=== PATIENT | female | born 1955 | race Caucasian/White ===

== ENCOUNTER 2020-09-14 15:33 | Outpatient (REF) | payer MEDICARE, OTHER, SELFPAY ==
[2020-09-14 17:09] LABS: COVID-19 Test Negative (Negative)
== END 2020-09-14 15:34 | disposition home or self-care (01) ==
LOC: HO.LAB 15:33
PROVIDERS: Visit Provider Internal Medicine
DX: Z20.828 Contact with and (suspected) exposure to other viral communicable diseases (principal)
CPT/HCPCS: 87635

== ENCOUNTER 2020-09-24 08:34 | Outpatient (REF) | payer OTHER, MEDICARE, SELFPAY ==
[2020-09-24 09:35] LABS: Basophils Percent Auto 0.5 % (0-2); Eosinophils Percent Auto 0.8 % (0-4); Hemoglobin 13.6 g/dl (12.0-16.0); Imm Gran Abs Auto 0.01 X10*3/uL (0.00-0.03); Imm Gran Pct Auto 0.3 % (0.0-0.4); Lymphocytes Absolute Auto 0.5 X10*3/uL (1.2-4.9); Lymphocytes Percent Auto 13.7 % (20-40); MANUAL DIFF FLAG SCAN; Mean Corpuscular HGB Conc 32.4 g/dl (31.0-35.0); Mean Corpuscular Hemoglobin 30.2 pg (27.0-33.0); Mean Corpuscular Volume 93.3 fL (80-98); Mean Platelet Volume 10.5 fL (9.4-12.3); Monocytes Absolute Auto 0.5 X10*3/uL (0.1-1.2); Monocytes Percent Auto 12.2 % (2-11); Neutrophils Absolute Auto 2.8 X10*3/uL (2.0-8.3); Neutrophils Percent Auto 72.5 % (45-73); Platelet Count 286 X10*3/uL (160-400); Red Cell Distribution Width 12.4 % (11.0-16.0); SCAN SMEAR FLAG 1; White Blood Count 3.9 X10*3/uL (4.8-10.8)
[2020-09-24 10:00] LABS: Alanine Aminotransferase 26 U/L (0-31); Albumin Level 4.4 g/dL (3.5-5.0); Anion Gap 12 (12-20); Aspartate Amino Transferase 25 U/L (5-31); C Reactive Protein 0.03 mg/dL (< or = 0.50); Carbon Dioxide 27 mmol/L (22-29); Chloride 105 mmol/L (96-108); Estimated Glomerular Filt Rate > 60; Potassium 4.4 mmol/l (3.3-5.1); Sodium 140 mmol/L (135-145)
[2020-09-24 10:35] LABS: Erythrocyte Sedimentation Rate 5 MM/HR (0-20)
[2020-09-24 11:20] LABS: SLIDE REVIEW VERIFIED
== END 2020-09-24 08:35 | disposition home or self-care (01) ==
LOC: HO.LABR 08:34
PROVIDERS: PCP Family Medicine; Visit Provider Internal Medicine
DX: Z51.81 Encounter for therapeutic drug level monitoring (principal); Z79.899 Other long term (current) drug therapy
CPT/HCPCS: 36415; 80051; 82040; 82565; 84450; 84460; 85025; 85652; 86140

== ENCOUNTER 2021-01-01 09:02 | Outpatient (REF) | payer OTHER, SELFPAY ==
--- NOTE | ~2021-01-01 | MM_ITS ---
EXAMINATION: BONE DENSITOMETRY CLINICAL INDICATION: Osteoporosis. COMPARISON: Previous BD dated 05/12/2019 and baseline BD dated 08/23/2007. TECHNIQUE: Using a [employer] DXA System (software version: 13.1) manufactured by [employer], dual-energy x-ray absorptiometry was performed of the lumbar spine and left hip. The images are of good technical quality. Summary results are attached. FINDINGS: AP SPINE L1-L4: Current: BMD 1.002 g/cm2, Z-score -0.1, T-score -1.5, osteopenia, 9.4% decrease from previous, 9.0% decrease from baseline (<5% change is not significant). Prior: BMD 1.106 g/cm2. Baseline: BMD 1.101 g/cm2. LEFT FEMUR, NECK: Current: BMD 0.630 g/cm2, Z-score -1.5, T-score -2.9, osteoporosis. Prior: BMD 0.663 g/cm2. Baseline: BMD 0.783 g/cm2. LEFT FEMUR, TOTAL: Current: BMD 0.713 g/cm2, Z-score -1.2, T-score -2.3, osteopenia, 2.3% decrease from previous, 13.7% decrease from baseline (<5% change is not significant). Prior: BMD 0.730 g/cm2. Baseline: BMD 0.826 g/cm2. IDENTIFIED RISK FACTORS: Rheumatoid arthritis, osteoporosis, height loss, glucocorticoids (chronic), menopause. HISTORY OF FRACTURE: None listed. MEDICATIONS: Calcium supplements or multivitamin, vitamin D. MM/XR DEXA axial skeleton IMPRESSION: 1. DIAGNOSIS: Osteoporosis based on the lowest T-score value of -2.9 in the femoral neck applying World Health Organization criteria. 2. 10-YEAR FRACTURE RISK PREDICTION, FRAX: Major osteoporotic fracture (clinical spine, forearm, hip or shoulder) 33.4%. Hip fracture 12.3%. 3. Treatment Recommendations: NOF guidelines recommend consideration for treatment in postmenopausal women and men age 50 and older presenting with the following: -A hip or vertebral (clinical or morphometric) fracture. -T-score less than or equal to -2.5 at the femoral neck or spine after appropriate evaluation to exclude secondary causes. -Low bone mass at the hip or spine and a 10-year fracture probability by FRAX of greater than or equal to 3% for hip fracture or greater than or equal to 20% for major osteoporotic fracture based on the [place] adapted WHO algorithm. 4. Other Recommendations: All treatment decisions require clinical judgment and consideration of individual patient factors, including patient preferences, comorbidities, previous drug use, risk factors not captured in the FRAX model (e.g. frailty, falls, vitamin D deficiency, increased bone turnover, interval significant decline in bone density) and possible under or overestimation of fracture risk by FRAX. Additional medical evaluation for secondary cause of low bone mineral density may be appropriate. FUTURE SCAN RECOMMENDATION: People with diagnosed cases of osteoporosis or at high risk for fracture should have regular bone mineral density tests. For patients eligible for Medicare, routine testing is allowed once every 2 years. The testing frequency can be increased to one year for patients who have rapidly progressing disease, those who are receiving or discontinuing medical therapy to restore bone mass, or have additional risk factors.
== END 2021-01-01 09:03 | disposition home or self-care (01) ==
LOC: HO.MAMMO 09:02
PROVIDERS: PCP Family Medicine; Visit Provider Internal Medicine Endocrinology, Diabetes & Metabolism
DX: Z13.820 Encounter for screening for osteoporosis (principal); M06.9 Rheumatoid arthritis, unspecified; M81.0 Age-related osteoporosis without current pathological fracture; Z79.52 Long term (current) use of systemic steroids; Z78.0 Asymptomatic menopausal state
CPT/HCPCS: 77080

== ENCOUNTER 2021-01-22 07:20 | Outpatient (REF) | payer OTHER, SELFPAY ==
[2021-01-22 09:22] LABS: Albumin Level 4.5 g/dL (3.5-5.0); Anion Gap 13 (12-20); Blood Urea Nitrogen 14 mg/dL (9-16); Calcium 9.6 mg/dL (8.4-10.2); Carbon Dioxide 28 mmol/L (22-29); Chloride 104 mmol/L (96-108); Estimated Glomerular Filt Rate 58; Glucose Random 93 mg/dL (60-115); Phosphorus 4.4 mg/dL (2.7-4.5); Potassium 4.4 mmol/L (3.3-5.1); Sodium 141 mmol/L (135-145)
[2021-01-22 09:35] LABS: TSH reflex Free T4 0.09 uIU/mL (0.32-4.0)
[2021-01-22 10:11] LABS: Free T4 (Free Thyroxine) 1.35 ng/dL (0.71-1.85)
[2021-01-29 06:47] LABS: N-Telopeptide 50 (see note); NTXCreaRU 104 mg/dL (20-275)
== END 2021-01-22 07:21 | disposition home or self-care (01) ==
LOC: HO.LAB 07:20
PROVIDERS: PCP Family Medicine; Visit Provider Internal Medicine Endocrinology, Diabetes & Metabolism
DX: M81.0 Age-related osteoporosis without current pathological fracture (principal)
CPT/HCPCS: 36415; 80051; 82040; 82306; 82310; 82523; 82565; 82947; 84100; 84439; 84443; 84520

== ENCOUNTER 2021-02-04 07:18 | Outpatient (REF) | payer OTHER, SELFPAY ==
--- NOTE | ~2021-02-04 | MM_ITS ---
EXAMINATION: MM SCREENING DIGITAL BREAST TOMOSYNTHESIS, BILATERAL CLINICAL INFORMATION: Screening. Asymptomatic. The lifetime risk of breast cancer based on the Tyrer-Cuzick Model is 5%. COMPARISON: Mammography: 06/06/2019, 05/04/2018, 07/29/2017 TECHNIQUE: Digital breast tomosynthesis is performed in both the craniocaudal and mediolateral oblique views along with computer-aided detection (CAD). Synthesized 2D images are generated from the tomosynthesis. FINDINGS: There are scattered areas of fibroglandular density (ACR BI-RADS breast composition Category b). There are no significant masses, abnormal calcifications, or other abnormalities. The axilla and skin contours are unremarkable. Parenchymal pattern similar to prior exams. MM/MM tomosynthesis screening BI IMPRESSION: No mammographic evidence of malignancy. ASSESSMENT: BI-RADS 1: Negative RECOMMENDATION: Routine annual mammography screening. This patient's information was entered into a reminder system with a target due date for their next mammogram.
[2021-02-04 08:58] LABS: Basophils Percent Auto 0.5 % (0-2); Eosinophils Percent Auto 0.7 % (0-4); Hematocrit 42.7 % (37-47); Hemoglobin 13.6 g/dl (12.0-16.0); Imm Gran Abs Auto 0.03 X10*3/uL (0.00-0.03); Imm Gran Pct Auto 0.7 % (0.0-0.4); Lymphocytes Absolute Auto 0.5 X10*3/uL (1.2-4.9); Lymphocytes Percent Auto 12.5 % (20-40); MANUAL DIFF FLAG SCAN; Mean Corpuscular HGB Conc 31.9 g/dl (31.0-35.0); Mean Corpuscular Hemoglobin 29.5 pg (27.0-33.0); Mean Corpuscular Volume 92.6 fL (80-98); Mean Platelet Volume 10.4 fL (9.4-12.3); Monocytes Absolute Auto 0.6 X10*3/uL (0.1-1.2); Monocytes Percent Auto 14.4 % (2-11); Neutrophils Percent Auto 71.2 % (45-73); Platelet Count 298 X10*3/uL (160-400); Red Blood Count 4.61 X10*6/uL (4.20-5.50); SCAN SMEAR FLAG 1; White Blood Count 4.2 X10*3/uL (4.8-10.8)
[2021-02-04 09:19] LABS: Alanine Aminotransferase 50 U/L (0-31); Albumin Level 4.4 g/dL (3.5-5.0); Anion Gap 13 (12-20); Aspartate Amino Transferase 38 U/L (5-31); C Reactive Protein 0.02 mg/dL (< or = 0.50); Carbon Dioxide 27 mmol/L (22-29); Chloride 105 mmol/L (96-108); Estimated Glomerular Filt Rate 59; Potassium 4.5 mmol/L (3.3-5.1); Sodium 140 mmol/L (135-145)
[2021-02-04 09:37] LABS: SLIDE REVIEW VERIFIED
[2021-02-04 10:16] LABS: Erythrocyte Sedimentation Rate 5 MM/HR (0-20)
== END 2021-02-04 07:19 | disposition home or self-care (01) ==
LOC: HO.MAMMO 07:18
PROVIDERS: Absent Provider Internal Medicine; PCP Family Medicine; Visit Provider Family Medicine
DX: Z12.31 Encounter for screening mammogram for malignant neoplasm of breast (principal); Z51.81 Encounter for therapeutic drug level monitoring
CPT/HCPCS: 36415; 77063; 77067; 80051; 82040; 82565; 84450; 84460; 85025; 85652; 86140

== ENCOUNTER 2021-02-14 08:36 | Outpatient (REF) | payer OTHER, SELFPAY ==
[2021-02-14 10:45] LABS: Anion Gap 14 (12-20); Blood Urea Nitrogen 19 mg/dL (9-16); Calcium 9.6 mg/dL (8.4-10.2); Carbon Dioxide 28 mmol/L (22-29); Chloride 104 mmol/L (96-108); Estimated Glomerular Filt Rate > 60; Potassium 4.7 mmol/L (3.3-5.1); Sodium 141 mmol/L (135-145)
== END 2021-02-14 08:37 | disposition home or self-care (01) ==
LOC: HO.LAB 08:36
PROVIDERS: Absent Provider Internal Medicine Medical Oncology; PCP Family Medicine; Visit Provider Internal Medicine Endocrinology, Diabetes & Metabolism
DX: M81.0 Age-related osteoporosis without current pathological fracture (principal)
CPT/HCPCS: 36415; 80051; 82310; 82565; 84520

== ENCOUNTER 2021-03-13 14:24 | Outpatient (REF) | payer OTHER, SELFPAY ==
[2021-03-13 15:08] LABS: Blood Urea Nitrogen 16 mg/dL (9-16); Estimated Glomerular Filt Rate 55
== END 2021-03-13 14:25 | disposition home or self-care (01) ==
LOC: HO.MDS 14:24
PROVIDERS: Visit Provider Internal Medicine Medical Oncology
DX: M81.0 Age-related osteoporosis without current pathological fracture (principal)
CPT/HCPCS: 36415; 82565; 84520; 96365; J3489

== ENCOUNTER 2021-04-12 07:38 | Outpatient (REF) | payer OTHER, SELFPAY ==
[2021-04-12 09:40] LABS: Free T4 (Free Thyroxine) 1.36 ng/dL (0.71-1.85); Thyroid Stimulating Hormone 0.16 uIU/mL (0.32-4.0)
== END 2021-04-12 07:39 | disposition home or self-care (01) ==
LOC: HO.LAB 07:38
PROVIDERS: PCP Family Medicine; Visit Provider Internal Medicine Endocrinology, Diabetes & Metabolism
DX: E03.9 Hypothyroidism, unspecified (principal)
CPT/HCPCS: 36415; 84439; 84443

== ENCOUNTER 2021-06-05 11:04 | Outpatient (REF) | payer OTHER, SELFPAY ==
[2021-06-05 12:23] LABS: MANUAL DIFF FLAG NO
[2021-06-05 12:27] LABS: Basophils Percent Auto 0.4 % (0-2); Eosinophils Absolute Auto 0.1 X10*3/uL (0.0-0.4); Eosinophils Percent Auto 1.3 % (0-4); Hematocrit 42.6 % (37-47); Hemoglobin 13.5 g/dl (12.0-16.0); Imm Gran Abs Auto 0.02 X10*3/uL (0.00-0.03); Imm Gran Pct Auto 0.4 % (0.0-0.4); Lymphocytes Absolute Auto 0.7 X10*3/uL (1.2-4.9); Lymphocytes Percent Auto 13.5 % (20-40); Mean Corpuscular HGB Conc 31.7 g/dl (31.0-35.0); Mean Corpuscular Hemoglobin 29.5 pg (27.0-33.0); Mean Corpuscular Volume 93.2 fL (80-98); Mean Platelet Volume 10.5 fL (9.4-12.3); Monocytes Absolute Auto 0.7 X10*3/uL (0.1-1.2); Monocytes Percent Auto 12.4 % (2-11); Neutrophils Absolute Auto 3.8 X10*3/uL (2.0-8.3); Platelet Count 340 X10*3/uL (160-400); Red Blood Count 4.57 X10*6/uL (4.20-5.50); Red Cell Distribution Width 12.5 % (11.0-16.0); White Blood Count 5.2 X10*3/uL (4.8-10.8)
[2021-06-05 13:17] LABS: Erythrocyte Sedimentation Rate 7 MM/HR (0-20)
[2021-06-05 13:18] LABS: Alanine Aminotransferase 27 U/L (0-31); Albumin Level 4.5 g/dL (3.5-5.0); Anion Gap 12 (12-20); Aspartate Amino Transferase 29 U/L (5-31); C Reactive Protein < 0.02 mg/dL (< or = 0.50); Carbon Dioxide 27 mmol/L (22-29); Chloride 105 mmol/L (96-108); Estimated Glomerular Filt Rate 57; Potassium 4.4 mmol/L (3.3-5.1); Sodium 140 mmol/L (135-145)
== END 2021-06-05 11:05 | disposition home or self-care (01) ==
LOC: HO.LAB 11:04
PROVIDERS: PCP Family Medicine; Visit Provider Internal Medicine
DX: Z51.81 Encounter for therapeutic drug level monitoring (principal)
CPT/HCPCS: 36415; 80051; 82040; 82565; 84450; 84460; 85025; 85652; 86140

== ENCOUNTER 2021-08-20 11:30 | Outpatient (REF) | payer OTHER, SELFPAY ==
[2021-08-20 12:09] LABS: Appearance Urine CLOUDY; Color Urine YELLOW; Glucose Urine UA NEG (NEG); Leukocyte Esterase Urine 1+ (NEG); Nitrite Urine POS (NEG); Specific Gravity - Urine 1.015 (1.005-1.025); UACC Culture Trigger YES; Urine Blood 1+ (NEG); Urine Ketones NEG (NEG); Urine Protein NEG (NEG-TRACE)
[2021-08-20 12:14] LABS: Bacteria Urine 3+ /LPF; Squamous Epithelial Cell Urine 2+ /LPF; WBC Clumps Urine NOTED; WBC Urine 50-75 /HPF (0-4)
== END 2021-08-20 11:31 | disposition home or self-care (01) ==
LOC: HO.LAB 11:30
PROVIDERS: PCP Family Medicine; Visit Provider Nurse Practitioner Family
DX: R30.0 Dysuria (principal)
CPT/HCPCS: 81001; 81003; 87086; 87088; 87186

== ENCOUNTER 2021-08-28 11:49 | Outpatient (REF) | payer OTHER, SELFPAY | END 2021-08-28 11:50 | disposition home or self-care (01) | LOC: HO.LAB 11:49 | PROVIDERS: PCP Family Medicine; Visit Provider Nurse Practitioner Family | DX: R30.0 Dysuria (principal) | CPT/HCPCS: 87086; 87088; 87186 ==

== ENCOUNTER 2021-09-04 11:41 | Outpatient (REF) | payer OTHER, SELFPAY ==
[2021-09-04 12:48] LABS: Appearance Urine CLEAR; Color Urine STRAW; Glucose Urine UA NEG (NEG); Leukocyte Esterase Urine NEG (NEG); Nitrite Urine NEG (NEG); Specific Gravity - Urine <= 1.005 (1.005-1.025); Urine Blood NEG (NEG); Urine Ketones NEG (NEG); Urine Protein NEG (NEG-TRACE)
== END 2021-09-04 11:42 | disposition home or self-care (01) ==
LOC: HO.LNP 11:41
PROVIDERS: Visit Provider Family Medicine
DX: R30.0 Dysuria (principal)
CPT/HCPCS: 81003; 87086

== ENCOUNTER 2021-09-24 08:51 | Outpatient (REF) | payer OTHER, SELFPAY ==
[2021-09-24 11:51] LABS: Anion Gap 13 (12-20); Blood Urea Nitrogen 15 mg/dL (9-16); Calcium 9.3 mg/dL (8.4-10.2); Carbon Dioxide 26 mmol/L (22-29); Chloride 106 mmol/L (96-108); Cholesterol 183 mg/dL; Estimated Glomerular Filt Rate 59; Glucose Random 111 mg/dL (60-115); HDL Cholesterol 56 mg/dL; LDL Cholesterol Calculated 109 mg/dl; Sodium 141 mmol/L (135-145); Triglycerides 93 mg/dL
[2021-09-24 12:04] LABS: TSH reflex Free T4 0.55 uIU/mL (0.32-4.0)
== END 2021-09-24 08:52 | disposition home or self-care (01) ==
LOC: HO.HMGCLDS 08:51
PROVIDERS: PCP Family Medicine; Visit Provider Family Medicine
DX: J45.909 Unspecified asthma, uncomplicated (principal); N81.10 Cystocele, unspecified; I10 Essential (primary) hypertension; E03.9 Hypothyroidism, unspecified
CPT/HCPCS: 36415; 80048; 80061; 84443

== ENCOUNTER 2021-10-03 13:15 | Outpatient (REF) | payer OTHER, SELFPAY ==
[2021-10-03 13:31] LABS: MANUAL DIFF FLAG NO
[2021-10-03 14:33] LABS: Basophils Percent Auto 0.7 % (0-2); Eosinophils Absolute Auto 0.1 X10*3/uL (0.0-0.4); Eosinophils Percent Auto 2.9 % (0-4); Hematocrit 40.4 % (37.0-47.0); Hemoglobin 13.1 g/dl (12.0-16.0); Imm Gran Abs Auto 0.01 X10*3/uL (0.00-0.03); Imm Gran Pct Auto 0.2 % (0.0-0.4); Lymphocytes Absolute Auto 0.9 X10*3/uL (1.2-4.9); Lymphocytes Percent Auto 20.7 % (20-40); Mean Corpuscular HGB Conc 32.4 g/dl (31.0-35.0); Mean Corpuscular Hemoglobin 29.6 pg (27.0-33.0); Mean Corpuscular Volume 91.2 fL (80.0-98.0); Mean Platelet Volume 10.4 fL (9.4-12.3); Monocytes Absolute Auto 0.7 X10*3/uL (0.1-1.2); Monocytes Percent Auto 16.2 % (2-11); Neutrophils Absolute Auto 2.7 x10*3/uL (2.0-8.3); Neutrophils Percent Auto 59.3 % (45-73); Platelet Count 300 X10*3/uL (160-400); Red Blood Count 4.43 X10*6/uL (4.20-5.50); Red Cell Distribution Width 12.4 % (11.0-16.0); White Blood Count 4.5 X10*3/uL (4.8-10.8)
[2021-10-03 14:57] LABS: Alanine Aminotransferase 21 U/L (0-31); Albumin Level 4.3 g/dL (3.5-5.0); Anion Gap 11 (12-20); Aspartate Amino Transferase 20 U/L (5-31); C Reactive Protein 0.18 mg/dL (< or = 0.50); Carbon Dioxide 26 mmol/L (22-29); Chloride 102 mmol/L (96-108); Estimated Glomerular Filt Rate 55; Potassium 4.1 mmol/L (3.3-5.1); Sodium 135 mmol/L (135-145)
[2021-10-03 15:25] LABS: Erythrocyte Sedimentation Rate 18 MM/HR (0-20)
== END 2021-10-03 13:16 | disposition home or self-care (01) ==
LOC: HO.LABR 13:15
PROVIDERS: PCP Family Medicine; Visit Provider Internal Medicine
DX: Z51.81 Encounter for therapeutic drug level monitoring (principal)
CPT/HCPCS: 36415; 80051; 82040; 82565; 84450; 84460; 85025; 85652; 86140

== ENCOUNTER 2021-11-11 13:20 | Outpatient (REF) | payer OTHER, SELFPAY ==
[2021-11-11 15:01] LABS: Influenza A PCR NEGATIVE (Negative); Influenza B PCR NEGATIVE (Negative); Resp Syncy Virus RNA Qual PCR NEGATIVE (Negative); SARS COV2 PCR INHOUSE NEGATIVE (Negative)
== END 2021-11-11 13:21 | disposition home or self-care (01) ==
LOC: HO.HMGCLDS 13:20
PROVIDERS: PCP Family Medicine; Visit Provider Nurse Practitioner Family
DX: R05.9 Cough, unspecified (principal); Z20.822 Contact with and (suspected) exposure to COVID-19
CPT/HCPCS: 0241U; C9803

== ENCOUNTER 2022-01-14 07:52 | Outpatient (REF) | payer OTHER, SELFPAY ==
[2022-01-14 09:29] LABS: Albumin Level 4.3 g/dL (3.5-5.0); Anion Gap 9 (12-20); Blood Urea Nitrogen 19 mg/dL (9-16); Calcium 9.8 mg/dL (8.4-10.2); Carbon Dioxide 29 mmol/L (22-29); Chloride 105 mmol/L (96-108); Estimated Glomerular Filt Rate 59; Glucose Random 91 mg/dL (60-115); Potassium 4.4 mmol/L (3.3-5.1); Sodium 139 mmol/L (135-145)
[2022-01-14 09:37] LABS: TSH reflex Free T4 0.67 uIU/mL (0.32-4.0)
[2022-01-17 16:02] LABS: Collagen Type I C-Telopeptide 142 pg/mL (see note)
== END 2022-01-14 07:53 | disposition home or self-care (01) ==
LOC: HO.LAB 07:52
PROVIDERS: PCP Family Medicine; Visit Provider Internal Medicine Endocrinology, Diabetes & Metabolism
DX: M81.0 Age-related osteoporosis without current pathological fracture (principal); E03.9 Hypothyroidism, unspecified
CPT/HCPCS: 36415; 80051; 82040; 82310; 82523; 82565; 82947; 84100; 84443; 84520

== ENCOUNTER 2022-02-05 08:12 | Outpatient (REF) | payer OTHER, SELFPAY ==
[2022-02-05 08:38] LABS: MANUAL DIFF FLAG NO
[2022-02-05 09:19] LABS: Basophils Percent Auto 0.5 % (0-2); Eosinophils Absolute Auto 0.1 X10*3/uL (0.0-0.4); Hematocrit 42.3 % (37.0-47.0); Hemoglobin 13.3 g/dl (12.0-16.0); Imm Gran Abs Auto 0.14 X10*3/uL (0.00-0.03); Imm Gran Pct Auto 2.3 % (0.0-0.4); Lymphocytes Absolute Auto 1.1 X10*3/uL (1.2-4.9); Mean Corpuscular HGB Conc 31.4 g/dl (31.0-35.0); Mean Corpuscular Hemoglobin 29.6 pg (27.0-33.0); Mean Corpuscular Volume 94.2 fL (80.0-98.0); Mean Platelet Volume 9.6 fL (9.4-12.3); Monocytes Absolute Auto 0.7 X10*3/uL (0.1-1.2); Neutrophils Absolute Auto 4.2 x10*3/uL (2.0-8.3); Neutrophils Percent Auto 67.2 % (45-73); Platelet Count 399 X10*3/uL (160-400); Red Blood Count 4.49 X10*6/uL (4.20-5.50); Red Cell Distribution Width 12.7 % (11.0-16.0); White Blood Count 6.2 X10*3/uL (4.8-10.8)
[2022-02-05 09:42] LABS: Alanine Aminotransferase 41 U/L (0-31); Albumin Level 4.3 g/dL (3.5-5.0); Anion Gap 14 (12-20); Aspartate Amino Transferase 27 U/L (5-31); C Reactive Protein 0.06 mg/dL (< or = 0.50); Carbon Dioxide 27 mmol/L (22-29); Chloride 102 mmol/L (96-108); Estimated Glomerular Filt Rate > 60; Potassium 4.6 mmol/L (3.3-5.1); Sodium 138 mmol/L (135-145)
[2022-02-05 10:06] LABS: Erythrocyte Sedimentation Rate 17 MM/HR (0-20)
== END 2022-02-05 08:13 | disposition home or self-care (01) ==
LOC: HO.LABR 08:12
PROVIDERS: PCP Family Medicine; Visit Provider Internal Medicine
DX: Z51.81 Encounter for therapeutic drug level monitoring (principal)
CPT/HCPCS: 36415; 80051; 82040; 82565; 84450; 84460; 85025; 85652; 86140

== ENCOUNTER 2022-02-22 11:02 | Outpatient (REF) | payer OTHER, SELFPAY ==
--- NOTE | ~2022-02-22 | XR_ITS ---
EXAMINATION: XR CHEST CLINICAL INFORMATION: Acute bronchitis COMPARISON: 08/23/2018 TECHNIQUE: 2 views of the chest were obtained. FINDINGS: No focal consolidation, pulmonary edema, or pleural effusion. Stable cardiomediastinal silhouette. XR/XR chest 2V IMPRESSION: No acute cardiopulmonary findings. No change.
== END 2022-02-22 11:03 | disposition home or self-care (01) ==
LOC: HO.HMGCX 11:02
PROVIDERS: Visit Provider Internal Medicine
DX: J20.9 Acute bronchitis, unspecified (principal)
CPT/HCPCS: 71046

== ENCOUNTER 2022-02-26 07:24 | Outpatient (REF) | payer OTHER, SELFPAY ==
--- NOTE | ~2022-02-26 | MM_ITS ---
EXAMINATION: MM SCREENING DIGITAL BREAST TOMOSYNTHESIS, BILATERAL CLINICAL INFORMATION: Screening. Asymptomatic. The lifetime risk of breast cancer based on the Tyrer-Cuzick Model is 5%. COMPARISON: Mammography: 02/04/2021, 06/06/2019, 05/04/2018 TECHNIQUE: Digital breast tomosynthesis is performed in both the craniocaudal and mediolateral oblique views along with computer-aided detection (CAD). Synthesized 2D images are generated from the tomosynthesis. FINDINGS: There are scattered areas of fibroglandular density (ACR BI-RADS breast composition Category b). There are no significant masses, abnormal calcifications, or other abnormalities. There are no significant changes from prior exams. MM/MM tomosynthesis screening BI IMPRESSION: No mammographic evidence of malignancy. ASSESSMENT: BI-RADS 1: Negative RECOMMENDATION: Routine annual mammography screening. This patient's information was entered into a reminder system with a target due date for their next mammogram.
== END 2022-02-26 07:25 | disposition home or self-care (01) ==
LOC: HO.MAMMO 07:24
PROVIDERS: PCP Family Medicine; Visit Provider Family Medicine
DX: Z12.31 Encounter for screening mammogram for malignant neoplasm of breast (principal)
CPT/HCPCS: 77063; 77067

== ENCOUNTER 2022-08-14 10:56 | Outpatient (REF) | payer OTHER, SELFPAY ==
[2022-08-14 11:13] LABS: MANUAL DIFF FLAG NO
[2022-08-14 11:40] LABS: Basophils Percent Auto 0.3 % (0-2); Eosinophils Percent Auto 0.6 % (0-4); Hematocrit 42.1 % (37.0-47.0); Hemoglobin 13.7 g/dl (12.0-16.0); Imm Gran Abs Auto 0.04 X10*3/uL (0.00-0.03); Imm Gran Pct Auto 0.6 % (0.0-0.4); Lymphocytes Percent Auto 15.7 % (20-40); Mean Corpuscular HGB Conc 32.5 g/dl (31.0-35.0); Mean Corpuscular Hemoglobin 30.1 pg (27.0-33.0); Mean Corpuscular Volume 92.5 fL (80.0-98.0); Mean Platelet Volume 10.2 fL (9.4-12.3); Monocytes Absolute Auto 0.7 X10*3/uL (0.1-1.2); Monocytes Percent Auto 9.9 % (2-11); Neutrophils Absolute Auto 4.8 x10*3/uL (2.0-8.3); Neutrophils Percent Auto 72.9 % (45-73); Platelet Count 313 X10*3/uL (160-400); Red Blood Count 4.55 X10*6/uL (4.20-5.50); Red Cell Distribution Width 13.2 % (11.0-16.0); White Blood Count 6.6 X10*3/uL (4.8-10.8)
[2022-08-14 12:21] LABS: Alanine Aminotransferase 34 U/L (0-31); Albumin Level 4.5 g/dL (3.5-5.0); Anion Gap 15 (12-20); Aspartate Amino Transferase 31 U/L (5-31); C Reactive Protein < 0.02 mg/dL (< or = 0.50); Carbon Dioxide 26 mmol/L (22-29); Chloride 103 mmol/L (96-108); Estimated Glomerular Filt Rate > 60; Potassium 4.3 mmol/L (3.3-5.1); Sodium 140 mmol/L (135-145)
[2022-08-14 12:42] LABS: Erythrocyte Sedimentation Rate 5 MM/HR (0-20)
== END 2022-08-14 10:57 | disposition home or self-care (01) ==
LOC: HO.LABR 10:56
PROVIDERS: PCP Family Medicine; Visit Provider Internal Medicine
DX: Z51.81 Encounter for therapeutic drug level monitoring (principal); Z79.899 Other long term (current) drug therapy
CPT/HCPCS: 36415; 80051; 82040; 82565; 84450; 84460; 85025; 85652; 86140

== ENCOUNTER 2022-10-09 15:10 | Outpatient (REF) | payer OTHER, SELFPAY ==
--- NOTE | ~2022-10-09 | XR_ITS ---
EXAMINATION: LUMBAR SPINE AND PELVIS AND LEFT HIP X-RAY CLINICAL INFORMATION: Pain COMPARISON: None TECHNIQUE: 3 views of the lumbar spine. One view of the pelvis and 2 views of the left hip FINDINGS: Lumbar spine: There is mild curvature of the lower lumbar sacral spine to the right. There is mild 2 mm anterior subluxation of L3 with respect to L2 and L4, 4 mm anterolisthesis of L4 L1 with respect to T12 and L4 with respect to S1. Bone alignment is otherwise normal. No fracture or dislocation There is degenerative disc disease at L5-S1 and T12-L1. 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 Pelvis and left hip: Bone alignment is normal. No fracture or dislocation. Normal hip joints. Normal soft tissues. XR/XR lumbar spine 2-3V IMPRESSION: Multilevel degenerative changes and mild curvature of the lower lumbar sacral spine to the right. Normal pelvis and left hip.
--- NOTE | ~2022-10-09 | XR_ITS ---
EXAMINATION: LUMBAR SPINE AND PELVIS AND LEFT HIP X-RAY CLINICAL INFORMATION: Pain COMPARISON: None TECHNIQUE: 3 views of the lumbar spine. One view of the pelvis and 2 views of the left hip FINDINGS: Lumbar spine: There is mild curvature of the lower lumbar sacral spine to the right. There is mild 2 mm anterior subluxation of L3 with respect to L2 and L4, 4 mm anterolisthesis of L4 L1 with respect to T12 and L4 with respect to S1. Bone alignment is otherwise normal. No fracture or dislocation There is degenerative disc disease at L5-S1 and T12-L1. 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 Pelvis and left hip: Bone alignment is normal. No fracture or dislocation. Normal hip joints. Normal soft tissues. XR/XR hip LT w PEL1V IMPRESSION: Multilevel degenerative changes and mild curvature of the lower lumbar sacral spine to the right. Normal pelvis and left hip.
== END 2022-10-09 15:11 | disposition home or self-care (01) ==
LOC: HO.XRAY 15:10
PROVIDERS: PCP Family Medicine; Visit Provider Family Medicine
DX: M25.552 Pain in left hip (principal); M54.50 Low back pain, unspecified
CPT/HCPCS: 72100; 73502

== ENCOUNTER 2023-01-02 10:05 | Outpatient (REF) | payer OTHER, SELFPAY ==
[2023-01-02 10:17] LABS: MANUAL DIFF FLAG NO
[2023-01-02 10:42] LABS: Basophils Percent Auto 0.4 % (0-2); Eosinophils Absolute Auto 0.1 X10*3/uL (0.0-0.4); Hematocrit 40.4 % (37.0-47.0); Hemoglobin 12.9 g/dl (12.0-16.0); Imm Gran Abs Auto 0.02 X10*3/uL (0.00-0.03); Imm Gran Pct Auto 0.4 % (0.0-0.4); Lymphocytes Absolute Auto 0.6 X10*3/uL (1.2-4.9); Lymphocytes Percent Auto 10.8 % (20-40); Mean Corpuscular HGB Conc 31.9 g/dl (31.0-35.0); Mean Corpuscular Hemoglobin 29.3 pg (27.0-33.0); Mean Corpuscular Volume 91.6 fL (80.0-98.0); Mean Platelet Volume 9.5 fL (9.4-12.3); Monocytes Absolute Auto 0.6 X10*3/uL (0.1-1.2); Monocytes Percent Auto 11.6 % (2-11); Neutrophils Absolute Auto 4.2 x10*3/uL (2.0-8.3); Neutrophils Percent Auto 74.8 % (45-73); Platelet Count 317 X10*3/uL (160-400); Red Blood Count 4.41 X10*6/uL (4.20-5.50); Red Cell Distribution Width 12.7 % (11.0-16.0); White Blood Count 5.5 X10*3/uL (4.8-10.8)
[2023-01-02 11:09] LABS: Alanine Aminotransferase 34 U/L (0-31); Albumin Level 4.2 g/dL (3.5-5.0); Anion Gap 13 (12-20); Aspartate Amino Transferase 24 U/L (5-31); Carbon Dioxide 27 mmol/L (22-29); Chloride 104 mmol/L (96-108); Estimated Glomerular Filt Rate > 60; Potassium 4.2 mmol/L (3.3-5.1); Sodium 140 mmol/L (135-145)
[2023-01-02 11:28] LABS: Erythrocyte Sedimentation Rate 25 MM/HR (0-20)
== END 2023-01-02 10:06 | disposition home or self-care (01) ==
LOC: HO.LAB 10:05
PROVIDERS: PCP Family Medicine; Visit Provider Internal Medicine
DX: Z79.899 Other long term (current) drug therapy (principal)
CPT/HCPCS: 36415; 80051; 82040; 82565; 84450; 84460; 85025; 85652; 86140

== ENCOUNTER 2023-01-13 10:49 | Outpatient (REF) | payer OTHER, SELFPAY ==
--- NOTE | ~2023-01-13 | MM_ITS ---
EXAMINATION: BONE DENSITOMETRY CLINICAL INDICATION: Osteoporosis. COMPARISON: Previous BD dated 01/01/2021 and baseline BD dated 08/23/2007. TECHNIQUE: Using a [employer] DXA System (software version: 13.1) manufactured by [employer], dual-energy x-ray absorptiometry was performed of the lumbar spine and left hip. The images are of good technical quality. Summary results are attached. FINDINGS: AP SPINE L1-L4: Current: BMD 1.174 g/cm2, Z-score 1.4, T-score 0.0, normal, 17.2% increase from previous, 6.6% increase from baseline (<5% change is not significant). Prior: BMD 1.002 g/cm2. Baseline: BMD 1.101 g/cm2. LEFT FEMUR, NECK: Current: BMD 0.612 g/cm2, Z-score -1.6, T-score -3.1, osteoporosis. Prior: BMD 0.630 g/cm2. Baseline: BMD 0.783 g/cm2. LEFT FEMUR, TOTAL: Current: BMD 0.702 g/cm2, Z-score -1.2, T-score -2.4, osteopenia, 1.5% decrease from previous, 15.0% decrease from baseline (<5% change is not significant). Prior: BMD 0.713 g/cm2. Baseline: BMD 0.826 g/cm2. IDENTIFIED RISK FACTORS: Rheumatoid arthritis. Osteoporosis. Height loss. Menopause. Glucocorticoids (chronic). HISTORY OF FRACTURE: None listed. MEDICATIONS: Calcium supplement or multivitamin. Vitamin D. Bisphosphonates. MM/XR DEXA axial skeleton IMPRESSION: 1. DIAGNOSIS: Osteoporosis based on the lowest T-score value of -3.1 in the femoral neck applying World Health Organization criteria. 2. 10-YEAR FRACTURE RISK PREDICTION, FRAX: According to the guidelines, FRAX calculation should only be performed on patients in the osteopenia bone density category. Therefore, FRAX was not performed on this patient.? 3. Treatment Recommendations: NOF guidelines recommend consideration for treatment in postmenopausal women and men age 50 and older presenting with the following: -A hip or vertebral (clinical or morphometric) fracture. -T-score less than or equal to -2.5 at the femoral neck or spine after appropriate evaluation to exclude secondary causes. -Low bone mass at the hip or spine and a 10-year fracture probability by FRAX of greater than or equal to 3% for hip fracture or greater than or equal to 20% for major osteoporotic fracture based on the [place] adapted WHO algorithm. 4. Other Recommendations: All treatment decisions require clinical judgment and consideration of individual patient factors, including patient preferences, comorbidities, previous drug use, risk factors not captured in the FRAX model (e.g. frailty, falls, vitamin D deficiency, increased bone turnover, interval significant decline in bone density) and possible under or overestimation of fracture risk by FRAX. Additional medical evaluation for secondary cause of low bone mineral density may be appropriate. FUTURE SCAN RECOMMENDATION: People with diagnosed cases of osteoporosis or at high risk for fracture should have regular bone mineral density tests. For patients eligible for Medicare, routine testing is allowed once every 2 years. The testing frequency can be increased to one year for patients who have rapidly progressing disease, those who are receiving or discontinuing medical therapy to restore bone mass, or have additional risk factors.
== END 2023-01-13 10:50 | disposition home or self-care (01) ==
LOC: HO.MAMMO 10:49
PROVIDERS: PCP Family Medicine; Visit Provider Internal Medicine Endocrinology, Diabetes & Metabolism
DX: Z13.820 Encounter for screening for osteoporosis (principal); M81.0 Age-related osteoporosis without current pathological fracture; Z78.0 Asymptomatic menopausal state
CPT/HCPCS: 77080

== ENCOUNTER 2023-01-23 08:24 | Outpatient (REF) | payer OTHER, SELFPAY ==
[2023-01-23 11:33] LABS: Anion Gap 11 (12-20); Blood Urea Nitrogen 14 mg/dL (9-16); Calcium 9.7 mg/dL (8.4-10.2); Carbon Dioxide 28 mmol/L (22-29); Chloride 105 mmol/L (96-108); Estimated Glomerular Filt Rate > 60; Potassium 4.3 mmol/L (3.3-5.1); Sodium 140 mmol/L (135-145)
[2023-01-23 11:46] LABS: TSH reflex Free T4 1.05 uIU/mL (0.32-4.0); Vitamin D 25-OH Total 54.8 ng/mL (>30)
[2023-01-28 15:38] LABS: Collagen Type I C-Telopeptide 223 pg/mL (see note)
== END 2023-01-23 08:25 | disposition home or self-care (01) ==
LOC: HO.LAB 08:24
PROVIDERS: PCP Family Medicine; Visit Provider Internal Medicine Endocrinology, Diabetes & Metabolism
DX: M81.0 Age-related osteoporosis without current pathological fracture (principal); E03.9 Hypothyroidism, unspecified
CPT/HCPCS: 36415; 80051; 82306; 82310; 82523; 82565; 84443; 84520

== ENCOUNTER 2023-03-04 07:45 | Outpatient (REF) | payer OTHER, SELFPAY ==
--- NOTE | ~2023-03-04 | MM_ITS ---
EXAMINATION: MM SCREENING DIGITAL BREAST TOMOSYNTHESIS, BILATERAL CLINICAL INFORMATION: Screening. Asymptomatic. The lifetime risk of breast cancer based on the Tyrer-Cuzick Model is 4%. COMPARISON: Multiple prior mammography exams, including most recent 12/29/2021. TECHNIQUE: Digital breast tomosynthesis is performed in both the craniocaudal and mediolateral oblique views along with computer-aided detection (CAD). Synthesized 2D images are generated from the tomosynthesis. FINDINGS: There are scattered areas of fibroglandular density (ACR BI-RADS breast composition Category b). Parenchymal pattern is similar to prior studies. Small focal asymmetry mid outer right breast is similar to prior studies. There is no developing density or architectural abnormality. There are no significant masses, abnormal calcifications, or other abnormalities. The axilla and skin contours are unremarkable. MM/MM tomosynthesis screening BI IMPRESSION: No significant changes from prior studies. ASSESSMENT: BI-RADS 2: Benign RECOMMENDATION: Routine annual mammography screening. This patient's information was entered into a reminder system with a target due date for their next mammogram.
== END 2023-03-04 07:46 | disposition home or self-care (01) ==
LOC: HO.MAMMO 07:45
PROVIDERS: PCP Family Medicine; Visit Provider Family Medicine
DX: Z12.31 Encounter for screening mammogram for malignant neoplasm of breast (principal)
CPT/HCPCS: 77063; 77067

== ENCOUNTER 2023-05-29 07:21 | Outpatient (REF) | payer OTHER, SELFPAY | END 2023-05-29 07:22 | disposition home or self-care (01) | LOC: HO.LAB 07:21 | PROVIDERS: PCP Family Medicine; Visit Provider Internal Medicine | DX: Z79.899 Other long term (current) drug therapy (principal) | CPT/HCPCS: 36415; 80051; 82040; 82565; 84450; 84460; 85025; 85652; 86140 ==

== ENCOUNTER 2023-06-10 08:24 | Outpatient (REF) | payer OTHER, SELFPAY ==
[2023-06-10 11:48] LABS: Estimated Average Glucose 108 mg/dL; Hemoglobin A1c % 5.4 %
[2023-06-10 12:08] LABS: Glucose Random 91 mg/dL (60-115)
[2023-06-10 18:06] LABS: Cholesterol 175 mg/dL; HDL Cholesterol 60 mg/dL; LDL Cholesterol Calculated 96 mg/dl; Triglycerides 96 mg/dL
[2023-06-11 05:13] LABS: ~Hepatitis C Antibody Nonreactive (Nonreactive)
== END 2023-06-10 08:25 | disposition home or self-care (01) ==
LOC: HO.HMGCLDS 08:24
PROVIDERS: PCP Family Medicine; Visit Provider Family Medicine
DX: Z00.00 Encounter for general adult medical examination without abnormal findings (principal); E03.9 Hypothyroidism, unspecified; M06.9 Rheumatoid arthritis, unspecified
CPT/HCPCS: 36415; 80061; 82947; 83036; 83690; 86803

== ENCOUNTER 2023-10-08 11:08 | Outpatient (REF) | payer OTHER, SELFPAY ==
[2023-10-08 11:20] LABS: MANUAL DIFF FLAG NO
[2023-10-08 11:27] LABS: Basophils Percent Auto 0.4 % (0-2); Eosinophils Absolute Auto 0.1 X10*3/uL (0.0-0.4); Hematocrit 40.8 % (37.0-47.0); Hemoglobin 13.3 g/dl (12.0-16.0); Imm Gran Abs Auto 0.03 X10*3/uL (0.00-0.03); Imm Gran Pct Auto 0.6 % (0.0-0.4); Lymphocytes Absolute Auto 0.9 X10*3/uL (1.2-4.9); Lymphocytes Percent Auto 17.4 % (20-40); Mean Corpuscular HGB Conc 32.6 g/dl (31.0-35.0); Mean Corpuscular Hemoglobin 29.7 pg (27.0-33.0); Mean Corpuscular Volume 91.1 fL (80.0-98.0); Mean Platelet Volume 9.3 fL (9.4-12.3); Monocytes Absolute Auto 0.5 X10*3/uL (0.1-1.2); Monocytes Percent Auto 9.4 % (2-11); Neutrophils Absolute Auto 3.7 x10*3/uL (2.0-8.3); Neutrophils Percent Auto 71.2 % (45-73); Platelet Count 332 X10*3/uL (160-400); Red Blood Count 4.48 X10*6/uL (4.20-5.50); Red Cell Distribution Width 12.9 % (11.0-16.0); White Blood Count 5.2 X10*3/uL (4.8-10.8)
[2023-10-08 11:43] LABS: Alanine Aminotransferase 30 U/L (0-31); Alkaline Phosphatase 62 U/L (39-117); Aspartate Amino Transferase 33 U/L (5-31); C Reactive Protein < 0.04 mg/dL (< or = 0.50)
[2023-10-08 12:12] LABS: Erythrocyte Sedimentation Rate 10 MM/HR (0-20)
== END 2023-10-08 11:09 | disposition home or self-care (01) ==
LOC: HO.LAB 11:08
PROVIDERS: Visit Provider Internal Medicine
DX: M05.79 Rheumatoid arthritis with rheumatoid factor of multiple sites without organ or systems involvement (principal)
CPT/HCPCS: 36415; 84075; 84450; 84460; 85025; 85652; 86140

== ENCOUNTER 2023-11-26 11:01 | Outpatient (REF) | payer OTHER, SELFPAY | END 2023-11-26 11:02 | disposition home or self-care (01) | LOC: HO.XRAY 11:01 | PROVIDERS: Visit Provider Family Medicine | DX: R05.9 Cough, unspecified (principal) | CPT/HCPCS: 71046 ==

== ENCOUNTER 2023-12-18 11:53 | Outpatient (REF) | payer OTHER, SELFPAY ==
[2023-12-21 04:12] LABS: HBS Num1 127.72 mIU/mL (0-7.99); HBsAGNum1 0.44 S/CO (0.00-0.99); Hepatitis B Surface Antigen Negative (Negative); ~HepC Num1 0.13 S/CO (0.00-0.79); ~Hepatitis B Surface Antibody REACTIVE (Nonreactive); ~Hepatitis C Antibody Nonreactive (Nonreactive)
[2023-12-21 12:43] LABS: TS Negative Control Passed; TS Panel A 1; TS Panel B 0; TS Positive Control Passed; TSpotTB Negative (Negative)
== END 2023-12-18 11:54 | disposition home or self-care (01) ==
LOC: HO.LAB 11:53
PROVIDERS: Visit Provider Internal Medicine
DX: Z11.1 Encounter for screening for respiratory tuberculosis (principal); Z51.81 Encounter for therapeutic drug level monitoring; Z79.899 Other long term (current) drug therapy
CPT/HCPCS: 36415; 86481; 86706; 86803; 87340

== ENCOUNTER 2024-02-24 11:49 | Outpatient (REF) | payer OTHER, SELFPAY ==
[2024-02-24 14:05] LABS: Parathyroid Hormone Intact 49.8 pg/mL (8.7-77.1)
[2024-02-24 14:16] LABS: Anion Gap 11 (12-20); Blood Urea Nitrogen 15 mg/dL (9-16); Calcium 9.8 mg/dL (8.4-10.2); Carbon Dioxide 28 mmol/L (22-29); Chloride 104 mmol/L (96-108); Estimated Glomerular Filt Rate > 60; Sodium 139 mmol/L (135-145)
[2024-02-24 14:34] LABS: Vitamin D 25-OH Total 53.4 ng/mL (>30)
[2024-02-24 14:58] LABS: TSH reflex Free T4 0.14 uIU/mL (0.32-4.0)
[2024-02-29 22:22] LABS: Collagen Type I C-Telopeptide 175 pg/mL (see note)
== END 2024-02-24 11:50 | disposition home or self-care (01) ==
LOC: HO.LAB 11:49
PROVIDERS: PCP Family Medicine; Visit Provider Internal Medicine Endocrinology, Diabetes & Metabolism
DX: E03.9 Hypothyroidism, unspecified (principal); M81.0 Age-related osteoporosis without current pathological fracture
CPT/HCPCS: 36415; 80051; 82306; 82310; 82523; 82565; 83970; 84439; 84443; 84520

== ENCOUNTER 2024-03-09 07:57 | Outpatient (REF) | payer OTHER, SELFPAY | END 2024-03-09 07:58 | disposition home or self-care (01) | LOC: HO.MAMMO 07:57 | PROVIDERS: PCP Family Medicine; Visit Provider Family Medicine | DX: Z12.31 Encounter for screening mammogram for malignant neoplasm of breast (principal) | CPT/HCPCS: 77063; 77067 ==

== ENCOUNTER → 2024-03-09 08:00 | Outpatient (BNV) | payer OTHER, SELFPAY | PROVIDERS: PCP Family Medicine; Visit Provider Radiology Diagnostic Radiology | DX: Z12.31 Encounter for screening mammogram for malignant neoplasm of breast (principal) | CPT/HCPCS: 77063; 77067 ==

== ENCOUNTER 2024-04-29 07:41 | Day surgery (SDC) | payer OTHER, SELFPAY ==
[2024-04-27 14:53] VITALS: BMI 25.3
--- NOTE | 2024-04-28 09:33 | HO.ANESPROP2 ---
Documented by User: Kaley Seay NP 04/28/24 09:33 HPI - Anesthesia Eval Consult details Narrative: 69yo F for Colonoscopy PMFSH Active Problems Active Problems: All Active Problems Acute bronchitis (Acute) Past Medical History Medical History Leukopenia Rheumatoid arthritis GERD (gastroesophageal reflux disease) Asthma HTN (hypertension) Hypothyroid Surgical History Surgical History Hx of sinus surgery History of carpal tunnel release H/O colonoscopy Social History Social History Patient Tobacco Use Status: Never used Tobacco Use of substances other than those prescribed or required for medical reasons: No Are you DNR?: No Advance Directives: No Advance Directives Information Provided: Yes Meds Allergies Allergy/AdvReac Type Severity Reaction Status Date / Time amoxicillin [AMOXICILLIN] Allergy Unknown RASH Verified 04/29/24 07:49 clarithromycin [From BIAXIN] Allergy Unknown HIVS,EXHAUS Verified 04/29/24 07:49 TION doxycycline [DOXYCYCLINE] Allergy Unknown HIVES Verified 04/29/24 07:49 salsalate [SALSALATE] Allergy Unknown HIVES Verified 04/29/24 07:49 sulfamethoxazole Allergy Unknown RASH/HIVES Verified 04/29/24 07:49 [From BACTRIM] trimethoprim [From BACTRIM] Allergy Unknown RASH/HIVES Verified 04/29/24 07:49 levofloxacin [From LEVAQUIN] AdvReac Unknown SWELLING Verified 04/29/24 07:49 IN ARMS Home Medications ?Medication ?Instructions ?Recorded ?Confirmed ?Last Taken ?Type albuterol sulfate 90 mcg/actuation 1 puff PO QID PRN wheezing 02/22/22 04/27/24 Unknown History aerosol inhaler clindamycin 1.2 % (1 % topical acne 02/22/22 Unknown History base)-benzoyl peroxide 5 % topical gel diltiazem HCl 120 mg 120 mg PO DAILY 02/22/22 04/29/24 04/29/24 History capsule,extended release 24 hr fluticasone propionate 220 2 puff inhalation BID 02/22/22 Unknown History mcg/actuation HFA aerosol inhaler (Flovent HFA) hydroxychloroquine 200 mg tablet 200 mg PO BID 02/22/22 04/29/24 04/28/24 History levothyroxine 112 mcg tablet 112 mcg PO DAILY 02/22/22 04/29/24 04/28/24 History (Synthroid) tazarotene 0.1 % topical gel topical 02/22/22 Unknown History (Tazorac) tofacitinib 11 mg tablet,extended 11 mg PO DAILY 02/22/22 04/29/24 04/28/24 History release 24 hr (Xeljanz XR) fluticasone furoate 100 1 ea inhalation DAILY 04/27/24 04/27/24 Unknown History mcg-vilanterol 25 mcg/dose inhalation powder (Breo Ellipta) pantoprazole 40 mg tablet,delayed 40 mg PO DAILY 04/27/24 04/29/24 04/28/24 History release Exam Height,Weight and Vital Signs: Height 5 ft 6 in Weight 71.214 kg Assessment and Plan Assessment Anesthesia Assessment: Chart Reviewed Documented by User: Toby Carvajal MD 04/29/24 08:05 PMFSH Past Medical History Medical History Leukopenia Rheumatoid arthritis GERD (gastroesophageal reflux disease) Asthma HTN (hypertension) Hypothyroid Family History Family history of problems with anesthesia: No Surgical History Surgical History Hx of sinus surgery History of carpal tunnel release H/O colonoscopy History of Problems with Anesthesia: No Social History Social History Patient Tobacco Use Status: Never used Tobacco Use of substances other than those prescribed or required for medical reasons: No Are you DNR?: No Advance Directives: No Advance Directives Information Provided: Yes Meds Allergies Allergy/AdvReac Type Severity Reaction Status Date / Time amoxicillin [AMOXICILLIN] Allergy Unknown RASH Verified 04/29/24 07:49 clarithromycin [From BIAXIN] Allergy Unknown HIVS,EXHAUS Verified 04/29/24 07:49 TION doxycycline [DOXYCYCLINE] Allergy Unknown HIVES Verified 04/29/24 07:49 salsalate [SALSALATE] Allergy Unknown HIVES Verified 04/29/24 07:49 sulfamethoxazole Allergy Unknown RASH/HIVES Verified 04/29/24 07:49 [From BACTRIM] trimethoprim [From BACTRIM] Allergy Unknown RASH/HIVES Verified 04/29/24 07:49 levofloxacin [From LEVAQUIN] AdvReac Unknown SWELLING Verified 04/29/24 07:49 IN ARMS Home Medications ?Medication ?Instructions ?Recorded ?Confirmed ?Last Taken ?Type albuterol sulfate 90 mcg/actuation 1 puff PO QID PRN wheezing 02/22/22 04/27/24 Unknown History aerosol inhaler clindamycin 1.2 % (1 % topical acne 02/22/22 Unknown History base)-benzoyl peroxide 5 % topical gel diltiazem HCl 120 mg 120 mg PO DAILY 02/22/22 04/29/24 04/29/24 History capsule,extended release 24 hr fluticasone propionate 220 2 puff inhalation BID 02/22/22 Unknown History mcg/actuation HFA aerosol inhaler (Flovent HFA) hydroxychloroquine 200 mg tablet 200 mg PO BID 02/22/22 04/29/24 04/28/24 History levothyroxine 112 mcg tablet 112 mcg PO DAILY 02/22/22 04/29/24 04/28/24 History (Synthroid) tazarotene 0.1 % topical gel topical 02/22/22 Unknown History (Tazorac) tofacitinib 11 mg tablet,extended 11 mg PO DAILY 02/22/22 04/29/24 04/28/24 History release 24 hr (Xeljanz XR) fluticasone furoate 100 1 ea inhalation DAILY 04/27/24 04/27/24 Unknown History mcg-vilanterol 25 mcg/dose inhalation powder (Breo Ellipta) pantoprazole 40 mg tablet,delayed 40 mg PO DAILY 04/27/24 04/29/24 04/28/24 History release Exam Airway Mallampati Class: I TM Dist: <=3cm Neck ROM: Full Loose/Missing/Broken Teeth: No Heart: rrr Lungs: cta Assessment and Plan Assessment Anesthesia Assessment: Anesthesia Plan Discussed Final Anesthetic Review Family History of Problems with Anesthesia: No History of Problems with Anesthesia: No NPO: Yes ASA Class: III Final Preanesthetic Review: No Changes in Pt Med Stat, Meds/Allgs Chart Reviewed, Consent Obtained/Reviewed and Anes Risks/Benef Reviewed Patient Risk: Intermediate Procedure Risk: Intermediate Anesthetic Plan Anesthetic Plan: TIVA Disposition: Standard PACU
[2024-04-29 07:43] VITALS: BMI 24.4
[2024-04-29 08:04] VITALS: BP 139/84; PULSE 96; RESP 16; TEMP 36.8; O2SAT 94
[2024-04-29] MEDS: Lactated Ringers 1,000 ML 100 ML IVCONT (08:06)
--- NOTE | 2024-04-29 09:23 | MHC.SHP ---
Pre-Procedural Eval Section A - 24 Hr Update-Section A only Date of Service: 04/29/24 Section B - Complete if H&P > 30 days Chief Complaint: Encounter for screening for malignant neoplasm of Details of Present Illness: see H&P no changes Relevant Family History (Specify if Yes): No Relevant Social History: None Present Medications: see Short Stay Collaborative assessment Medical History: No relevant PMH History of Previous Operations: No relevant previous surgery Allergies: Allergies Allergy/AdvReac Type Severity Reaction Status Date / Time amoxicillin [AMOXICILLIN] Allergy Unknown RASH Verified 04/29/24 07:49 clarithromycin [From BIAXIN] Allergy Unknown HIVS,EXHAUS Verified 04/29/24 07:49 TION doxycycline [DOXYCYCLINE] Allergy Unknown HIVES Verified 04/29/24 07:49 salsalate [SALSALATE] Allergy Unknown HIVES Verified 04/29/24 07:49 sulfamethoxazole Allergy Unknown RASH/HIVES Verified 04/29/24 07:49 [From BACTRIM] trimethoprim [From BACTRIM] Allergy Unknown RASH/HIVES Verified 04/29/24 07:49 levofloxacin [From LEVAQUIN] AdvReac Unknown SWELLING Verified 04/29/24 07:49 IN ARMS Review of Systems Sugical H&P ROS: Negative: Constitution, Cardiovascular, Respiratory, Neurological, Psychiatric, Hem-Onc, Allergic/Immunologic, Gastrointestinal, Genitourinary, Musculoskeletal, Integumentary, Endocrine and Eyes/Ears/Nose/Throat Exam Surgical H&P Exam: Normal: HEENT, Normal: Heart, Normal: Lungs, Normal: Extremities, Normal: Abdomen, Normal: Skin and Normal: Neurological Plan Diagnosis/Plan: Unchanged I have reviewed the history and physical and performed a pertinent physical examination on my patient. No changes have occurred unless specified. Time Spent With Patient Time: Total time managing care of this patient today ____ minutes.
[2024-04-29 10:21] VITALS: BP 126/79; PULSE 86; RESP 16; TEMP 36.7; O2SAT 99
[2024-04-29 10:36] VITALS: BP 153/85; PULSE 67; RESP 16; TEMP 36.7; O2SAT 97
--- NOTE | 2024-04-29 11:12 | OP_ITS ---
DATE OF SERVICE: 04/29/2024 SURGEON: Thom Chin MD INDICATIONS: 1. Gastroesophageal reflux disease. 2. Colon cancer screening. PREOPERATIVE DIAGNOSIS: POSTOPERATIVE DIAGNOSIS: PROCEDURE PERFORMED: Upper endoscopy with biopsy, colonoscopy to the terminal ileum. ESTIMATED BLOOD LOSS: COMPLICATIONS: ANESTHESIA: Monitored anesthesia care. ASSISTANTS: SPECIMENS: DESCRIPTION OF PROCEDURE: A history and physical was performed. The risks and benefits of the procedure were explained to the patient and informed consent was obtained. The patient was placed in the left lateral decubitus position. The Olympus video gastroscope was introduced into the esophagus, stomach, and duodenum. Examination was performed and the scope was removed. She was repositioned for colonoscopy. A digital rectal exam was performed and was found to be normal. The Olympus pediatric video colonoscope was introduced into the rectum and advanced to the cecum. The cecum was identified by transillumination, palpation, identification of ileocecal valve. Examination was performed and the scope was removed. She tolerated the procedure well and was returned to the recovery area in stable condition. FINDINGS: Upper endoscopy, esophagus: The esophagus was normal. There was no esophagitis. Biopsies were obtained from the EG junction. Stomach: The stomach showed no evidence of masses, ulcers, or other lesions. There were multiple benign-appearing gastric polyps in the body and fundus consistent with fundic gland polyps. Biopsies were obtained from the polyps and antrum. Duodenum: The bulb and 2nd portion were normal. Colonoscopy: The terminal ileum was normal. The visualized colonic mucosa was normal. The quality of the prep was good. No polyps were identified. Retroflexed examination showed small internal hemorrhoids. IMPRESSION: 1. Gastroesophageal reflux disease. 2. Gastric polyps. 3. Normal colonoscopy. RECOMMENDATIONS: 1. Follow up the biopsy results. 2. Repeat colonoscopy is recommended in 5 years because of family history of colon polyps. MD JULIO Diamond/DIANA / [id number]
== END 2024-04-29 11:49 | disposition home or self-care (01) ==
PROVIDERS: PCP Family Medicine; Visit Provider Internal Medicine Gastroenterology
PROC: (CPT 45378; principal; 2024-04-29 09:20)
DX: Z12.11 Encounter for screening for malignant neoplasm of colon (principal); Z83.719 Family history of colon polyps, unspecified; K21.9 Gastro-esophageal reflux disease without esophagitis; K31.7 Polyp of stomach and duodenum; I10 Essential (primary) hypertension; Z88.0 Allergy status to penicillin; Z88.2 Allergy status to sulfonamides; Z88.8 Allergy status to other drugs, medicaments and biological substances
CPT/HCPCS: 45378; 43239; 88305; 88313; 88342; J1596; J2704

== ENCOUNTER 2024-05-04 | Outpatient (REF) | payer OTHER, SELFPAY ==
[2024-05-04 12:02] LABS: MANUAL DIFF FLAG NO
[2024-05-04 12:19] LABS: Basophils Percent Auto 0.8 % (0-2); Eosinophils Absolute Auto 0.1 X10*3/uL (0.0-0.4); Eosinophils Percent Auto 1.1 % (0-4); Hematocrit 42.7 % (37.0-47.0); Hemoglobin 14.1 g/dl (12.0-16.0); Imm Gran Abs Auto 0.03 X10*3/uL (0.00-0.03); Imm Gran Pct Auto 0.6 % (0.0-0.4); Lymphocytes Absolute Auto 0.9 X10*3/uL (1.2-4.9); Lymphocytes Percent Auto 16.5 % (20-40); Mean Corpuscular Hemoglobin 29.9 pg (27.0-33.0); Mean Corpuscular Volume 90.7 fL (80.0-98.0); Mean Platelet Volume 9.7 fL (9.4-12.3); Monocytes Absolute Auto 0.6 X10*3/uL (0.1-1.2); Monocytes Percent Auto 11.1 % (2-11); Neutrophils Absolute Auto 3.7 x10*3/uL (2.0-8.3); Neutrophils Percent Auto 69.9 % (45-73); Platelet Count 299 X10*3/uL (160-400); Red Blood Count 4.71 X10*6/uL (4.20-5.50); Red Cell Distribution Width 13.2 % (11.0-16.0); White Blood Count 5.3 X10*3/uL (4.8-10.8)
[2024-05-04 12:33] LABS: Alanine Aminotransferase 28 U/L (0-31); Alkaline Phosphatase 69 U/L (39-117); Aspartate Amino Transferase 27 U/L (5-31); C Reactive Protein < 0.10 mg/dL (< or = 0.50)
[2024-05-04 12:59] LABS: Erythrocyte Sedimentation Rate 6 MM/HR (0-20)
== END 2024-05-04 00:01 | disposition home or self-care (01) ==
LOC: HO.LABR
PROVIDERS: Visit Provider Internal Medicine
DX: M05.79 Rheumatoid arthritis with rheumatoid factor of multiple sites without organ or systems involvement (principal)
CPT/HCPCS: 36415; 84075; 84450; 84460; 85025; 85652; 86140

== ENCOUNTER 2024-06-01 10:53 | Outpatient (REF) | payer OTHER, SELFPAY ==
--- NOTE | ~2024-06-01 | XR_ITS ---
EXAMINATION: XR RIBS, RIGHT, WITH PA CHEST CLINICAL INFORMATION: Right rib pain. COMPARISON: None available. TECHNIQUE: 3 views of the right ribs were obtained, together with a PA view of the chest. FINDINGS: Lungs are clear. No consolidation, pneumothorax, or pleural effusion. The cardiomediastinal silhouette and pulmonary vasculature are normal. Osseous structures are unremarkable. Ribs are intact. No fractures are identified. XR/XR ribs RT min 3V w CXR1V IMPRESSION: Unremarkable examination.
[2024-06-01 12:38] LABS: Free T4 (Free Thyroxine) 1.29 ng/dL (0.71-1.85)
== END 2024-06-01 10:54 | disposition home or self-care (01) ==
LOC: HO.XRAY 10:53
PROVIDERS: Absent Provider Internal Medicine Endocrinology, Diabetes & Metabolism; PCP Family Medicine; Visit Provider Family Medicine
DX: E03.9 Hypothyroidism, unspecified (principal); R07.81 Pleurodynia
CPT/HCPCS: 36415; 71101; 84439; 84443

== ENCOUNTER 2024-08-29 14:19 | Outpatient (REF) | payer OTHER, SELFPAY ==
--- NOTE | ~2024-08-29 | MM_ITS ---
EXAMINATION: MM DIAGNOSTIC DIGITAL BREAST TOMOSYNTHESIS, RIGHT US BREAST LIMITED, RIGHT MAMMOGRAPHY: CLINICAL INFORMATION: 6-year-old female history of rheumatoid arthritis, complaining of right breast pain lower inner quadrant radiating from lateral to nipple. COMPARISON: Mammography: Screening mammography 03/09/2024. Exams dating back to 2018. TECHNIQUE: Digital breast tomosynthesis is performed in both the craniocaudal and mediolateral oblique views along with computer-aided detection (CAD). Synthesized 2D images are generated from the tomosynthesis. In addition, full field right 3-D ML view was also obtained. FINDINGS: There are scattered areas of fibroglandular density (ACR BI-RADS breast composition Category b). There are no suspicious masses, suspicious grouped calcifications, or areas of architectural distortion in either breast. The parenchymal pattern is stable from prior exams. There is no skin or axillary abnormality. There is no mammographic abnormality in the lower outer quadrant of the right breast. We will image this region with ultrasound. ULTRASOUND: CLINICAL INFORMATION: As above. COMPARISON: None relevant. TECHNIQUE: Targeted sonographic evaluation was performed using a high frequency linear transducer. Right breast was scanned from from the 4:00 to 9:00 axis to include the area of pain. Selected archived documentation. FINDINGS: RIGHT BREAST: There is a mixture of fatty and fibroglandular tissue. No suspicious mass is seen. There is no pathologic acoustic shadowing. There is no cystic abnormality. Only normal breast tissue is identified. No sonographic correlate to the region of pain. MM/MM tomosynthesis diagnostic RT IMPRESSION: There are no findings suspicious for malignancy in the right breast. There is no mammographic or sonographic correlate to explain lower outer right breast pain. Recommend clinical management and follow-up. Otherwise, recommend the patient resume routine annual screening. OVERALL ASSESSMENT: Mammography: BI-RADS 1 - Negative Ultrasound: BI-RADS 1 - Negative RECOMMENDATION: 1. Patient should be managed based on the clinical impression. 2. Otherwise, routine annual screening mammography. This patient's information was entered into a reminder system with a target due date for their next mammogram. Electronically signed by: Kunal Godinez MD 08/29/2024 03:29 PM EDT
== END 2024-08-29 14:20 | disposition home or self-care (01) ==
LOC: HO.MAMMO 14:19
PROVIDERS: PCP Family Medicine; Visit Provider Nurse Practitioner Family
DX: N64.4 Mastodynia (principal)
CPT/HCPCS: 76642; 77061; 77065

== ENCOUNTER → 2024-08-29 14:30 | Outpatient (BNV) | payer OTHER, SELFPAY | PROVIDERS: PCP Family Medicine; Visit Provider Radiology Diagnostic Radiology | DX: R92.311 Mammographic fatty tissue density, right breast (principal); R92.321 Mammographic fibroglandular density, right breast; N64.4 Mastodynia | CPT/HCPCS: 76642; 77061; 77065 ==

== ENCOUNTER 2024-09-07 10:59 | Outpatient (REF) | payer OTHER, SELFPAY ==
[2024-09-07 11:30] LABS: MANUAL DIFF FLAG NO
[2024-09-07 12:03] LABS: Basophils Percent Auto 0.4 % (0-2); Eosinophils Absolute Auto 0.1 X10*3/uL (0.0-0.4); Eosinophils Percent Auto 0.9 % (0-4); Hematocrit 41.3 % (37.0-47.0); Hemoglobin 13.4 g/dl (12.0-16.0); Imm Gran Abs Auto 0.05 X10*3/uL (0.00-0.03); Imm Gran Pct Auto 0.7 % (0.0-0.4); Lymphocytes Absolute Auto 0.9 X10*3/uL (1.2-4.9); Lymphocytes Percent Auto 12.5 % (20-40); Mean Corpuscular HGB Conc 32.4 g/dl (31.0-35.0); Mean Corpuscular Hemoglobin 30.4 pg (27.0-33.0); Mean Corpuscular Volume 93.7 fL (80.0-98.0); Mean Platelet Volume 9.6 fL (9.4-12.3); Monocytes Absolute Auto 0.8 X10*3/uL (0.1-1.2); Monocytes Percent Auto 10.6 % (2-11); Neutrophils Absolute Auto 5.6 x10*3/uL (2.0-8.3); Neutrophils Percent Auto 74.9 % (45-73); Platelet Count 301 X10*3/uL (160-400); Red Blood Count 4.41 X10*6/uL (4.20-5.50); Red Cell Distribution Width 13.1 % (11.0-16.0); White Blood Count 7.5 X10*3/uL (4.8-10.8)
[2024-09-08 20:48] LABS: Immunoglobulin A 261 mg/dL (70-320); Immunoglobulin M 111 mg/dL (50-300)
[2024-09-08 22:14] LABS: Immunoglobulin E 21 kU/L (<OR=114)
[2024-09-12 22:04] LABS: Tetanus Antitoxiod Antibody 0.83 IU/mL
[2024-09-13 15:34] LABS: Immunoglobulin G Subclass 1 608 mg/dL (382-929); Immunoglobulin G Subclass 2 288 mg/dL (241-700); Immunoglobulin G Subclass 3 46 mg/dL (22-178); Immunoglobulin G Subclass 4 12.7 mg/dL (4-86); Immunoglobulin G Total 1029 mg/dL (600-1540)
== END 2024-09-07 11:00 | disposition home or self-care (01) ==
LOC: HO.LAB 10:59
PROVIDERS: PCP Family Medicine; Visit Provider Otolaryngology
DX: Z13.89 Encounter for screening for other disorder (principal)
CPT/HCPCS: 36415; 82784; 82785; 85025; 86317; 86774

== ENCOUNTER 2024-10-25 08:11 | Outpatient (REF) | payer OTHER, SELFPAY ==
[2024-10-25 11:25] LABS: MANUAL DIFF FLAG NO
[2024-10-25 11:33] LABS: Basophils Percent Auto 0.6 % (0-2); Eosinophils Absolute Auto 0.1 X10*3/uL (0.0-0.4); Eosinophils Percent Auto 1.6 % (0-4); Hematocrit 42.4 % (37.0-47.0); Hemoglobin 13.7 g/dl (12.0-16.0); Imm Gran Abs Auto 0.03 X10*3/uL (0.00-0.03); Imm Gran Pct Auto 0.6 % (0.0-0.4); Lymphocytes Absolute Auto 0.6 X10*3/uL (1.2-4.9); Lymphocytes Percent Auto 12.2 % (20-40); Mean Corpuscular HGB Conc 32.3 g/dl (31.0-35.0); Mean Corpuscular Hemoglobin 30.2 pg (27.0-33.0); Mean Corpuscular Volume 93.6 fL (80.0-98.0); Mean Platelet Volume 10.1 fL (9.4-12.3); Monocytes Absolute Auto 0.6 X10*3/uL (0.1-1.2); Monocytes Percent Auto 12.2 % (2-11); Neutrophils Absolute Auto 3.7 x10*3/uL (2.0-8.3); Neutrophils Percent Auto 72.8 % (45-73); Platelet Count 327 X10*3/uL (160-400); Red Blood Count 4.53 X10*6/uL (4.20-5.50); Red Cell Distribution Width 12.8 % (11.0-16.0)
[2024-10-25 11:52] LABS: Alanine Aminotransferase 35 U/L (0-31); Albumin Level 4.1 g/dL (3.5-5.0); Alkaline Phosphatase 57 U/L (39-117); Anion Gap 11 (12-20); Aspartate Amino Transferase 40 U/L (5-31); Bilirubin Total 0.5 mg/dL (0.0-1.0); Blood Urea Nitrogen 19 mg/dL (9-16); C Reactive Protein < 0.04 mg/dL (< or = 0.50); Calcium 9.3 mg/dL (8.4-10.2); Carbon Dioxide 28 mmol/L (22-29); Chloride 106 mmol/L (96-108); Cholesterol 217 mg/dL (<200); Estimated Glomerular Filt Rate 58; Glucose Random 87 mg/dL (60-115); HDL Cholesterol 84 mg/dL (>40); LDL Cholesterol Calculated 114 mg/dL (<100); Potassium 3.8 mmol/L (3.3-5.1); Sodium 141 mmol/L (135-145); Total Protein 6.9 g/dL (6.5-8.0); Triglycerides 99 mg/dL (<150)
[2024-10-25 12:13] LABS: Erythrocyte Sedimentation Rate 3 MM/HR (0-20)
== END 2024-10-25 08:12 | disposition home or self-care (01) ==
LOC: HO.HMGCLR 08:11
PROVIDERS: PCP Family Medicine; Visit Provider Internal Medicine Rheumatology
DX: M05.79 Rheumatoid arthritis with rheumatoid factor of multiple sites without organ or systems involvement (principal); Z79.622 Long term (current) use of Janus kinase inhibitor; Z79.1 Long term (current) use of non-steroidal anti-inflammatories (NSAID)
CPT/HCPCS: 36415; 80053; 80061; 85025; 85652; 86140

== ENCOUNTER 2025-01-19 14:24 | Outpatient (REF) | payer OTHER, SELFPAY ==
--- NOTE | ~2025-01-19 | MM_ITS ---
EXAMINATION: DXA BONE DENSITY EXTREMITY HISTORY: Estrogen deficiency TECHNIQUE: [employer] Dual energy absorptiometry (DEXA) of the lumbar spine, total left hip, femoral neck, and distal radius was performed. COMPARISON: Comparison is made with the prior examination dated 01/13/2023. FINDINGS: The bone mineral density of the lumbar spine is 1.171 with a T-score of -0.1, and a Z-score of 1.4. This represents a BMD change of -0.3% compared to the prior exam. This is not statistically significant. The bone mineral density of the left total hip is 0.707 with a T-score of -2.4, and a Z-score of -1.0. This represents BMD change of 0.7% compared to the prior exam. This is not statistically significant. The bone mineral density of the left femoral neck is 0.636 with a T-score of -2.9, and a Z-score of -1.3. This represents BMD change of 3.9% compared to the prior exam. The bone mineral density of the distal radius is 0.706 with a T-score of -1.9, and a Z-score of -0.1. MM/XR DEXA appendicular skeleton IMPRESSION: Based on bone mineral density, and according to World Health Organization (WHO) criteria, the diagnosis is consistent with osteoporosis. All bone density values are in grams per centimeter squared (g/cm2). Statistically, 68% of repeat scans fall within 1 SD (+/- 0.010 g/cm2 for AP spine L1-L4) and 1 SD (+/- 0.012 g/cm2 for femur total) FRAX is a trademark of the [employer]'s [employer] Met[employer], a World Health Organization (WHO) Collaborating Center. Electronically signed by: Gregorio Escobar MD 01/19/2025 03:05 PM [facility]
--- OUTSIDE RECORDS SUMMARY | 2025-01-19 17:34 | XMS_ITS | Encounter Summary ---
Author Organization [facility] [place] [address] Care Team Providers Care Fish Cleaner Name Role Phone Lee Odonnell MD Primary Care Provider [phone] Reason for Visit * Reason Comments Annual Exam Encounter Details Date Type Department Care Team (Late st Contact Info) Description 12/20/2024 10:00 AM EST Office Visit Obstetrics and Gynecology - [address] [phone] Leatha Phelps [address] [address] Encounter for annual physical examination excluding gynecological examination in a patient older than 17 years (Primary Dx) Social History Tobacco Use Types Packs/Day Years Used Date Smoking Tobacco: Former Cigarettes Smokeless Tobacco: Never Tobacco Cessation:Counseling Given: Not Answered Alcohol Use Standard Drinks/Week Comments Yes 0.8 (1 standard drink = 0.6 oz p ure alcohol) Comments No Sex and Gender Information Value Date Recorded Sex Assigned at Not on file Legal Sex Female 11:09 AM EST Gender Identity Not on file Sexual Orientation Not on file documented as of this encounter Last Filed Vital Signs Vital Sign Reading Time Taken Comments Blood Pressure 154/83 12/20/2024 9:57 AM EST Pulse 82 12/20/2024 9:57 AM EST Temperature - - Respiratory Rate 18 12/20/2024 9:57 AM EST Oxygen Saturation - - Inhaled Oxygen Concentration - - Weight 72.3 kg (159 lb 6.4 oz) 12/20/2024 9:57 A M EST Height 165.1 cm (5' 5 ) 12/20/2024 9:57 AM EST Body Mass Index 26.53 12/20/2024 9:57 AM EST documented in this encounter Progress Notes * Leatha Phelps CNM - 12/20/2024 10:00 AM EST Office note: Routine Carton And Can Supply Supervisor Exam Encounter Date: 12/20/2024 HPI: Leandra Escalera is a 69 y.o. who presents for routine annual exam. No LMP recorded. Patient is postmenopausal. Not sexually active in over 20 years, menopause age 50. 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 Review of Systems - General ROS: negative Psychological ROS: negative Ophthalmic ROS: negative ENT ROS: negative Allergy and Immunology ROS: negative Hematological and Lymphatic ROS: negative Endocrine ROS: negative Breast ROS: negative for breast lumps Respiratory ROS: no cough, shortness of breath, or wheezing Cardiovascular ROS: no chest pain or dyspnea on exertion Gastrointestinal ROS: no abdominal pain, change in bowel habits, or black or bloody stools Genito-Urinary ROS: no dysuria, trouble voiding, or hematuria Musculoskeletal ROS: negative Neurological ROS: negative Dermatological ROS: negative Health Maintenance and Preventative Care: Health Maintenance: Last mammogram: this year, per pt, normal Immunization History Administered Date(s) Administered Influenza trivalent, with preservative (Fluzone; Afluria) 6mo and older 08/24/2015, 09/29/2016 Pneumococcal conjugate 13 valent (Prevnar 13, PCV13) 2mo and older 03/09/2017 Pneumococcal polysaccharide 23 valent (Pneumovax 23) 2yo and older 03/22/2009, 09/29/2014, 08/23/2019 Td Tetanus diptheria (Tdvax) 7yo and older 06/06/1999, 02/01/2018 Tdap Tetanus diptheria acellular pertussis (Boostrix; Adacel) 7yo and older 01/05/2008 OB History Para Term AB Living 2 SAB IAB Ectopic Multiple Live Births 2 # Outcome Date GA Lbr Yefri/2nd Weight Sex Type Anes PTL Lv 2 1 Carton And Can Supply Supervisor History: Last Pap: 2018 neg H/o abnormal Pap: no Patient Active Problem List Diagnosis Carpal tunnel syndrome Felty's syndrome (CMS/HCC) HTN (hypertension) Hypothyroidism Midline cystocele Reactive airway disease Rheumatoid arthritis ([facility]) Past Medical History: Diagnosis Date Essential hypertension, benign 07/22/2006 DX:Essential hypertension, benign 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 Thom Chin [place] COLONOSCOPY 02/18/2019 PROCEDURE: HISTORICAL COLONOSCOPY; COMMENT: Dr Thom Chin, negative NASAL SEPTUM SURGERY 05/06/16 Anam PROCEDURE: GA SEPTOPLASTY/SUBMUCOUS RESECJ W/WO CARTILAGE GRF; COMMENT: and sinus infection clean out Family History Problem Relation Name Age of Onset Bladder Cancer Father 54.00 Stroke Mother age 91, 10 yrs after stroke Other Dermatological Disorders Daughter Nida EDC 11/18/19 Other (Other: healthy as of 08/2019) Daughter Bri Breast cancer Neg Hx Colon cancer Neg Hx Ovarian cancer Neg Hx Social History Socioeconomic History Marital status: Spouse name: None Number of children: None Years of education: 14 Highest education level: None Occupational History None Tobacco Use Smoking status: Former Current packs/day: 0.25 Types: Cigarettes Smokeless tobacco: Never Substance and Sexual Activity Alcohol use: Yes Alcohol/week: 0.8 standard drinks of alcohol Drug use: No Sexual activity: None Other Topics Concern None Social History Narrative Lives alone Allergies Allergen Reactions Ampicillin Clarithromycin Other Reaction(s): Rash/Dermatitis Tightening in arms Doxycycline Salsalate Other Reaction(s): Hives/Urticaria Sulfamethoxazole-Trimethoprim Current Outpatient Medications on File Prior to Visit Medication Sig Dispense Refill albuterol HFA (PROAIR HFA ; PROVENTIL HFA ; VENTOLIN HFA) 90 mcg/actuation inhaler Inhale 2 Puffs into the lungs every 4 hours as needed for Cough or Wheezing. ascorbic acid (VITAMIN C) 500 mg tablet Take 500 mg by mouth daily. calcium carbonate-vitamin D3 600 mg-10 mcg (400 unit) capsule Take by mouth daily. clindamycin-benzoyl peroxide (DUAC) 1.2-5% gel None Entered dilTIAZem CD (Cartia XT) 120 mg 24 hr capsule Take 1 Cap by mouth daily. fluticasone furoate-vilanteroL (BREO ELLIPTA) 100-25 mcg/dose inhaler Inhale by mouth. Inhale into the lungs hydroxychloroquine (PLAQUENIL) 200 mg tablet Take 2 Tabs by mouth daily. levothyroxine sodium (TIROSINT) 112 mcg capsule Take by mouth. naproxen (NAPROSYN) 500 mg tablet Take 1 Tab by mouth 2 times daily (with meals). pantoprazole (PROTONIX) 20 mg EC tablet Take 1 tablet (20 mg total) by mouth 1 (one) time each day. tazarotene (Tazorac) 0.1 % gel None Entered tofacitinib (Xeljanz XR) 11 mg ER tablet Take 1 tablet (11 mg total) by mouth 1 (one) time each day. triamcinolone acetonide (KENALOG-40) 40 mg/mL injection 1 mL by Other route once for 1 dose No current facility-administered medications on file prior to visit. Physical exam: Blood pressure (!) 154/83, pulse 82, resp. rate 18, height 1.651 m (65 ), weight 72.3 kg (159 lb 6.4 oz). Body mass index is 26.53 kg/m??. Gen: Alert, cooperative. Well-appearing on today's exam HEENT: head normocephalic without obvious deformity. Cardiovascular: regular rate and rhythm, no m/r/g Lung: clear to auscultation bilaterally, no wheezing, ronchi, normal respiratory effort Breast: Normal appearance, no masses or tenderness, no nipple retraction or dimpling bilaterally. No axillary or supraclavicular lymphadenopathy. Abdomen: Soft,non-tender. No masses palpable, no organomegaly. Extremities: no calf tenderness, discoloration or edema, atraumatic without deformity Skin: Skin color, texture, turgor normal. No rashes or lesions Psych: Mood and affect appropriate. Pelvic: External Genitalia: declined oxygen furnace operator Normal architecture, without lesions. No inguinal lymphadenopathy. Vagina: Mucosa is pink with normal rugae. No abnormal discharge or lesions. Cervix: Normal appearance, without discharge or lesions. No cervical motion tenderness. Uterus: Normal size and shape. Anteverted position. Non-tender. Mobile Adnexa: No adnexal masses or tenderness bilaterally. Perianal area without lesions Assessment/Plan: 69 y.o. 1. Screening for sexually transmitted infections -Gonorrhea/Chlamydia testing offered, n/a 2. Contraception -abstinence 3. Health Maintenance and Screening -Reviewed ASCCP guidelines. Pap smear no longer needed, yearly pelvic exam. -Reviewed and encouraged diet and exercise for cardiovascular and bone health -Reviewed breast self awareness. yearly mammogram at age 39. -Discussed use of 3 times per week weight bearing exercise, Vitamin D3 and 4 servings of dietary calcium daily for bone health. -Continue to follow with PCP for general medical care, immunizations -Family and personal history of cancer reviewed. Marcelle screening not indicated. No problem-specific Assessment & Plan notes found for this encounter. @AORD@ No follow-ups on file. Leatha Phelps CNM documented in this encounter Plan of Treatment Not on file documented as of this encounter Visit Diagnoses Diagnosis Encounter for annual physical examination excluding gynecological examination in a patient older than 17 years- Primary documented in this encounter Care Teams Fish Cleaner Relationship Specialty Start Date End Date Lee Odonnell MD [address] [place] [id number] PCP - General 08/22/24 documented as of this encounter
--- OUTSIDE RECORDS SUMMARY | 2025-01-19 17:34 | XMS_ITS ---
Author Organization [facility] Address [address] [place] [address] Care Team Providers Care Chalk Machine Operator Name Role Phone ArabellaLee cintron Primary Care Provider Thom Aguirre Jr Unavailable REASON FOR VISIT gerd,screening PROBLEMS Problem Type ICD Code Onset Dates Problem Status W/U Status Risk SNOMED Code Notes Problem Esophageal reflux disease (K21.9) Active confirmed Gastroesophagea l reflux disease (880411140) Encounters Encounter Location Date Provider Diagnosis [facility] [place] [address] [place] [phone] 04/29/2024 Thom Chin Jr Encounter for screening colonoscopy Z12.11 ; Gastric polyps K31.7 and Esophageal reflux disease K21.9 ASSESSMENTS Encounter Date Diagnosis Assessment Notes Treatment Notes Treatment Clinical Notes 04/29/2024 Encounter for screening colonoscopy (ICD-10 - Z12.11) 04/29/2024 Gastric polyps (ICD-10 - K31.7) 04/29/2024 Esophageal reflux disease (ICD-10 - K21.9) PLAN OF TREATMENT No Information
--- OUTSIDE RECORDS SUMMARY | 2025-01-19 17:34 | XMS_ITS | Continuity of Care Document ---
Author Organization [facility] and Diabetes Address [address] [place] [phone]- Care Team Providers Care Ortho Nurse Name Role Phone Blas CAMPBELL, Lee Dumont Primary Care Physician Encounter [facility] Date(s): 12/02/24 - 01/01/25 [facility] Diabetes [address] [place] [id number] Encounter Type: Triage Allergies, Adverse Reactions, Alerts Substance Criticality Severity Reaction Reaction Severity Status ampicillin Active doxycycline hives rash Active salsalate hives and rash Activ e amoxicillin hives rash Active clarithromycin Chest heaviness Active Biaxin flushing rash Active Bactrim hives rash Active Immunizations Given and Recorded Vaccine Date Status Refusal Reason influenza virus vaccine, inactivated 09/03/23 Chuck rded influenza virus vaccine, inactivated 08/30/21 Give n influenza virus vaccine, inactivated 08/21/20 Chuck rded influenza virus vaccine, inactivated 08/31/19 Chuck rded influenza virus vaccine, inactivated 09/08/18 Chuck rded influenza virus vaccine, inactivated 09/11/17 Chuck rded influenza virus vaccine, inactivated 09/29/16 Chuck rded influenza virus vaccine, inactivated 08/24/15 Chuck rded [id number] bivalent booster vax 12/29/22 Recorded Influenza Virus Vaccine (oldterm) 09/05/22 Recorde d SARS-CoV-2 mRNA ([id number]) vax 04/18/22 Recorded SARS-CoV-2 (COVID-19) mRNA BNT-162b2 vac 09/12/21 Recorded SARS-CoV-2 (COVID-19) mRNA BNT-162b2 vac 12/01/20 Recorded SARS-CoV-2 (COVID-19) mRNA BNT-162b2 vac 11/10/20 Recorded pneumococcal 23-valent vaccine 08/23/19 Recorded pneumococcal 23-valent vaccine 09/29/14 Recorded pneumococcal 23-valent vaccine 03/22/09 Recorded tetanus-diphtheria toxoids (Td) 02/01/18 Recorded tetanus-diphtheria toxoids (Td) 01/05/08 Recorded tetanus-diphtheria toxoids (Td) 06/06/99 Recorded pneumococcal 13-valent vaccine 03/09/17 Recorded tetanus/diphtheria/pertussis, acel(Tdap) 01/05/08 Recorded Medications albuterol CFC free 90 mcg/inh inhalation aerosol 2, puffs, Inhalation, Every 6 hours, PRN, # 1 each, Refills 2, Tot. Refills 2, Maintenance, 09/22/23 10:15:00 AM EDT, Route to Pharmacy Electronically, NCPDP_[id number], [facility], 163.3, cm, 09/22/23 10:00:00 EDT, Height, 71.8, kg, 07/02/23 14:53:00 EDT, Dry Weight Start Date: 09/22/23 Stop Date: 12/21/23 Status: Ordered Quantity: 1.0 Unit: each Repeat number: 3 Breo Ellipta 100 mcg-25 mcg/inh inhalation powder 1 puffs, Inhalation, Daily, REPLACES ADVAIR, # 180 each, 1 Refills, Maintenance, 08/23/24 6:16:00 AMEDT, [facility], 90, 1 puffs Inhalation Daily,Instr:REPLACES ADVAIR, 162.4, cm, 08/03/24 11:01:00EDT, Height, 71.8, kg, 07/02/23 14:53:00 EDT, Dry Weight Start Date: 08/23/24 Status: Ordered Quantity: 180.0 Unit: each Repeat number: 2 DilTIAZem (Eqv-Cardizem CD) 120 mg/24 hours oral capsule, extended release 1 capsule, By Mouth, Daily, # 90 capsule, 3 Refills, Maintenance, 05/24/24 3:46:00 PM EDT, [facility], 162.4, cm, 05/24/24 15:32:00 EDT, Height, 71.8, kg, 07/02/23 14:53:00 EDT, Dry Weight Start Date: 05/24/24 Status: Ordered Quantity: 90.0 Unit: capsule Repeat number: 4 levothyroxine 0.1 mg oral tablet 1 tablet = 100 mcg, By Mouth, Daily, # 90 tablet, 2 Refills, Maintenance, 06/14/24 8:41:00 PM EDT, Tablet, [facility], 162.4, cm, 06/09/24 8:12:00 EDT, Height, 71.8, kg, 07/02/23 14:53:00 EDT, Dry Weight Start Date: 06/14/24 Status: Ordered Quantity: 90.0 Unit: tablet Repeat number: 3 Indication: Hypothyroidism, unspecified levothyroxine 0.112 mg oral tablet See Instructions, 1 tablet By Mouth Daily except once a week only take 1/2 tablet (6.5 tablets per week), # 84 tablet, 3 Refills, Maintenance, 03/14/24 11:11:00 AM EDT, [facility], 162.4, cm, 03/14/24 10:43:00 EDT, Height, 71.8, kg, 07/02/23 14:53:00 EDT, Dry Weight Start Date: 03/14/24 Status: Ordered Quantity: 84.0 Unit: tablet Repeat number: 4 naproxen 500 mg oral tablet 1 tablet = 500 mg, By Mouth, 2 times a day, PRN for pain, # 20 tablet, 0 Refills, Maintenance, 12/19/16 11:12:49 AM EST, Tablet Start Date: 12/19/16 Status: Ordered Quantity: 20.0 Unit: tablet Repeat number: 1 pantoprazole 40 mg oral delayed release tablet 1 tablet, By Mouth, Daily, # 90 tablet, 1 Refills, Maintenance, 08/16/24 3:46:00 PM EDT, 162.4, cm, 08/03/24 11:01:00 EDT, Height, 71.8, kg, 07/02/23 14:53:00 EDT, Dry Weight Start Date: 08/16/24 Status: Ordered Quantity: 90.0 Unit: tablet Repeat number: 2 Plaquenil 200 mg oral tablet 400 mg, 2, tablet, By Mouth, Daily, # 60 tablet, Refills 0, Tot. Refills 0, Maintenance, 08/30/21 2:45:00 PM EDT, Do Not Route, Partial fill upon patient request if the prescription is for a schedule II opioid drug. Start Date: 08/30/21 Status: Ordered Quantity: 60.0 Unit: tablet Repeat number: 1 Tazorac 0.1% topical gel 1 applicator, Topically, Daily before dinner, 0 Refills, Maintenance, 12/19/16 11:12:05 AM EST Start Date: 12/19/16 Status: Ordered Repeat number: 1 Vitamin C 1000 mg oral tablet 1 tablet = 1,000 mg, By Mouth, Daily, # 30 tablet, 0 Refills, Maintenance, 12/19/16 11:14:31 AM EST,Tablet Start Date: 12/19/16 Status: Ordered Quantity: 30.0 Unit: tablet Repeat number: 1 Vitamin D3 2000 intl units oral tablet 1 tablet = 2,000 International_Units, By Mouth, Daily, 0 Refills, Maintenance, 12/19/16 11:14:02 AM EST Start Date: 12/19/16 Status: Ordered Repeat number: 1 Xeljanz XR 11 mg oral tablet, extended release 0 Refills, Maintenance, 07/28/19 11:37:42 AM EDT Start Date: 07/28/19 Status: Ordered Repeat number: 1 Problem List Condition Confirmation Course Effective Dates Status H ealth Status Informant Acne Confirmed Active Asthma Confirmed Active Bladder prolapse, female, acquired Confirmed Active Hypertension Confirmed Active Hypothyroidism Confirmed Active Leukopenia Confirmed Active Osteoporosis, postmenopausal Confirmed Active Rheumatoid arthritis Confirmed Active Social History Social History Type Response Smoking Status Former smoker, quit more than 30 days ago; Tobacco user in household: No;Never; Other: Only smoked in her teens.; entered on: 09/25/20 Sex Sex Representation Female (finding) Patient Care team information Care Team Personnel Name: Lee Odonnell MD Position: [facility] Physician - Primary Care Member Role: PCP Address: [address] [place] [phone]- Telecom: Care Team Related Persons Name: ZENON GARLAND Name: ALEXA GARLAND Name: DADA, LOUIE Insurance Providers Guarantor name: GARRETT COLLIEROIT [employer] Plan Information #: 1 Payer: [employer] PPO Member Number: NA Policy Number: NA Group Number: NA
--- OUTSIDE RECORDS SUMMARY | 2025-01-19 17:34 | XMS_ITS | Continuity of Care Document ---
Author Organization [facility] and Diabetes Address [address] [place] [phone]- Care Team Providers Care Machine Striper Name Role Phone Blas CAMPBELL, Lee Dumont Primary Care Physician [place] [facility] [place]/05[place]24 - 01/04/25 [facility] Diabetes [address] [place] [id number] Encounter Type: Triage Allergies, Adverse Reactions, Alerts Substance Criticality Severity Reaction Reaction Severity Status ampicillin Active doxycycline hives rash Active salsalate hives and rash Activ e Bactrim hives rash Active amoxicillin hives rash Active clarithromycin Chest heaviness Active Biaxin flushing rash Active Immunizations Given and Recorded Vaccine [...] influenza virus vaccine, inactivated 08/24/15 Chuck rded [id number] bivalent booster vax 12/29/22 Recorded Influenza Virus Vaccine (oldterm) 09/05/22 Recorde d SARS-CoV-2 mRNA ([id number]) vax 04/18/22 Recorded SARS-CoV-2 (COVID-19) mRNA BNT-162b2 [...] 10:15:00 AM EDT, Route to Pharmacy Electronically, NCPDP_ID-[id number], [facility], 163.3, cm, 09/22/23 10:00:00 EDT, Height, 71.8, kg, 07/02/23 14:53:00 EDT, Dry Weight Start Date: 09/22/23 Stop Date: 12/21/23 Status: Ordered Quantity: 1.0 Unit: each Repeat number: 3 Breo Ellipta 100 mcg-25 mcg/inh inhalation powder 1 puffs, Inhalation, Daily, REPLACES ADVAIR, # 180 each, 1 Refills, Maintenance, 08/23/24 6:16:00 AMEDT, [facility] Pharm[facility], 90, 1 puffs Inhalation Daily,Instr:REPLACES ADVAIR, 162.4, cm, 08/03/24 11:01:00EDT, Height, 71.8, kg, 07/02/23 14:53:00 EDT, Dry Weight Start Date: 08/23/24 Status: Ordered Quantity: 180.0 Unit: each Repeat number: 2 DilTIAZem (Eqv-Cardizem CD) 120 mg/24 hours oral capsule, extended release 1 capsule, By Mouth, Daily, # 90 capsule, 3 Refills, Maintenance, 05/24/24 3:46:00 PM EDT, [facility] Pharm[facility], 162.4, cm, 05/24/24 15:32:00 EDT, Height, 71.8, kg, 07/02/23 14:53:00 EDT, Dry Weight Start Date: 05/24/24 Status: Ordered Quantity: 90.0 Unit: capsule Repeat number: 4 levothyroxine 0.1 mg oral tablet 1 tablet = 100 mcg, By Mouth, Daily, # 90 tablet, 2 Refills, Maintenance, 06/14/24 8:41:00 PM EDT, Tablet, [facility] Pharm[facility], 162.4, cm, 06/09/24 8:12:00 EDT, Height, 71.8, kg, 07/02/23 14:53:00 EDT, Dry Weight Start Date: 06/14/24 Status: Ordered Quantity: 90.0 Unit: tablet Repeat number: 3 Indication: Hypothyroidism, unspecified levothyroxine 0.112 mg oral tablet See Instructions, 1 tablet By Mouth Daily except once a week only take 1/2 tablet (6.5 tablets per week), # 84 tablet, 3 Refills, Maintenance, 03/14/24 11:11:00 AM EDT, [facility] Pharm[facility], 162.4, cm, 03/14/24 10:43:00 EDT, Height, [...] Team Personnel Name: Lee Odonnell MD Position: [facility] Physician - Primary Care Member Role: PCP Address: [address] [place] [phone]- Telecom: Care Team Related Persons Name: ZENON GARLAND Name: ALEXA GARLAND Name: DADA, LOUIE Insurance Providers Guarantor name: GARRETT COLLIEROIT [employer] Plan Information #: 1 Payer: [employer] PPO Member Number: NA Policy Number: NA Group Number: NA
--- OUTSIDE RECORDS SUMMARY | 2025-01-19 17:34 | XMS_ITS ---
Author Organization [facility] Address [address] [place] [phone] Care Team Providers Care Relations Mgr Name Role Phone Lee Odonnell Primary Care Provider Thom Aguirre Jr REASON FOR VISIT pathology Encounters Encounter Location Date Provider Diagnosis [facility] [address] [place] [phone] 05/05/2024 Thom Chin Jr PLAN OF TREATMENT No Information
--- OUTSIDE RECORDS SUMMARY | 2025-01-19 17:34 | XMS_ITS | Continuity of Care Document ---
Author Organization [facility] Endocrinolo gy and Diabetes Address [address] [place] [phone]- Care Team Providers Care Appliance Repair Technician Name Role Phone Blas CAMPBELL, Lee Dumont Primary Care Physician Encounter [facility] Date(s): 12/01/24 - 12/31/24 [facility] Endocrinology and Diabetes [address] [place] [id number] Encounter Type: Triage Allergies, Adverse Reactions, Alerts Substance Criticality Severity Reaction Reaction Severity Status ampicillin Active doxycycline hives rash Active amoxicillin hives rash Active clarithromycin Chest heaviness Active salsalate hives and rash Activ e Biaxin flushing rash Active Bactrim hives rash [...] influenza virus vaccine, inactivated 08/24/15 Chuck rded [id number] bivalent booster vax 12/29/22 Recorded Influenza Virus Vaccine (oldterm) 09/05/22 Recorde d SARS-CoV-2 mRNA ([id number]) vax 04/18/22 Recorded SARS-CoV-2 (COVID-19) mRNA BNT-162b2 [...] 10:15:00 AM EDT, Route to Pharmacy Electronically, NCPDP_ID-[id number], [facility], 163.3, cm, 09/22/23 10:00:00 EDT, Height, 71.8, kg, 07/02/23 14:53:00 EDT, Dry Weight Start Date: 09/22/23 Stop Date: 12/21/23 Status: Ordered Quantity: 1.0 Unit: each Repeat number: 3 Breo Ellipta 100 mcg-25 mcg/inh inhalation powder 1 puffs, Inhalation, Daily, REPLACES ADVAIR, # 180 each, 1 Refills, Maintenance, 08/23/24 6:16:00 AMEDT, [facility], 90, 1 puffs Inhalation Daily,Instr:REPLACES ADVAIR, 162.4, cm, 08/03/24 11:01:00EDT, Height, 71.8, kg, 07/02/23 14:53:00 EDT, Dry Weight Start Date: 08/23/24 Status: Ordered Quantity: 180.0 Unit: each Repeat number: 2 DilTIAZem (Eqv-Cardizem CD) 120 mg/24 hours oral capsule, extended release 1 capsule, By Mouth, Daily, # 90 capsule, 3 Refills, Maintenance, 05/24/24 3:46:00 PM EDT, [facility], 162.4, cm, 05/24/24 15:32:00 EDT, Height, 71.8, kg, 07/02/23 14:53:00 EDT, Dry Weight Start Date: 05/24/24 Status: Ordered Quantity: 90.0 Unit: capsule Repeat number: 4 levothyroxine 0.1 mg oral tablet 1 tablet = 100 mcg, By Mouth, Daily, # 90 tablet, 2 Refills, Maintenance, 06/14/24 8:41:00 PM EDT, Tablet, [facility], 162.4, cm, 06/09/24 8:12:00 EDT, Height, 71.8, kg, 07/02/23 14:53:00 EDT, Dry Weight Start Date: 06/14/24 Status: Ordered Quantity: 90.0 Unit: tablet Repeat number: 3 Indication: Hypothyroidism, unspecified levothyroxine 0.112 mg oral tablet See Instructions, 1 tablet By Mouth Daily except once a week only take 1/2 tablet (6.5 tablets per week), # 84 tablet, 3 Refills, Maintenance, 03/14/24 11:11:00 AM EDT, [facility], 162.4, cm, 03/14/24 10:43:00 EDT, Height, [...] Team Personnel Name: Lee Odonnell MD Position: [facility] Physician - Primary Care Member Role: PCP Address: [address] [place] [phone]- Telecom: Care Team Related Persons Name: ZENON GARLNAD Name: ALEXA GARLAND Name: LOUIE GARLAND Insurance Providers Guarantor name: GARRETT COLLIEROIT [facility] Plan Information #: 1 Payer: [employer] PPO Member Number: NA Policy Number: NA Group Number: NA
--- OUTSIDE RECORDS SUMMARY | 2025-01-19 17:34 | XMS_ITS | Continuity of Care Document ---
Author Organization [facility]ocrinolo gy and Diabetes Address [address] [place] [phone]- Care Team Providers Care Water Vessel Captain Name Role Phone Blas CAMPBELL, Lee Dumont Primary Care Physician [place] [facility] [place]05[place]24 - 01/04/25 [facility] Diabetes [address] [place] [id number] Encounter Type: Triage Allergies, Adverse Reactions, Alerts [...] influenza virus vaccine, inactivated 08/24/15 Chuck rded [id number] bivalent booster vax 12/29/22 Recorded Influenza Virus Vaccine (oldterm) 09/05/22 Recorde d SARS-CoV-2 mRNA ([id number]) vax 04/18/22 Recorded SARS-CoV-2 (COVID-19) mRNA BNT-162b2 [...] 10:15:00 AM EDT, Route to Pharmacy Electronically, NCPDP_ID-[id number], [facility] Pharm[facility], 163.3, cm, 09/22/23 10:00:00 EDT, Height, 71.8, kg, 07/02/23 14:53:00 EDT, Dry Weight Start Date: 09/22/23 Stop Date: 12/21/23 Status: Ordered Quantity: 1.0 Unit: each Repeat number: 3 Breo Ellipta 100 mcg-25 mcg/inh inhalation powder 1 puffs, Inhalation, Daily, REPLACES ADVAIR, # 180 each, 1 Refills, Maintenance, 08/23/24 6:16:00 AMEDT, [facility] [place] Pharmacy, 90, 1 puffs Inhalation Daily,Instr:REPLACES ADVAIR, 162.4, cm, 08/03/24 11:01:00EDT, Height, 71.8, kg, 07/02/23 14:53:00 EDT, Dry Weight Start Date: 08/23/24 Status: Ordered Quantity: 180.0 Unit: each Repeat number: 2 DilTIAZem (Eqv-Cardizem CD) 120 mg/24 hours oral capsule, extended release 1 capsule, By Mouth, Daily, # 90 capsule, 3 Refills, Maintenance, 05/24/24 3:46:00 PM EDT, [facility] [place] Pharmacy, 162.4, cm, 05/24/24 15:32:00 EDT, Height, 71.8, kg, 07/02/23 14:53:00 EDT, Dry Weight Start Date: 05/24/24 Status: Ordered Quantity: 90.0 Unit: capsule Repeat number: 4 levothyroxine 0.1 mg oral tablet 1 tablet = 100 mcg, By Mouth, Daily, # 90 tablet, 2 Refills, Maintenance, 06/14/24 8:41:00 PM EDT, Tablet, [facility] Pharmacy, 162.4, cm, 06/09/24 8:12:00 EDT, Height, 71.8, kg, 07/02/23 14:53:00 EDT, Dry Weight Start Date: 06/14/24 Status: Ordered Quantity: 90.0 Unit: tablet Repeat number: 3 Indication: Hypothyroidism, unspecified levothyroxine 0.112 mg oral tablet See Instructions, 1 tablet By Mouth Daily except once a week only take 1/2 tablet (6.5 tablets per week), # 84 tablet, 3 Refills, Maintenance, 03/14/24 11:11:00 AM EDT, [facility] Pharmacy, 162.4, cm, 03/14/24 10:43:00 EDT, Height, [...] Team Personnel Name: Lee Odonnell MD Position: [facility] Physician - Primary Care Member Role: PCP Address: [address] [place] [phone]- Telecom: Care Team Related Persons Name: ZENON GARLAND Name: ALEXA GARLAND Name: LOUIE GARLAND Insurance Providers Guarantor name: GARRETT COLLIEROIT [facility] Plan Information #: 1 Payer: [employer] PPO Member Number: NA Policy Number: NA Group Number: NA
--- OUTSIDE RECORDS SUMMARY | 2025-01-19 17:35 | XMS_ITS | Data Portability ---
Author Organization [place] [facility], Allergy Address [address] [address] Care Team Providers Care Shield Runner Name Role Phone MADHAV BLACK Primary Care Provider Assessment Encounter Date Assessment Date Assessment LastModified by Organization Details LastModified Time 09/05/2024 09/05/2024 Patient with history of chronic sinusitis status post endoscopic surgery approximately 2016. She has done well up until the last 12 to 18 months. She is on immune modulator for her RA. She reports 3-4 infections over that. Usually associated with upper respiratory tract infections and on the right side. She had septoplasty, turbinate reduction and right sided endoscopic surgery. She is usually sick for about 7 days before she gets abx. Starts with FP nasal and then irrigations. ender Not available 09/05/2024 11:52:20 Plan of Treatment Reminders Order Date Submit Date Provider Last Modified By Organization Details Last Modified Time Details Appointments None record ed. Lab haemop hilus influe nzae B IgG Ab, quanti tative , serum, immuno assay 2023 024 ender [facility] (Centralized Electronic Ordering - All Locations), Patient Can Go To The Location Of Their Choice, [id number] 11:01:45 unlist ed lab - pneumo coccal Ab (23 seroty pe) 2023 MAULIK [facility] (Centralized Electronic Ordering - All Locations), Patient Can Go To The Location Of Their Choice, [id number] 12:02:03 unlist ed lab - tetanu s toxoid Ag respon se* 2023 024 [facility] (Centralized Electronic Ordering - All Locations), Patient Can Go To The Location Of Their Choice, [id number] 11:01:45 CBC w/ auto diff 2023 [facility] (Centralized Electronic Ordering - All Locations), Patient Can Go To The Location Of Their Choice, [id number] 11:33:30 ige, total, serum 2023 [facility] (Centralized Electronic Ordering - All Locations), Patient Can Go To The Location Of Their Choice, [id number] 4 21:54:05 immuno globul ins iga+ig g+igm, quanti tative , serum 2023 [facility] (Centralized Electronic Ordering - All Locations), Patient Can Go To The Location Of Their Choice, [id number] 4 10:13:59 igg subcla sses + total, serum 2023 [facility] (Centralized Electronic Ordering - All Locations), Patient Can Go To The Location Of Their Choice, [id number] 4 11:30:38 Referral None record ed. Procedures None record ed. Surgeries None record ed. Imaging None record ed. Medication Orders None record ed. Patient TargetsNo targets recorded. Patient InstructionsNo instructions recorded. Reason for Referral None Reported. Results Created Date Observation Date Name Description Value Unit Range Abnormal Flag Note LastModifiedBy Organization Detail LastModifiedTime Result Notes None recorded. Problems Name Problem SNOMED Code Status Onset Date Resolution Date Notes Provider Name and Address Organization Details Recorded Time Hypertro phy of nasal turbinat es 19204551 Completed 201506/24/2024 Hypertro phy of nasal turbinat es; Note: Date Diagnose d: 6 8:55 AM (J34.3) Not Available [facility] 4 02:21:44 Follow-u p visit Active 2015 Encounte r for follow-u p examinat ion after complete d treatmen t for conditio ns other than malignan t neoplasm ; Note: Date Diagnose d: 6 11:52 AM (Z09) Not Available [facility] 4 02:21:27 Recurren t acute sinusiti s 040276083 Active 2015 Other acute recurren t sinusiti s; Note: Date Diagnose d: 6 3:30 PM (J01.81) Not Available [facility] 4 02:21:39 Deviated nasal septum 857491848 Completed 201506/24/2024 Deviated nasal septum; Note: Date Diagnose d: 6 3:40 PM (J34.2) Not Available [facility] 4 02:21:31 Chronic sinusiti s 17887890 Active 2015 Sinusiti s (chronic ) involvin g more than one sinus but not pansinus itis; Note: Date Diagnose d: 6 7:34 AM (J32.8) Other chronic sinusiti s; Note: Date Diagnose d: 6 3:56 PM (J32.8) ; Start Date : 04/09/20 16 Not Available [facility] 4 02:21:52 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 Procedures Surgical History Date Name Laterality Status Provider Name and Address Organization Details Recorded Time 4 JMSNasal/Sinus Endoscopy-PRIO R surgical cavities completed ADRIÁN PHAN MD [address] [place] [address], [phone], [place] - [facility] 09/05/2024 11:50:13 Carpal tunnel surgery completed Neo Ivey [place] [facility] 09/05/2024 11:27:05 endoscopy completed Neo Ivey [facility] 09/05/2024 11:27:30 Imaging Results None recorded. Procedure Notes None recorded. Medical Equipment None Reported. Allergies Allergen ID Allergen Name Allergen Category Reaction Reaction Severity Criticality Documentation Date Start Date Code Code System Note Provider Name and Address Organization Details Recorded Time 72429 doxycycli ne Not available nausea Not available Not available 04/05/2024 3640 RxNorm React ion: vomit ing;; Not Available [facility] 4 00:51:39 17004 Bactrim medicatio n other Not available Not available 04/05/2024 36970 9 RxNorm React ion: unkno wn, unspe cifie d;; Not Available [facility] 4 00:51:44 28628 amoxicill in medicatio n other Not available Not available 04/05/2024 723 RxNorm React ion: unkno wn, unspe cifie d;; Not Available [facility] 4 00:51:48 25454 levofloxa louis medicatio n other Not available Not available 04/05/2024 42610 RxNorm React ion: unkno wn, unspe cifie d;; Not Available [facility] 4 00:51:51 05988 Substance with sulfonami de structure and antibacte rial mechanism of action (substanc e) medicatio n other Not available Not available 04/05/2024 02343 8003 SNOMED React ion: unkno wn, unspe cifie d;; Not Available [facility] 4 00:51:55 Medications Name Sig Start Date Stop Date Status Note LastModified by Organization Details LastModified Time levothyro xine 137 mcg tablet 09/05 completed Medicati on ID: [id number] D uration Value: 90 Brand Name: levothyr oxine Se nd Method: E-Prescr ibed Sub s Allowed: subs OK Medic ationGen ericName : levothyr oxine Not Available Not Available Not Available clindamyc in HCl 300 mg capsule 1 capsule by mouth 09/05 completed Medicati on ID: [id number] D uration Value: 14 Prescri bed By Name: Gregorio bertrand MD Brand Name: clindamy louis HCl Send Method: E-Prescr ibed Sub s Allowed: subs OK Medic ationGen ericName : clindamy louis HCl Not Available Not Available Not Available azithromy louis 250 mg tablet 09/05 completed Not Available Not Available Not Available clarithro mycin 500 mg tablet 1 tablet by mouth 05/02 completed Medicati on ID: [id number] D uration Value: 21 Brand Name: Biaxin XL Send Method: E-Prescr ibed Sub s Allowed: subs OK Medic ationGen ericName : Biaxin XL Not Available Not Available Not Available prednison e 20 mg tablet active Not Available Not Available Not Available Advair Diskus 100 mcg-50 mcg/dose powder for inhalatio n 09/05 completed Not Available Not Available Not Available tramadol 50 mg tablet 1 tablet by mouth 09/05 completed Medicati on ID: [id number] D uration Value: 5 Prescri bed By Name: Nighat Ahuja nd Name: tramadol Send Method: E-Prescr ibed Sub s Allowed: subs OK Medic ationGen ericName : tramadol Not Available Not Available Not Available levothyro xine 100 mcg tablet active Not Available Not Available Not Available Vitamin C 1,000 mg tablet 2015 active Medicati on ID: [id number] B rand Name: Vitamin C Send Method: E-Prescr ibed Sub s Allowed: subs OK Medic ationGen ericName : Vitamin C Not Available Not Available Not Available benzonata te 100 mg capsule active Not Available Not Available Not Available doxycycli ne monohydra te 100 mg capsule 1 capsule by mouth 09/05 completed Medicati on ID: [id number] D uration Value: 21 Prescri bed By Name: Adrián Nighat Avendaño nd Name: doxycycl ine monohydr ate Send Method: E-Prescr ibed Sub s Allowed: subs OK Medic ationGen ericName : doxycycl ine monohydr ate Not Available Not Available Not Available pantopraz ole 40 mg tablet,de layed release active Not Available Not Available Not Available Cipro 500 mg tablet 1 tablet by mouth 09/05 completed Medicati on ID: [id number] D uration Value: 10 Prescri bed By Name: PENG Ware nd Name: Cipro Se nd Method: E-Prescr ibed Sub s Allowed: subs OK Medic ationGen ericName : Cipro Not Available Not Available Not Available diltiazem CD 120 mg capsule,e xtended release 24 hr active Not Available Not Available Not Available Culturell e 10 billion cell capsule 2015 active Medicati on ID: [id number] D uration Value: 30 Prescri bed By Name: Nighat Ahuja nd Name: Adamal le Send Method: E-Prescr ibed Sub s Allowed: subs OK Speci al Instruct ion: one twice daily Me dication GenericN kaya: Culturel le Not Available Not Available Not Available mupirocin 2 % topical ointment active Not Available Not Available Not Available hydroxych loroquine 200 mg tablet active Not Available Not Available Not Available levofloxa louis 500 mg tablet 1 tablet by mouth 09/05 completed Medicati on ID: [id number] D uration Value: 14 Prescri bed By Name: Gregorio bertrand MD Brand Name: levoflox acin Sen d Method: E-Prescr ibed Sub s Allowed: subs OK Medic ationGen ericName : levoflox acin Not Available Not Available Not Available methylpre dnisolone 4 mg tablets in a dose pack 09/05 completed Not Available Not Available Not Available albuterol sulfate HFA 90 mcg/actua tion aerosol inhaler active Not Available Not Available Not Available naproxen 500 mg tablet 2015 active Medicati on ID: [id number] B rand Name: naproxen Send Method: E-Prescr ibed Sub s Allowed: subs OK Medic ationGen ericName : naproxen Not Available Not Available Not Available levothyro xine 112 mcg tablet 09/05 completed Not Available Not Available Not Available prednison e 09/05 completed Medicati on ID: [id number] D uration Value: 10 Prescri bed By Name: Adrián pacheco M.D. Bra nd Name: predniso ne Send Method: E-Prescr ibed Sub s Allowed: subs OK Speci al Instruct ion: takes 3 tablets daily for 3 days, 2 tablets daily for 3 daysand 1 tablet daily for 3 days Med icationG enericNa me: predniso ne Not Available Not Available Not Available Humira Pen 40 mg/0.8 mL subcutane ous kit 2015 active Medicati on ID: [id number] D uration Value: 28 Brand Name: Humira Pen Send Method: E-Prescr ibed Sub s Allowed: subs OK Medic ationGen ericName : Humira Pen Not Available Not Available Not Available clindamyc in 1.2 % (1 % base)-elvin zoyl peroxide 5 % topical gel active Not Available Not Available Not Available Breo Ellipta 100 mcg-25 mcg/dose powder for inhalatio n active Not Available Not Available Not Available Flonase Allergy Relief 50 mcg/actua tion nasal spray,jenelle pension 09/05 completed Medicati on ID: [id number] D uration Value: 30 Brand Name: Flonase Allergy Relief S end Method: E-Prescr ibed Sub s Allowed: subs OK Speci al Instruct ion: 2 sprays each nostril once a day Medi cationGe nericNam e: Flonase Allergy Relief Not Available Not Available Not Available Xeljanz XR 11 mg tablet,ex tended release active Not Available Not Available Not Available Clenpiq 10 mg-3.5 gram-12 gram/175 mL oral solution active Not Available Not Available Not Available Vitals Date Recorded Body height Body mass index (BMI) Body weight Provider Name and Address Organization Details Last Updated DateTime 09/05/2024 165.1 cm 25.6 kg/m2 16402.22 g Neo Ivey [place] - [facility] 09/05/2024 11:23:51 Social History None recorded. Functional Status None recorded. Mental Status None recorded. Family History Nothing Reported. Medical History Condition Response Allergies/Hayfever Y Arthritis Y Thyroid Problems Y Hypertension Y Asthma Y Gynecological HistoryNo gynecological history recorded. Obstetrics History GPAL:G 0 P 0 0 0 0 Past Encounters Encounter ID Performer Location Encounter Start Date Encounter Closed Date Diagnosis/Indication Diagnosis SNOMED-CT Code Diagnosis ICD10 Code Diagnosis Note [id number] ADRÁIN RUTHERFORD MD [facility] [address] [place] [address] 09/05/2024 10:39:38 09/05/2024 11:54:33 Recurrent acute sinusitis 262104257 J01.91 Could be related to immune modulator but I have suggested an immunology workup. Patient works at [employer] and she will have the laboratory studies performed there and make sure I get the results. There is no evidence of any polyps or obstructio n to the previous surgical sites. Chronic rhinitis 7032511 6 J31.0 For management of upper respirator y tract infections , I recommende d saline nasal spray, sinus nasal irrigation s, Afrin nasal decongesta nt spray (2 sprays each nostril twice daily for 3 days beginning with days 6, 7 and 8), fluticason e nasal spray and zinc lozenges. I would avoid any topical zinc nasal sprays due to the risk of loss of sense of smell.I typically avoid antibiotic s unless persistent symptoms for greater than 10-14 days or severely worsening symptoms after 7-10 days. Rheumatoid arthritis 698 23413 M06.9 Health Concerns Section Related Observation LastModified by Organization Detai ls LastModified Time None Recorded Concern Status LastModified by Organization Details LastModified Time None Recorded Advance Directives Directive None Recorded Payers Encounter Date Sequence Insurance Name Policy Number Policy Silva Covered Member ID Silva Member ID Guarantor Name 09/05/2024 1 [employer] ([facility]) [id number] Leandra Escalera [id number] Leandra Escalera Notes Date Note Type Note Provider Name and Address Organization Details Recorded Time 09/05/2024 text/html Patient with history of chronic sinusitis status post endoscopic surgery approximately 2016. She has done well up until the last 12 to 18 months. She reports 3-4 infections over that. Usually associated with upper respiratory tract infections and on the right side. She had septoplasty, turbinate reduction and right sided endoscopic surgery.She is usually sick for about 7 days before she gets abx. Starts with FP nasal and then irrigations. ADRIÁN PHAN MD [address] [place] [address], [place], [phone], [place] [facility] 09/05/2024 11:53:19 OBGyn Episode No OBEpisode recorded.
--- OUTSIDE RECORDS SUMMARY | 2025-01-19 17:35 | XMS_ITS ---
Author Organization [facility] Address [address] [place] [phone] Care Team Providers Care Separator Operator Name Role Phone MacisarahiLee tobin Primary Care Provider Thom Aguirre Jr Unavailable [phone] ALLERGIES Allergen (clinical drug ingredient) Drug/Non Drug Allergy documented on EMR Reaction Allergy Type Onset Date Status doxycycline Doxycycline Unknown Drug Allergy Act ana salsalate Salsalate Unknown Drug Allergy Active Biaxin Unknown Drug Allergy Active Bactrim Unknown Drug Allergy Active amoxicillin Amoxicillin Unknown Drug Allergy Act ana REASON FOR VISIT Patient presents today for consultation MEDICATIONS Medication SIG (Take, Route, Frequency, Duration) Notes Start Date End Date Status Breo Ellipta 100-25 MCG/INH 1 puff Inhal ation Once a day Active Duac Active Flonase 50 MCG/DOSE 1 spray in each nost ril Nasally Once a day for 30 day(s) Active Clenpiq 10-3.5-12 MG-GM -GM/175ML 175 ml the first dose the evening before and second dose the morning of colonoscopy Orally Once a day for 2 day(s) 03/16/2024 Active Vitamin C 1000 MG 1 tablet Orally Once a day Active Tazorac Active Citracal + D 250-200 MG-UNIT 1 tablet Orally daily Active Naproxen 500 MG 1 tablet Orally prn Active Vitamin D 1000 UNIT 1 capsule Orally Onc e a day Active Pantoprazole Sodium 40 MG 1 tablet Orall y Once a day for 30 day(s) Active dilTIAZem HCl 120 MG 1 tablet before paula ls Orally Once a day Active Plaquenil 200 MG 2 tablet with food o r milk Orally Once a day Active Xeljanz XR 11 MG 1 tablet Orally Once a day for 30 day(s) Active Levothyroxine Sodium 112 MCG 1 tablet on an empty stomach in the morning Orally Once a day Active SOCIAL HISTORY Tobacco Use: Social History Observation Description Date Details (start date - stop date) Never Smoker NA - NA Sex Assigned At : Social History Observation Description Sex Assigned At Unknown Tobacco Use/Smoking Question Answer Notes Patient is a nonsmoker Alcohol Screen Question Answer Notes Did you have a drink contain ing alcohol in the past year? Yes How often did you have a dri nk containing alcohol in the past year? 2 to 4 times a month (2 points) How many drinks did you have on a typical day when you were drinking in the past year? 1 or 2 drinks (0 point) How often did you have 6 or more drinks on one occasion in the past year? Never (0 point) Points 2 Interpretation Negative PROBLEMS Problem Type ICD Code Onset Dates Problem Status W/U Status Risk SNOMED Code Notes Problem Gastroesophageal reflux disease, unspecified whether esophagitis present (K21.9) Active confirmed 940835250 Problem Colon cancer screening (Z12.11) Active confirmed 751436174 Problem FH: colon polyps (Z83.719) Active confirmed 829413062 Problem Encounter for long-term (current) use of NSAIDs (Z79.1) Active confirmed 931754554 VITAL SIGNS Temperature 97.8 degrees Fahrenheit 03/16/20 24 Blood pressure systolic 000 mm Hg 03/16/20 24 Blood pressure diastolic 00 mm Hg 024 Height 66 in 03/16/2024 Weight 157 lb 6 oz lbs 03/16/2024 BMI 25.40 kg/m2 03/16/2024 Encounters Encounter Location Date Provider Diagnosis [facility] [address] [facility] [address] [place] [phone] 03/16/2024 Thom Chin Jr Gastroesophageal reflux disease, unspecified whether esophagitis present K21.9 ; Colon cancer screening Z12.11 ; FH: colon polyps Z83.719 and Encounter for long-term (current) use of NSAIDs Z79.1 ASSESSMENTS Encounter Date Diagnosis Assessment Notes Treatment Notes Treatment Clinical Notes 03/16/2024 Gastroesophageal ref lux disease, unspecified whether esophagitis present (ICD-10 - K21.9) 03/16/2024 Colon cancer screeni ng (ICD-10 - Z12.11) 03/16/2024 FH: colon polyps (ICD-10 - Z83.719) 03/16/2024 Encounter for long-t erm (current) use of NSAIDs (ICD-10 - Z79.1) PLAN OF TREATMENT Medication Medication Name Sig Start Date Stop Date Notes Clenpiq 10-3.5-12 MG-GM -GM/175ML 175 ml the first dose the evening before and second dose the morning of colonoscopy Orally Once a day for 2 day(s) 03/16/2024 Future Test Test Name Order Date UPPER GI ENDOSCOPY 03/16/2024 COLONOSCOPY 03/16/2024 Next Appt Details Follow Up: 1 Year, Reason: Progress Notes * Examination Category Sub-Category Detail Notes General Examination GENERAL APPEARANCE: in no ac jose distress HEAD: normocephalic EYES: sclera non-icteric NECK/THYROID: no lymphadenopathy HEART: S1, S2 normal, no mu rmurs CHEST: normal shape and exp ansion LUNGS: clear to auscultatio n bilaterally ABDOMEN: soft, nontender, non distended, bowel sounds present, no organomegaly SKIN: anicteric EXTREMITIES: no clubbing, cyanosi s, or edema PSYCH: cognitive function i ntact ORAL CAVITY: mucosa moist
--- OUTSIDE RECORDS SUMMARY | 2025-01-19 17:35 | XMS_ITS | Patient Health Record ---
Author Organization [facility] Address [address] [place] [phone] Care Team Providers Care Microphone Operator Name Role Phone ArabellaAdarsh cintronald Primary Care Provider Thom Aguirre Jr Unavailable ALLERGIES Allergen (clinical drug ingredient) Drug/Non Drug Allergy documented on EMR Reaction Allergy Type Onset Date Status doxycycline Doxycycline Unknown Drug Allergy Act ana salsalate Salsalate Unknown Drug Allergy Active Biaxin Unknown Drug Allergy Active Bactrim Unknown Drug Allergy Active amoxicillin Amoxicillin Unknown Drug Allergy Act ana RESULTS Component Value Reference Range Notes Pathology Reviewed date:05/05/2024 09:20:57 AM Interpretation: Performing Lab:[facility], [address] [place] [phone] Notes/Report: REASON FOR REFERRAL No Information MEDICATIONS Medication SIG (Take, Route, Frequency, Duration) Notes Start Date End Date Status Breo Ellipta 100-25 MCG/INH 1 puff Inhal ation Once a day Active Duac Active Pantoprazole Sodium 40 MG 1 tablet Orall y Once a day for 30 day(s) Active Vitamin C 1000 MG 1 tablet Orally Once a day Active Flonase 50 MCG/DOSE 1 spray in each nost ril Nasally Once a day for 30 day(s) Active Tazorac Active Citracal + D 250-200 MG-UNIT 1 tablet Orally daily Active Naproxen 500 MG 1 tablet Orally prn Active Vitamin D 1000 UNIT 1 capsule Orally Onc e a day Active dilTIAZem HCl 120 MG 1 tablet [...] a day for 2 day(s) 03/16/2024 Active Levothyroxine Sodium 112 MCG 1 tablet on an empty stomach in the morning Orally Once a day Active IMMUNIZATIONS Vaccine Route Administration Date Status Comme nts Influenza Unknown 10/13/2023 Administered SOCIAL HISTORY Tobacco Use: Social History Observation [...] W/U Status Risk SNOMED Code Notes Problem Colon cancer screening (Z12.11) Active confirmed 163472672 Problem Encounter for other preprocedural examination (Z01.818) Active confirmed 28595261 Problem Encounter for long-term (current) use of NSAIDs (Z79.1) Active confirmed 292825295 Problem Gastric polyps (K31.7) Active confirmed 12347939 Problem Esophageal reflux disease (K21.9) Active confirmed Gastroesopha geal reflux disease (728055904) Problem Gastroesophageal reflux disease, unspecified whether esophagitis present (K21.9) Active confirmed 989186453 Problem FH: colon polyps (Z83.719) Active confirmed 712327083 VITAL SIGNS Temperature 97.8 degrees Fahrenheit 03/16/2024 Blood pressure diastolic 00 mm Hg 03/16/2024 Height 66 in 03/16/2024 Blood pressure systolic 000 mm Hg 03/16/2024 Weight 157 lb 6 oz lbs 03/16/2024 BMI 25.40 kg/m2 03/16/2024 Encounters Encounter Location Date Provider Diagnosis [facility] [address] [place], [place] [id number] 04/29/2024 Thom Chin Jr Encounter for screening colonoscopy Z12.11 ; Gastric polyps K31.7 and Esophageal reflux disease K21.9 [facility] [address] [place] [phone] 03/16/2024 Thom Chin Jr Gastroesophageal reflux disease, unspecified whether esophagitis present K21.9 ; Colon cancer screening Z12.11 ; FH: colon polyps Z83.719 and Encounter for long-term (current) use of NSAIDs Z79.1 [facility] [address] [place] [phone] 03/09/2024 Thom Chin Jr [facility] [address] [place] [phone] 05/05/2024 Thom Chin Jr ASSESSMENTS Encounter Date Diagnosis Assessment Notes Treatment Notes Treatment Clinical Notes 04/29/2024 Encounter for screen ing colonoscopy (ICD-10 - Z12.11) 04/29/2024 Gastric polyps (ICD- 10 - K31.7) 03/16/2024 Colon cancer screeni ng (ICD-10 - Z12.11) 03/16/2024 Gastroesophageal ref lux disease, unspecified whether esophagitis present (ICD-10 - K21.9) 04/29/2024 Esophageal reflux disease (ICD-10 - K21.9) 03/16/2024 FH: colon polyps (ICD-10 - Z83.719) 03/16/2024 Encounter for long-t erm (current) use of NSAIDs (ICD-10 - Z79.1) PLAN OF TREATMENT Future Test Test Name Order Date COLONOSCOPY 07/30/2018 UPPER GI ENDOSCOPY 03/16/2024 COLONOSCOPY 03/16/2024 Insurance Providers Payer Name Payer Address Payer Phone Subscriber Number Group Number Insured Name Patient Relationship to Insured Coverage Start Date Coverage End Date [employer] [address] [address] [place] [address] [id number] [place] Self - patient is the insured MEDICAL (GENERAL) HISTORY Medical History History ICD Code Hypothyroidism Asthma Hypertension Rheumatoid arthritis Leukopenia Gastroesophageal reflux disease Colonoscopy 02/08, lymphoid p olyp, five-year followup for family history of colon polyps. Surgical History Surgery Date(Month/Year) carpal tunnel release-right FESS-sinus
--- OUTSIDE RECORDS SUMMARY | 2025-01-19 17:35 | XMS_ITS | Clinical Summary ---
Author Organization [place] [address] [address] [facility] Building Address [address] [place] [address] Phone Care Team Providers Care Paperback Machine Operator Name Role Phone Lee Odonnell MD Primary Care Provider [phone] Allergies Active Allergy Reactions Criticality Noted Date Comments Ampicillin 02/25/2006 Clarithromycin 10/06/2016 Other Reaction(s): Rash/Dermatitis Tightening in arms Doxycycline 02/25/2006 Salsalate 06/27/2011 Other Reaction(s): Hives/Urticaria Sulfamethoxazole-Trimethoprim 2005 Medications albuterol HFA (PROAIR HFA ; PROVENTIL HFA ; VENTOLIN HFA) 90 mcg/actuation inhaler Inhale 2 Puffs into the lungs every 4 hours as needed for Cough or Wheezing. 06/02/2019 Active ascorbic acid (VITAMIN C) 500 mg tablet Take 500 mg by mouth daily. Active calcium carbonate-vitam in D3 600 mg-10 mcg (400 unit) capsule Take by mouth daily. Active dilTIAZem CD (Cartia XT) 120 mg 24 hr capsule Take 1 Cap by mouth daily. 09/14/2020 Active clindamycin-elvin zoyl peroxide (DUAC) 1.2-5% gel None Entered Active hydroxychloroqu ine (PLAQUENIL) 200 mg tablet Take 2 Tabs by mouth daily. 08/23/2019 Active levothyroxine sodium (TIROSINT) 112 mcg capsule Take by mouth. Active naproxen (NAPROSYN) 500 mg tablet Take 1 Tab by mouth 2 times daily (with meals). 10/13/2011 Active pantoprazole (PROTONIX) 20 mg EC tablet Take 1 tablet (20 mg total) by mouth 1 (one) time each day. Active tazarotene (Tazorac) 0.1 % gel None Entered Active tofacitinib (Xeljanz XR) 11 mg ER tablet Take 1 tablet (11 mg total) by mouth 1 (one) time each day. Active fluticasone furoate-vilante roL (BREO ELLIPTA) 100-25 mcg/dose inhaler Inhale by mouth. 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 Rheumatoid arthritis 06/13/2008 Carpal tunnel syndrome 03/17/2008 HTN (hypertension) 07/22/2006 Hypothyroidism 07/22/2006 Encounters Date Type Department Care Team Description 12/20/2024 10:00 AM EST Office Visit [facility] [address] [place] [address] Leatha Phelps, [place] Encounter for annual physical examination excluding gynecological examination in a patient older than 17 years (Primary Dx) from Last 3 Months Immunizations Name Administration Dates Next Due Influenza trivalent, with pr eservative (Fluzone; Afluria) 6mo and older 09/29/2016,08/24/2015 Pneumococcal conjugate 13 va lent (Prevnar 13, PCV13) 2mo and older 03/09/2017 Pneumococcal polysaccharide 23 valent (Pneumovax 23) 2yo and older 08/23/2019,09/29/2014,03/22/2009 Td Tetanus diptheria (Tdvax) 7yo and older 02/01,06/06/1999 Tdap Tetanus diptheria acell ular pertussis (Boostrix; Adacel) 7yo and older 01/05/2008 Surgical History Surgery Date Site/Laterality Comments COLONOSCOPY 12/15/07 PROCEDURE: HISTORICAL COLONOSCOPY; COMMENT: Repeat 10yrs,(6mm hyperplastic cecal polyp)Dr. 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 DX:Fe lty's syndrome (HCC) Essential hypertension, benign 07/22/2006 D X:Essential hypertension, benign Rheumatoid arthritis(714.0) 06/13/2008 DX:R heumatoid arthritis(714.0) Family History Medical History Relation Name Comments Other Dermatological Disorders Daughter 1 Nida EDC 11/18/19 Other: healthy as of 08/2019 Daughter 2 Bri Bladder Cancer Father Stroke Mother age 91, 10 yrs after stroke Breast cancer Neg Hx Colon cancer Neg Hx Ovarian cancer Neg Hx Relation Name Status Comments Brother Alive asthma, obese, Etoh, 6.5 yrs elder Daughter 1 Nida Alive Nida born [birth year] [address] of [facility] Daughter 2 Bri Alive Bri born [birth year] [address] [facility] accounting Father (Age 55) Bladder CA Mother (Age 91) Diabetes, HTN, Stroke, 2010 Social History Tobacco Use Types Packs/Day Years [...] on file Sexual Orientation Not on file Obstetrics History Para Term AB IAB SAB Ectopic Multiple Livin g Live Births 2 2 Date Outcome GA Total Labor Labor/2nd/3rd Weight Sex Type Anes PTL Korina A1 A5 Name Clin Last Filed Vital Signs Vital Sign Reading [...] Mass Index 26.53 12/20/2024 9:57 AM EST Plan of Treatment Health Maintenance Due Date Last Done Comments Breast Cancer Screening 1955 COVID-19 Vaccine (#1) 1959 Zoster Vaccines (1 of 2) 2004 Cholesterol Screening (Lipid Panel) 10/21/2022 Depression Screening 10/21/2022 Falls Risk Assessment 10/21/2022 Osteoporosis Screening (Bone Density Screening) 10/21/2022 Social Influencers of Health Screening 10/21/2022 Hypertension/CHF/CAD Annual BMP Blood Test 11/07/2022 04/28/2012 Cervical Cancer Screening: HPV 07/12/2024 07/12/2019 Influenza Vaccine (#1) 2024 09/29/2016, 2014 DTaP,Tdap,and Td Vaccines (4 - Td or Tdap) 02/02/2028 02/01/2018, 01/05/2008, 06/06/1999 Colorectal Cancer Screening: Colonoscopy 02/18/2029 02/18/2019 RSV Immunization Patients 60+ Years Old (1 - 1-dose 75+ series) 2029 Hepatitis C Screening Completed 08/26/2010 Pneumococcal Vaccine: 50+ Years Completed 08/23/2019, 03/09/2017, 09/29/2014, Additional history exists HIB Vaccines Aged Out No longer eligi ble based on patient's age to complete this topic HPV Vaccines Aged Out No longer eligi ble based on patient's age to complete this topic Hepatitis A Vaccines Aged Out No long er eligible based on patient's age to complete this topic Hepatitis B Vaccines Aged Out No long er eligible based on patient's age to complete this topic IPV Vaccines Aged Out No longer eligi ble based on patient's age to complete this topic MMR Vaccines Aged Out No longer eligi ble based on patient's age to complete this topic Meningococcal ACWY Vaccine Aged Out N o longer eligible based on patient's age to complete this topic Meningococcal B Vacine Aged Out No lo nger eligible based on patient's age to complete this topic RSV Immunization Patients Under 20 months Aged Out No longer eligible based on patient's age to complete this topic Varicella Vaccines Aged Out No longer eligible based on patient's age to complete this topic Procedures Procedure Name Priority Date/Time Associated Diagnosis Comments HPV Routine 07/12/2019 COLONOSCOPY Routine 02/18/2019 ANNUAL BMP BLOOD TEST Routine 04/28/2012 HEPATITIS C SCREENING Routine 08/26/2010 from Last 3 Months or Most Recently Relevant to Health Maintenance Results * Cervical Cancer Screening: HPV (07/12/2019) Pathologist [facility] Cervical Cancer Screening: HPV NEGATIVE, ABSTRACTED [facility] Provider HEALTH MAINTENANCE Final Result * Colonoscopy (02/18/2019) Pathologist [facility] Colonoscopy NO INTERPRETATION , ABSTRACTED Anatomical Region Laterality Modality Other [facility] Provider HEALTH MAINTENANCE Final Result * Annual BMP Blood Test (04/28/2012) Pathologist [facility] Annual BMP Blood Test ABSTRACTED [facility] Provider HEALTH MAINTENANCE Final Result * Hepatitis C Screening (08/26/2010) Pathologist [facility] Hepatitis C Screening ABSTRACTED [facility] Provider HEALTH MAINTENANCE Final Result from Last 3 Months or Most Recently Relevant to Health Maintenance Insurance [employer] [facility] Care Teams Paperback Machine Operator Relationship Specialty Start Date End Date Lee Odonnell MD [facility] [address] [place] [id number] PCP - General 08/22/24
== END 2025-01-19 14:25 | disposition home or self-care (01) ==
LOC: HO.MAMMO 14:24
PROVIDERS: Visit Provider Internal Medicine Endocrinology, Diabetes & Metabolism
DX: M81.0 Age-related osteoporosis without current pathological fracture (principal)
CPT/HCPCS: 77081

== ENCOUNTER → 2025-01-19 14:30 | Outpatient (BNV) | payer OTHER, SELFPAY | PROVIDERS: Visit Provider Radiology Diagnostic Radiology | DX: E28.39 Other primary ovarian failure (principal) | CPT/HCPCS: 77081 ==

== ENCOUNTER 2025-02-07 08:26 | Outpatient (REF) | payer OTHER, SELFPAY ==
--- NOTE | ~2025-02-07 | US_ITS ---
EXAMINATION: US ABDOMEN LIMITED HISTORY: RUQ ABD PAIN TECHNIQUE: Real-time grayscale ultrasound imaging of the right upper quadrant was performed and images were reviewed. COMPARISON: There are no prior studies for comparison. FINDINGS: Liver: The right lobe of the liver measures 13.0 cm in size. The left lobe of the liver measures 8.2 cm in size. The liver demonstrates normal homogeneous echotexture. No focal mass or intrahepatic biliary ductal dilatation is identified. There is normal hepatopedal flow in the portal vein. Gallbladder and biliary tree: The gallbladder is unremarkable, without evidence of calculi, wall thickening, or pericholecystic fluid. There is no sonographic Haynes sign. The common bile duct is normal in caliber measuring 2 mm. Right Kidney: The right kidney measures 10.8 cm in length. The right kidney is unremarkable, without evidence of masses, hydronephrosis, or calculi. Pancreas: The pancreas is obscured by bowel gas. Abdominal aorta and inferior vena cava: The visualized portions of the abdominal aorta and inferior vena cava are normal in caliber. There is no free fluid in the right upper quadrant. US/US abdomen limited IMPRESSION: The pancreas is not visualized. Otherwise unremarkable right upper quadrant ultrasound. Electronically signed by: Gregorio Escobar MD 02/07/2025 09:08 AM EDT
--- OUTSIDE RECORDS SUMMARY | 2025-02-07 08:39 | XMS_ITS | Patient Health Record ---
Author Organization [facility] Address [address] [place] [address] Care Team Providers Care Front Line Supervisor Name Role Phone Lee Odonnell Primary Care Provider Thom Aguirre Jr Unavailable Allergies Allergen (clinical drug ingredient) Drug/Non Drug Allergy documented on EMR Reaction Allergy Type Onset Date Status salsalate Salsalate Unknown Drug Allergy Active Biaxin Unknown Drug Allergy Active Bactrim Unknown Drug Allergy Active amoxicillin Amoxicillin Unknown Drug Allergy Act ana doxycycline Doxycycline Unknown Drug Allergy Act ana Results Component Value Reference Range Notes Pathology Reviewed date:05/05/2024 09:20:57 AM Interpretation: Performing Lab:[facility], [address] [place] [phone] Notes/Report: Name: Garrett Escalera Age/Sex: 69/F : 1955 Unit#: [id number] Attend Dr: Thom Chin MD Re04/29/24 Status : [facility] Location: [facility] Disch: SPEC : [id number] RECD : 04/29/24 STATUS: BRANDON SIFUENTES NUM: [id number] GUERO: 04/29/[address] [facility] [address]: Thom Chin MD ENTERED: 04/29/24- 044 SP TYPE: Surgical OTHR DR: Lee Odonnell MD ORDERED: HE Stain/9, Gross Micro L4/3, IHC/2, Special st. 2/, H. pylori/2, AB/PAS/3 Diagnosis A. Gastric antrum, b iopsy: Gastric antral mucosa with congestion and minimal chronic inactive gastritis; negative for H pylori, intestinal metaplasia and dysplasia. B. Gastric polyps, b iopsy: Fundic gland polyp (1 piece) with focal minimal chronic inactive inflammatio n; negative for H pylori, intestinal metaplasia and dysplasia. C. Esophagogastric j unction, biopsy: Squamous mucosa with hyperplasia and focal intraepithelial neut rophils, and columnar mucosa with moderate chronic active inflammation, consis tent with reflux esophagitis; negative for intestinal metaplasia and dysplasia. Clinical History Pre-Op Dx: Screening Post-Op Dx: GERD, gastric polyps Microscopic Description Microscopic sections reviewed. Immunostain for H. pylori on A and B are negative; AB/PAS on A, B and C are ne gative for intestinal metaplasia. Controls stain appropriately. Material Received A. Antral bx's B. Bx's gastric polyps C. EG junction Gross Description Received in three parts. Part A: Received in formalin labeled ?antral bx's? are 2 corley-pink irregular tissue fragments measuring 0.15 and 0.25 cm, submitted in toto in a cassette labeled A. Part B: Received in formalin labeled ?bx's (sic) gastric polyps? is a 0.2 cm corley-pink irregular tissue fra gment, submitted in toto in a cassette labeled B. Part C: Received in formalin labeled ?EG junction? are 3 fontenot-white and corley-pink irregular tissue fragments ran ging from 0.15-0.25 cm, submitted in toto in a cassette labeled Franck RAMIREZ CONTINUED ON NEXT PAGE Name: Garrett Escalera Age/Sex: 69/F : 1955 Unit#: [id number] Attend Dr: Thom Chin MD Re04/29/24 Status : [facility] Location: [facility] Disch: SPEC : [id number] RECD : 04/29/24 STATUS: BRANDON SIFUENTES NUM: [id number] GUERO: 04/29/[address] [facility] [address]: Thom Chin MD ENTERED: 04/29/24-10 44 SP TYPE: Surgical OTHR DR: Lee Odonnell MD ORDERED: HE Stain/9, Gross Micro L4/3, IHC/2, Special st. 2/3, H. pylori/2, AB/PAS/3 Gross Description (Continued) Special studies orde red and performed: Immunostain for H. pylori on A1 and B1; AB/PAS stains on A1, B1 and C1. Copies To: Thom Chin MD [address] [place] [address] [id number] [place], [place] [id number] Lee Odonnell MD [address] [place] [id number] Signed (si gnature on file) Hazel Valerie 05/04/24 1000 END OF REPORT Reason For Referral No Information Medications Medication SIG (Take, Route, Frequency, Duration) Notes [...] the morning Orally Once a day Active Immunizations Vaccine Route Administration Date Status Comme nts Influenza Unknown 10/13/2023 Administered Social History Tobacco Use: Social History Observation Description Date Details (start date - stop date) Never Smoker NA - NA Tobacco Use/Smoking Question Answer Notes Patient is [...] Never (0 point) Points 2 Interpretation Negative Problems Problem Type SNOMED Code ICD Code Onset Dates Problem Status W/U Status Risk Notes Problem 298234660 Colon cancer screening (Z12.11) Active confirmed Problem 62998621 Encounter for other preprocedural examination (Z01.818) Active confirmed Problem 528981856 Encounter for long-term (current) use of NSAIDs (Z79.1) Active confirmed Problem 53421981 Gastric polyps (K31.7) Active confirmed Problem Gastroesophageal reflux disease (667622131) Esophageal reflux disease (K21.9) Active confirmed Problem 058959164 Gastroesophageal reflux disease, unspecified whether esophagitis present (K21.9) Active confirmed Problem 536047377 FH: colon polyps (Z83.719) Active confirmed Vital Signs Temperature 97.8 degrees Fahrenheit 03/16/2024 Blood pressure diastolic 00 mm Hg 03/16/2024 Height 66 in 03/16/2024 Blood pressure systolic 000 mm Hg 03/16/2024 Weight 157 lb 6 oz lbs 03/16/2024 BMI 25.40 kg/m2 03/16/2024 Encounters Encounter Location Date Provider Diagnosis [facility] [address], [place] [id number] 04/29/2024 Thom Chin Jr Encounter for screening colonoscopy Z12.11 ; Gastric polyps K31.7 and Esophageal reflux disease K21.9 [facility] [address] [place] [address] 03/16/2024 Thom Chin Jr Gastroesophageal reflux disease, unspecified whether esophagitis present K21.9 ; Colon cancer screening Z12.11 ; FH: colon polyps Z83.719 and Encounter for long-term (current) use of NSAIDs Z79.1 [facility] [address] [place] [address] 03/09/2024 Thom Chin Jr [facility] [address] [place] [address] 05/05/2024 Thom Chin Jr Assessments Encounter Date Diagnosis (ICD Code) Assessment Notes Treatment Notes Treatment Clinical Notes Section Notes 04/29/2024 Encounter for screening colonoscopy (ICD-10 - Z12.11) 04/29/2024 Gastric polyps (ICD-10 - K31.7) 03/16/2024 Colon cancer screening (ICD-10 - Z12.11) We discussed gastroesophageal reflux disease today. We discussed diet, lifestyle modifications, and weight management regarding the treatment of her reflux. She will undergo upper endoscopy for further evaluation. She will continue pantoprazole. She is due for colorectal cancer screening. This will be arranged. She understands risks and benefits of both procedures and agrees to proceed. She is advised to stop NSAIDs one week before the procedure. She will check with her furniture salesperson regarding whether he recommends stopping Xeljanz. 03/16/2024 Gastroesophageal reflux disease, unspecified whether esophagitis present (ICD-10 - K21.9) We discussed gastroesophageal reflux disease today. We discussed diet, lifestyle modifications, and weight management regarding the treatment of her reflux. She will undergo upper endoscopy for further evaluation. She will continue pantoprazole. She is due for colorectal cancer screening. This will be arranged. She understands risks and benefits of both procedures and agrees to proceed. She is advised to stop NSAIDs one week before the procedure. She will check with her furniture salesperson regarding whether he recommends stopping Xeljanz. 04/29/2024 Esophageal reflux disease (ICD-10 - K21.9) 03/16/2024 FH: colon polyps (ICD-10 - Z83.719) We discussed gastroesophageal reflux disease today. We discussed diet, lifestyle modifications, and weight management regarding the treatment of her reflux. She will undergo upper endoscopy for further evaluation. She will continue pantoprazole. She is due for colorectal cancer screening. This will be arranged. She understands risks and benefits of both procedures and agrees to proceed. She is advised to stop NSAIDs one week before the procedure. She will check with her furniture salesperson regarding whether he recommends stopping Xeljanz. 03/16/2024 Encounter for long-term (current) use of NSAIDs (ICD-10 - Z79.1) We discussed gastroesophageal reflux disease today. We discussed diet, lifestyle modifications, and weight management regarding the treatment of her reflux. She will undergo upper endoscopy for further evaluation. She will continue pantoprazole. She is due for colorectal cancer screening. This will be arranged. She understands risks and benefits of both procedures and agrees to proceed. She is advised to stop NSAIDs one week before the procedure. She will check with her furniture salesperson regarding whether he recommends stopping Xeljanz. Plan Of Treatment Future Test Test Name Order Date COLONOSCOPY 07/30/2018 UPPER GI ENDOSCOPY 03/16/2024 COLONOSCOPY 03/16/2024 Insurance Providers Payer Name Payer Address Payer Phone Subscriber Number Group Number Insured Name Patient Relationship to Insured Coverage Start Date Coverage End Date [employer] [place] [address] [address] [place] [address] [id number] GARRETT ESCALERA Self - patient is the insured Medical (General) History Medical History History ICD Code Hypothyroidism Asthma Hypertension Rheumatoid arthritis Leukopenia Gastroesophageal reflux disease Colonoscopy 02/08, lymphoid p olyp, five-year followup for family history of colon polyps. Surgical History Surgery Date(Month/Year) carpal tunnel release-right FESS-sinus
--- OUTSIDE RECORDS SUMMARY | 2025-02-07 08:39 | XMS_ITS | Data Portability ---
Author Organization [place] [facility], Allergy Address [address] [address] Care Team Providers Care Hardware Sales Assistant Name Role Phone MADHAV BLACK Primary Care Provider [phone] Assessment Encounter Date Assessment Date Assessment LastModified [...] quanti tative , serum, immuno assay 2023 ender [facility] (Centralized Electronic Ordering - All Locations), Patient Can Go To The Location Of Their Choice, [address] 11:01:45 unlist ed lab - pneumo coccal Ab (23 seroty pe) 2023 024 MAULIK [facility] (Centralized Electronic Ordering - All Locations), Patient Can Go To The Location Of Their Choice, [address] 12:02:03 unlist ed lab - tetanu s toxoid Ag respon se* 2023 [facility] (Centralized Electronic Ordering - All Locations), Patient Can Go To The Location Of Their Choice, [address] 4 11:01:45 CBC w/ auto diff 2023 [facility] (Centralized Electronic Ordering - All Locations), Patient Can Go To The Location Of Their Choice, [address] 4 11:33:30 ige, total, serum 2023 [facility] (Centralized Electronic Ordering - All Locations), Patient Can Go To The Location Of Their Choice, [address] 4 21:54:05 immuno globul ins iga+ig g+igm, quanti tative , serum 2023 [facility] (Centralized Electronic Ordering - All Locations), Patient Can Go To The Location Of Their Choice, [address] 10:13:59 igg subcla sses + total, serum 2023 [facility] (Centralized Electronic Ordering - All Locations), Patient Can Go To The Location Of Their Choice, [address] 4 11:30:38 Referral None record ed. Procedures [...] Time Hypertro phy of nasal turbinat es 23120636 Completed 201506/24/2024 Hypertro phy of nasal turbinat es; Note: Date Diagnose d: 6 8:55 AM (J34.3) Not Available [facility] 02:21:44 Follow-u p visit Active 2015 Encounte r for follow-u p examinat ion after complete d treatmen t for conditio ns other than malignan t neoplasm ; Note: Date Diagnose d: 6 11:52 AM (Z09) Not Available [facility] 4 02:21:27 Recurren t acute sinusiti s 088569950 Active 2015 Other acute recurren t sinusiti s; Note: Date Diagnose d: 6 3:30 PM (J01.81) Not Available [facility] 4 02:21:39 Deviated nasal septum 590618333 Completed 201506/24/2024 Deviated nasal septum; Note: Date Diagnose d: 6 3:40 PM (J34.2) Not Available [facility] 4 02:21:31 Chronic sinusiti s 91248399 Active 2015 Sinusiti s (chronic ) involvin g more than one sinus but not pansinus itis; Note: Date Diagnose d: 6 7:34 AM (J32.8) Other chronic sinusiti s; Note: Date Diagnose d: 6 3:56 PM (J32.8) ; Start Date : 04/09/20 16 Not Available [facility] 4 02:21:52 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 - [facility] 4 11:52:50 Problem Notes None recorded. Procedures Surgical History Date Name Laterality Status Provider Name and Address Organization Details Recorded Time 4 JMSNasal/Sinus Endoscopy-PRIO R surgical cavities completed ADRIÁN PHAN MD [address] [place] [address], [phone], [place] - [facility] 09/05/2024 11:50:13 Carpal tunnel surgery completed Neo Ivey [place] - [facility] 09/05/2024 11:27:05 endoscopy completed Neo Ivey [place] - [facility] 09/05/2024 11:27:30 Imaging Results None recorded. Procedure Notes None recorded. Medical Equipment None Reported. Allergies Allergen ID Allergen Name Allergen Category Reaction Reaction Severity Criticality Documentation Date Start Date Code Code System Note Provider Name and Address Organization Details Recorded Time 94212 doxycycli ne Not available nausea Not available Not available 04/05/2024 3640 RxNorm React ion: vomit ing;; Not Available [facility] 4 00:51:39 93099 Bactrim medicatio n other Not available Not available 04/05/2024 52966 9 RxNorm React ion: unkno wn, unspe cifie d;; Not Available [facility] 4 00:51:44 52029 amoxicill in medicatio n other Not available Not available 04/05/2024 723 RxNorm React ion: unkno wn, unspe cifie d;; Not Available [facility] 4 00:51:48 68845 levofloxa louis medicatio n other Not available Not available 04/05/2024 98462 RxNorm React ion: unkno wn, unspe cifie d;; Not Available [facility] 4 00:51:51 85652 Substance with sulfonami de structure and antibacte rial mechanism of action (substanc e) medicatio n other Not available Not available 04/05/2024 80945 8003 SNOMED React ion: unkno wn, unspe cifie d;; Not Available [facility] 4 00:51:55 Medications Name Sig Start Date Stop Date Status Note LastModified by Organization Details LastModified Time levothyro xine 137 mcg tablet 09/05 completed Medicati on ID: [id number] D uration Value: 90 Brand Name: levothyr oxine Se nd Method: E-Prescr ibed Sub s Allowed: subs OK Medic ationGen ericName : levothyr oxine Not Available Not Available Not Available clindamyc in HCl 300 mg capsule 1 capsule by mouth 09/05 completed Medicati on ID: [id number] D uration Value: 14 Prescri bed By [...] by mouth 05/02 completed Medicati on ID: [id number] D uration Value: 21 Brand Name: Biaxin [...] by mouth 09/05 completed Medicati on ID: [id number] D uration Value: 5 Prescri bed By Name: Nighat Ahuja nd Name: tramadol Send Method: E-Prescr ibed Sub s Allowed: subs OK Medic ationGen ericName : tramadol Not Available Not Available Not Available levothyro xine 100 mcg tablet active Not Available Not Available Not Available Vitamin C 1,000 mg tablet 2015 active Medicati on ID: [id number] B rand Name: Vitamin C Send Method: E-Prescr ibed Sub s Allowed: subs OK Medic ationGen ericName : Vitamin C Not Available Not Available Not Available benzonata te 100 mg capsule active Not Available Not Available Not Available doxycycli ne monohydra te 100 mg capsule 1 capsule by mouth 09/05 completed Medicati on ID: [id number] D uration Value: 21 Prescri bed By Name: Nighat Ahuja nd Name: doxycycl ine monohydr ate Send Method: E-Prescr ibed Sub s Allowed: subs OK Medic ationGen ericName : doxycycl ine monohydr ate Not Available Not Available Not Available pantopraz ole 40 mg tablet,de layed release active Not Available Not Available Not Available Cipro 500 mg tablet 1 tablet by mouth 09/05 completed Medicati on ID: [id number] D uration Value: 10 Prescri bed By Name: PENG Ware nd Name: Cipro Se nd Method: E-Prescr ibed Sub s Allowed: subs OK Medic ationGen ericName : Cipro Not Available Not Available Not Available diltiazem CD 120 mg capsule,e xtended release 24 hr active Not Available Not Available Not Available Culturell e 10 billion cell capsule 2015 active Medicati on ID: [id number] D uration Value: 30 Prescri bed By [...] by mouth 09/05 completed Medicati on ID: [id number] D uration Value: 14 Prescri bed By [...] mg tablet 2015 active Medicati on ID: [id number] B rand Name: naproxen Send Method: E-Prescr ibed Sub s Allowed: subs OK Medic ationGen ericName : naproxen Not Available Not Available Not Available levothyro xine 112 mcg tablet 09/05 completed Not Available Not Available Not Available prednison e 09/05 completed Medicati on ID: [id number] D uration Value: 10 Prescri bed By [...] ous kit 2015 active Medicati on ID: [id number] D uration Value: 28 Brand Name: Humira [...] spray,jenelle pension 09/05 completed Medicati on ID: [id number] D uration Value: 30 Brand Name: Flonase [...] Updated DateTime 09/05/2024 165.1 cm 25.6 kg/m2 02533.22 g Neo Ivey [place] - [facility] 09/05/2024 11:23:51 Social History None recorded. Functional [...] SNOMED-CT Code Diagnosis ICD10 Code Diagnosis Note [id number] ADRIÁN RUTHERFORD MD [facility] [address] [address] 09/05/2024 10:39:38 09/05/2024 11:54:33 Recurrent acute sinusitis 573071008 J01.91 Could be related to immune modulator but I have suggested an immunology workup. Patient works at [employer] and she will have the laboratory studies performed there and make sure I get the results. There is no evidence of any polyps or obstructio n to the previous surgical sites. Chronic rhinitis 2455426 6 J31.0 For management of upper respirator [...] symptoms after 7-10 days. Rheumatoid arthritis 698 78892 M06.9 Health Concerns Section Related Observation LastModified by Organization Detai ls LastModified Time None Recorded Concern Status LastModified by Organization Details LastModified Time None Recorded Advance Directives Directive None Recorded Payers Encounter Date Sequence Insurance Name Policy Number Policy Silva Covered Member ID Silva Member ID Guarantor Name 09/05/2024 1 [employer] [place] - [place] ([facility]) [id number] Leandra Escalera [id number] Leandra Escalera Notes Date Note Type [...] nasal and then irrigations. ADRIÁN PHAN MD [address] [place] [address], [place], [address], [facility] - [facility] 09/05/2024 11:53:19 OBGyn Episode No OBEpisode recorded.
--- OUTSIDE RECORDS SUMMARY | 2025-02-07 08:39 | XMS_ITS | Continuity of Care Document ---
Author Organization [facility] Chris lt Address [address] [place] [address]- Care Team Providers Care [employer] Name Role Phone Blas CAMPBELL, Lee Dumont Primary Care Physician Encounter [facility] Date(s): 12/26/24 - 01/25/25 [facility] Adult [address] [place] [address]- Encounter Type: Triage Allergies, Adverse Reactions, Alerts Substance Criticality Severity Reaction Reaction Severity Status ampicillin Active doxycycline hives rash Active amoxicillin hives rash Active clarithromycin Chest heaviness Active salsalate hives and rash Activ e Biaxin flushing rash Active Bactrim hives rash Active Immunizations Given and Recorded Vaccine Date Status Refusal Reason SARS-CoV-2(COVID-19)mRNA-LNP vac([id number]) 09/14/24 Recorded influenza virus vaccine, inactivated 09/07/24 Chuck rded influenza virus vaccine, inactivated 09/03/23 Chuck rded influenza virus vaccine, inactivated 08/30/21 Give n influenza virus vaccine, inactivated 08/21/20 Chuck rded influenza virus vaccine, inactivated 08/31/19 Chuck rded influenza virus vaccine, inactivated 09/08/18 Chuck rded influenza virus vaccine, inactivated 09/11/17 Chuck rded influenza virus vaccine, inactivated 09/29/16 Chuck rded influenza virus vaccine, inactivated 08/24/15 Chuck rded [id number] bivalent booster vax 12/29/22 Recorded Influenza Virus Vaccine (oldterm) 09/05/22 Recorde d SARS-CoV-2 mRNA ([id number]-onng-ppjam) vax 04/18/22 Recorded SARS-CoV-2 (COVID-19) mRNA BNT-162b2 [...] 10:15:00 AM EDT, Route to Pharmacy Electronically, NCPDP_[id number], [facility] Pharmacy, 163.3, cm, 09/22/23 10:00:00 EDT, Height, 71.8, kg, 07/02/23 14:53:00 EDT, Dry Weight Start Date: 09/22/23 Stop Date: 12/21/23 Status: Ordered Quantity: 1.0 Unit: each Repeat number: 3 Breo Ellipta 100 mcg-25 mcg/inh inhalation powder 1 puffs, Inhalation, Daily, REPLACES ADVAIR, # 180 each, 1 Refills, Maintenance, 08/23/24 6:16:00 AMEDT, [facility] Pharmacy, 90, 1 puffs Inhalation Daily,Instr:REPLACES ADVAIR, 162.4, cm, 08/03/24 11:01:00EDT, Height, 71.8, kg, 07/02/23 14:53:00 EDT, Dry Weight Start Date: 08/23/24 Status: Ordered Quantity: 180.0 Unit: each Repeat number: 2 DilTIAZem (Eqv-Cardizem CD) 120 mg/24 hours oral capsule, extended release 1 capsule, By Mouth, Daily, # 90 capsule, 3 Refills, Maintenance, 05/24/24 3:46:00 PM EDT, [facility] Pharmacy, 162.4, cm, 05/24/24 15:32:00 EDT, Height, 71.8, kg, 07/02/23 14:53:00 EDT, Dry Weight Start Date: 05/24/24 Status: Ordered Quantity: 90.0 Unit: capsule Repeat number: 4 Florastor 250 mg oral capsule 2 capsule = 500 mg, By Mouth, Daily, 0 Refills, Maintenance, 01/16/25 3:55:00 PM EST, Partial fill upon patient request if the prescription is for a schedule II opioid drug. Start Date: 01/16/25 Status: Ordered Repeat number: 1 levothyroxine 0.1 mg oral tablet 1 tablet = 100 mcg, By Mouth, Daily, # 90 tablet, 2 Refills, Maintenance, 06/14/24 8:41:00 PM EDT, Tablet, [facility] Pharmacy, 162.4, cm, 06/09/24 8:12:00 EDT, Height, 71.8, kg, 07/02/23 14:53:00 EDT, Dry Weight Start Date: 06/14/24 Status: Ordered Quantity: 90.0 Unit: tablet Repeat number: 3 Indication: Hypothyroidism, unspecified naproxen 500 mg oral tablet 1 tablet [...] Quantity: 90.0 Unit: tablet Repeat number: 2 Pepcid 20 mg oral tablet 1 tablet = 20 mg, By Mouth, Daily, 0 Refills, Maintenance, 01/16/25 3:54:00 PM EST, Partial fill upon patient request if the prescription is for a schedule II opioid drug. Start Date: 01/16/25 Status: Ordered Repeat number: 1 Plaquenil 200 mg oral tablet 400 mg, [...] XR 11 mg oral tablet, extended release 1 tablet = 11 mg, By Mouth, Daily, 0 Refills, Maintenance, 07/28/19 11:37:42 AM EDT [...] Team Personnel Name: Lee Odonnell MD Position: S Physician - Primary Care Member Role: PCP Address: [address] [place] [address]- Telecom: Care Team Related Persons Name: ZENON GARLAND Name: ALEXA GARLAND Name: LOUIE GARLAND Insurance Providers Guarantor name: GARRETT DADA Health Plan Information #: 1 Payer: [employer] PPO Member Number: NA Policy Number: NA Group Number: NA
--- OUTSIDE RECORDS SUMMARY | 2025-02-07 08:39 | XMS_ITS ---
Author Organization [facility] Address [address] [place] [address] Care Team Providers Care Cofounder Name Role Phone MacisarahiLee tobin Primary Care Provider Thom Aguirre Jr Unavailable Allergies Allergen (clinical drug ingredient) Drug/Non Drug Allergy documented on EMR Reaction Allergy Type Onset Date Status salsalate Salsalate Unknown Drug Allergy Active Biaxin Unknown Drug Allergy Active Bactrim Unknown Drug Allergy Active amoxicillin Amoxicillin Unknown Drug Allergy Act ana doxycycline Doxycycline Unknown Drug Allergy Act ana REASON FOR VISIT Patient presents today for consultation Medications Medication SIG (Take, Route, Frequency, Duration) [...] the morning Orally Once a day Active Social History Tobacco Use: Social History Observation [...] Problem Status W/U Status Risk Notes Problem 927345662 Gastroesophageal reflux disease, unspecified whether esophagitis present (K21.9) Active confirmed Problem 592268739 Colon cancer screening (Z12.11) Active confirmed Problem 514388344 FH: colon polyps (Z83.719) Active confirmed Problem 327467154 Encounter for long-term (current) use of NSAIDs (Z79.1) Active confirmed Vital Signs Temperature 97.8 degrees Fahrenheit 03/16/20 Blood pressure systolic 000 mm Hg 03/16/20 Blood pressure diastolic 00 mm Hg 024 Height 66 in 03/16/2024 Weight 157 lb 6 oz lbs 03/16/2024 BMI 25.40 kg/m2 03/16/2024 Encounters Encounter Location Date Provider Diagnosis [facility] [address] [place] [address] 03/16/2024 Thom Chin Jr Gastroesophageal reflux disease, unspecified whether esophagitis present K21.9 ; Colon cancer screening Z12.11 ; FH: colon polyps Z83.719 and Encounter for long-term (current) use of NSAIDs Z79.1 Assessments Encounter Date Diagnosis (ICD Code) Assessment Notes Treatment Notes Treatment Clinical Notes Section Notes 03/16/2024 Gastroesophageal reflux disease, unspecified whether esophagitis [...] the procedure. She will check with her security administrator regarding whether he recommends stopping Xeljanz. 03/16/2024 Colon cancer screening (ICD-10 - Z12.11) [...] the procedure. She will check with her security administrator regarding whether he recommends stopping Xeljanz. 03/16/2024 FH: colon polyps (ICD-10 - Z83.719) [...] the procedure. She will check with her security administrator regarding whether he recommends stopping Xeljanz. 03/16/2024 [...] the procedure. She will check with her security administrator regarding whether he recommends stopping Xeljanz. Plan Of Treatment Medication Medication Name Sig Start Date Stop Date Notes Clenpiq 10-3.5-12 MG-GM -GM/175ML 175 ml the first dose the evening before and second dose the morning of colonoscopy Orally Once a day for 2 day(s) 03/16/2024 Future Test Test Name Order Date UPPER GI ENDOSCOPY 03/16/2024 COLONOSCOPY 03/16/2024 Next Appt Details Follow Up: 1 Year, Reason: Progress Notes * GARRETT GARLANDDOB: [birth year] (69 yo F)Acc No.[id number]:03/16/2024 Progress Notes Patient:GARRETT SCHMIDT Provider:?Thom Chin MD :1955???Age:69 Y???Sex:Female D ate:03/16/2024 Address:[address] [place], [place] [id number] Pcp:Lee Odonnell Subjective: * Chief Complaints: * ???1. Patient presents today for consultation. * HPI: ???New symptom(s):? Garrett is a pleasant 69-year-old woman seen today in consultation. She long-standing history of gastroesophageal reflux disease with substernal burning precipitated by typical foods. Symptoms have been present for 10 years. They have been treated with proton pump inhibitors, initially omeprazole and subsequently pantoprazole. She's had worsening symptoms over the past 3 years. This was particularly bad earlier in the year, when she developed viral syndrome in October which progressed to bronchitis and laryngitis. She ended up being treated with prednisone and antibiotics and had worsening reflux to the point where she was taking Pepcid at night in addition to pantoprazole in the morning to control her symptoms. She had no dysphagia, hematemesis, or melena. Symptoms subsequently improved and she was able to stop the Pepcid in the evening. ?She is due for colon cancer screening. She has a family history of colon polyps in her mother. She last underwent colonoscopy in 2019 which did show a lymphoid polyp. She has no rectal bleeding or change in her bowel habits. Weight and appetite have been stable. * ROS:?General/Constitutional:?Change in appetite?denies.?Fatigue?denies.?ENT:?Patient denies?difficulty swallowing.?Respiratory:?Patient denies?shortness of breath.?Cardiovascular:?Patient denies?chest pain.?Gastrointestinal:?Comments?See HPI for details.?Genitourinary:?Difficulty urinating?denies.?Incontinence?denies.?Musculoskeletal:?Patient denies?muscle aches.?Skin:?Patient denies?pruritis.?Neurologic:?Patient denies?low back pain.?Psychiatric:?Patient denies?mental or physical abuse.? * Medical History:?Hypothyroid ism, Asthma, Hypertension, Rheumatoid arthritis, Leukopenia, Gastroesophageal reflux disease, Colonoscopy 02/08, lymphoid polyp, five-year followup for family history of colon polyps.. * Surgical History:?carpal gris handy release-right , FESS-sinus . * Family History:?Father: dece ased.?Mother: , diagnosed with HTN (hypertension), Colon polyps, Diabetes, Heart disease.? No family history of liver cancer or colon cancer. * Social History:?Tobacco Use:?Tobacco Use/Smoking?Patient is a?nonsmoker.?Drugs/Alcohol:?Alcohol Screen?Did you have a drink containing alcohol in the past year??Yes,?How often did you have a drink containing alcohol in the past year??2 to 4 times a month (2 points),?How many drinks did you have on a typical day when you were drinking in the past year??1 or 2 drinks (0 point),?How often did you have 6 or more drinks on one occasion in the past year??Never (0 point),?Points?2,?Interpretation?Negative.?Miscellaneous:?Marital status: . 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 * Medications:?Taking Flonase 50 MCG/DOSE Inhaler 1 spray in each nostril Nasally Once a day, Taking Breo Ellipta 100-25 MCG/INH Aerosol Powder Breath Activated 1 puff Inhalation Once a day, Taking Pantoprazole Sodium 40 MG Tablet Delayed Release 1 tablet Orally Once a day, Taking Xeljanz XR 11 MG Tablet Extended Release 24 Hour 1 tablet Orally Once a day, Taking Levothyroxine Sodium 112 MCG Tablet 1 tablet on an empty stomach in the morning Orally Once a day, Taking dilTIAZem HCl 120 MG Tablet 1 tablet before meals Orally Once a day, Taking Plaquenil 200 MG Tablet 2 tablet with food or milk Orally Once a day, Taking Naproxen 500 MG Tablet 1 tablet Orally prn, Taking Vitamin D 1000 UNIT Capsule 1 capsule Orally Once a day, Taking Citracal + D 250-200 MG-UNIT Tablet 1 tablet Orally daily, Taking Vitamin C 1000 MG Tablet Chewable 1 tablet Orally Once a day, Taking Tazorac , Taking Duac , Discontinued Simponi 50 MG/0.5ML Solution as directed Subcutaneous monthly, Medication List reviewed and reconciled with the patient * Allergies:?Bactrim, Doxycycl ine, Amoxicillin, Biaxin, Salsalate. Objective: * Vitals:?Wt: 157 lb 6 oz, Ht: 66 in, BMI:25.40 Index, BP: 000/00 mm Hg, Temp: 97.8. * Examination: ???General Examination: ?GENERAL APPEARANCE:?in no acute distress.?HEAD:?normocephalic.?EYES:?sclera non-icteric.?ORAL CAVITY:?mucosa moist.?NECK/THYROID:?no lymphadenopathy.?SKIN:?anicteric.?HEART:?S1, S2 normal, no murmurs.?LUNGS:?clear to auscultation bilaterally.?CHEST:?normal shape and expansion.?ABDOMEN:?soft, nontender, nondistended, bowel sounds present, no organomegaly .?EXTREMITIES:?no clubbing, cyanosis, or edema.?PSYCH:?cognitive function intact.? Assessment: * Assessment: 1.?Gastroesophageal reflux d isease, unspecified whether esophagitis present - K21.9 (Primary)?2.?Colon cancer screening - Z12.11?3.?FH: colon polyps - Z83.719?4.?Encounter for long-term (current) use of NSAIDs - Z79.1? We discussed gastroesophagea l reflux disease today. We discussed diet, lifestyle [...] the procedure. She will check with her security administrator regarding whether he recommends stopping Xeljanz. Plan: * Treatment: 2.?Colon cancer screening? Start Clenpiq Solution, 10-3.5-12 MG-GM -GM/175ML, 175 ml the first dose the evening before and second dose the morning of colonoscopy, Orally, Once a day, 2 day(s), 350, Refills 0.?Procedure: COLONOSCOPY (Ordered for 03/16/2024)* sched for 04/29/24 at 10:10 am macclenpiq prep * Procedure Codes:?3017F COLOR ECTAL CA SCREEN DOC REV, G9903 Pt scrn tbco id as non user, G9744 PATIENT NOT ELIG D/T ACTIVE DX HTN * Preventive Medicine:? ??Counseling:?Care goal follow-up plan:?Above Normal BMI Follow-up?Giving encouragement to exercise,?BMI management provided?Yes.? ??Urinary Incontinence:?Urinary Incontinence?Assessment:?Present,?Plan of care documented:?Yes,?Type of plan of care:?Lifestyle interventions.? * Follow Up:?1 Year * * Sign off status: Completed true * Provider:?Thom Chin MD Date:?0 03/16/2024 Generated for Graciela garrett/Shady/Martha on:?02/07/2025 08:39 AM EDT History and Physical Notes * HPI (History of Present Illness) Category Sub-Category Detail Notes Category Not es New symptom(s) Garrett is a pleasant 69-year-old woman seen today in consultation. She long-standing history of gastroesophageal reflux disease with substernal burning precipitated by typical foods. Symptoms have been present for 10 years. They have been treated with proton pump inhibitors, initially omeprazole and subsequently pantoprazole. She's had worsening symptoms over the past 3 years. This was particularly bad earlier in the year, when she developed viral syndrome in October which progressed to bronchitis and laryngitis. She ended up being treated with prednisone and antibiotics and had worsening reflux to the point where she was taking Pepcid at night in addition to pantoprazole in the morning to control her symptoms. She had no dysphagia, hematemesis, or melena. Symptoms subsequently improved and she was able to stop the Pepcid in the evening. She is due for colon cancer screening. She has a family history of colon polyps in her mother. She last underwent colonoscopy in 2019 which did show a lymphoid polyp. She has no rectal bleeding or change in her bowel habits. Weight and appetite have been stable. Examination Category Sub-Category Detail Notes Category Not es General Examination GENERAL APPEARANCE: in no acute di stress HEAD: normocephalic EYES: sclera non-icteric NECK/THYROID: no lymphadenopathy HEART: S1, S2 normal, no mu rmurs CHEST: normal shape and exp ansion LUNGS: clear to auscultatio n bilaterally ABDOMEN: soft, nontender, non distended, bowel sounds present, no organomegaly SKIN: anicteric EXTREMITIES: no clubbing, cyanosi s, or edema PSYCH: cognitive function i ntact ORAL CAVITY: mucosa moist
--- OUTSIDE RECORDS SUMMARY | 2025-02-07 08:39 | XMS_ITS | Continuity of Care Document ---
Author Organization [facility] Address [address] [place] [address]- Care Team Providers Care Precipitator Name Role Phone Lee Odonnell MD Primary Care Physician [phone] Encounter [facility] ACCT R [id number] Date(s): 01/16/25 - 01/23/25 [facility] Adult [address] [place] [address]- Encounter Diagnosis RUQ pain(Discharge Diagnosis) - 01/16/25 Asthma(Discharge Diagnosis) - 01/16/25 Hypertension(Discharge Diagnosis) - 01/16/25 Hypothyroidism(Discharge Diagnosis) - 01/16/25 Rheumatoid arthritis(Discharge Diagnosis) - 01/16/25 Attending Physician: Lee Odonnell MD Encounter Type: Office Visit Allergies, Adverse Reactions, Alerts Substance Criticality Severity Reaction Reaction Severity Status ampicillin Active doxycycline hives rash Active clarithromycin Chest heaviness Active salsalate hives and rash Activ e amoxicillin hives rash Active Biaxin flushing rash Active Bactrim hives rash Active Immunizations Given and Recorded Vaccine Date Status Refusal Reason SARS-CoV-2(COVID-19)mRNA-LNP vac([id number]) 09/14/24 Recorded influenza virus vaccine, inactivated 09/07/24 [...] influenza virus vaccine, inactivated 08/24/15 Chuck rded [id number] bivalent booster vax 12/29/22 Recorded Influenza Virus Vaccine (oldterm) 09/05/22 Recorde d SARS-CoV-2 mRNA ([id number]) vax 04/18/22 Recorded SARS-CoV-2 (COVID-19) mRNA BNT-162b2 [...] 10:15:00 AM EDT, Route to Pharmacy Electronically, NCPDP_[id number], [facility], 163.3, cm, 09/22/23 10:00:00 EDT, Height, 71.8, kg, 07/02/23 14:53:00 EDT, Dry Weight Start Date: 09/22/23 Stop Date: 12/21/23 Status: Ordered Quantity: 1.0 Unit: each Repeat number: 3 Breo Ellipta 100 mcg-25 mcg/inh inhalation powder 1 puffs, Inhalation, Daily, REPLACES ADVAIR, # 180 each, 1 Refills, Maintenance, 08/23/24 6:16:00 AMEDT, [facility] Pharmacy, 90, 1 puffs Inhalation Daily,Instr:REPLACES ADVAIR, 162.4, cm, 08/03/24 11:01:00EDT, Height, 71.8, kg, 07/02/23 14:53:00 EDT, Dry Weight Start Date: 08/23/24 Status: Ordered Quantity: 180.0 Unit: each Repeat number: 2 DilTIAZem (Eqv-Cardizem CD) 120 mg/24 hours oral capsule, extended release 1 capsule, By Mouth, Daily, # 90 capsule, 3 Refills, Maintenance, 05/24/24 3:46:00 PM EDT, [facility] Pharm[facility], 162.4, cm, 05/24/24 15:32:00 EDT, Height, [...] Refills, Maintenance, 06/14/24 8:41:00 PM EDT, Tablet, [facility] Pharm[facility], 162.4, cm, 06/09/24 8:12:00 EDT, Height, [...] postmenopausal Confirmed Active Rheumatoid arthritis Confirmed Active Diagnosis Diagnosis Type Effective Dates Health Status Clinical Service Informant RUQ pain Discharge Diagnosis 01/16/25 Asthma Discharge Diagnosis 01/16/25 Hypertension Discharge Diagnosis 01/16/25 Hypothyroidism Discharge Diagnosis 01/16/25 Rheumatoid arthritis Discharge Diagnosis 01/16/25 Vital Signs Most recent to oldest [Reference Range]: 1 Height 162.4 cm (01/16/25 3:55 PM) Weight 71.7 kg (01/16/25 3:55 PM) Oxygen Saturation [94-100 %] 97 % (01/16/25 3:55 PM) Pulse Rate [55-90 bpm] 82 bpm (01/16/25 3:55 PM) Body Mass Index [18.5-24.99 kg/m2] 27.19 kg/m2 *H* (01/16/25 3:55 PM) Blood Pressure [90-138/55-84 mm Hg] 130/ 67mm Hg (01/16/25 3:55 PM) Mode of Delivery (Oxygen) Room air (01/16/25 3:55 PM) Blood pressure sites Arm, left (01/16/25 3:55 PM) Weight Obtained Via Standing scale (01/16/25 3:55 PM) Social History Social History Type Response Smoking Status Former smoker, quit more than 30 days ago; Tobacco user in household: No;Never; Other: Only smoked in her teens.; entered on: 09/25/20 Sex Sex Representation Female (finding) Patient Care team information Care Team Personnel Name: Lee Odonnell MD Position: [facility] Physician - Primary Care Member Role: PCP Address: [address] [place] [address] Telecom: Care Team Related Persons Name: ZENON GARLAND Name: ALEXA GARLAND Name: LOUIE GARLAND Insurance Providers Guarantor name: GARRETT DADA Health Plan Information #: 1 Payer: [employer] PPO Member Number: [id number] Policy Number: NA Group Number: [id number] Health Plan Information #: 2 Payer: [employer] PPO Member Number: [id number] Policy Number: NA Group Number: [id number]
--- OUTSIDE RECORDS SUMMARY | 2025-02-07 08:39 | XMS_ITS | Clinical Summary ---
Author Organization [place] [address] [address] [facility] Building Address [address] [place] [address] Phone Care Team Providers Care Dispatcher Electric Power Name Role Phone Lee Odonnell MD Primary Care Provider [phone] Allergies Active Allergy Reactions Criticality Noted Date [...] [facility] [address] [place] [address] Leatha Phelps, CONSUELO Encounter for annual physical [...] Repeat 10yrs,(6mm hyperplastic cecal polyp)Dr. 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 Father (Age 55) Bladder CA Mother [...] * Cervical Cancer Screening: HPV (07/12/2019) Pathologist [facility] Cervical Cancer Screening: HPV NEGATIVE, ABSTRACTED [facility] Provider HEALTH MAINTENANCE Final Result * Colonoscopy (02/18/2019) Pathologist [facility] Colonoscopy NO INTERPRETATION , ABSTRACTED Anatomical Region Laterality Modality Other [facility] Provider HEALTH MAINTENANCE Final Result * Annual BMP Blood Test (04/28/2012) Pathologist [facility] Annual BMP Blood Test ABSTRACTED [facility] Provider HEALTH MAINTENANCE Final Result * Hepatitis C Screening (08/26/2010) Pathologist [facility] Hepatitis C Screening ABSTRACTED [facility] Provider HEALTH MAINTENANCE Final Result from Last 3 Months or Most Recently Relevant to Health Maintenance Insurance [employer] [facility] Care Teams Dispatcher Electric Power Relationship Specialty Start Date End Date Lee Odonnell MD [facility] [address] [place] [phone] PCP - General 08/22/24
--- OUTSIDE RECORDS SUMMARY | 2025-02-07 08:39 | XMS_ITS ---
Author Organization [facility] Address [address] [place] [address] Care Team Providers Care Code Machine Operator Name Role Phone Arabellaabdulaziz Lee Primary Care Provider Thom Aguirre Jr [phone] REASON FOR VISIT gerd,screening Problems Problem Type SNOMED Code ICD Code Onset Dates Problem Status W/U Status Risk Notes Problem Gastroesophageal reflux disease (360816787) Esophageal reflux disease (K21.9) Active confirmed Encounters Encounter Location Date Provider Diagnosis [facility] Outpatient [address] [place] [phone] 04/29/2024 Thom Chin Jr Encounter for screening [...] Information Progress Notes * GARRETT GARLANDDOB: [birth year] (69 yo F)Acc No.[id number]:04/29/2024 EGD and COL/MAC Patient:?GARRETT GARLAND Provider:?Thom Chin MD :1955???Age:69 Y???Sex:Female D ate:04/29/2024 Address:[id number] Pcp:Lee Odonnell Subjective: * Chief Complaints: * ???1. Gerd,screening. * Medical History:? Objective: * Vitals:? Assessment: * Assessment: 1.?Encounter for screening c olonoscopy - Z12.11 (Primary)???2.?Gastric polyps - K31.7???3.?Esophageal reflux disease - K21.9??? Plan: * Treatment: * Procedure Codes:?98681 DIAGN OSTIC COLONOSCOPY, 54570 UPPER GI ENDOSCOPY, BIOPSY * * The named appointment provid er may or may not be the originator of this progress note, and it is not deemed complete until electronically signed by the appointment provider. Sign off status: Pending * Provider:?Thom Chin MD Date:?0 04/29/2024 Generated for Graciela garrett/Shady/eTransmitting on:?02/07/2025 08:38 AM EDT
--- OUTSIDE RECORDS SUMMARY | 2025-02-07 08:39 | XMS_ITS ---
Author Organization [facility] Address [address] [place] [address] Care Team Providers Care Diesel Dragline Operator Name Role Phone Lee Odonnell Primary Care Provider Thom Aguirre Jr REASON FOR VISIT pathology Encounters Encounter Location Date Provider Diagnosis [facility] [address] [place] [phone] 05/05/2024 Thom Chin Jr Plan Of Treatment No Information Progress Notes * GARRETT GARLANDDOB: [birth year] (69 yo F)Acc No.[id number]:05/05/2024 Patient:?GARRETT GARLAND :1955???Age:69 Y???Sex:Female Address:[address] [place] [address] * true * Date:? Generated for Printi tami/Fasandrag/eTransmitting on:?02/07/2025 08:38 AM EDT
--- OUTSIDE RECORDS SUMMARY | 2025-02-07 08:39 | XMS_ITS | Continuity of Care Document ---
Author Organization [facility] Chris [facility] Address [address] [place] [address]- Care Team Providers Care Area Field Worker Name Role Phone Blas CAMPBELL, Lee Dumont Primary Care Physician Encounter [facility] Date(s): 12/26/24 - 01/25/25 [facility] Adult [address] [place] [address]- Encounter Type: Triage Allergies, Adverse Reactions, Alerts Substance Criticality Severity Reaction Reaction Severity Status ampicillin Active doxycycline hives rash Active salsalate hives and rash Activ e amoxicillin hives rash Active clarithromycin Chest heaviness Active Biaxin flushing rash Active Bactrim hives rash Active Immunizations Given and Recorded Vaccine Date Status Refusal Reason SARS-CoV-2(COVID-19)mRNA-LNP vac([id number]) 09/14/24 Recorded influenza virus vaccine, inactivated 09/07/24 [...] influenza virus vaccine, inactivated 08/24/15 Chuck rded [id number] bivalent booster vax 12/29/22 Recorded Influenza Virus Vaccine (oldterm) 09/05/22 Recorde d SARS-CoV-2 mRNA ([id number]) vax 04/18/22 Recorded SARS-CoV-2 (COVID-19) mRNA BNT-162b2 [...] 10:15:00 AM EDT, Route to Pharmacy Electronically, NCPDP_[id number], [facility], 163.3, cm, 09/22/23 10:00:00 EDT, Height, 71.8, kg, 07/02/23 14:53:00 EDT, Dry Weight Start Date: 09/22/23 Stop Date: 12/21/23 Status: Ordered Quantity: 1.0 Unit: each Repeat number: 3 Breo Ellipta 100 mcg-25 mcg/inh inhalation powder 1 puffs, Inhalation, Daily, REPLACES ADVAIR, # 180 each, 1 Refills, Maintenance, 08/23/24 6:16:00 AMEDT, [facility], 90, 1 puffs Inhalation Daily,Instr:REPLACES ADVAIR, 162.4, cm, 08/03/24 11:01:00EDT, Height, 71.8, kg, 07/02/23 14:53:00 EDT, Dry Weight Start Date: 08/23/24 Status: Ordered Quantity: 180.0 Unit: each Repeat number: 2 DilTIAZem (Eqv-Cardizem CD) 120 mg/24 hours oral capsule, extended release 1 capsule, By Mouth, Daily, # 90 capsule, 3 Refills, Maintenance, 05/24/24 3:46:00 PM EDT, [facility], 162.4, cm, 05/24/24 [...] Refills, Maintenance, 06/14/24 8:41:00 PM EDT, Tablet, [facility], 162.4, cm, 06/09/24 [...] Primary Care Member Role: PCP Address: [address] [place] [address]- Telecom: Care Team Related Persons Name: ZENON GARLAND Name: ALEXA GARLAND Name: LOUIE GARLAND Insurance Providers Guarantor name: GARRETT DADA Health Plan Information #: 1 Payer: [employer] PPO Member Number: NA Policy Number: NA Group Number: NA
== END 2025-02-07 08:27 | disposition home or self-care (01) ==
LOC: HO.HMGCX 08:26
PROVIDERS: PCP Family Medicine; Visit Provider Family Medicine
DX: R10.11 Right upper quadrant pain (principal)
CPT/HCPCS: 76705

== ENCOUNTER → 2025-02-07 08:31 | Outpatient (BNV) | payer OTHER, SELFPAY | PROVIDERS: PCP Family Medicine; Visit Provider Radiology Diagnostic Radiology | DX: R10.11 Right upper quadrant pain (principal) | CPT/HCPCS: 76705 ==

== ENCOUNTER 2025-02-23 08:49 | Outpatient (REF) | payer OTHER, SELFPAY ==
--- OUTSIDE RECORDS SUMMARY | 2025-02-23 08:58 | XMS_ITS ---
Author Organization [facility] Address [address] [place] [address] Care Team Providers Care Jig Borer Name Role Phone Lee Odonnell Primary Care Provider Thom Aguirre Jr [phone] REASON FOR VISIT pathology Encounters Encounter Location Date Provider Diagnosis [facility] [address] [place] [address] 05/05/2024 Thom Chin Jr Plan Of Treatment No Information Progress Notes * GARRETT GARLANDDOB: [birth year] (69 yo F)Acc No.[id number]:05/05/2024 Patient:?GARRETT GARLAND :1955???Age:69 Y???Sex:Female Address:[address] [place] [address] * true * Date:? Generated for Printi tami/Shady/eTransmitting on:?02/23/2025 08:58 AM EDT
--- OUTSIDE RECORDS SUMMARY | 2025-02-23 08:58 | XMS_ITS | Continuity of Care Document ---
Author Organization [facility] Chris lt Address [address] [place] [address]- Care Team Providers Care Market Research Associate Name Role Phone Blas CAMPBELL, Lee Dumont Primary Care Physician [phone] Encounter [facility] Date(s): 01/18/25 - 02/17/25 [facility] Adult [address] [place] [address]- Encounter Type: Triage Allergies, Adverse Reactions, Alerts Substance Criticality Severity Reaction Reaction Severity Status ampicillin Active doxycycline hives rash Active salsalate hives and rash Activ e amoxicillin hives rash Active clarithromycin Chest heaviness Active Biaxin flushing rash Active Bactrim hives rash Active Immunizations Given and Recorded Vaccine Date Status Refusal Reason SARS-CoV-2(COVID-19)mRNA-LNP vac(ekb202) 09/14/24 Recorded influenza virus vaccine, inactivated 09/07/24 [...] influenza virus vaccine, inactivated 08/24/15 Chuck rded [id number] bivalent booster vax 12/29/22 Recorded Influenza Virus Vaccine (oldterm) 09/05/22 Recorde d SARS-CoV-2 mRNA (gtpxpiv-ezzo-kvjpo) vax 04/18/22 Recorded SARS-CoV-2 (COVID-19) mRNA BNT-162b2 [...] 10:15:00 AM EDT, Route to Pharmacy Electronically, NCPDP_[id number], [facility], 163.3, cm, 09/22/23 10:00:00 EDT, Height, 71.8, kg, 07/02/23 14:53:00 EDT, Dry Weight Start Date: 09/22/23 Stop Date: 12/21/23 Status: Ordered Quantity: 1.0 Unit: each Repeat number: 3 Breo Ellipta 100 mcg-25 mcg/inh inhalation powder 1 puffs, Inhalation, Daily, REPLACES ADVAIR, # 180 each, 1 Refills, Maintenance, 08/23/24 6:16:00 AMEDT, [facility] Pharmacy, 90, 1 puffs Inhalation Daily,Instr:REPLACES ADVAIR, 162.4, cm, 08/03/24 11:01:00EDT, Height, 71.8, kg, 07/02/23 14:53:00 EDT, Dry Weight Start Date: 08/23/24 Status: Ordered Quantity: 180.0 Unit: each Repeat number: 2 DilTIAZem (Eqv-Cardizem CD) 120 mg/24 hours oral capsule, extended release 1 capsule, By Mouth, Daily, # 90 capsule, 3 Refills, Maintenance, 05/24/24 3:46:00 PM EDT, [facility] [place] Pharmacy, 162.4, cm, 05/24/24 [...] Refills, Maintenance, 06/14/24 8:41:00 PM EDT, Tablet, [facility] Pharmacy, 162.4, cm, 06/09/24 [...] Primary Care Member Role: PCP Address: [address] [place] [address]- Telecom: Care Team Related Persons Name: ZENON GARLAND Name: ALEXA GARLAND Name: LOUIE GARLAND Insurance Providers Guarantor name: GARRETT DADA Health Plan Information #: 1 Payer: BLUE B[employer]EFIT [employer] PPO Member Number: NA Policy Number: NA Group Number: NA
--- OUTSIDE RECORDS SUMMARY | 2025-02-23 08:58 | XMS_ITS ---
Author Organization [facility] Address [address] [place] [address] Care Team Providers Care Electric Trucker Name Role Phone Arabellaabdulaziz Lee Primary Care Provider Thom Aguirre Jr [phone] REASON FOR VISIT gerd,screening Problems Problem Type SNOMED Code ICD Code Onset Dates Problem Status W/U Status Risk Notes Problem Gastroesophageal reflux disease (919901441) Esophageal reflux disease (K21.9) Active confirmed Encounters Encounter Location Date Provider Diagnosis [facility] [place] Out[place] [address] [place] [phone] 04/29/2024 Thom Chin Jr Encounter for screening [...] * GARRETT GARLANDDOB: [birth year] (69 yo F)Acc No.[id number]:04/29/2024 EGD and COL/MAC Patient:?GARRETT GARLAND Provider:?Thom Chin MD :1955???Age:69 Y???Sex:Female D ate:04/29/2024 Address:[id number] Pcp:Lee Odonnell Subjective: * Chief Complaints: * ???1. Gerd,screening. * Medical History:? Objective: * Vitals:? Assessment: * Assessment: 1.?Encounter for screening c olonoscopy - Z12.11 (Primary)???2.?Gastric polyps - K31.7???3.?Esophageal reflux disease - K21.9??? Plan: * Treatment: * Procedure Codes:?81572 DIAGN OSTIC COLONOSCOPY, 05414 UPPER GI ENDOSCOPY, BIOPSY * * The named appointment provid er may or may not be the originator of this progress note, and it is not deemed complete until electronically signed by the appointment provider. Sign off status: Pending * Provider:?Thom Chin MD Date:?0 04/29/2024 Generated for Graciela garrett/Shady/eTransmitting on:?02/23/2025 08:58 AM EDT
--- OUTSIDE RECORDS SUMMARY | 2025-02-23 08:58 | XMS_ITS | Patient Health Record ---
Author Organization [facility] Address [address] [place] [address] Care Team Providers Care Wound Treatment Rn Name Role Phone Lee Odonnell Primary Care Provider Thom Aguirre Jr Unavailable Allergies Allergen (clinical drug ingredient) Drug/Non Drug Allergy documented on EMR Reaction Allergy Type Onset Date Status doxycycline Doxycycline Unknown Drug Allergy Act ana Salsalate Unknown Drug Allergy Active Biaxin Unknown Drug Allergy Active sulfamethoxazole / trimethoprim Bactrim Unknown Drug Allergy Active amoxicillin Amoxicillin Unknown Drug Allergy Act ana Results Component Value Reference Range Notes Pathology Reviewed date:05/05/2024 09:20:57 AM Interpretation: Performing Lab:[facility], [address] [place] [phone] Notes/Report: Name: Garrett Escalera Age/Sex: 69/F : 1955 Unit#: [id number] Attend Dr: Thom Chin MD Re04/29/24 Status : [facility] Location: [facility] Disch: SPEC : [id number] RECD : 04/29/24 STATUS: BRANDON SIFUENTES NUM: [id number] GUERO: 04/29/2445 [facility] DR: Thom Chin MD ENTERED: 04/29/24 44 SP TYPE: Surgical OTHR DR: Lee [...] submitted in toto in a cassette labeled CChrista RAMIREZ CONTINUED ON NEXT PAGE Name: Garrett Escalera Age/Sex: 69/F : 1955 Unit#: [id number] Attend Dr: Thom Chin MD Re04/29/24 Status : [facility] Location: [facility] Disch: SPEC : [id number] RECD : 04/29/24 STATUS: BRANDON SIFUENTES NUM: [id number] GUERO: 04/29/2445 [facility] DR: Thom Chin MD ENTERED: 04/29/24- 44 SP TYPE: Surgical OTHR DR: Lee Odonnell MD ORDERED: HE Stain/9, Gross Micro L4/3, IHC/2, Special st. 2/3, H. pylori/2, AB/PAS/3 Gross Description (Continued) Special studies orde red and performed: Immunostain for H. pylori on A1 and B1; AB/PAS stains on A1, B1 and C1. Copies To: Thom Chin MD [address] [place] [address] [address] [place], [place] [id number] Lee Odonnell MD [address] [place] [id number] Signed (si gnature on file) Hazel Jericho 05/04/24 1000 END OF REPORT Reason For [...] Problem Status W/U Status Risk Notes Problem 115472382 Colon cancer screening (Z12.11) Active confirmed Problem 96053600 Encounter for other preprocedural examination (Z01.818) Active confirmed Problem 048161555 Encounter for long-term (current) use of NSAIDs (Z79.1) Active confirmed Problem 64337524 Gastric polyps (K31.7) Active confirmed Problem Gastroesophageal reflux disease (966795531) Esophageal reflux disease (K21.9) Active confirmed Problem 647118294 Gastroesophageal reflux disease, unspecified whether esophagitis present (K21.9) Active confirmed Problem 827946110 FH: colon polyps (Z83.719) Active confirmed Vital Signs Temperature 97.8 degrees Fahrenheit 03/16/2024 Blood pressure diastolic 00 mm Hg 03/16/2024 Height 66 in 03/16/2024 Blood pressure systolic 000 mm Hg 03/16/2024 Weight 157 lb 6 oz lbs 03/16/2024 BMI 25.40 kg/m2 03/16/2024 Encounters Encounter Location Date Provider Diagnosis [facility] Outpatient [address] [place], [place] [phone] 04/29/2024 Thom Chin Jr Encounter for screening colonoscopy Z12.11 ; Gastric polyps K31.7 and Esophageal reflux disease K21.9 [facility] [address] [place] [address] 03/16/2024 Thom Chin Jr Gastroesophageal reflux disease, unspecified whether esophagitis present K21.9 ; Colon cancer screening Z12.11 ; FH: colon polyps Z83.719 and Encounter for long-term (current) use of NSAIDs Z79.1 [facility] [address] [place] [address] 03/09/2024 Thom Wheatreno Lemon [facility] [address] [place] [address] 05/05/2024 Thom Knappord Assessments Encounter Date Diagnosis (ICD Code) Assessment [...] the procedure. She will check with her gauge inspector regarding whether he recommends stopping Xeljanz. 03/16/2024 [...] the procedure. She will check with her gauge inspector regarding whether he recommends stopping Xeljanz. 04/29/2024 [...] the procedure. She will check with her gauge inspector regarding whether he recommends stopping Xeljanz. 03/16/2024 [...] the procedure. She will check with her gauge inspector regarding whether he recommends stopping Xeljanz. Plan Of Treatment Future Test Test Name Order Date COLONOSCOPY 07/30/2018 UPPER GI ENDOSCOPY 03/16/2024 COLONOSCOPY 03/16/2024 Insurance Providers Payer Name Payer Address Payer Phone Subscriber Number Group Number Insured Name Patient Relationship to Insured Coverage Start Date Coverage End Date [employer] [place] [address] [address] [place] [address] [id number] GARRETT ESCALERA Self - patient is the insured Medical (General) History Medical History History ICD Code Hypothyroidism Asthma Hypertension Rheumatoid arthritis Leukopenia Gastroesophageal reflux disease Colonoscopy 02/08, lymphoid p olyp, five-year followup for family history of colon polyps. Surgical History Surgery Date(Month/Year) carpal tunnel release-right FESS-sinus
--- OUTSIDE RECORDS SUMMARY | 2025-02-23 08:58 | XMS_ITS | Data Portability ---
Author Organization [place] [facility] Address [address] [address] Care Team Providers Care Frickertron Checker Name Role Phone MADHAV BLACK Primary Care Provider [phone] Assessment Encounter Date Assessment Date Assessment LastModified [...] Go To The Location Of Their Choice, [address] 11:01:45 unlist ed lab - pneumo coccal Ab (23 seroty pe) 2023 024 MAULIK [facility] (Centralized Electronic Ordering - All Locations), Patient Can Go To The Location Of Their Choice, [address] 12:02:03 unlist ed lab - tetanu s toxoid Ag respon se* 2023 [facility] (Centralized Electronic Ordering - All Locations), Patient Can Go To The Location Of Their Choice, [address] 4 11:01:45 CBC w/ auto diff 2023 [facility] (Centralized Electronic Ordering - All Locations), Patient Can Go To The Location Of Their Choice, [address] 4 11:33:30 ige, total, serum 2023 [facility] (Centralized Electronic Ordering - All Locations), Patient Can Go To The Location Of Their Choice, [address] 4 21:54:05 immuno globul ins iga+ig g+igm, quanti tative , serum 2023 [facility] (Centralized Electronic Ordering - All Locations), Patient Can Go To The Location Of Their Choice, [address] 10:13:59 igg subcla sses + total, serum 2023 [facility] (Centralized Electronic Ordering - All Locations), Patient Can Go To The Location Of Their Choice, [address] 4 11:30:38 Referral None record ed. Procedures [...] Time Hypertro phy of nasal turbinat es 70509104 Completed 201506/24/2024 Hypertro phy of nasal turbinat es; Note: Date Diagnose d: 6 8:55 AM (J34.3) Not Available [facility] 02:21:44 Follow-u p visit Active 2015 Encounte r for follow-u p examinat ion after complete d treatmen t for conditio ns other than malignan t neoplasm ; Note: Date Diagnose d: 6 11:52 AM (Z09) Not Available [facility] 4 02:21:27 Recurren t acute sinusiti s 368782007 Active 2015 Other acute recurren t sinusiti s; Note: Date Diagnose d: 6 3:30 PM (J01.81) Not Available [facility] 4 02:21:39 Deviated nasal septum 599149662 Completed 201506/24/2024 Deviated nasal septum; Note: Date Diagnose d: 6 3:40 PM (J34.2) Not Available [facility] 4 02:21:31 Chronic sinusiti s 94532289 Active 2015 Sinusiti s (chronic ) involvin g more than one sinus but not pansinus itis; Note: Date Diagnose d: 6 7:34 AM (J32.8) Other chronic sinusiti s; Note: Date Diagnose d: 6 3:56 PM (J32.8) ; Start Date : 04/09/20 16 Not Available [facility] 4 02:21:52 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 2015 Other specifie d immunode ficienci es; Note: Date Diagnose d: 09/11/20 16 1:00 PM (D84.8) Not Available [facility] 4 02:22:09 Chronic rhinitis 79764988 Active 2023 ADRIÁN RUTHERFORD MD [address] [place] [address], [place], [address] , [place] [facility] 4 11:46:05 Rheumato id arthriti s 47168331 Active 2023 ADRIÁN RUTHERFORD MD [address] [place] [address], [place], [address] , [facility] 4 11:52:50 Problem Notes None recorded. Procedures Surgical History Date Name Laterality Status Provider Name and Address Organization Details Recorded Time 4 JMSNasal/Sinus Endoscopy-PRIO R surgical cavities completed ADRIÁN PHAN MD [address] [place] [address], [phone], [place] [facility] 09/05/2024 11:50:13 Carpal tunnel surgery completed Neo Ivey [place] - [facility] 09/05/2024 11:27:05 endoscopy completed Neo Ivey [place] - [facility] 09/05/2024 11:27:30 Imaging Results None recorded. Procedure Notes None recorded. Medical Equipment None Reported. Allergies Allergen ID Allergen Name Allergen Category Reaction Reaction Severity Criticality Documentation Date Start Date Code Code System Note Provider Name and Address Organization Details Recorded Time 97183 doxycycli ne Not available nausea Not available Not available 04/05/2024 3640 RxNorm React ion: vomit ing;; Not Available [facility] 4 00:51:39 70540 Bactrim medicatio n other Not available Not available 04/05/2024 64038 9 RxNorm React ion: unkno wn, unspe cifie d;; Not Available [facility] 4 00:51:44 58516 amoxicill in medicatio n other Not available Not available 04/05/2024 723 RxNorm React ion: unkno wn, unspe cifie d;; Not Available [facility] 4 00:51:48 80754 levofloxa louis medicatio n other Not available Not available 04/05/2024 44018 RxNorm React ion: unkno wn, unspe cifie d;; Not Available [facility] 4 00:51:51 60584 Substance with sulfonami de structure and antibacte rial mechanism of action (substanc e) medicatio n other Not available Not available 04/05/2024 61919 8003 SNOMED React ion: unkno wn, unspe cifie d;; Not Available [facility] 4 00:51:55 Medications Name Sig Start Date Stop Date Status Note LastModified by Organization Details LastModified Time levothyro xine 137 mcg tablet 09/05 completed Medicati on ID: [id number] D uration Value: 90 Brand Name: levothyr oxine Se nd Method: E-Prescr ibed Sub s Allowed: subs OK Medic ationGen ericName : levothyr oxine Not Available Not Available Not Available clindamyc in HCl 300 mg capsule 1 capsule by mouth 09/05 completed Medicati on ID: [id number] D uration Value: 14 Prescri bed By [...] by mouth 05/02 completed Medicati on ID: 690124 D uration Value: 21 Brand Name: Biaxin [...] by mouth 09/05 completed Medicati on ID: [id number] D uration Value: 5 Prescri bed By Name: Nighat Ahuja nd Name: tramadol Send Method: E-Prescr ibed Sub s Allowed: subs OK Medic ationGen ericName : tramadol Not Available Not Available Not Available levothyro xine 100 mcg tablet active Not Available Not Available Not Available Vitamin C 1,000 mg tablet 2015 active Medicati on ID: 771733 B rand Name: Vitamin C Send Method: E-Prescr ibed Sub s Allowed: subs OK Medic ationGen ericName : Vitamin C Not Available Not Available Not Available benzonata te 100 mg capsule active Not Available Not Available Not Available doxycycli ne monohydra te 100 mg capsule 1 capsule by mouth 09/05 completed Medicati on ID: 491736 D uration Value: 21 Prescri bed By [...] by mouth 09/05 completed Medicati on ID: 608465 D uration Value: 10 Prescri bed By Name: PENG Ware nd Name: Cipro Se nd Method: E-Prescr ibed Sub s Allowed: subs OK Medic ationGen ericName : Cipro Not Available Not Available Not Available diltiazem CD 120 mg capsule,e xtended release 24 hr active Not Available Not Available Not Available Culturell e 10 billion cell capsule 2015 active Medicati on ID: 845488 D uration Value: 30 Prescri bed By [...] by mouth 09/05 completed Medicati on ID: [id number] D uration Value: 14 Prescri bed By [...] mg tablet 2015 active Medicati on ID: 155951 B rand Name: naproxen Send Method: E-Prescr ibed Sub s Allowed: subs OK Medic ationGen ericName : naproxen Not Available Not Available Not Available levothyro xine 112 mcg tablet 09/05 completed Not Available Not Available Not Available prednison e 09/05 completed Medicati on ID: 516325 D uration Value: 10 Prescri bed By [...] ous kit 2015 active Medicati on ID: [id number] D uration Value: 28 Brand Name: Humira [...] spray,jenelle pension 09/05 completed Medicati on ID: [id number] D uration Value: 30 Brand Name: Flonase [...] Updated DateTime 09/05/2024 165.1 cm 25.6 kg/m2 96437.22 g Neo Ivey [place] [facility] 09/05/2024 11:23:51 Social History None recorded. [...] SNOMED-CT Code Diagnosis ICD10 Code Diagnosis Note 09966 ADRIÁN RUTHERFORD MD [facility] [address] [address] 09/05/2024 10:39:38 09/05/2024 11:54:33 Recurrent acute sinusitis 417002423 J01.91 Could be related to immune modulator but I have suggested an immunology workup. Patient works at [employer] and she will have the laboratory studies performed there and make sure I get the results. There is no evidence of any polyps or obstructio n to the previous surgical sites. Chronic rhinitis 9908648 6 J31.0 For management of upper respirator [...] symptoms after 7-10 days. Rheumatoid arthritis 698 38819 M06.9 Health Concerns Section Related Observation LastModified by Organization Detai ls LastModified Time None Recorded Concern Status LastModified by Organization Details LastModified Time None Recorded Advance Directives Directive None Recorded Payers Encounter Date Sequence Insurance Name Policy Number Policy Silva Covered Member ID Silva Member ID Guarantor Name 09/05/2024 1 [employer] [place] ([facility]) [id number] Leandra Escalera [id number] Leandra Escalera Notes Date Note Type [...] nasal and then irrigations. ADRIÁN PHAN MD [address] [place] [address], [place], [address], [facility] 09/05/2024 11:53:19 OBGyn Episode No OBEpisode recorded.
--- OUTSIDE RECORDS SUMMARY | 2025-02-23 08:58 | XMS_ITS | Continuity of Care Document ---
Author Organization [facility] Chris lt Address [address] [place] [address]- Care Team Providers Care Owner Spa Director Name Role Phone Blas CAMPBELL, Lee Dumont Primary Care Physician [place] [facility] [place] 01/18/25 - 02/17/25 [facility] Adult [address] [place] [address]- Encounter Type: Triage Allergies, Adverse Reactions, Alerts Substance Criticality Severity Reaction Reaction Severity Status ampicillin Active doxycycline hives rash Active salsalate hives and rash Activ e Bactrim hives rash Active amoxicillin hives rash Active clarithromycin Chest heaviness Active Biaxin flushing rash Active Immunizations Given and Recorded Vaccine Date Status Refusal Reason SARS-CoV-2(COVID-19)mRNA-LNP vac(qbz864) 09/14/24 Recorded influenza virus vaccine, inactivated 09/07/24 [...] influenza virus vaccine, inactivated 08/24/15 Chuck rded [id number] bivalent booster vax 12/29/22 Recorded Influenza Virus Vaccine (oldterm) 09/05/22 Recorde d SARS-CoV-2 mRNA (rwpwvrb-pboo-sxalx) vax 04/18/22 Recorded SARS-CoV-2 (COVID-19) mRNA BNT-162b2 [...] 10:15:00 AM EDT, Route to Pharmacy Electronically, NCPDP_[id number], [facility] Pharm[facility], 163.3, cm, 09/22/23 10:00:00 EDT, Height, 71.8, kg, 07/02/23 14:53:00 EDT, Dry Weight Start Date: 09/22/23 Stop Date: 12/21/23 Status: Ordered Quantity: 1.0 Unit: each Repeat number: 3 Breo Ellipta 100 mcg-25 mcg/inh inhalation powder 1 puffs, Inhalation, Daily, REPLACES ADVAIR, # 180 each, 1 Refills, Maintenance, 08/23/24 6:16:00 AMEDT, [facility] Pharmacy, 90, 1 puffs Inhalation Daily,Instr:REPLACES ADVAIR, 162.4, cm, 08/03/24 11:01:00EDT, Height, 71.8, kg, 07/02/23 14:53:00 EDT, Dry Weight Start Date: 08/23/24 Status: Ordered Quantity: 180.0 Unit: each Repeat number: 2 DilTIAZem (Eqv-Cardizem CD) 120 mg/24 hours oral capsule, extended release 1 capsule, By Mouth, Daily, # 90 capsule, 3 Refills, Maintenance, 05/24/24 3:46:00 PM EDT, [facility] Pharm[facility], 162.4, cm, 05/24/24 15:32:00 [...] Refills, Maintenance, 06/14/24 8:41:00 PM EDT, Tablet, [facility] Pharm[facility], 162.4, cm, 06/09/24 8:12:00 [...] Primary Care Member Role: PCP Address: [address] [place] [address]- Telecom: Care Team Related Persons Name: ZENON GARLAND Name: ALEXA GARLAND Name: LOUIE GARLAND Insurance Providers Guarantor name: GARRETT DADA Health Plan Information #: 1 Payer: [employer] PPO Member Number: NA Policy Number: NA Group Number: NA
--- OUTSIDE RECORDS SUMMARY | 2025-02-23 08:59 | XMS_ITS ---
Author Organization [facility] Address [address] [place] [address] Care Team Providers Care Audio Visual Engineer Name Role Phone MacisarahiLee tobin Primary Care Provider Thom Aguirre Jr Unavailable [phone] Allergies Allergen (clinical drug ingredient) Drug/Non Drug [...] Problem Status W/U Status Risk Notes Problem 925264619 Gastroesophageal reflux disease, unspecified whether esophagitis present (K21.9) Active confirmed Problem 748932250 Colon cancer screening (Z12.11) Active confirmed Problem 293724207 FH: colon polyps (Z83.719) Active confirmed Problem 145382560 Encounter for long-term (current) use of NSAIDs (Z79.1) Active confirmed Vital Signs Temperature 97.8 degrees Fahrenheit 03/16/20 Blood pressure systolic 000 mm Hg 03/16/20 Blood pressure diastolic 00 mm Hg 024 Height 66 in 03/16/2024 Weight 157 lb 6 oz lbs 03/16/2024 BMI 25.40 kg/m2 03/16/2024 Encounters Encounter Location Date Provider Diagnosis [facility] [address] [place] [address] 03/16/2024 Thom Chin Jr Gastroesophageal reflux disease, [...] the procedure. She will check with her director physical therapy regarding whether he recommends stopping Xeljanz. 03/16/2024 [...] the procedure. She will check with her director physical therapy regarding whether he recommends stopping Xeljanz. 03/16/2024 [...] the procedure. She will check with her director physical therapy regarding whether he recommends stopping Xeljanz. 03/16/2024 [...] the procedure. She will check with her director physical therapy regarding whether he recommends stopping Xeljanz. Plan [...] 1 Year, Reason: Progress Notes * GARRETT GARLAND JDOB: [birth year] (69 yo F)Acc No.[id number]:03/16/2024 Progress Notes Patient:GARRETT SCHMIDT Provider:?Thom Chin MD :1955???Age:69 Y???Sex:Female D ate:03/16/2024 Address:[address] [place], [place] [id number] Pcp:Lee Odonnell Subjective: * Chief Complaints: * [...] past year??Never (0 point),?Points?2,?Interpretation?Negative.?Miscellaneous:?Marital status: . 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 * Medications:?Taking Flonase 50 MCG/DOSE Inhaler 1 [...] the procedure. She will check with her director physical therapy regarding whether he recommends stopping Xeljanz. Plan: [...] MD Date:?0 03/16/2024 Generated for Graciela garrett/Shady/Martha on:?02/23/2025 08:59 AM EDT History and Physical Notes * [...]
--- OUTSIDE RECORDS SUMMARY | 2025-02-23 08:59 | XMS_ITS | Clinical Summary ---
Author Organization [place] [address] [address] [facility] Building Address [address] [place] [address] Phone Care Team Providers Care Bias Binding Cutter Name Role Phone Lee Odonnell MD Primary Care Provider [phone] Allergies Active Allergy Reactions Criticality Noted Date [...] Ob[facility] [address] [address] [place] [address] Leatha Phelps, CONSUELO Encounter for annual physical [...] Repeat 10yrs,(6mm hyperplastic cecal polyp)Dr. 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 Daughter 2 Bri Alive Bri [facility] [birth year] [facility] Father (Age 55) Bladder [...] Cancer Screening: Colonoscopy 02/18/2029 02/18/2019 RSV Immunization Adult Patients (1 - 1-dose 75+ series) 2029 Hepatitis [...] * Cervical Cancer Screening: HPV (07/12/2019) Pathologist [facility] Cervical Cancer Screening: HPV NEGATIVE, ABSTRACTED [facility] Provider HEALTH MAINTENANCE Final Result * Colonoscopy (02/18/2019) Pathologist [facility] Colonoscopy NO INTERPRETATION , ABSTRACTED Anatomical Region Laterality Modality Other [facility] Provider HEALTH MAINTENANCE Final Result * Annual BMP Blood Test (04/28/2012) Pathologist [facility] Annual BMP Blood Test ABSTRACTED [facility] Provider HEALTH MAINTENANCE Final Result * Hepatitis C Screening (08/26/2010) Pathologist [facility] Hepatitis C Screening ABSTRACTED [facility] Provider HEALTH MAINTENANCE Final Result from Last 3 Months or Most Recently Relevant to Health Maintenance Insurance [employer] [facility] Care Teams Bias Binding Cutter Relationship Specialty Start Date End Date Lee Odonnell MD [address] [place] [address] PCP - General 08/22/24
[2025-02-23 10:06] LABS: Anion Gap 10 (12-20); Blood Urea Nitrogen 19 mg/dL (9-16); Carbon Dioxide 27 mmol/L (22-29); Chloride 108 mmol/L (96-108); Estimated Glomerular Filt Rate > 60; Potassium 4.2 mmol/L (3.3-5.1); Sodium 141 mmol/L (135-145)
[2025-02-23 10:24] LABS: TSH reflex Free T4 0.58 uIU/mL (0.32-4.0); Vitamin D 25-OH Total 56.8 ng/mL (>30)
[2025-02-23 10:57] LABS: Parathyroid Hormone Intact 52.8 pg/mL (8.7-77.1)
[2025-02-26 21:44] LABS: Collagen Type I C-Telopeptide 234 pg/mL (see note)
== END 2025-02-23 08:50 | disposition home or self-care (01) ==
LOC: HO.LAB 08:49
PROVIDERS: PCP Family Medicine; Visit Provider Internal Medicine Endocrinology, Diabetes & Metabolism
DX: M81.0 Age-related osteoporosis without current pathological fracture (principal); E03.9 Hypothyroidism, unspecified
CPT/HCPCS: 36415; 80051; 82306; 82310; 82523; 82565; 83970; 84443; 84520

== ENCOUNTER 2025-03-15 07:57 | Outpatient (REF) | payer OTHER, SELFPAY ==
--- NOTE | ~2025-03-15 | MM_ITS ---
EXAMINATION: MM SCREENING DIGITAL BREAST TOMOSYNTHESIS, BILATERAL CLINICAL INFORMATION: Screening. Asymptomatic. COMPARISON: Mammography: Comparison is made with available priors TECHNIQUE: Digital breast mammography with tomosynthesis is performed in both the craniocaudal and mediolateral oblique views along with computer-aided detection (CAD). FINDINGS: There are scattered areas of fibroglandular density (ACR BI-RADS breast composition Category b). There are no significant masses, abnormal calcifications, or other abnormalities. MM/MM tomosynthesis screening BI IMPRESSION: No mammographic evidence of malignancy. ASSESSMENT: BI-RADS BI-RADS 1 - Negative RECOMMENDATION: Routine annual mammography screening. 1 year F/U This examination should not preclude the clinical evaluation of a suspicious palpable abnormality. This patient's information was entered into a reminder system with a target due date for their next mammogram. Electronically signed by: Shalonda Nelson DO 03/16/2025 10:10 AM EDT
--- OUTSIDE RECORDS SUMMARY | 2025-03-15 08:02 | XMS_ITS ---
Author Organization [facility] Address [address] [place] [address] Care Team Providers Care Mixing Roll Operator Name Role Phone Arabellaabdulaziz Lee Primary Care Provider Thom Aguirre Jr [phone] REASON FOR VISIT gerd,screening Problems Problem Type SNOMED Code ICD Code Onset Dates Problem Status W/U Status Risk Notes Problem Gastroesophageal reflux disease (414121703) Esophageal reflux disease (K21.9) Active confirmed Encounters Encounter Location Date Provider Diagnosis [facility] Outpatient [address] [place] [phone] 04/29/2024 Thom Chin Jr Encounter for screening [...] * GARRETT GARLANDDOB: [birth year] (70 yo F)Acc No.[id number]:04/29/2024 EGD and COL/MAC Patient:?GARRETT GARLAND Provider:?Thom Chin MD :1955???Age:69 Y???Sex:Female D ate:04/29/2024 Address:[id number] Pcp:Lee Odonnell Subjective: * Chief Complaints: * ???1. Gerd,screening. * Medical History:? Objective: * Vitals:? Assessment: * Assessment: 1.?Encounter for screening c olonoscopy - Z12.11 (Primary)???2.?Gastric polyps - K31.7???3.?Esophageal reflux disease - K21.9??? Plan: * Treatment: * Procedure Codes:?44187 DIAGN OSTIC COLONOSCOPY, 23611 UPPER GI ENDOSCOPY, BIOPSY * * The named appointment provid er may or may not be the originator of this progress note, and it is not deemed complete until electronically signed by the appointment provider. Sign off status: Pending * Provider:?Thom Chin MD Date:?0 04/29/2024 Generated for Graciela garrett/Shady/eTransmitting on:?03/15/2025 08:02 AM EDT
--- OUTSIDE RECORDS SUMMARY | 2025-03-15 08:02 | XMS_ITS | Patient Health Record ---
Author Organization [facility] Address [address] [place] [address] Care Team Providers Care Cigarette Catcher Name Role Phone Adarsh Odonnellald Primary Care Provider Thom Aguirre Jr Unavailable [phone] Allergies Allergen (clinical drug ingredient) Drug/Non Drug Allergy documented on EMR Reaction Allergy Type Onset Date Status doxycycline Doxycycline Unknown Drug Allergy Act ana salsalate Salsalate Unknown Drug Allergy Active Biaxin Unknown Drug Allergy Active sulfamethoxazole / trimethoprim Bactrim Unknown Drug Allergy Active amoxicillin Amoxicillin Unknown Drug Allergy Act ana Results Component Value Reference Range Notes Pathology Reviewed date:05/05/2024 09:20:57 AM Interpretation: Performing Lab:[facility], [address] [place] [phone] Notes/Report: Name: Garrett Escalera Age/Sex: 69/F : 1955 Unit#: [id number] Attend Dr: Thom Chin MD Re04/29/24 Status : [facility] [place] Location: [facility] Disch: SPEC : [id number] RECD : 04/29/24 STATUS: BRANDON SIFUENTES NUM: [id number] GUERO: 04/29/[address]: Thom Chin MD ENTERED: 04/29/24 44 [...] submitted in toto in a cassette labeled C. CEDS CONTINUED ON NEXT PAGE Name: Garrett Escalera Age/Sex: 69/F : 1955 Unit#: [id number] Attend Dr: Thom Chin MD Re04/29/24 Status : [facility] Location: [facility] Disch: SPEC : [id number] RECD : 04/29/24 STATUS: BRANDON SIFUENTES NUM: [id number] GUERO: 04/29/2445 [facility] DR: Thom Chin MD ENTERED: 04/29/24- 44 SP TYPE: Surgical OTHR DR: Lee Odonnell MD ORDERED: HE Stain/9, Gross Micro L4/3, IHC/2, Special st. 2/3, H. pylori/2, AB/PAS/3 Gross Description (Continued) Special studies orde red and performed: Immunostain for H. pylori on A1 and B1; AB/PAS stains on A1, B1 and C1. Copies To: Thom Chin MD [address] [place] [address] [address] [place] [address] Lee Odonnell MD [address] [place] [address] [place] [address] Signed (si gnature on file) [facility] [place] 05/04/24 1000 END OF REPORT Reason For [...] Problem Status W/U Status Risk Notes Problem 103669587 Colon cancer screening (Z12.11) Active confirmed Problem 84994292 Encounter for other preprocedural examination (Z01.818) Active confirmed Problem 662080860 Encounter for long-term (current) use of NSAIDs (Z79.1) Active confirmed Problem 71006917 Gastric polyps (K31.7) Active confirmed Problem Gastroesophageal reflux disease (014207777) Esophageal reflux disease (K21.9) Active confirmed Problem 166753234 Gastroesophageal reflux disease, unspecified whether esophagitis present (K21.9) Active confirmed Problem 481581491 FH: colon polyps (Z83.719) Active confirmed Vital Signs Temperature 97.8 degrees Fahrenheit 03/16/2024 Blood pressure diastolic 00 mm Hg 03/16/2024 Height 66 in 03/16/2024 Blood pressure systolic 000 mm Hg 03/16/2024 Weight 157 lb 6 oz lbs 03/16/2024 BMI 25.40 kg/m2 03/16/2024 Encounters Encounter Location Date Provider Diagnosis [facility] Outpatient [address] [place], [place] [phone] 04/29/2024 Thom Chin Jr Encounter for screening colonoscopy Z12.11 ; Gastric polyps K31.7 and Esophageal reflux disease K21.9 [facility] [address] [place] [address] 03/16/2024 Thom Chin Jr Gastroesophageal reflux disease, unspecified whether esophagitis present K21.9 ; Colon cancer screening Z12.11 ; FH: colon polyps Z83.719 and Encounter for long-term (current) use of NSAIDs Z79.1 [facility] [address] [place] [address] 05/05/2024 Thom Chin Jr Assessments Encounter Date [...] the procedure. She will check with her deck engine operator regarding whether he recommends stopping Xeljanz. 03/16/2024 [...] the procedure. She will check with her deck engine operator regarding whether he recommends stopping Xeljanz. 04/29/2024 [...] the procedure. She will check with her deck engine operator regarding whether he recommends stopping Xeljanz. 03/16/2024 [...] the procedure. She will check with her deck engine operator regarding whether he recommends stopping Xeljanz. Plan Of Treatment Future Test Test Name Order Date COLONOSCOPY 07/30/2018 UPPER GI ENDOSCOPY 03/16/2024 COLONOSCOPY 03/16/2024 Insurance Providers Payer Name Payer Address Payer Phone Subscriber Number Group Number Insured Name Patient Relationship to Insured Coverage Start Date Coverage End Date [employer] [place] [address] [address] [place] [address] [id number] GARRETT ESCALERA Self - patient is the insured Medical (General) History Medical History History ICD Code Hypothyroidism Asthma Hypertension Rheumatoid arthritis Leukopenia Gastroesophageal reflux disease Colonoscopy 02/08, lymphoid p olyp, five-year followup for family history of colon polyps. Surgical History Surgery Date(Month/Year) carpal tunnel release-right FESS-sinus
--- OUTSIDE RECORDS SUMMARY | 2025-03-15 08:02 | XMS_ITS ---
Author Organization [facility] Address [address] [place] [address] Care Team Providers Care Demi Chef Name Role Phone Lee Odonnell Primary Care Provider Thom Aguirre Jr [phone] REASON FOR VISIT pathology Encounters Encounter Location Date Provider Diagnosis [facility] [address] [place] [address] 05/05/2024 Thom Chin Jr Plan Of Treatment No Information Progress Notes * GARRETT GARLANDDOB: [birth year] (69 yo F)Acc No.[id number]:05/05/2024 Patient:?GARRETT GARLAND :1955???Age:69 Y???Sex:Female Address:[address] [place] [address] * true * Date:? Generated for Printi tami/Shady/eTransmitting on:?03/15/2025 08:02 AM EDT
--- OUTSIDE RECORDS SUMMARY | 2025-03-15 08:03 | XMS_ITS | Data Portability ---
Author Organization [place] [facility] Address [address] [address] Care Team Providers Care Engineering Faculty Member Name Role Phone MADHAV BLACK Primary Care Provider [phone] Assessment Encounter Date Assessment Date Assessment LastModified [...] Go To The Location Of Their Choice, [address] 11:01:45 unlist ed lab - pneumo coccal Ab (23 seroty pe) 2023 024 MAULIK [facility] (Centralized Electronic Ordering - All Locations), Patient Can Go To The Location Of Their Choice, [address] 12:02:03 unlist ed lab - tetanu s toxoid Ag respon se* 2023 [facility] (Centralized Electronic Ordering - All Locations), Patient Can Go To The Location Of Their Choice, [address] 4 11:01:45 CBC w/ auto diff 2023 [facility] (Centralized Electronic Ordering - All Locations), Patient Can Go To The Location Of Their Choice, [address] 4 11:33:30 ige, total, serum 2023 [facility] (Centralized Electronic Ordering - All Locations), Patient Can Go To The Location Of Their Choice, [address] 4 21:54:05 immuno globul ins iga+ig g+igm, quanti tative , serum 2023 [facility] (Centralized Electronic Ordering - All Locations), Patient Can Go To The Location Of Their Choice, [address] 10:13:59 igg subcla sses + total, serum 2023 [facility] (Centralized Electronic Ordering - All Locations), Patient Can Go To The Location Of Their Choice, [address] 4 11:30:38 Referral None record ed. Procedures [...] Time Hypertro phy of nasal turbinat es 28884096 Completed 201506/24/2024 Hypertro phy of nasal turbinat es; Note: Date Diagnose d: 6 8:55 AM (J34.3) Not Available [facility] 02:21:44 Follow-u p visit Active 2015 Encounte r for follow-u p examinat ion after complete d treatmen t for conditio ns other than malignan t neoplasm ; Note: Date Diagnose d: 6 11:52 AM (Z09) Not Available [facility] 4 02:21:27 Recurren t acute sinusiti s 119763036 Active 2015 Other acute recurren t sinusiti s; Note: Date Diagnose d: 6 3:30 PM (J01.81) Not Available [facility] 4 02:21:39 Deviated nasal septum 110294817 Completed 201506/24/2024 Deviated nasal septum; Note: Date Diagnose d: 6 3:40 PM (J34.2) Not Available [facility] 4 02:21:31 Chronic sinusiti s 08051160 Active 2015 Sinusiti s (chronic ) involvin g more than one sinus but not pansinus itis; Note: Date Diagnose d: 6 7:34 AM (J32.8) Other chronic sinusiti s; Note: Date Diagnose d: 6 3:56 PM (J32.8) ; Start Date : 04/09/20 16 Not Available [facility] 4 02:21:52 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 340053193 Active 2015 Other specifie d immunode ficienci es; Note: Date Diagnose d: 09/11/20 16 1:00 PM (D84.8) Not Available [facility] 4 02:22:09 Chronic rhinitis 81231752 Active 2023 ADRIÁN RUTHERFORD MD [address] [place] [address], [place], [address] , [place] [facility] 4 11:46:05 Rheumato id arthriti s 25147136 Active 2023 ADRIÁN RUTHERFORD MD [address] [place] [address], [place], [address] , [facility] - [facility] 4 11:52:50 Problem Notes None recorded. Procedures Surgical History Date Name Laterality Status Provider Name and Address Organization Details Recorded Time 4 JMSNasal/Sinus Endoscopy-PRIO R surgical cavities completed ADRIÁN PHAN MD [address] [place] [address], [phone], [place] - [facility] 09/05/2024 11:50:13 Carpal tunnel surgery completed Neo Ivey [place] - [facility] 09/05/2024 11:27:05 endoscopy completed Neo Ivey [place] - [facility] 09/05/2024 11:27:30 Imaging Results None recorded. Procedure Notes None recorded. Medical Equipment None Reported. Allergies Allergen ID Allergen Name Allergen Category Reaction Reaction Severity Criticality Documentation Date Start Date Code Code System Note Provider Name and Address Organization Details Recorded Time 67359 doxycycli ne Not available nausea Not available Not available 04/05/2024 3640 RxNorm React ion: vomit ing;; Not Available [facility] 4 00:51:39 93689 Bactrim medicatio n other Not available Not available 04/05/2024 62624 9 RxNorm React ion: unkno wn, unspe cifie d;; Not Available [facility] 4 00:51:44 47122 amoxicill in medicatio n other Not available Not available 04/05/2024 723 RxNorm React ion: unkno wn, unspe cifie d;; Not Available [facility] 4 00:51:48 44725 levofloxa louis medicatio n other Not available Not available 04/05/2024 58576 RxNorm React ion: unkno wn, unspe cifie d;; Not Available [facility] 4 00:51:51 77761 Substance with sulfonami de structure and antibacte rial mechanism of action (substanc e) medicatio n other Not available Not available 04/05/2024 06377 8003 SNOMED React ion: unkno wn, unspe cifie d;; Not Available [facility] 4 00:51:55 Medications Name Sig Start Date Stop Date Status Note LastModified by Organization Details LastModified Time levothyro xine 137 mcg tablet 09/05 completed Medicati on ID: [id number] D uration Value: 90 Brand Name: levothyr oxine Se nd Method: E-Prescr ibed Sub s Allowed: subs OK Medic ationGen ericName : levothyr oxine Not Available Not Available Not Available clindamyc in HCl 300 mg capsule 1 capsule by mouth 09/05 completed Medicati on ID: [id number] D uration Value: 14 Prescri bed By [...] by mouth 05/02 completed Medicati on ID: [id number] D uration Value: 21 Brand Name: Biaxin [...] by mouth 09/05 completed Medicati on ID: [id number] D uration Value: 5 Prescri bed By Name: Nighat Ahuja nd Name: tramadol Send Method: E-Prescr ibed Sub s Allowed: subs OK Medic ationGen ericName : tramadol Not Available Not Available Not Available levothyro xine 100 mcg tablet active Not Available Not Available Not Available Vitamin C 1,000 mg tablet 2015 active Medicati on ID: 087693 B rand Name: Vitamin C Send Method: E-Prescr ibed Sub s Allowed: subs OK Medic ationGen ericName : Vitamin C Not Available Not Available Not Available benzonata te 100 mg capsule active Not Available Not Available Not Available doxycycli ne monohydra te 100 mg capsule 1 capsule by mouth 09/05 completed Medicati on ID: 860456 D uration Value: 21 Prescri bed By [...] by mouth 09/05 completed Medicati on ID: 905075 D uration Value: 10 Prescri bed By Name: PENG Ware nd Name: Cipro Se nd Method: E-Prescr ibed Sub s Allowed: subs OK Medic ationGen ericName : Cipro Not Available Not Available Not Available diltiazem CD 120 mg capsule,e xtended release 24 hr active Not Available Not Available Not Available Culturell e 10 billion cell capsule 2015 active Medicati on ID: 248413 D uration Value: 30 Prescri bed By [...] by mouth 09/05 completed Medicati on ID: [id number] D uration Value: 14 Prescri bed By [...] mg tablet 2015 active Medicati on ID: 727684 B rand Name: naproxen Send Method: E-Prescr ibed Sub s Allowed: subs OK Medic ationGen ericName : naproxen Not Available Not Available Not Available levothyro xine 112 mcg tablet 09/05 completed Not Available Not Available Not Available prednison e 09/05 completed Medicati on ID: 102237 D uration Value: 10 Prescri bed By [...] ous kit 2015 active Medicati on ID: [id number] D uration Value: 28 Brand Name: Humira [...] spray,jenelle pension 09/05 completed Medicati on ID: [id number] D uration Value: 30 Brand Name: Flonase [...] Updated DateTime 09/05/2024 165.1 cm 25.6 kg/m2 16922.22 g Neo Ivey [place] [facility] 09/05/2024 11:23:51 Social History None recorded. Functional Status None recorded. Mental Status None recorded. Family History Nothing Reported. Medical History Condition Response Arthritis Y Allergies/Hayfever Y Thyroid Problems Y Asthma Y Hypertension Y Gynecological HistoryNo gynecological history recorded. Obstetrics History GPAL:G 0 P 0 0 0 0 Past Encounters Encounter ID Performer Location Encounter Start Date Encounter Closed Date Diagnosis/Indication Diagnosis SNOMED-CT Code Diagnosis ICD10 Code Diagnosis Note [id number] ADRIÁN RUTHERFORD [facility] [address] [address] 09/05/2024 10:39:38 09/05/2024 11:54:33 Recurrent acute sinusitis 798035601 J01.91 Could be related to immune modulator but I have suggested an immunology workup. Patient works at [employer] and she will have the laboratory studies performed there and make sure I get the results. There is no evidence of any polyps or obstructio n to the previous surgical sites. Chronic rhinitis 3038532 6 J31.0 For management of upper respirator [...] symptoms after 7-10 days. Rheumatoid arthritis 698 [address]3112 M06.9 Health Concerns Section Related Observation LastModified by Organization Detai ls LastModified Time None Recorded Concern Status LastModified by Organization Details LastModified Time None Recorded Advance Directives Directive None Recorded Payers Encounter Date Sequence Insurance Name Policy Number Policy Silva Covered Member ID Silva Member ID Guarantor Name 09/05/2024 1 [employer] [place] [employer] [place]) [id number] Leandra Escalera [id number] Leandra Escalera Notes Date Note Type [...] nasal and then irrigations. ADRIÁN PHAN MD [address] [place] [address], [place], [address], [facility] - [facility] 09/05/2024 11:53:19 OBGyn Episode No OBEpisode recorded.
--- OUTSIDE RECORDS SUMMARY | 2025-03-15 08:03 | XMS_ITS ---
Author Organization [facility] Address [address] [place] [address] Care Team Providers Care Almond Cutting Machine Tender Name Role Phone MacisarahiLee tobin Primary Care Provider Thom Aguirre Jr Unavailable [phone] Allergies Allergen (clinical drug ingredient) Drug/Non Drug [...] Problem Status W/U Status Risk Notes Problem 154708846 Gastroesophageal reflux disease, unspecified whether esophagitis present (K21.9) Active confirmed Problem 888025110 Colon cancer screening (Z12.11) Active confirmed Problem 232055507 FH: colon polyps (Z83.719) Active confirmed Problem 039132443 Encounter for long-term (current) use of NSAIDs (Z79.1) Active confirmed Vital Signs Temperature 97.8 degrees Fahrenheit 03/16/20 Blood pressure systolic 000 mm Hg 03/16/20 Blood pressure diastolic 00 mm Hg 024 Height 66 in 03/16/2024 Weight 157 lb 6 oz lbs 03/16/2024 BMI 25.40 kg/m2 03/16/2024 Encounters Encounter Location Date Provider Diagnosis [facility] [address] [place] [address] 03/16/2024 Thom Chin Jr Gastroesophageal reflux disease, [...] the procedure. She will check with her instructor substitute cosmetology regarding whether he recommends stopping Xeljanz. 03/16/2024 [...] the procedure. She will check with her instructor substitute cosmetology regarding whether he recommends stopping Xeljanz. 03/16/2024 [...] the procedure. She will check with her instructor substitute cosmetology regarding whether he recommends stopping Xeljanz. 03/16/2024 [...] the procedure. She will check with her instructor substitute cosmetology regarding whether he recommends stopping Xeljanz. Plan [...] * GARRETT GARLANDDOB: [birth year] (69 yo F)Acc No.[id number]:03/16/2024 Progress Notes Patient:?GARRETT GARLAND Provider:?Thom Chin MD :1955???Age:69 Y???Sex:Female D ate:03/16/2024 Address:[address] [place], [place] [id number] Pcp:Lee Odonnell Subjective: * Chief Complaints: * [...] past year??Never (0 point),?Points?2,?Interpretation?Negative.?Miscellaneous:?Marital status: . 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 * Medications:?Taking Flonase 50 MCG/DOSE Inhaler 1 [...] the procedure. She will check with her instructor substitute cosmetology regarding whether he recommends stopping Xeljanz. Plan: [...] MD Date:?0 03/16/2024 Generated for Graciela garrett/Shady/Martha on:?03/15/2025 08:03 AM EDT History and Physical Notes * [...]
--- OUTSIDE RECORDS SUMMARY | 2025-03-15 08:03 | XMS_ITS | Clinical Summary ---
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 ([facility]) Essential hypertension, benign 07/22/2006 D X:Essential hypertension, [...] Nida born [birth year] [address] budgeting dept of [facility] Daughter 2 Bri Alive Bri born [birth year] [facility] accounting Father (Age 55) Bladder CA Mother [...] Cancer Screening: HPV 07/12/2024 07/12/2019 Influenza Vaccine (Season Ended) 2025 09/29/2016, 08/24/2015 DTaP,Tdap,and Td Vaccines (4 - Td or [...] age to complete this topic Meningococcal B Vaccine Aged Out No l onger eligible based on patient's age to complete [...] Results * Cervical Cancer Screening: HPV (07/12/2019) [facility] Cervical Cancer Screening: HPV NEGATIVE, ABSTRACTED [facility] Provider HEALTH MAINTENANCE Final Result * Colonoscopy (02/18/2019) [facility] Colonoscopy NO INTERPRETATION , ABSTRACTED Anatomical Region Laterality Modality Other [facility] Provider HEALTH MAINTENANCE Final Result * Annual BMP Blood Test (04/28/2012) [facility] Annual BMP Blood Test ABSTRACTED [facility] Provider HEALTH MAINTENANCE Final Result * Hepatitis C Screening (08/26/2010) [facility] Hepatitis C Screening ABSTRACTED [facility] Provider HEALTH MAINTENANCE Final Result from Last 3 Months or Most Recently Relevant to Health Maintenance Insurance [employer] [facility] Care Teams Tester Compressed Gases Relationship Specialty Start Date End Date Lee Odonnell MD [address] [place] [address] PCP - General 08/22/24
== END 2025-03-15 07:58 | disposition home or self-care (01) ==
LOC: HO.MAMMO 07:57
PROVIDERS: PCP Family Medicine; Visit Provider Family Medicine
DX: Z12.31 Encounter for screening mammogram for malignant neoplasm of breast (principal)
CPT/HCPCS: 77063; 77067

== ENCOUNTER → 2025-03-15 08:00 | Outpatient (BNV) | payer OTHER, SELFPAY | PROVIDERS: PCP Family Medicine; Visit Provider Internal Medicine | DX: Z12.31 Encounter for screening mammogram for malignant neoplasm of breast (principal) | CPT/HCPCS: 77063; 77067 ==

== ENCOUNTER 2025-03-29 12:05 | Outpatient (REF) | payer OTHER, SELFPAY ==
[2025-03-29 12:31] LABS: MANUAL DIFF FLAG NO
[2025-03-29 13:11] LABS: Basophils Percent Auto 0.3 % (0-2); Eosinophils Absolute Auto 0.1 X10*3/uL (0.0-0.4); Hematocrit 40.2 % (37.0-47.0); Hemoglobin 13.4 g/dl (12.0-16.0); Imm Gran Abs Auto 0.02 X10*3/uL (0.00-0.03); Imm Gran Pct Auto 0.3 % (0.0-0.4); Lymphocytes Absolute Auto 0.9 X10*3/uL (1.2-4.9); Lymphocytes Percent Auto 15.5 % (20-40); Mean Corpuscular HGB Conc 33.3 g/dl (31.0-35.0); Mean Corpuscular Hemoglobin 29.9 pg (27.0-33.0); Mean Corpuscular Volume 89.7 fL (80.0-98.0); Monocytes Absolute Auto 0.8 X10*3/uL (0.1-1.2); Monocytes Percent Auto 12.6 % (2-11); Neutrophils Absolute Auto 4.1 x10*3/uL (2.0-8.3); Neutrophils Percent Auto 69.3 % (45-73); Platelet Count 349 X10*3/uL (160-400); Red Blood Count 4.48 X10*6/uL (4.20-5.50); Red Cell Distribution Width 13.1 % (11.0-16.0); White Blood Count 5.9 X10*3/uL (4.8-10.8)
--- OUTSIDE RECORDS SUMMARY | 2025-03-29 13:22 | XMS_ITS ---
Author Organization [facility] Address [address] [place] [address] Care Team Providers Care Manager Client Service Name Role Phone ArabellaLee cintron Primary Care Provider Thom Aguirre Jr [phone] REASON FOR VISIT gerd,screening Problems Problem Type SNOMED Code ICD Code Onset Dates Problem Status W/U Status Risk Notes Problem Esophageal reflux disease (K21.9) Active confirmed Encounters Encounter Location Date Provider Diagnosis [facility] [address] [place], [place] [phone] 04/29/2024 Thom Chin Jr Encounter for screening [...] * GARRETT GARLANDDOB: [birth year] (70 yo F)Acc No.[id number]:04/29/2024 EGD and COL/MAC Patient:?GARRETT GARLAND Provider:?Thom Chin MD :1955???Age:69 Y???Sex:Female D ate:04/29/2024 Address:[address] [place] [address] [id number] Pcp:Lee Odonnell Subjective: * Chief Complaints: * ???1. Gerd,screening. * Medical History:? Objective: * Vitals:? Assessment: * Assessment: 1.?Encounter for screening c olonoscopy - Z12.11 (Primary)???2.?Gastric polyps - K31.7???3.?Esophageal reflux disease - K21.9??? Plan: * Treatment: * Procedure Codes:?86499 DIAGN OSTIC COLONOSCOPY, 86593 UPPER GI ENDOSCOPY, BIOPSY * * The named appointment provid er may or may not be the originator of this progress note, and it is not deemed complete until electronically signed by the appointment provider. Sign off status: Pending * Provider:?Thom Chin MD Date:?0 04/29/2024 Generated for Graciela garrett/Shady/eTransmitting on:?03/29/2025 01:21 PM EDT
--- OUTSIDE RECORDS SUMMARY | 2025-03-29 13:22 | XMS_ITS ---
Author Organization [facility] Address [address] [place] [address] Care Team Providers Care Hand Silvering Supervisor Name Role Phone Lee Odonnell Primary Care Provider Thom Aguirre Jr [phone] REASON FOR VISIT pathology Encounters Encounter Location Date Provider Diagnosis [facility] [address] [place] [address] 05/05/2024 Thom Chin Jr Plan Of Treatment No Information Progress Notes * GARRETT GARLANDDOB: [birth year] (69 yo F)Acc No.[id number]:05/05/2024 Patient:?GARRETT GARLAND :1955???Age:69 Y???Sex:Female Address:[address] [place] [address] * true * Date:? Generated for Printi tami/Shady/eTransmitting on:?03/29/2025 01:21 PM EDT
--- OUTSIDE RECORDS SUMMARY | 2025-03-29 13:22 | XMS_ITS | Patient Health Record ---
Author Organization [facility] Address [address] [place] [address] Care Team Providers Care Contribution Solicitor Name Role Phone Lee Odonnell Primary Care [...] Pathology Reviewed date:05/05/2024 09:20:57 AM Interpretation: Performing Lab:[facility], [address] [place] [address] Notes/Report: Name: Garrett Escalera Age/Sex: 69/F : 1955 Unit#: [id number] Attend Dr: Thom Chin MD Re04/29/24 Status : [facility] Location: [facility] Disch: SPEC : [id number] RECD : 04/29/24 STATUS: BRANDON SIFUENTES NUM: [id number] GUERO: 04/29/[address]: Thom Chin MD [...] Garrett Escalera Age/Sex: 69/F : 1955 Unit#: [id number] Attend Dr: Thom Chin MD Re04/29/24 Status : [facility] Location: [facility] Disch: SPEC : [id number] RECD : 04/29/24 STATUS: BRANDON SIFUENTES NUM: [id number] GUERO: 04/29/[address] [facility] [address]: Thom Chin MD ENTERED: 04/29/24- 44 SP TYPE: Surgical OTHR DR: Lee Odonnell MD ORDERED: HE Stain/9, Gross Micro L4/3, IHC/2, Special st. 2/3, H. pylori/2, AB/PAS/3 Gross Description (Continued) Special studies orde red and performed: Immunostain for H. pylori on A1 and B1; AB/PAS stains on A1, B1 and C1. Copies To: Thom Chin MD [address] [place] [address] [address] [place] [address] Lee Odonnell MD [address] [place] [address] [place] [address] Signed (si gnature on file) Hazel Emory 05/04/24 1000 END OF REPORT Reason For [...] Problem Status W/U Status Risk Notes Problem 922740353 Colon cancer screening (Z12.11) Active confirmed Problem 57102200 Encounter for ot her preprocedural examination (Z01.818) Active confirmed Problem 604118375 Encounter for long-term (current) use of NSAIDs (Z79.1) Active confirmed Problem 62809446 Gastric polyps (K31.7) Active confirmed Problem Esophageal reflu x disease (K21.9) Active confirmed Problem 521335825 Gastroesophageal reflux disease, unspecified whether esophagitis present (K21.9) Active confirmed Problem 847970710 FH: colon polyps (Z83.719) Active confirmed Encounters Encounter Location Date Provider Diagnosis [facility] [place] [address] [place], [place] [phone] 04/29/2024 Thom Chin Jr Encounter for screening colonoscopy Z12.11 ; Gastric polyps K31.7 and Esophageal reflux disease K21.9 [facility] [address] [facility] [address] [place] [address] 05/05/2024 Thom Chin Jr Assessments Encounter Date Diagnosis (ICD Code) Assessment Notes Treatment Notes Treatment Clinical Notes Section Notes 04/29/2024 Encounter for screening colonoscopy (ICD-10 - Z12.11) 04/29/2024 Gastric polyps (ICD-10 - K31.7) 04/29/2024 Esophageal reflux disease (ICD-10 - K21.9) Plan Of Treatment Future Test Test Name Order Date COLONOSCOPY 07/30/2018 UPPER GI ENDOSCOPY 03/16/2024 COLONOSCOPY 03/16/2024 Insurance Providers Payer Name Payer Address Payer Phone Subscriber Number Group Number Insured Name Patient Relationship to Insured Coverage Start Date Coverage End Date [employer] [place] [address] [address] [place] [address] [id number] GARRETT ESCALERA Self - patient is the insured Medical (General) History Medical History History ICD Code Hypothyroidism Asthma Hypertension Rheumatoid arthritis Leukopenia Gastroesophageal reflux disease Colonoscopy 02/08, lymphoid p olyp, five-year followup for family history of colon polyps. Surgical History Surgery Date(Month/Year) carpal tunnel release-right FESS-sinus
--- OUTSIDE RECORDS SUMMARY | 2025-03-29 13:22 | XMS_ITS ---
Author Organization [facility] Address [address] [place] [address] Care Team Providers Care Bed Bug Exterminator Name Role Phone MacisarahiLee tobin Primary Care Provider Thom Aguirre Jr Unavailable [phone] Allergies Allergen (clinical drug ingredient) Drug/Non [...] Problem Status W/U Status Risk Notes Problem 965335058 Gastroesophageal reflux disease, unspecified whether esophagitis present (K21.9) Active confirmed Problem 929573995 Colon cancer screening (Z12.11) Active confirmed Problem 643603504 FH: colon polyps (Z83.719) Active confirmed Problem 701001945 Encounter for long-term (current) use of NSAIDs (Z79.1) Active confirmed Vital Signs Temperature 97.8 degrees Fahrenheit 03/16/20 Blood pressure systolic 000 mm Hg 03/16/20 Blood pressure diastolic 00 mm Hg 024 Height 66 in 03/16/2024 Weight 157 lb 6 oz lbs 03/16/2024 BMI 25.40 kg/m2 03/16/2024 Encounters Encounter Location Date Provider Diagnosis [facility] [address] [place] [address] 03/16/2024 Thom Chin Jr Gastroesophageal reflux disease, [...] the procedure. She will check with her supervisor coil springs regarding whether he recommends stopping Xeljanz. 03/16/2024 [...] the procedure. She will check with her supervisor coil springs regarding whether he recommends stopping Xeljanz. 03/16/2024 [...] the procedure. She will check with her supervisor coil springs regarding whether he recommends stopping Xeljanz. 03/16/2024 [...] the procedure. She will check with her supervisor coil springs regarding whether he recommends stopping Xeljanz. Plan [...] * GARRETT GARLANDDOB: [birth year] (69 yo F)Acc No.[id number]:03/16/2024 Progress Notes Patient:?GARRETT GARLAND Provider:?Thom Chin MD :1955???Age:69 Y???Sex:Female D ate:03/16/2024 Address:[address] [place], [place] [phone] Pcp:Lee Odonnell Subjective: * Chief Complaints: * [...] past year??Never (0 point),?Points?2,?Interpretation?Negative.?Miscellaneous:?Marital status: . 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 * Medications:?Taking Flonase 50 MCG/DOSE Inhaler 1 [...] the procedure. She will check with her supervisor coil springs regarding whether he recommends stopping Xeljanz. Plan: [...] MD Date:?0 03/16/2024 Generated for Graciela garrett/Shady/Martha on:?03/29/2025 01:22 PM EDT History and Physical Notes * HPI [...]
--- OUTSIDE RECORDS SUMMARY | 2025-03-29 13:22 | XMS_ITS | Data Portability ---
Author Organization [place] - [facility], Allergy Address [address] [address] Care Team Providers Care Transitions Manager Name Role Phone MADHAV BLACK Primary Care [...] Go To The Location Of Their Choice, [address] 11:01:45 unlist ed lab - pneumo coccal Ab (23 seroty pe) 2023 024 MAULIK [facility] (Centralized Electronic Ordering - All Locations), Patient Can Go To The Location Of Their Choice, [address] 12:02:03 unlist ed lab - tetanu s toxoid Ag respon se* 2023 [facility] (Centralized Electronic Ordering - All Locations), Patient Can Go To The Location Of Their Choice, [address] 4 11:01:45 CBC w/ auto diff 2023 [facility] (Centralized Electronic Ordering - All Locations), Patient Can Go To The Location Of Their Choice, [address] 4 11:33:30 ige, total, serum 2023 [facility] (Centralized Electronic Ordering - All Locations), Patient Can Go To The Location Of Their Choice, [address] 4 21:54:05 immuno globul ins iga+ig g+igm, quanti tative , serum 2023 [facility] (Centralized Electronic Ordering - All Locations), Patient Can Go To The Location Of Their Choice, [address] 10:13:59 igg subcla sses + total, serum 2023 [facility] (Centralized Electronic Ordering - All Locations), Patient Can Go To The Location Of Their Choice, [address] 4 11:30:38 Referral None record ed. Procedures [...] Time Hypertro phy of nasal turbinat es 73443648 Completed 201506/24/2024 Hypertro phy of nasal turbinat es; Note: Date Diagnose d: 6 8:55 AM (J34.3) Not Available [facility] 02:21:44 Follow-u p visit Active 2015 Encounte r for follow-u p examinat ion after complete d treatmen t for conditio ns other than malignan t neoplasm ; Note: Date Diagnose d: 6 11:52 AM (Z09) Not Available [facility] 4 02:21:27 Recurren t acute sinusiti s 527974981 Active 2015 Other acute recurren t sinusiti s; Note: Date Diagnose d: 6 3:30 PM (J01.81) Not Available [facility] 4 02:21:39 Deviated nasal septum 715914248 Completed 201506/24/2024 Deviated nasal septum; Note: Date Diagnose d: 6 3:40 PM (J34.2) Not Available [facility] 4 02:21:31 Chronic sinusiti s 39087160 Active 2015 Sinusiti s (chronic ) involvin g more than one sinus but not pansinus itis; Note: Date Diagnose d: 6 7:34 AM (J32.8) Other chronic sinusiti s; Note: Date Diagnose d: 6 3:56 PM (J32.8) ; Start Date : 04/09/20 16 Not Available [facility] 4 02:21:52 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 257962288 Active 2015 Other specifie d immunode ficienci es; Note: Date Diagnose d: 09/11/20 16 1:00 PM (D84.8) Not Available [facility] 4 02:22:09 Chronic rhinitis 26432063 Active 2023 ADRIÁN RUTHERFORD MD [address] [place] [address], [place], [phone] , [place] - [facility] 4 11:46:05 Rheumato id arthriti s 59880912 Active 2023 ADRIÁN RUTHERFORD MD [address] [place] [address], [place], [phone] , [facility] - [facility] 4 11:52:50 Problem Notes None recorded. Procedures Surgical History Date Name Laterality Status Provider Name and Address Organization Details Recorded Time 4 JMSNasal/Sinus Endoscopy-PRIO R surgical cavities completed ADRIÁN PHAN MD [address] [place] [address], [phone], [place] - [facility] 09/05/2024 11:50:13 Carpal tunnel surgery completed Neo Ivey [place] - [facility] 09/05/2024 11:27:05 endoscopy completed Neo Ivey [place] - [facility] 09/05/2024 11:27:30 Imaging Results None recorded. Procedure Notes None recorded. Medical Equipment None Reported. Allergies Allergen ID Allergen Name Allergen Category Reaction Reaction Severity Criticality Documentation Date Start Date Code Code System Note Provider Name and Address Organization Details Recorded Time 55335 doxycycli ne Not available nausea Not available Not available 04/05/2024 3640 RxNorm React ion: vomit ing;; Not Available [facility] 4 00:51:39 89910 Bactrim medicatio n other Not available Not available 04/05/2024 18012 9 RxNorm React ion: unkno wn, unspe cifie d;; Not Available [facility] 4 00:51:44 09346 amoxicill in medicatio n other Not available Not available 04/05/2024 723 RxNorm React ion: unkno wn, unspe cifie d;; Not Available [facility] 4 00:51:48 87532 levofloxa louis medicatio n other Not available Not available 04/05/2024 53192 RxNorm React ion: unkno wn, unspe cifie d;; Not Available [facility] 4 00:51:51 93763 Substance with sulfonami de structure and antibacte rial mechanism of action (substanc e) medicatio n other Not available Not available 04/05/2024 30930 8003 SNOMED React ion: unkno wn, unspe cifie d;; Not Available [facility] 4 00:51:55 Medications Name Sig Start Date Stop Date Status Note LastModified by Organization Details LastModified Time levothyro xine 137 mcg tablet 09/05 completed Medicati on ID: [id number] D uration Value: 90 Brand Name: levothyr oxine Se nd Method: E-Prescr ibed Sub s Allowed: subs OK Medic ationGen ericName : levothyr oxine Not Available Not Available Not Available clindamyc in HCl 300 mg capsule 1 capsule by mouth 09/05 completed Medicati on ID: [id number] D uration Value: 14 Prescri bed By [...] by mouth 05/02 completed Medicati on ID: [id number] D uration Value: 21 Brand Name: Biaxin [...] by mouth 09/05 completed Medicati on ID: [id number] D uration Value: 5 Prescri bed By Name: Nighat Ahuja nd Name: tramadol Send Method: E-Prescr ibed Sub s Allowed: subs OK Medic ationGen ericName : tramadol Not Available Not Available Not Available levothyro xine 100 mcg tablet active Not Available Not Available Not Available Vitamin C 1,000 mg tablet 2015 active Medicati on ID: 772950 B rand Name: Vitamin C Send Method: E-Prescr ibed Sub s Allowed: subs OK Medic ationGen ericName : Vitamin C Not Available Not Available Not Available benzonata te 100 mg capsule active Not Available Not Available Not Available doxycycli ne monohydra te 100 mg capsule 1 capsule by mouth 09/05 completed Medicati on ID: [id number] D uration Value: 21 Prescri bed By [...] by mouth 09/05 completed Medicati on ID: [id number] D uration Value: 10 Prescri bed By Name: PENG Wrae nd Name: Cipro Se nd Method: E-Prescr ibed Sub s Allowed: subs OK Medic ationGen ericName : Cipro Not Available Not Available Not Available diltiazem CD 120 mg capsule,e xtended release 24 hr active Not Available Not Available Not Available Culturell e 10 billion cell capsule 2015 active Medicati on ID: [id number] D uration Value: 30 Prescri bed By [...] by mouth 09/05 completed Medicati on ID: [id number] D uration Value: 14 Prescri bed By [...] mg tablet 2015 active Medicati on ID: [id number] B rand Name: naproxen Send Method: E-Prescr ibed Sub s Allowed: subs OK Medic ationGen ericName : naproxen Not Available Not Available Not Available levothyro xine 112 mcg tablet 09/05 completed Not Available Not Available Not Available prednison e 09/05 completed Medicati on ID: [id number] D uration Value: 10 Prescri bed By [...] ous kit 2015 active Medicati on ID: [id number] D uration Value: 28 Brand Name: Humira [...] spray,jenelle pension 09/05 completed Medicati on ID: [id number] D uration Value: 30 Brand Name: Flonase [...] Updated DateTime 09/05/2024 165.1 cm 25.6 kg/m2 41366.22 g Neo Ivey [place] - [facility] 09/05/2024 11:23:51 Social History None recorded. Functional [...] SNOMED-CT Code Diagnosis ICD10 Code Diagnosis Note [id number] ADRIÁN RUTHERFORD MD [facility] [phone] 09/05/2024 10:39:38 09/05/2024 11:54:33 Recurrent acute sinusitis [id number] J01.91 Could be related to immune modulator but I have suggested an immunology workup. Patient works at [employer] and she will have the laboratory studies performed there and make sure I get the results. There is no evidence of any polyps or obstructio n to the previous surgical sites. Chronic rhinitis 6568744 6 J31.0 For management of upper respirator [...] symptoms after 7-10 days. Rheumatoid arthritis 698 09649 M06.9 Health Concerns Section Related Observation LastModified by Organization Detai ls LastModified Time None Recorded Concern Status LastModified by Organization Details LastModified Time None Recorded Advance Directives Directive None Recorded Payers Insurance Date Sequence Insurance Name Policy Number Policy Silva Covered Member ID Silva Member ID Guarantor Name 02/10/2025 1 [employer] ([facility]) [id number] Leandra Escalera [id number] Leandra Escalera Notes Date Note Type [...] nasal and then irrigations. ADRIÁN PHAN MD [address] [place] [address], [place], [phone], [facility] - [facility] 09/05/2024 11:53:19 OBGyn Episode No OBEpisode recorded.
--- OUTSIDE RECORDS SUMMARY | 2025-03-29 13:22 | XMS_ITS | Clinical Summary ---
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 Rheumatoid arthritis ([facility] V24, [facility] V28) 06/13/2008 Carpal tunnel syndrome 03/17/2008 HTN (hypertension) 07/22/2006 Hypothyroidism 07/22/2006 Immunizations Name Administration Dates Next Due Influenza [...] HISTORICAL COLONOSCOPY; COMMENT: Repeat 10yrs,(6mm hyperplastic cecal polyp)Tatiana [place] CARPAL TUNNEL RELEASE Right 09/08/12 PROCEDURE: [place] NEUROPLASTY &/TRANSPOS MEDIAN NRV CARPAL TUNNE; COMMENT: open repair Dr Roxanne Daily [facility]EDURE: [place] SEPTOPLASTY/SUBMUCOUS RESECJ W/WO CARTILAGE GRF; COMMENT: and sinus infection clean out COLONOSCOPY 02/18/2019 PROCEDURE: HISTORICAL COLONOSCOPY; COMMENT: Dr Thom Chin, negative Medical History Medical History Date Comments Unspecified hypothyroidism 07/22/2006 DX:Un specified hypothyroidism Felty's syndrome (CMS/HCC V2 4, 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) Essential hypertension, benign 07/22/2006 D [...] Nida born [birth year] [address] [employer] [employer] [facility] Daughter 2 Bri Alive Bri born [birth year] [employer] Father (Age 55) Bladder CA Mother [...] Procedure Name Priority Date/Time Associated Diagnosis Comments HM HPV Routine 07/12/2019 COLONOSCOPY Routine 02/18/2019 ANNUAL BMP BLOOD TEST Routine 04/28/2012 HEPATITIS C SCREENING Routine 08/26/2010 from Last 3 Months or Most Recently Relevant to Health Maintenance Results * Cervical Cancer Screening: HPV (07/12/2019) Pathologist [facility] Cervical Cancer Screening: HPV NEGATIVE, ABSTRACTED [facility] Provider HEALTH MAINTENANCE Final Result * Colonoscopy (02/18/2019) Pathologist [facility] Colonoscopy NO INTERPRETATION , ABSTRACTED Anatomical Region Laterality Modality Other [facility] Provider HEALTH MAINTENANCE Final Result * Annual BMP Blood Test (04/28/2012) Annual BMP Blood Test ABSTRACTED [facility] Provider HEALTH MAINTENANCE Final Result * Hepatitis C Screening (08/26/2010) Pathologist [facility] Hepatitis C Screening ABSTRACTED [facility] Provider HEALTH MAINTENANCE Final Result from Last 3 Months or Most Recently Relevant to Health Maintenance Insurance [facility] Care Teams Client Account Representative Relationship Specialty Start Date End Date Lee Odonnell MD [facility] [address] [place] [phone] PCP - General 08/22/24
[2025-03-29 13:38] LABS: Alanine Aminotransferase 44 U/L (0-31); Albumin Level 4.4 g/dL (3.5-5.0); Alkaline Phosphatase 68 U/L (39-117); Anion Gap 11 (12-20); Aspartate Amino Transferase 39 U/L (5-31); Bilirubin Total 0.5 mg/dL (0.0-1.0); Blood Urea Nitrogen 15 mg/dL (9-16); C Reactive Protein < 0.04 mg/dL (< or = 0.50); Carbon Dioxide 28 mmol/L (22-29); Chloride 107 mmol/L (96-108); Estimated Glomerular Filt Rate > 60; Glucose Random 84 mg/dL (60-115); Potassium 4.3 mmol/L (3.3-5.1); Sodium 142 mmol/L (135-145); Total Protein 7.4 g/dL (6.5-8.0)
[2025-03-29 13:48] LABS: Erythrocyte Sedimentation Rate 8 MM/HR (0-20)
== END 2025-03-29 12:06 | disposition home or self-care (01) ==
LOC: HO.LABR 12:05
PROVIDERS: PCP Family Medicine; Visit Provider Internal Medicine Rheumatology
DX: M05.79 Rheumatoid arthritis with rheumatoid factor of multiple sites without organ or systems involvement (principal); Z79.622 Long term (current) use of Janus kinase inhibitor; Z79.1 Long term (current) use of non-steroidal anti-inflammatories (NSAID)
CPT/HCPCS: 36415; 80053; 85025; 85652; 86140

== ENCOUNTER 2025-04-18 09:34 | Outpatient (REF) | payer OTHER, SELFPAY ==
--- NOTE | ~2025-04-18 | CT_ITS ---
EXAMINATION: CT ABDOMEN PELVIS WITH IV CONTRAST HISTORY: LLQ PAIN COMPARISON: There are no prior studies for comparison. TECHNIQUE: CT scan of the abdomen and pelvis was performed following administration of 85 mL Omnipaque 350 using standard departmental protocol. Coronal and sagittal reformatted images were generated and reviewed. The patient received oral contrast material. This CT exam was performed with one or more of the following dose reduction techniques: automated exposure control, adjustment of the mA and/or kV according to patient size, use of iterative reconstruction technique. DLP: 339 mGy-cm FINDINGS: LOWER CHEST: The visualized lung bases are clear. There is no pleural effusion. CARDIOVASCULATURE: The heart is normal in size. There is no pericardial effusion. LIVER: The liver is normal in size and contour. No liver mass is identified. The hepatic and portal veins are patent. GALLBLADDER / BILE DUCTS: The gallbladder is unremarkable. There is no intra or extrahepatic biliary ductal dilatation. SPLEEN: The spleen is normal in size. No focal splenic lesion is identified. PANCREAS: The pancreas is unremarkable in appearance. ADRENAL GLANDS: Within normal limits. KIDNEYS/RETROPERITONEUM: No renal calculi are identified. There is no hydronephrosis. No renal masses are identified. LYMPH NODES: No abdominal or pelvic lymphadenopathy. VASCULATURE: The abdominal aorta is normal in caliber. MESENTERY/PERITONEUM: No free fluid. No masses. There is no free intraperitoneal gas. STOMACH: The stomach is unremarkable. SMALL BOWEL: The small bowel is normal in caliber. COLON: The colon is unremarkable. APPENDIX: Normal. URINARY BLADDER/PELVIC ORGANS: The urinary bladder is unremarkable. There is a calcification along the right lateral wall of the uterus which may represent a fibroid. The ovaries are unremarkable. BONES / SOFT TISSUES: There is degenerative disc disease of the spine, most prominent at the T12-L1 and L5-S1 levels. CT/CT abdomen pelvis w IV con IMPRESSION: Essentially unremarkable contrast-enhanced CT of the abdomen and pelvis. No inflammatory process is identified. Electronically signed by: Gregorio Escobar MD 04/18/2025 02:15 PM EDT
--- OUTSIDE RECORDS SUMMARY | 2025-04-18 10:09 | XMS_ITS ---
Author Organization [facility] Address [address] [place] [address] Care Team Providers Care Wire Harness Assembler Name Role Phone Lee Odonnell Primary Care Provider Thom Aguirre Jr REASON FOR VISIT pathology Encounters Encounter Location Date Provider Diagnosis [facility] [address] [place] [phone] 05/05/2024 Thom Chin Jr Plan Of Treatment No Information Progress Notes * GARRETT GARLANDDOB: [birth year] (69 yo F)Acc No.[id number]:05/05/2024 Patient:?GARRETT GARLAND :1955???Age:69 Y???Sex:Female Address:[address] [place] [address] * true * Date:? Generated for Printi tami/Shady/eTransmitting on:?04/18/2025 10:09 AM EDT
[2025-04-18] MEDS: iohexoL 350 MG/ML 100 ML INFUS..BTL 85 ML IV (10:29)
== END 2025-04-18 09:35 | disposition home or self-care (01) ==
LOC: HO.CT 09:34
PROVIDERS: PCP Family Medicine; Visit Provider Nurse Practitioner Family
DX: R10.32 Left lower quadrant pain (principal)
CPT/HCPCS: 74177; Q9967

== ENCOUNTER → 2025-04-18 10:03 | Outpatient (BNV) | payer OTHER, SELFPAY | PROVIDERS: PCP Family Medicine; Visit Provider Radiology Diagnostic Radiology | DX: R10.32 Left lower quadrant pain (principal) | CPT/HCPCS: 74177 ==

== ENCOUNTER → 2025-06-12 15:14 | Outpatient (BNVA) | payer OTHER, SELFPAY | PROVIDERS: PCP Family Medicine; Visit Provider Physician Assistant Medical | DX: Z13.89 Encounter for screening for other disorder (principal) | CPT/HCPCS: 99203 ==

== ENCOUNTER 2025-06-13 13:41 | Outpatient (REF) | payer OTHER, SELFPAY ==
--- OUTSIDE RECORDS SUMMARY | 2025-06-13 14:52 | XMS_ITS | Data Portability ---
Author Organization [place] - [facility], Allergy Address [address] [address] Care Team Providers Care Pumper Gauger Name Role Phone WAYNE MADHAV Primary Care Provider [phone] Assessment Encounter Date Assessment Date Assessment LastModified [...] Go To The Location Of Their Choice, [address] 11:01:45 unlist ed lab - pneumo coccal Ab (23 seroty pe) 2023 [place] [facility] (Centralized Electronic Ordering - All Locations), Patient Can Go To The Location Of Their Choice, [address] 12:02:03 unlist ed lab - tetanu s toxoid Ag respon se* 2023 [facility] (Centralized [facility] Ordering - All Locations), Patient Can Go To The Location Of Their Choice, [address] 4 11:01:45 CBC w/ auto diff 2023 [place] [facility] (Centralized Electronic Ordering - All Locations), Patient Can Go To The Location Of Their Choice, [address] 4 11:33:30 ige, total, serum 2023 [place] [facility] (Centralized Electronic Ordering - All Locations), Patient Can Go To The Location Of Their Choice, [address] 21:54:05 immuno globul ins iga+ig g+igm, quanti tative , serum 2023 [facility] (Centralized Electronic Ordering - All Locations), Patient Can Go To The Location Of Their Choice, [address] 10:13:59 igg subcla sses + total, serum 2023 [place] [facility] (Centralized Electronic Ordering - All Locations), Patient Can Go To The Location Of Their Choice, [address] 4 11:30:38 Referral None record ed. Procedures [...] Name and Address Organization Details Recorded Time Deviated nasal septum 370572369 Completed 201506/24/2024 Deviated nasal septum; Note: Date Diagnose d: 6 3:40 PM (J34.2) Not Available [facility] 02:21:31 Hypertro phy of nasal turbinat es 30947537 Completed 201506/24/2024 Hypertro phy of nasal turbinat es; Note: Date Diagnose d: 6 8:55 AM (J34.3) Not Available [facility] 4 02:21:44 Chronic sinusiti s 45735260 Active 2015 Sinusiti s (chronic ) involvin g more than one sinus but not pansinus itis; Note: Date Diagnose d: 6 7:34 AM (J32.8) Other chronic sinusiti s; Note: Date Diagnose d: 6 3:56 PM (J32.8) ; Start Date : 04/09/20 16 Not Available [facility] 4 02:21:52 Follow-u p visit Active 2015 Encounte r for follow-u p examinat ion after complete d treatmen t for conditio ns other than malignan t neoplasm ; Note: Date Diagnose d: 6 11:52 AM (Z09) Not Available [facility] 4 02:21:27 Recurren t acute sinusiti s 433311359 Active 2015 Other acute recurren t sinusiti s; Note: Date Diagnose d: 6 3:30 PM (J01.81) Not Available [facility] 4 02:21:39 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 - [facility] 4 11:52:50 Problem Notes None recorded. Procedures Surgical History Date Name Laterality Status Provider Name and Address Organization Details Recorded Time 4 JMSNasal/Sinus Endoscopy-PRIO R surgical cavities completed ADRIÁN PHAN MD [address] [place] [address], [place], [address], [facility] - [facility] 09/05/2024 11:50:13 Carpal tunnel surgery completed Neo Ivey [facility] 09/05/2024 11:27:05 endoscopy completed Neosheila Ivey [facility] 09/05/2024 11:27:30 Imaging Results None recorded. Procedure Notes None recorded. Medical Equipment None Reported. Allergies Allergen ID Allergen Name Allergen Category Reaction Reaction Severity Criticality Documentation Date Start Date Code Code System Note Provider Name and Address Organization Details Recorded Time 28636 doxycycli ne Not available nausea Not available Not available 04/05/2024 3640 RxNorm React ion: vomit ing;; Not Available [facility] 00:51:39 01048 Bactrim medicatio n other Not available Not available 04/05/2024 38182 9 RxNorm React ion: unkno wn, unspe cifie d;; Not Available [facility] 4 00:51:44 56752 amoxicill in medicatio n other Not available Not available 04/05/2024 723 RxNorm React ion: unkno wn, unspe cifie d;; Not Available [facility] 4 00:51:48 84848 levofloxa louis medicatio n other Not available Not available 04/05/2024 38926 RxNorm React ion: unkno wn, unspe cifie d;; Not Available [facility] 4 00:51:51 99181 Substance with sulfonami de structure and antibacte rial mechanism of action (substanc e) medicatio n other Not available Not available 04/05/2024 01865 8003 SNOMED React ion: unkno wn, unspe cifie d;; Not Available [facility] 4 00:51:55 Medications Name Sig Start Date Stop Date Status Note LastModified by Organization Details LastModified Time levothyro xine 137 mcg tablet 09/05 completed Medicati on ID: [id number] D uration Value: 90 Brand Name: levothyr oxine Se nd Method: E-Prescr ibed Sub s Allowed: subs OK Medic ationGen ericName : levothyr oxine Not Available Not Available Not Available clindamyc in HCl 300 mg capsule 1 capsule by mouth 09/05 completed Medicati on ID: 309552 D uration Value: 14 Prescri bed By [...] by mouth 05/02 completed Medicati on ID: [id number] D uration Value: 21 Brand Name: Biaxin [...] by mouth 09/05 completed Medicati on ID: [id number] D uration Value: 5 Prescri bed By Name: Adrián pacheco M.D. Bra nd Name: tramadol Send Method: E-Prescr ibed Sub s Allowed: subs OK Medic ationGen ericName : tramadol Not Available Not Available Not Available levothyro xine 100 mcg tablet active Not Available Not Available Not Available Vitamin C 1,000 mg tablet 2015 active Medicati on ID: 210213 B rand Name: Vitamin C Send Method: E-Prescr ibed Sub s Allowed: subs OK Medic ationGen ericName : Vitamin C Not Available Not Available Not Available benzonata te 100 mg capsule active Not Available Not Available Not Available doxycycli ne monohydra te 100 mg capsule 1 capsule by mouth 09/05 completed Medicati on ID: [id number] D uration Value: 21 Prescri bed By [...] by mouth 09/05 completed Medicati on ID: [id number] D uration Value: 10 Prescri bed By Name: PENG Ware nd Name: Cipro Se nd Method: E-Prescr ibed Sub s Allowed: subs OK Medic ationGen ericName : Cipro Not Available Not Available Not Available diltiazem CD 120 mg capsule,e xtended release 24 hr active Not Available Not Available Not Available Culturell e 10 billion cell capsule 2015 active Medicati on ID: 661253 D uration Value: 30 Prescri bed By Name: Nighat Ahuja nd Name: Nathaniel le Send Method: E-Prescr ibed Sub s [...] by mouth 09/05 completed Medicati on ID: [id number] D uration Value: 14 Prescri bed By [...] mg tablet 2015 active Medicati on ID: 931592 B rand Name: naproxen Send Method: E-Prescr ibed Sub s Allowed: subs OK Medic ationGen ericName : naproxen Not Available Not Available Not Available levothyro xine 112 mcg tablet 09/05 completed Not Available Not Available Not Available prednison e 09/05 completed Medicati on ID: [id number] D uration Value: 10 Prescri bed By [...] ous kit 2015 active Medicati on ID: [id number] D uration Value: 28 Brand Name: Humira [...] spray,jenelle pension 09/05 completed Medicati on ID: [id number] D uration Value: 30 Brand Name: Flonase [...] Updated DateTime 09/05/2024 165.1 cm 25.6 kg/m2 35668.22 g Neo Ivey [place] - [facility] 09/05/2024 11:23:51 Social History None recorded. Functional [...] SNOMED-CT Code Diagnosis ICD10 Code Diagnosis Note [id number] ADRIÁN RUTHERFORD MD [facility] [address] [place] [address] 09/05/2024 10:39:38 09/05/2024 11:54:33 Recurrent acute sinusitis [id number] J01.91 Could be related to immune modulator but I have suggested an immunology workup. Patient works at [employer] and she will have the laboratory studies performed there and make sure I get the results. There is no evidence of any polyps or obstructio n to the previous surgical sites. Chronic rhinitis 9140550 6 J31.0 For management of upper respirator [...] symptoms after 7-10 days. Rheumatoid arthritis [phone] M06.9 Health Concerns Section Related Observation LastModified by Organization Detai ls LastModified Time None Recorded Concern Status LastModified by Organization Details LastModified Time None Recorded Advance Directives Directive None Recorded Payers Insurance Date Sequence Insurance Name Policy Number Policy Silva Covered Member ID Silva Member ID Guarantor Name 02/10/2025 1 [employer] [place]) [id number] Leandra Escalera [id number] Leandra Escalera Notes Date Note Type [...] nasal and then irrigations. ADRIÁN PHAN MD [address] [place] [address], [address], [place] - [facility] 09/05/2024 11:53:19 OBGyn Episode No OBEpisode recorded.
--- OUTSIDE RECORDS SUMMARY | 2025-06-13 14:52 | XMS_ITS | Clinical Summary ---
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 V24, 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 Father (Age 55) Bladder CA [...] 2) 2004 Cholesterol Screening (Lipid Panel) 10/21/2022 Falls Risk Assessment 10/21/2022 Osteoporosis Screening (Bone Density Screening) 10/21/2022 Social Influencers of Health Screening 10/21/2022 Hypertension/CHF/CAD Annual BMP Blood Test 11/07/2022 04/28/2012 Cervical Cancer Screening: HPV 07/12/2024 07/12/2019 Depression Screening 11/23/2024 Influenza Vaccine (#1) 2025 09/29/2016, 2014 DTaP,Tdap,and Td Vaccines (4 - [...] * Cervical Cancer Screening: HPV (07/12/2019) Pathologist [facility] Cervical Cancer Screening: HPV NEGATIVE, ABSTRACTED [facility] Provider HEALTH MAINTENANCE Final Result * Colonoscopy (02/18/2019) Pathologist [facility] Colonoscopy NO INTERPRETATION , ABSTRACTED Anatomical Region Laterality Modality Other [facility] Provider HEALTH MAINTENANCE Final Result * Annual BMP Blood Test (04/28/2012) Annual BMP Blood Test ABSTRACTED [facility] Provider HEALTH MAINTENANCE Final Result * Hepatitis C Screening (08/26/2010) Pathologist [facility] Hepatitis C Screening ABSTRACTED [facility] Provider HEALTH MAINTENANCE Final Result from Last 3 Months or Most Recently Relevant to Health Maintenance Insurance [place] [employer] [facility] Care Teams Rod Finisher Relationship Specialty Start Date End Date Lee Odonnell MD [facility] Tariq [address] [place] [id number] PCP - General 08/22/24
--- OUTSIDE RECORDS SUMMARY | 2025-06-13 14:53 | XMS_ITS | Clinical Summary ---
Author Organization [facility] Address [address] [place] [phone] Phone Care Team Providers Care Row Boss Name Role Phone Lee Odonnell MD Primary Care Provider + Allergies Active Allergy Reactions Criticality Noted Date Comments Amoxicillin Flushing,Hives 06/01/2023 Clarithromycin Hives,Swelling 06/01/2023 Doxycycline Hives,Rash Low 06/01/2023 Alendronate 06/01/2023 GERD, Bone Pain Salsalate Hives,Rash Low 06/01/2023 Sulfamethoxazole-Trimetho prim Flushing,Hives,Swel ling 06/01/2023 Medications pantoprazole (PROTONIX) 40 MG tablet Take 40 mg by mouth daily. 02/28/20 23 Active naproxen (NAPROSYN) 500 MG tablet Take 500 mg by mouth 2 (two) times a day as needed. Active dilTIAZem (CARDIZEM CD) 120 MG 24 hr capsule Take 120 mg by mouth daily. Active cholecalcifero l (VITAMIN D3) 2,000 unit capsule Take 2,000 Units by mouth daily. Active ascorbic acid (VITAMIN C ORAL) Take 1,000 mg by mouth daily. Active albuterol sulfate (PROAIR HFA INHL) Inhale 2 puffs into the lungs as needed. Active CALCIUM ORAL Take by mouth. Ac tive tazarotene (TAZORAC) 0.05 % gel Apply topically nightly at bedtime. Active clindamycin-be nzoyl peroxide ER (DUAC) gel Apply topically 2 (two) times a day. Active methylPREDNISo lone (MEDROL DOSEPACK) 4 mg tabletIndicati ons:Rheumatoid arthritis involving multiple sites with positive rheumatoid factor follow package directions 21 tablet 09/07/20 23 Active Additional Information Patient not taking.Reported on 05/09/2025 fluticasone furoate-vilant Jose Rafael (BREO ELLIPTA) 100-25 mcg/dose inhaler Inhale 1 puff into the lungs daily. 01/26/20 24 Active levothyroxine (SYNTHROID, LEVOTHROID) 100 MCG tablet Take 100 mcg by mouth every morning. 06/15/20 24 Active fluticasone propionate (FLONASE) 50 mcg/actuation nasal spray 1 spray by Nasal route as needed for rhinitis. Active hydroxychloroq uine (PLAQUENIL) 200 mg tabletIndicati ons:Rheumatoid arthritis involving multiple sites with positive rheumatoid factor TAKE TWO (2) TABLETS (400MG) BY MOUTH EVERY DAY 180 tablet 1 05/15/20 25 Active XELJANZ XR 11 mg Tb24 tablet extended releaseIndicat ions:Rheumatoi d arthritis involving multiple sites with positive rheumatoid factor TAKE ONE (1) TABLET BY MOUTH EVERY DAY 90 tablet 05/29/20 25 Active hydroxychloroq uine (PLAQUENIL) 200 mg tabletIndicati ons:Rheumatoid arthritis involving multiple sites with positive rheumatoid factor TAKE 2 TABLETS (400 MG TOTAL) BY MOUTH DAILY. 180 tablet 1 11/16/20 24 025 Discontinued XELJANZ XR 11 mg Tb24 tablet extended releaseIndicat ions:Rheumatoi d arthritis involving multiple sites with positive rheumatoid factor TAKE ONE (1) TABLET BY MOUTH EVERY DAY 90 tablet 01/27/20 25 025 Discontinued Active Problems Problem Noted Date Diagnosed Date Osteoporosis without current pathological fractu re 05/09/2025 Overview (05/09/2025): Follows with [facility] boilermaker pipe fitter DEXA 12/2024 jorge T-score -2.9 left fem neck -2.4 left total hip -1.9 distal radius Zoledronic acid x1 c. 2021 -reports her boilermaker pipe fitter's recommendation was for only 1 dose alendronate resulted in intolerable reflux and abdominal bloating Assessment & Plan (05/09/2025 2:15 PM EDT): Reviewed DEXA findings today at patient's request. Given her jorge T-score of - 2.9 and absence of fragility fracture history, as well as absence of significant intolerance to zoledronic acid, I am not convinced she needs more aggressive management as she reports her boilermaker pipe fitter recommended. I personally would recommend an additional 2 doses of zoledronic acid to complete the typical 3 dose regimen, with follow-up DEXA in 3 to 5 years. She will revisit this with her established boilermaker pipe fitter. Long-term current use of tofacitinib 05/09/2025 Overview (05/09/2025): Labs 04/2024: T spot negative; HBV serologies consistent with vaccination; HCV nonreactive Assessment & Plan (05/09/2025 2:18 PM EDT): No known contraindications to continue tofacitinib; routine drug monitoring labs every 3 to 4 months. QuantiFERON-TB with next routine blood work. Her primary care physician monitors her lipids. Long-term use of Plaquenil 05/09/2025 Overview (05/09/2025): 2008 to current; every 6 month VFT normal per patient report Assessment & Plan (05/09/2025 2:20 PM EDT): Current dose slightly supratherapeutic at 5.6 mg/kg/day; will revisit slightly decreased dosing to achieve goal dose of less than 5.0 mg/kg/day on follow-up. Ankle swelling, right 11/20/2023 Assessment & Plan (11/20/2023 10:38 AM EST): Right ankle and foot with cool puffiness with no overlying warmth or erythema. It does not appear to be inflammatory in nature. She has no left ankle involvement. It is not clear what is causing the ankle puffiness. I have asked her to wear compression stockings and to elevate her feet is much as possible. She has seropositive rheumatoid arthritis currently well-controlled on Xeljanz XR with no active synovitis anywhere. 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 Lancaster -----> Dr. Gerber Recurrent bl knee effusions; no Raynaud's / ILD / uveitis / sicca Medication hx: Leflunomide resulted in transaminitis Etanercept lost efficacy Adalimumab lost efficacy Golimumab tx failure Tofacitinib c. 2018 to current - resulted in normalization of leukopenia Hydroxychloroquine 2007 to current Assessment & Plan (05/09/2025 2:13 PM EDT): Persistently low disease activity on longstanding tofacitinib plus hydroxychloroquine. There is no clinical evidence concerning for extra-articular disease. There is no current indication to modify current treatment regimen. Assessment & Plan (05/12/2024 10:37 AM EDT): Seropositive rheumatoid arthritis very well-controlled on Xeljanz XR and Plaquenil 2 tablets daily. She has no active synovitis or swelling. Assessment & Plan (06/05/2023 2:11 PM EDT): Seropositive RA well controlled on Xeljanz XR and daily Plaquenil. Eye exam is current and normal. She has no active synovitis. Mail her a standing order for labs she can have done at work at [employer]. Primary osteoarthritis involving multiple joints 06/05/2023 Assessment & Plan (05/12/2024 10:37 AM EDT): Osteoarthritis in multiple areas with no swelling. She takes naproxen rarely as needed. Assessment & Plan (06/05/2023 2:13 PM EDT): OA in multiple joints with no swelling. Continue with Naproxen as needed and suggested Tylenol 650mg. Resolved Problems Problem Noted Date Diagnosed Date Resolved Date Medication monitoring encounter 11/20/2023 05/09/2025 Assessment & Plan (11/20/2023 10:39 AM EST): She needs baseline labs drawn to evaluate her hepatitis B, C and QuantiFERON gold. I gave her a lab slip and she will have her labs drawn at [facility]. Encounters Date Type Department Care Team Description 05/29/2025 Refill [facility] Rheumatology [address] [place] [address] Carmela Flanagan MD Medication Refill 05/15/2025 Refill [facility] [address] [place] [address] [place] [address] Stacey Heck MD, MPH Medication Refill 05/09/2025 1:10 PM EDT Office Visit [facility] [address] [place] [address] [place] [address] Stacey Heck MD, MPH Seropositive rheumatoid arthritis (Primary Dx); Osteoporosis without current pathological fracture, unspecified osteoporosis type; Long-term current use of tofacitinib; Long-term use of Plaquenil 03/30/2025 Orders Only [facility]ology [address] [place] [address] [place] [address] Yakelin Arce MA Rheumatoid arthritis involving multiple sites with positive rheumatoid factor; Long-term current use of tofacitinib; NSAID long-term use from Last 3 Months Family History Medical History Relation Comments Bladder Cancer Father Coronary artery disease Mother Hypertension Mother Rheumatoid arthritis Mother Stroke Mother Relation Status Comments Father Mother Social History Tobacco Use Types Packs/Day Years Used Date Smoking Tobacco: Former Cigarettes Smokeless Tobacco: Never Tobacco Cessation:Counseling Given: Not Answered Alcohol Use Standard Drinks/Week Comments Yes 0 (1 standard drink = 0.6 oz pur e alcohol) occasional Education Answer Date Recorded Are you interested in more education? Not on bernardo e 05/28/2023 Are you concerned about learning? Not on file 05/28/2023 No 05/28/2023 No 05/28/2023 Digital Access Answer Date Recorded No 05/28/2023 No 05/28/2023 Reliable internet access at home? Not on file 05/28/2023 Device with a working camera? Not on file Comments Unknown Sex and Gender Information Value Date Recorded Sex Assigned at Female 05/28/2023 4:49 PM EDT Legal Sex Female 4:22 PM EDT Gender Identity Female 05/28/2023 4:49 PM EDT Sexual Orientation Not on file Last Filed Vital Signs Vital Sign Reading Time Taken Comments Blood Pressure 130/80 05/09/2025 12:57 PM EDT Pulse 90 05/10/2024 3:55 PM EDT Temperature - - Respiratory Rate 16 06/01/2023 3:41 PM EDT Oxygen Saturation 98% 05/10/2024 3:55 PM EDT Inhaled Oxygen Concentration - - Weight 71.2 kg (157 lb) 05/09/2025 12:57 PM EDT with shoes Height 165.1 cm (5' 5 ) 05/09/2025 12:57 PM EDT Body Mass Index 26.13 05/09/2025 12:57 PM EDT Plan of Treatment Upcoming Encounters Date Type Department Care Team (Late st Contact Info) Description 10/03/2025 2:10 PM EST Office Visit [facility] Rheumatology [address] [place] [address] Stacey Heck MD, MPH [address] [facility], [address] [place] [address] [email or web address] Maintenance Due Date Last Done Comments LIPID PANEL 1954 TSH LEVEL 1954 DEPRESSION SCREENING 1966 SMOKING Hx and SMOKELESS TOBACCO SCREENING 1967 HEPATITIS C SCREENING 1972 ZOSTER VACCINES (1 of 2) 1973 MAMMOGRAM 1994 COLOGUARD 1999 COLONOSCOPY 1999 COLORECTAL CANCER SCREENING 1999 FIT TEST 1999 FOBT 1999 SIGMOIDOSCOPY 1999 VIRTUAL COLONOSCOPY 1999 RSV VACCINE (1 - Risk 60-74 years 1-dose series) 2014 OSTEOPOROSIS SCREENING INITIAL (ONE-TIME) 2019 COVID-19 VACCINE (7 - Pfizer risk 2023- season) 2025 09/14/2024, 12/29/2022, 04/18/2022, Additional history exists Adult Td,Tdap Booster 02/02/2028 02/01/2018 , 01/05/2008, 06/06/1999 PNEUMOCOCCAL VACCINES (50+ years) Completed 08/23/2019, 03/09/2017, 09/29/2014, Additional history exists HEPATITIS A VACCINES Aged Out No long er eligible based on patient's age to complete this topic HIB VACCINES Aged Out No longer eligi ble based on patient's age to complete this topic MENINGOCOCCAL VACCINES (ACWY) Aged Out No longer eligible based on patient's age to complete this topic MENINGOCOCCAL VACCINES (B) Aged Out N o longer eligible based on patient's age to complete this topic Medical Devices Not on file Procedures Procedure Name Priority Date/Time Associated Diagnosis Comments CBC AND DIFFERENTIAL Routine 03/29/2025 1:14 PM EDT Rheumatoid arthritis involving multiple sites with positive rheumatoid factor Long-term current use of tofacitinib NSAID long-term use SEDIMENTATION RATE (ESR) Routine 03/29/2025 1:14 PM EDT Rheumatoid arthritis involving multiple sites with positive rheumatoid factor Long-term current use of tofacitinib NSAID long-term use C-REACTIVE PROTEIN Routine 03/29/2025 1: 14 PM EDT Rheumatoid arthritis involving multiple sites with positive rheumatoid factor Long-term current use of tofacitinib NSAID long-term use COMPREHENSIVE METABOLIC PANEL Routine 03/29/2025 1:14 PM EDT Rheumatoid arthritis involving multiple sites with positive rheumatoid factor Long-term current use of tofacitinib NSAID long-term use from Last 3 Months Results * CBC and differential (03/29/2025 1:14 PM EDT) Blood us Carmela Flanagan MD LAB BLOOD ORDERABLES Fin al Result EXTERNAL NON-INTERFACED REF LAB * Sedimentation rate (ESR) (03/29/2025 1:14 PM EDT) Blood us Carmela Flanagan MD LAB BLOOD ORDERABLES Fin al Result Performing Organization Address City/[facility]/ZIP Co de Phone Number EXTERNAL NON-INTERFACED REF LAB * C-Reactive Protein (03/29/2025 1:14 PM EDT) Blood Carmela Flanagan MD LAB BLOOD ORDERABLES Fin al Result Performing Organization Address City/[facility]/ZIP Co de Phone Number EXTERNAL NON-INTERFACED REF LAB * Comprehensive metabolic panel (03/29/2025 1:14 PM EDT) Blood Carmela Flanagan MD LAB BLOOD ORDERABLES Fin al Result Performing Organization Address [facility] Co de Phone Number EXTERNAL NON-INTERFACED REF LAB from Last 3 Months Insurance [employer] Member Subscriber Plan / Payer (Ef fective 2019-Present) Name:Leandra Escalera Relation to Subscriber:Self Name:Leandra Escalera Payer ID:[id number] ([facility]) Type:PPO Address: [place] [phone] [employer] [place] [address] [employer] [place] [address] Care Teams Row Boss Relationship Specialty Start Date End Date Lee Odonnell MD [address] [place] [phone] PCP - General Family Medicine 05/20/23 Additional Source Comments The information contained in this document represents components of the legal health record. It is not the complete legal health record.[facility]
== END 2025-06-13 13:42 | disposition home or self-care (01) ==
LOC: HO.MRI 13:41
PROVIDERS: PCP Family Medicine; Visit Provider Family Medicine
DX: Z13.89 Encounter for screening for other disorder (principal)

== ENCOUNTER → 2025-06-15 15:08 | Outpatient (BNVA) | payer OTHER, SELFPAY | PROVIDERS: PCP Family Medicine; Visit Provider Physician Assistant Medical | DX: Z13.89 Encounter for screening for other disorder (principal) | CPT/HCPCS: 99213 ==

== ENCOUNTER → 2025-06-28 07:15 | Outpatient (BNV) | payer OTHER, SELFPAY | PROVIDERS: PCP Family Medicine; Visit Provider Radiology Diagnostic Radiology | DX: M51.369 Other intervertebral disc degeneration, lumbar region without mention of lumbar back pain or lower extremity pain (principal) | CPT/HCPCS: 72148 ==

== ENCOUNTER 2025-06-28 07:22 | Outpatient (REF) | payer OTHER, SELFPAY ==
--- OUTSIDE RECORDS SUMMARY | 2024-04-29 05:20 | XMS_ITS ---
Author Organization [facility] Address [address] [place] [phone] Care Team Providers Care Lactation Nurse Name Role Phone ArabellaLee cnitron Primary Care Provider Thom Aguirre Jr Unavailable REASON FOR VISIT gerd,screening Problems Problem Type SNOMED Code ICD Code Onset Dates Problem Status W/U Status Risk Notes Problem Esophageal reflux disease (K21.9) Active confirmed Encounters Encounter Location Date Provider Diagnosis [facility] [place] [address] [place] [phone] 04/29/2024 Thom Chin Jr Encounter for screening [...] * GARRETT GARLANDDOB: [birth year] (70 yo F)Acc No.[id number]:04/29/2024 EGD and COL/MAC Patient: Celia GARRETT BERNARD Provider: Celia Chin MD :1955 A ge:69 Y S ex:Female Date:04/29/2024 Address:[address] [place] [address] DAGO GARCIA [id number] Pcp:Lee Odonnell Subjective: * Chief Complaints: * 1 . Gerd,screening. * Medical History: Objective: * Vitals: Assessment: * Assessment: 1. E ncounter for screening colonoscopy - Z12.11 (Primary) 2 . G astric polyps - K31.7 3 . E sophageal reflux disease - K21.9 Plan: * Treatment: * Procedure Codes: 4 5378 DIAGNOSTIC COLONOSCOPY, 78089 UPPER GI ENDOSCOPY, BIOPSY * * The named appointment provid er may or may not be the originator of this progress note, and it is not deemed complete until electronically signed by the appointment provider. Sign off status: Pending * Provider: Celia Chin MD Date: 0 04/29/2024 Generated for Graciela garrett/Shady/Brittanieitting on: 0 06/28/2025 07:24 AM EDT
--- NOTE | ~2025-06-28 | MR_ITS ---
CLINICAL HISTORY: PAIN TRAUMA DORSALGIA MR of the lumbar spine without contrast Comparison: None Findings: 5 mm retrolisthesis of T12 on L1. 4 mm anterolisthesis of L3 on L4. 5 mm anterolisthesis of L4 on L5. Trace levocurvature with the apex L3. Trace amount of edema T12/L1. Modic type 2 change at L5/S1. 1.9 cm hemangioma in L4. No cord expansion or abnormal signal intensity. The conus medullaris terminates at T12/L1, which is normal. The cauda equina is unremarkable. Bilateral renal parapelvic cysts. T12/L1: Uncovering of the disc with a 5 mm disc bulge. Mild facet joint and ligamentum flavum hypertrophy. Mild central canal stenosis. Moderate to severe bilateral lateral recess stenosis. Mild right and moderate left foraminal stenosis. L1/L2: 2 mm broad-based disc bulge. Mild facet joint and ligamentum flavum hypertrophy. Mild central canal stenosis. Mild bilateral lateral recess stenosis. No foraminal stenosis. L2/L3: 3 mm broad-based disc bulge. Moderate facet joint and ligamentum flavum hypertrophy. Mild central canal stenosis. Severe right and moderate left lateral recess stenosis. Mild right and no left foraminal stenosis. L3/L4: There is uncovering of the disc with 4 mm disc bulge. Severe facet joint and ligamentum flavum hypertrophy. Severe central canal stenosis. Moderate to severe bilateral lateral recess stenosis. No foraminal stenosis. L4/L5: There is uncovering of the disc with a 4 mm disc bulge. Severe facet joint and ligamentum flavum hypertrophy. 7 mm synovial cyst in posterior soft tissues adjacent to the left facet joint. Moderate central canal stenosis. Severe bilateral lateral recess stenosis. No foraminal stenosis. L5/S1: There is disc desiccation with a 1-2 mm disc protrusion. Ugme-op-prgrpnpe facet joint and ligamentum flavum hypertrophy. Mild central canal stenosis. No lateral recess stenosis. No foraminal stenosis. Impression: Multilevel degenerative change, detailed above, which is most prominent at L3/L4 and L4/L5. Endplate edema at T12/L1 is favored to be degenerative/Modic type 1 change. This document has been electronically signed by: Ashley Jauregui MD on 06/28/2025 21:25:53
--- OUTSIDE RECORDS SUMMARY | 2025-06-28 07:25 | XMS_ITS | Clinical Summary ---
Author Organization [facility] Address [address] [place] [phone] Phone Care Team Providers Care Manager Of Manufacturing Name Role Phone Lee Odonnell MD Primary Care Provider + Allergies Active Allergy Reactions Criticality Noted Date Comments Amoxicillin Flushing,Hives 06/01/2023 Clarithromycin Hives,Swelling 06/01/2023 Doxycycline Hives,Rash Low 06/01/2023 Alendronate 06/01/2023 GERD, Bone Pain Salsalate Hives,Rash Low 06/01/2023 Sulfamethoxazole-Trimetho prim Flushing,Hives,Swel ling 06/01/2023 Medications pantoprazole (PROTONIX) 40 MG tablet Take 40 mg by mouth daily. Active naproxen (NAPROSYN) 500 MG tablet Take 500 mg by mouth 2 (two) times a day as needed. Active dilTIAZem (CARDIZEM CD) 120 MG 24 hr capsule Take 120 mg by mouth daily. Active cholecalciferol (VITAMIN D3) 2,000 unit capsule Take 2,000 Units by mouth daily. Active ascorbic acid (VITAMIN C ORAL) Take 1,000 mg by mouth daily. Active albuterol sulfate (PROAIR HFA INHL) Inhale 2 puffs into the lungs as needed. Active CALCIUM ORAL Take by mouth. Ac tive tazarotene (TAZORAC) 0.05 % gel Apply topically nightly at bedtime. Active clindamycin-elvin zoyl peroxide ER (DUAC) gel Apply topically 2 (two) times a day. Active methylPREDNISol one (MEDROL DOSEPACK) 4 mg tabletIndicatio ns:Rheumatoid arthritis involving multiple sites with positive rheumatoid factor follow package directions 21 tablet 3 Active Additional Information Patient not taking.Reported on 05/09/2025 fluticasone furoate-vilante roL (BREO ELLIPTA) 100-25 mcg/dose inhaler Inhale 1 puff into the lungs daily. 4 Active levothyroxine (SYNTHROID, LEVOTHROID) 100 MCG tablet Take 100 mcg by mouth every morning. 4 Active fluticasone propionate (FLONASE) 50 mcg/actuation nasal spray 1 spray by Nasal route as needed for rhinitis. Active hydroxychloroqu ine (PLAQUENIL) 200 mg tabletIndicatio ns:Rheumatoid arthritis involving multiple sites with positive rheumatoid factor TAKE TWO (2) TABLETS (400MG) BY MOUTH EVERY DAY 180 tablet 1 5 Active XELJANZ XR 11 mg Tb24 tablet extended releaseIndicati ons:Rheumatoid arthritis involving multiple sites with positive rheumatoid factor TAKE ONE (1) TABLET BY MOUTH EVERY DAY 90 tablet 5 Active Active Problems Problem Noted Date Diagnosed Date Osteoporosis without current pathological fractu re 05/09/2025 Overview (05/09/2025): Follows with [facility] insurance auditor DEXA 12/2024 jorge T-score -2.9 left fem neck -2.4 left total hip -1.9 distal radius Zoledronic acid x1 c. 2021 -reports her insurance auditor's recommendation was for only 1 dose alendronate [...] more aggressive management as she reports her insurance auditor recommended. I personally would recommend an additional 2 doses of zoledronic acid to complete the typical 3 dose regimen, with follow-up DEXA in 3 to 5 years. She will revisit this with her established insurance auditor. Long-term current use of tofacitinib 05/09/2025 Overview [...] Seropositive rheumatoid arthritis 06/05/2023 Overview (05/09/2025): Dx'd 2007; presented with leukopenia to 2.0 and dx'd [...] she can have done at work at [employer] [facility] [employer]. Primary osteoarthritis involving multiple joints 06/05/2023 Assessment [...] she will have her labs drawn at [facility]. Encounters Date Type Department Care Team Description 05/29/2025 Refill [facility] Rheumatology [address] [place] [address] Carmela Flanagan MD Medication Refill 05/15/2025 Refill [facility] Rheumatology [address] [place] [address] Stacey Heck MD, MPH Medication Refill 05/09/2025 1:10 PM EDT Office Visit [facility] Rheumatology [address] [place] [address] Stacey Heck MD, MPH Seropositive rheumatoid arthritis (Primary Dx); Osteoporosis without current pathological fracture, unspecified osteoporosis type; Long-term current use of tofacitinib; Long-term use of Plaquenil 03/30/2025 Orders Only [facility] Rheumatology [address] [place] [address] Yakelin Arce MA Rheumatoid arthritis involving multiple [...] Description 10/03/2025 2:10 PM EST Office Visit [facility] Rheumatology [address] [place] [address] Stacey Heck MD, MPH [address] [facility], [address] [place] [address] [email or web address] Maintenance Due Date Last Done Comments [...] ORDERABLES Fin al Result Performing Organization Address City/[facility]/ZIP Co de Phone Number EXTERNAL NON-INTERFACED REF LAB * Sedimentation rate (ESR) (03/29/2025 1:14 PM EDT) Blood us Carmela Flanagan MD LAB BLOOD ORDERABLES Fin al Result EXTERNAL NON-INTERFACED REF LAB * C-Reactive Protein (03/29/2025 1:14 PM EDT) Blood us Carmela Flanagan MD LAB BLOOD ORDERABLES Fin al Result EXTERNAL NON-INTERFACED REF LAB * Comprehensive metabolic panel (03/29/2025 1:14 PM EDT) Blood us Carmela Flanagan MD LAB BLOOD ORDERABLES Fin al Result EXTERNAL NON-INTERFACED REF LAB from Last 3 Months Insurance [facility] [employer] [facility] [employer] ADMINISTR[employer] B[employer]MIN[employer] ADMINISTRATORS [facility] BENEFITS ADMINISTRATORS Care Teams Manager Of Manufacturing Relationship Specialty Start Date End Date Lee Odonnell MD [address] [place] [phone] PCP - General Family Medicine 05/20/23 Additional Source Comments The information contained in this document represents components of the legal health record. It is not the complete legal health record.[facility]
--- OUTSIDE RECORDS SUMMARY | 2025-06-28 07:25 | XMS_ITS | Clinical Summary ---
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 Rheumatoid arthritis ([facility] V24, [facility] V28) 06/13/2008 Carpal tunnel syndrome 03/17/2008 [...] [place] CARPAL TUNNEL RELEASE Right 09/08/12 PROCEDURE: [facility] NEUROPLASTY &/TRANSPOS MEDIAN NRV CARPAL TUNNE; COMMENT: open repair Dr Roxanne Daily [facility] SEPT[facility]Y/SUBMUCOUS RESECJ W/WO CARTILAGE GRF; COMMENT: and [...] Nida born [birth year] [address] [facility] Daughter 2 Bri Alive Bri born [birth year] [facility] accounting Father (Age 55) Bladder CA [...] Cervical Cancer Screening: HPV (07/12/2019) Pathologist [facility] Cervical Cancer Screening: HPV NEGATIVE, ABSTRACTED [facility] Provider HEALTH MAINTENANCE Final Result * Colonoscopy (02/18/2019) Pathologist [facility] Colonoscopy NO INTERPRETATION , ABSTRACTED Anatomical Region Laterality Modality Other [facility] Provider HEALTH MAINTENANCE Final Result * Annual BMP Blood Test (04/28/2012) Annual BMP Blood Test ABSTRACTED [facility] Provider HEALTH MAINTENANCE Final Result * Hepatitis C Screening (08/26/2010) Pathologist [facility] Hepatitis C Screening ABSTRACTED [facility] Provider HEALTH MAINTENANCE Final Result from Last 3 Months or Most Recently Relevant to Health Maintenance Insurance [employer] [facility] Care Teams [employer] Relationship Specialty Start Date End Date Lee Odonnell MD [facility] [address] [place] [phone] PCP - General 08/22/24
== END 2025-06-28 07:23 | disposition home or self-care (01) ==
LOC: HO.MRI 07:22
PROVIDERS: PCP Family Medicine; Visit Provider Family Medicine
DX: M54.9 Dorsalgia, unspecified (principal)
CPT/HCPCS: 72148

== ENCOUNTER → 2025-06-28 15:06 | Outpatient (BNVA) | payer OTHER, SELFPAY | PROVIDERS: PCP Family Medicine; Visit Provider Physician Assistant Medical | DX: Z13.89 Encounter for screening for other disorder (principal) | CPT/HCPCS: 99213 ==

== ENCOUNTER 2025-07-03 07:40 | Outpatient (REF) | payer OTHER, SELFPAY ==
--- OUTSIDE RECORDS SUMMARY | 2024-04-29 05:20 | XMS_ITS ---
Author Organization [facility] Address [address] [place] [phone] Care Team Providers Care Cash Controller Name Role Phone ArabellaLee cintron Primary Care Provider Thom Aguirre Jr Unavailable REASON FOR VISIT gerd,screening Problems Problem Type SNOMED Code ICD Code Onset Dates Problem Status W/U Status Risk Notes Problem Esophageal reflux disease (K21.9) Active confirmed Encounters Encounter Location Date Provider Diagnosis [facility] [place] [address] [place] [phone] 04/29/2024 Thom Chin Jr Encounter for screening [...] * GARRETT GARLANDDOB: [birth year] (70 yo F)Acc No.[id number]:04/29/2024 EGD and COL/MAC Patient: Celia GARRETT BERNARD Provider: Celia Chin MD :1955 A ge:69 Y S ex:Female Date:04/29/2024 Address:[address] [place] [address] [id number] Pcp:Lee Odonnell Subjective: * Chief Complaints: * 1 . Gerd,screening. * Medical History: Objective: * Vitals: Assessment: * Assessment: 1. E ncounter for screening colonoscopy - Z12.11 (Primary) 2 . G astric polyps - K31.7 3 . E sophageal reflux disease - K21.9 Plan: * Treatment: * Procedure Codes: 4 5378 DIAGNOSTIC COLONOSCOPY, 33980 UPPER GI ENDOSCOPY, BIOPSY * * The named appointment provid er may or may not be the originator of this progress note, and it is not deemed complete until electronically signed by the appointment provider. Sign off status: Pending * Provider: Celia Chin MD Date: 0 04/29/2024 Generated for Graciela garrett/Shady/Brittanieitting on: 0 07/03/2025 07:42 AM EDT
--- OUTSIDE RECORDS SUMMARY | 2025-06-30 23:59 | XMS_ITS | Continuity of Care Document ---
Author Organization [facility] Chris lt Address [address] [place] [address]- Care Team Providers Care Real Estate Marketing Coordinator Name Role Phone Blas CAMPBELL, Lee Dumont Primary Care Physician [phone] Encounter [place] Date(s): 05/31/25 - 06/30/25 [facility] Adult [address] [place] [address]- Encounter Type: Triage Allergies, Adverse Reactions, Alerts Substance Criticality Severity Reaction Reaction Severity Status ampicillin Active doxycycline hives rash Active amoxicillin hives rash Active salsalate hives and rash Activ e clarithromycin Chest heaviness Active Biaxin flushing rash Active Bactrim hives rash Active Immunizations Given and Recorded Vaccine Date Status Refusal Reason SARS-CoV-2(COVID-19)mRNA-LNP vac([id number]) 09/14/24 Recorded influenza virus vaccine, inactivated 09/07/24 [...] influenza virus vaccine, inactivated 08/24/15 Chuck rded [id number] bivalent booster vax 12/29/22 Recorded Influenza Virus Vaccine (oldterm) 09/05/22 Recorde d SARS-CoV-2 mRNA ([id number]) vax 04/18/22 Recorded SARS-CoV-2 (COVID-19) mRNA BNT-162b2 [...] 10:15:00 AM EDT, Route to Pharmacy Electronically, NCPDP_ID-[id number], [facility], 163.3, cm, 09/22/23 10:00:00 EDT, Height, 71.8, kg, 07/02/23 14:53:00 EDT, Dry Weight Start Date: 09/22/23 Stop Date: 12/21/23 Status: Ordered Quantity: 1.0 Unit: each Repeat number: 3 Breo Ellipta 100 mcg-25 mcg/inh inhalation powder 1 puffs, Inhalation, Daily, # 180 each, 1 Refills, Maintenance, 03/03/25 1:54:00 PM EDT, [facility], 90, INHALE 1 PUFF BY MOUTH EVERY DAY, 162.4, cm, 01/16/25 15:55:00 EST, Height, 71.8, kg, 07/02/23 14:53:00 EDT, Dry Weight Start Date: 03/03/25 Status: Ordered Quantity: 180.0 Unit: each Repeat number: 1 DilTIAZem (Eqv-Cardizem CD) 120 mg/24 hours oral capsule, extended release 1 capsule, By Mouth, Daily, # 90 capsule, 1 Refills, Maintenance, 06/28/25 10:35:00 AM EDT, [facility], 162.4, cm, 05/04/25 15:06:00 EDT, Height, 71.8, kg, 07/02/23 14:53:00 EDT, Dry Weight Start Date: 06/28/25 Status: Ordered Quantity: 90.0 Unit: capsule Repeat number: 2 Florastor 250 mg oral capsule 2 capsule = 500 mg, By Mouth, Daily, 0 Refills, Maintenance, 01/16/25 3:55:00 PM EST, Partial fill upon patient request if the prescription is for a schedule II opioid drug. Start Date: 01/16/25 Status: Ordered Repeat number: 1 levothyroxine 0.1 mg oral tablet 1 tablet, By Mouth, Daily, # 90 tablet, 3 Refills, Maintenance, 03/14/25 11:18:00 AM EDT, [facility], 162.4, cm, 03/14/25 10:39:00 EDT, Height, 71.8, kg, 07/02/23 14:53:00 EDT, Dry Weight Start Date: 03/14/25 Status: Ordered Quantity: 90.0 Unit: tablet Repeat number: 4 naproxen 500 [...] Daily, # 90 tablet, 1 Refills, Maintenance, 03/09/25 4:34:00 PM EDT, 162.4, cm, 01/16/25 15:55:00 EST, Height, 71.8, kg, 07/02/23 14:53:00 EDT, Dry Weight Start Date: 03/09/25 Status: Ordered Quantity: 90.0 Unit: tablet Repeat number: 1 Pepcid 20 mg oral tablet 1 tablet [...] Quantity: 60.0 Unit: tablet Repeat number: 1 Redi-cat pre-mixed oral prep need 2 450ml bottles Redi-cat pre-mixed oral prep need 2 450ml bottles, See Instructions, # 2 each, Refills 0, Tot. Refills 0, Maintenance, drink 1 bottle 6 hours prior and remaining 90 minutes prior., 04/06/25 11:54:00 AM EDT, please dispense 2 450mls bottles;, Compound, 162.4, cm, 04/06/25 8:13:00 EDT, Height, 71.8, kg, 07/02/23 14:53:00 EDT, Dry Weight Start Date: 04/06/25 Status: Ordered Quantity: 2.0 Unit: each Repeat number: 1 Tazorac 0.1% topical gel [...] Team Personnel Name: Lee Odonnell MD Position: [facility] Physician - Primary Care Member Role: PCP Address: [address] [place] [id number] Telecom: Care Team Related Persons Name: ZENON GARLAND Name: ALXEA GARLAND Name: LOUIE GARLAND Insurance Providers Guarantor name: GARRETTRASHID COLLIEROIT Health Plan Information #: 1 Payer: BLUE B[employer]EFIT [employer] PPO Payer Identifier: NA Member Number: [id number] Group Number: [id number] Subscriber Identifier: [id number] Relationship to Subscriber: self Coverage Type: BLUE CROSS/BLUE SHIELD Coverage Verification Date: Telecom: NA Address:
--- OUTSIDE RECORDS SUMMARY | 2025-07-03 07:43 | XMS_ITS | Clinical Summary ---
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 Rheumatoid arthritis ([facility] V24, [facility] V28) 06/13/2008 Carpal tunnel syndrome [...] [place] CARPAL TUNNEL RELEASE Right 09/08/12 PROCEDURE: [place] NEUROPLASTY &/TRANSPOS MEDIAN NRV CARPAL TUNNE; COMMENT: open repair Dr Roxanne Daily [facility] PROCEDURE: [place] SEPTOPLASTY/SUBMUCOUS RESECJ W/WO CARTILAGE GRF; COMMENT: and [...] Nida born [birth year] [address] budgeting dept of [facility] Daughter 2 Bri Alive Bri born [birth year] [facility] accounting Father (Age 55) Bladder [...] * Cervical Cancer Screening: HPV (07/12/2019) Pathologist [facility] Cervical Cancer Screening: HPV NEGATIVE, ABSTRACTED [facility] Provider HEALTH MAINTENANCE Final Result * Colonoscopy (02/18/2019) Pathologist [facility] Colonoscopy NO INTERPRETATION , ABSTRACTED Anatomical Region Laterality Modality Other [facility] Provider HEALTH MAINTENANCE Final Result * Annual BMP Blood Test (04/28/2012) Annual BMP Blood Test ABSTRACTED [facility] Provider HEALTH MAINTENANCE Final Result * Hepatitis C Screening (08/26/2010) Pathologist [facility] Hepatitis C Screening ABSTRACTED [facility] Provider HEALTH MAINTENANCE Final Result from Last 3 Months or Most Recently Relevant to Health Maintenance Insurance [place] [employer] [facility] Care Teams Drying Oven Attendant Relationship Specialty Start Date End Date Lee Odonnell MD [facility] Glo Tariq Bulmaro [address] [place] [phone] PCP - General 08/22/24
--- OUTSIDE RECORDS SUMMARY | 2025-07-03 07:43 | XMS_ITS | Clinical Summary ---
Author Organization [facility] Address [address] [place] [address] Phone Care Team Providers Care Functional Tester Typewriters Name Role Phone Lee Odonnell MD Primary [...] fractu re 05/09/2025 Overview (05/09/2025): Follows with [facility] bag making machine tender DEXA 12/2024 jorge T-score -2.9 left fem neck -2.4 left total hip -1.9 distal radius Zoledronic acid x1 c. 2021 -reports her bag making machine tender's recommendation was for only 1 dose alendronate [...] more aggressive management as she reports her bag making machine tender recommended. I personally would recommend an additional 2 doses of zoledronic acid to complete the typical 3 dose regimen, with follow-up DEXA in 3 to 5 years. She will revisit this with her established bag making machine tender. Long-term current use of tofacitinib 05/09/2025 Overview [...] she can have done at work at [employer]. Primary osteoarthritis involving multiple joints 06/05/2023 Assessment [...] she will have her labs drawn at [facility]. Encounters Date Type Department Care Team Description 05/29/2025 Refill [facility] Rheumatology [address] [place] [address] Carmela Flanagan MD Medication Refill 05/15/2025 Refill [facility] Rheumatology [address] [place] [address] Stacey Heck MD, MPH Medication Refill 05/09/2025 1:10 PM EDT Office Visit [facility] Rheumatology [address] [place] [address] Stacey Heck MD, MPH Seropositive rheumatoid arthritis (Primary Dx); Osteoporosis without current pathological fracture, unspecified osteoporosis type; Long-term current use of tofacitinib; Long-term use of Plaquenil from Last 3 Months Family History Medical [...] Description 10/03/2025 2:10 PM EST Office Visit [facility] Rheumatology [address] [place] [address] Stacey Heck MD, MPH [address] [facility], [address] [place] [address] [email or web address] Due Date Last Done Comments [...] this topic Medical Devices Not on file Insurance [employer] BENEFITS ADMINISTRATORS Medialive BENEFITS ADMINISTRATORS Medialive BENEFITS ADMINISTRATORS Medialive BENEFITS ADMINISTRATORS Member Subscriber Plan / Payer (Ef fective 2019-Present) Name:Leandra Escalera Relation to Subscriber:Self Name:Leandra Escalera Payer ID:[id number] (NAIC) Type:PPO Address: [address] [employer] BENEFITS ADMINISTRATORS Member Subscriber Plan / Payer ( fective 2019-Present) Name:Leandra Escalera Relation to Subscriber:Self Name:VanLeandra stinson Payer ID:[id number] (NAIC) Type:PPO Address: [address] [employer]EF[employer] ADMINISTRATORS Member Subscriber Plan / Payer ( fective 2019-Present) Name:Leandra Escalera Relation to Subscriber:Self Name:Jw Leandra Payer ID:[id number] (NAIC) Type:PPO Address: [place] [phone] Care Teams Functional Tester Typewriters Relationship Specialty Start Date End Date Lee Odonnell MD [address] [place] [address] PCP - General Family Medicine 05/20/23 Additional Source Comments The information contained in this document represents components of the legal health record. It is not the complete legal health record.[facility]
[2025-07-03 08:07] LABS: MANUAL DIFF FLAG NO
[2025-07-03 08:41] LABS: Hematocrit 42.7 % (37.0-47.0); Hemoglobin 13.7 g/dl (12.0-16.0); Imm Gran Abs Auto 0.05 X10*3/uL (0.00-0.03); Imm Gran Pct Auto 0.9 % (0.0-0.4); Lymphocytes Absolute Auto 0.5 X10*3/uL (1.2-4.9); Mean Corpuscular HGB Conc 32.1 g/dl (31.0-35.0); Mean Corpuscular Hemoglobin 29.7 pg (27.0-33.0); Mean Corpuscular Volume 92.6 fL (80.0-98.0); NRBC Abs Auto 0.000 X10*3/uL (0.0-0.012); NRBC Pct Auto 0.0 /100WBC (0.0-0.2); Platelet Count 310 X10*3/uL (160-400); Red Blood Count 4.61 X10*6/uL (4.20-5.50); White Blood Count 5.4 X10*3/uL (4.8-10.8)
[2025-07-03 09:13] LABS: Alanine Aminotransferase 35 U/L (0-31); Albumin Level 4.5 g/dL (3.5-5.0); Alkaline Phosphatase 62 U/L (39-117); Anion Gap 12 (12-20); Aspartate Amino Transferase 36 U/L (5-31); Blood Urea Nitrogen 17 mg/dL (9-16); Calcium 9.6 mg/dL (8.4-10.2); Carbon Dioxide 28 mmol/L (22-29); Chloride 106 mmol/L (96-108); Estimated Glomerular Filt Rate > 60; Potassium 4.1 mmol/L (3.3-5.1); Sodium 142 mmol/L (135-145); Total Protein 7.3 g/dL (6.5-8.0)
[2025-07-06 04:38] LABS: Quantiferon TB Gold Plus 1 NEGATIVE (NEGATIVE); TB Test (QFT) Mitogen -Nil 3.79 IU/mL; TB Test (QFT) Nil 0.01 IU/mL; TB Test (QFT) Plus TB1 -Nil 0.00 IU/mL; TB Test (QFT) Plus TB2 -Nil 0.00 IU/mL
== END 2025-07-03 07:41 | disposition home or self-care (01) ==
LOC: HO.LAB 07:40
PROVIDERS: PCP Family Medicine; Visit Provider Internal Medicine Rheumatology
DX: Z11.1 Encounter for screening for respiratory tuberculosis (principal); M05.9 Rheumatoid arthritis with rheumatoid factor, unspecified; Z79.622 Long term (current) use of Janus kinase inhibitor
CPT/HCPCS: 36415; 80053; 85025; 86480

== ENCOUNTER 2025-08-09 15:05 | Outpatient (REF) | payer OTHER, SELFPAY ==
--- OUTSIDE RECORDS SUMMARY | 2024-04-29 05:20 | XMS_ITS ---
Author Organization [facility] Address [address] [place] [phone] Care Team Providers Care Grinding And Polishing Laborer Name Role Phone MacisarahiLee tobin Primary Care Provider Thom Aguirre Jr Unavailable [phone] REASON FOR VISIT gerd,screening Problems Problem Type SNOMED Code ICD Code Onset Dates Problem Status W/U Status Risk Notes Problem Gastroesophageal reflux disease (526890295) Esophageal reflux disease (K21.9) Active confirmed Encounters Encounter Location Date Provider Diagnosis [facility] [place] [address] [place] [phone] 04/29/2024 Thom Chin Jr Encounter for screening [...] * GARRETT GARLANDDOB: [birth year] (70 yo F)Acc No.[id number]:04/29/2024 EGD and COL/MAC Patient: Celia GARRETT BERNARD Provider: Celia Chin MD :1955 A ge:69 Y S ex:Female Date:04/29/2024 Address:[address] [place] [place] [address] [facility] [facility] [id number] Pcp:Lee Odonnell Subjective: * Chief Complaints: * 1 . Gerd,screening. * Medical History: Objective: * Vitals: Assessment: * Assessment: 1. E ncounter for screening colonoscopy - Z12.11 (Primary) 2 . G astric polyps - K31.7 3 . E sophageal reflux disease - K21.9 Plan: * Treatment: * Procedure Codes: 4 5378 DIAGNOSTIC COLONOSCOPY, 72033 UPPER GI ENDOSCOPY, BIOPSY * * The named appointment provid er may or may not be the originator of this progress note, and it is not deemed complete until electronically signed by the appointment provider. Sign off status: Pending * Provider: Celia Chin MD Date: 0 04/29/2024 Generated for Graciela garrett/Shady/Brittanieitting on: 0 08/09/2025 06:39 PM EDT
--- NOTE | ~2025-08-09 | XR_ITS ---
EXAMINATION: XR CHEST CLINICAL INFORMATION: COUGH COMPARISON: 06/01/2024. TECHNIQUE: 2 views of the chest were obtained. FINDINGS: The cardiac, hilar, and mediastinal contours are normal. The lungs are clear bilaterally. There is no pneumothorax or pleural effusion. There is no focal osseous or soft tissue abnormality. There are degenerative changes of the spine. XR/XR chest 2V IMPRESSION: No active pulmonary disease. Electronically signed by: Kunal Godinez MD 08/09/2025 03:47 PM EDT
--- OUTSIDE RECORDS SUMMARY | 2025-08-09 18:40 | XMS_ITS | Clinical Summary ---
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 Rheumatoid arthritis ([facility] V24, [facility] V28) 06/13/2008 Carpal tunnel syndrome [...] [place] CARPAL TUNNEL RELEASE Right 09/08/12 PROCEDURE: [place] NEUROPLASTY &/TRANSPOS MEDIAN NRV CARPAL TUNNE; COMMENT: open repair Dr Roxanne Daily NASAL [facility]PT[facility] PROCEDURE: [place] SEPTOPLASTY/SUBMUCOUS RESECJ W/WO CARTILAGE GRF; COMMENT: and [...] Nida born [birth year] [address] budget[address] de[address] of [facility] Daughter 2 Bri Alive Bri born [birth year] 6 [facility] accounting Father (Age 55) [...] * Cervical Cancer Screening: HPV (07/12/2019) Pathologist Count includes the [facility] Cervical Cancer Screening: HPV NEGATIVE, ABSTRACTED [facility] Provider HEALTH MAINTENANCE Final Result * Colonoscopy (02/18/2019) Pathologist Count includes the [facility] Colonoscopy NO INTERPRETATION , ABSTRACTED Anatomical Region Laterality Modality Other [facility] Provider HEALTH MAINTENANCE Final Result * Annual BMP Blood Test (04/28/2012) Annual BMP Blood Test ABSTRACTED [facility] Provider HEALTH MAINTENANCE Final Result * Hepatitis C Screening (08/26/2010) Pathologist Count includes the [facility] Hepatitis C Screening ABSTRACTED [facility] Provider HEALTH MAINTENANCE Final Result from Last 3 Months or Most Recently Relevant to Health Maintenance Insurance [employer] [facility] Care Teams Ball Warper Tender Relationship Specialty Start Date End Date Lee Odonnell MD [facility] Glo Tariq [address] [place] [phone] PCP - General 08/22/24
--- OUTSIDE RECORDS SUMMARY | 2025-08-09 18:40 | XMS_ITS | Patient Health Record ---
Author Organization [facility] Address [address] [place] [phone] Care Team Providers Care Manager Of Care Name Role Phone Maciaxel Lee Primary Care Provider Thom Aguirre Jr Unavailable [phone] Allergies Allergen (clinical drug ingredient) Drug/Non Drug Allergy documented on EMR Reaction Allergy Type Onset Date Status doxycycline Doxycycline Unknown Drug Allergy Act ana salsalate Salsalate Unknown Drug Allergy Active Biaxin Unknown Drug Allergy Active sulfamethoxazole / trimethoprim Bactrim Unknown Drug Allergy Active amoxicillin Amoxicillin Unknown Drug Allergy Act ana Reason For Referral No Information Medications Medication [...] Problem Status W/U Status Risk Notes Problem 930016141 Colon cancer screening (Z12.11) Active confirmed Problem 14003813 Encounter for other preprocedural examination (Z01.818) Active confirmed Problem 508644821 Encounter for long-term (current) use of NSAIDs (Z79.1) Active confirmed Problem 41853827 Gastric polyps (K31.7) Active confirmed Problem Gastroesophageal reflux disease (732064529) Esophageal reflux disease (K21.9) Active confirmed Problem 357187043 Gastroesophageal reflux disease, unspecified whether esophagitis present (K21.9) Active confirmed Problem 100346697 FH: colon polyps (Z83.719) Active confirmed Plan Of Treatment Future Test Test Name Order Date COLONOSCOPY 07/30/2018 UPPER GI ENDOSCOPY 03/16/2024 COLONOSCOPY 03/16/2024 Insurance Providers Payer Name Payer Address Payer Phone Subscriber Number Group Number Insured Name Patient Relationship to Insured Coverage Start Date Coverage End Date BLUE BENEFITS ADMINISTRATORS OF [place] [address] [address] [place] [address] [id number] GARRETT ZARCO Self - patient is the insured Medical (General) History Medical History History ICD Code Hypothyroidism Asthma Hypertension Rheumatoid arthritis Leukopenia Gastroesophageal reflux disease Colonoscopy 02/08, lymphoid p olyp, five-year followup for family history of colon polyps. Surgical History Surgery Date(Month/Year) carpal tunnel release-right FESS-sinus
--- OUTSIDE RECORDS SUMMARY | 2025-08-09 18:40 | XMS_ITS | Clinical Summary ---
Author Organization [facility] Address [address] [place] [address] Phone Care Team Providers Care Chief Engineering Division Name Role Phone Lee Odonnell MD Primary [...] fractu re 05/09/2025 Overview (05/09/2025): Follows with [facility] web marketing specialist DEXA 12/2024 jorge T-score -2.9 left fem neck -2.4 left total hip -1.9 distal radius Zoledronic acid x1 c. 2021 -reports her web marketing specialist's recommendation was for only 1 dose alendronate [...] more aggressive management as she reports her web marketing specialist recommended. I personally would recommend an additional 2 doses of zoledronic acid to complete the typical 3 dose regimen, with follow-up DEXA in 3 to 5 years. She will revisit this with her established web marketing specialist. Long-term current use of tofacitinib 05/09/2025 Overview [...] she can have done at work at [employer]. Primary osteoarthritis involving multiple joints 06/05/2023 Assessment [...] she will have her labs drawn at [facility]. Encounters Date Type Department Care Team Description 07/27/2025 Refill [facility] Rheumatology [address] [place], [place] [address] Stacey Heck MD, MPH Medication Refill 07/06/2025 Orders Only [facility] Rheumatology [address] [place] [address] Yakelin Arce MA Long-term current use of tofacitinib; Seropositive rheumatoid arthritis 05/29/2025 Refill [facility] Rheumatology [address] [place] [address] Carmela Flanagan MD Medication Refill 05/15/2025 Refill [facility] Rheumatology [address] [place] [address] [place] [address] Stacey Heck MD, MPH Medication Refill 05/09/2025 1:10 PM EDT Office Visit [facility] Rheumatology [address] [place] [address] [place] [address] Stacey Heck MD, MPH Seropositive rheumatoid arthritis [...] Description 10/03/2025 2:10 PM EST Office Visit [facility] Rheumatology [address] [place] [address] Stacey Heck MD, MPH [address] [facility], [address] [place] [address] [email or web address] Health Maintenance Due Date Last Done Comments [...] series) 2014 OSTEOPOROSIS SCREENING INITIAL (ONE-TIME) 2019 INFLUENZA VACCINE (#1) 2025 , 09/03/2023, 09/01/2023, Additional history exists COVID-19 VACCINE (7 - Pfizer risk 2023- [...] Procedure Name Priority Date/Time Associated Diagnosis Comments COMPREHENSIVE METABOLIC PANEL Routine 07/03/2025 11:19 AM EDT Long-term current use of tofacitinib QUANTIFERON-TB GOLD Routine 07/03/2025 1 1:19 AM EDT Long-term current use of tofacitinib CBC AND DIFFERENTIAL Routine 07/03/2025 11:18 AM EDT Seropositive rheumatoid arthritis Long-term current use of tofacitinib from Last 3 Months Results * Comprehensive metabolic panel (07/03/2025 11:19 AM EDT) Blood Stacey Heck MD, MPH LAB BLOOD ORDERABLES Fin al Result Performing Organization Address [facility] de Phone Number EXTERNAL NON-INTERFACED REF LAB * Quantiferon-TB Gold (07/03/2025 11:19 AM EDT) Blood Stacey Heck MD, MPH LAB BLOOD ORDERABLES Fin al Result Performing Organization Address [facility] de Phone Number EXTERNAL NON-INTERFACED REF LAB * CBC and differential (07/03/2025 11:18 AM EDT) Blood Stacey Heck MD, MPH LAB BLOOD ORDERABLES Fin al Result Performing Organization Address [facility] de Phone Number EXTERNAL NON-INTERFACED REF LAB from Last 3 Months Insurance Information Assurance ADMINISTRATORS Information Assurance ADMINISTRATORS Information Assurance ADMINISTRATORS [employer] BENEFITS ADMINISTRATORS Member Subscriber Plan / Payer (Ef fective 2019-Present) Name:Leandra Escalera Relation to Subscriber:Self Name:Leandra Escalera Payer ID:[id number] (NAIC) Type:PPO Address: [place] [phone] [employer] BENEFITS ADMINISTRATORS Member Subscriber Plan / Payer (Ef fective 2019-Present) Name:Leandra Escalera Relation to Subscriber:Self Name:Leandra Escalera Payer ID:[id number] (NAIC) Type:PPO Address: [address] [employer] BENEFITS ADMINISTRATORS Care Teams Chief Engineering Division Relationship Specialty Start Date End Date Lee Odonnell MD [address] [place] [address] PCP - General Family Medicine 05/20/23 Additional Source Comments The information contained in this document represents components of the legal health record. It is not the complete legal health record.[facility]
--- OUTSIDE RECORDS SUMMARY | 2025-08-09 18:40 | XMS_ITS | Encounter Summary ---
Author Organization [facility] Address [address] [facility] [address] [place] [address] Phone Care Team Providers Care Pearl Diver Name Role Phone Lee Odonnell MD Primary Care Provider + Encounter Details Date Type Department Care Team (Late st Contact Info) Description 07/06/2025 Orders Only [facility] Rheumatology [address] [place] [address] Yakelin Arce [place] [address] [place] [address] [email or web address] Long-term current use of tofacitinib; Seropositive rheumatoid arthritis Social History Tobacco Use Types Packs/Day Years Used Date Smoking Tobacco: Former Cigarettes Smokeless Tobacco: Never Alcohol Use Standard Drinks/Week Comments Yes 0 [...] PM EDT Sexual Orientation Not on file documented as of this encounter Plan of Treatment Upcoming Encounters Date Type Department Care Team (Late st Contact Info) Description 10/03/2025 2:10 PM EST Office Visit [facility] Rheumatology [address] [place] [address] Stacey Heck MD, MPH [address] [facility], [address] [place] [address] [email or web address] documented as of this encounter Procedures Procedure Name Priority Date/Time Associated Diagnosis Comments COMPREHENSIVE METABOLIC PANEL Routine 07/03/2025 11:19 AM EDT Long-term current use of tofacitinib QUANTIFERON-TB GOLD Routine 07/03/2025 1 1:19 AM EDT Long-term current use of tofacitinib CBC AND DIFFERENTIAL Routine 07/03/2025 11:18 AM EDT Seropositive rheumatoid arthritis Long-term current use of tofacitinib documented in this encounter Results * Comprehensive metabolic panel (07/03/2025 11:19 AM EDT) Blood Stacey Heck MD, MPH LAB BLOOD ORDERABLES Fin al Result Performing Organization Address [facility] Co de Phone Number EXTERNAL NON-INTERFACED REF LAB * Quantiferon-TB Gold (07/03/2025 11:19 AM EDT) Blood Stacey Heck MD, MPH LAB BLOOD ORDERABLES Fin al Result Performing Organization Address City/[facility] Co de Phone Number EXTERNAL NON-INTERFACED REF LAB * CBC and differential (07/03/2025 11:18 AM EDT) Blood Stacey Heck MD, MPH LAB BLOOD ORDERABLES Fin al Result Performing Organization Address [facility]/ZIP Co de Phone Number EXTERNAL NON-INTERFACED REF LAB documented in this encounter Visit Diagnoses Diagnosis Long-term current use of tofacitinib Seropositive rheumatoid arthritis documented in this encounter Care Teams Pearl Diver Relationship Specialty Start Date End Date Lee Odonnell MD [address] [place] [id number] PCP - General Family Medicine 05/20/23 documented as of this encounter Additional Source Comments The information contained in this document represents components of the legal health record. It is not the complete legal health record.[facility]
== END 2025-08-09 15:06 | disposition home or self-care (01) ==
LOC: HO.XRAY 15:05
PROVIDERS: PCP Family Medicine; Visit Provider Family Medicine
DX: R05.9 Cough, unspecified (principal)
CPT/HCPCS: 71046

== ENCOUNTER → 2025-08-09 15:34 | Outpatient (BNV) | payer OTHER, SELFPAY | PROVIDERS: PCP Family Medicine; Visit Provider Radiology Diagnostic Radiology | DX: R05.9 Cough, unspecified (principal) | CPT/HCPCS: 71046 ==

== ENCOUNTER 2025-08-15 13:47 | Outpatient (AMB) | payer OTHER, SELFPAY ==
--- OUTSIDE RECORDS SUMMARY | 2024-04-29 05:20 | XMS_ITS ---
Author Organization [facility] Address [address] [place] [phone] Care Team Providers Care Special Procedure Tech Name Role Phone Macisarahimahad Lee Primary Care Provider Thom Aguirre Jr Unavailable REASON FOR VISIT gerd,screening Problems Problem Type SNOMED Code ICD Code Onset Dates Problem Status W/U Status Risk Notes Problem Gastroesophageal reflux disease (717104617) Esophageal reflux disease (K21.9) Active confirmed Encounters Encounter Location Date Provider Diagnosis [facility] [place] [address] [place] [phone] 04/29/2024 Thom Chin Jr Encounter for screening [...] * GARRETT GARLANDDOB: [birth year] (70 yo F)Acc No.[id number]:04/29/2024 EGD and COL/MAC Patient: Celia GARRETT BERNARD Provider: Celia Chin MD :1955 A ge:69 Y S ex:Female Date:04/29/2024 Address:[address] [place] [address] D[address] CESAR [id number] Pcp:Lee Odonnell Subjective: * Chief Complaints: * 1 . Gerd,screening. * Medical History: Objective: * Vitals: Assessment: * Assessment: 1. E ncounter for screening colonoscopy - Z12.11 (Primary) 2 . G astric polyps - K31.7 3 . E sophageal reflux disease - K21.9 Plan: * Treatment: * Procedure Codes: 4 5378 DIAGNOSTIC COLONOSCOPY, 59385 UPPER GI ENDOSCOPY, BIOPSY * * The named appointment provid er may or may not be the originator of this progress note, and it is not deemed complete until electronically signed by the appointment provider. Sign off status: Pending * Provider: Celia Chin MD Date: 0 04/29/2024 Generated for Graciela garrett/Shady/Brittanieitting on: 0 08/15/2025 04:59 PM EDT
[2025-08-15 14:06] VITALS: BMI 25.6
--- NOTE | 2025-08-15 14:06 | HO.SPINEOV ---
Vital Signs 08/15/25 14:06 Height 5 ft 5 in Weight 154 lb BMI 25.6 Intake Visit Reasons: LBP Intake Note: Ms. Escalera is here today c/o SI Joint pain. Trimming Inspector Required: No Allergies amoxicillin (AMOXICILLIN) Allergy (Unknown, Verified 08/15/25 14:07) RASH clarithromycin (From BIAXIN) Allergy (Unknown, Verified 08/15/25 14:07) HIVS,EXHAUSTION doxycycline (DOXYCYCLINE) Allergy (Unknown, Verified 08/15/25 14:07) HIVES salsalate (SALSALATE) Allergy (Unknown, Verified 08/15/25 14:07) HIVES sulfamethoxazole (From BACTRIM) Allergy (Unknown, Verified 08/15/25 14:07) RASH/HIVES trimethoprim (From BACTRIM) Allergy (Unknown, Verified 08/15/25 14:07) RASH/HIVES levofloxacin (From LEVAQUIN) Adverse Reaction (Unknown, Verified 08/15/25 14:07) SWELLING IN ARMS Physical Exam Vital Signs: BMI result Body Mass Index 25.6 Assessment & Plan Assessment & Plan (1) Left hip pain: Code(s): M25.552 - Pain in left hip Category: Medical Plan Dear colleague, Thank you for referring Leandra to our office today. She is a pleasant 70-year-old female comes in today for evaluation of left lower back/hip pain. She reports this 1st began back in January of this year after taking a ?miss-step off a curb. Since then she has had pain well localized to her left lower back/left hip. Overall, she states that her pain has gradually improved since the initial incident. She denies any shooting pains down either lower extremity, and reports no numbness/tingling/burning associated with the pain. She reports that her pain is primarily the worst when weight-bearing, such as carrying/lifting her grandchild. She does report a pertinent past medical history of 2 natural childbirth. She denies any issues with rising from a seated position up out of a vehicle or getting out of bed 1st thing in the morning. She is still able to ambulate well, and uses no assistive devices to ambulate. No restriction on amount she is able to walk. She does report that she is currently taking a prednisone Dosepak, and supplementing with ibuprofen regularly to help mitigate some of her pain. Overall she rates her pain at about a 5/10 throughout the day with the occasional flare-ups. She has not been to physical therapy for this issue, has not been evaluated for injections, and has not attempted health care attorney/acupuncture. She is not currently taking a prescription medications for this issue. PMH: Hypothyroidism, hypertension, rheumatoid arthritis, osteoporosis, GERD, asthma. Social hx: The patient does not smoke, reports no substance use. Medications: Levothyroxine, diltiazem, pantoprazole, Plaquenil, Xeljanz, Breo-Ellipta inhaler, ibuprofen, Pepcid, albuterol Allergies: Levaquin, Bactrim, Salah site, doxycycline, clarithromycin, amoxicillin you. Physical exam: The patient has full 5/5 strength in her upper and lower extremities. She ambulates well and rises from a seated position without difficulty. Her gait is non spastic and nonantalgic. She reports no sensational deficits to light touch during examination. Her reflexes are 1+ hypoactive bilaterally in the patella, however they are 2+ intact elsewhere. (+) ethan finger test, (+) left sided SIJ compression test, (+) left sided gaenslens. (-) bilateral straight leg raise, (-) Kang's, (-) clonus. Imaging review: MRI of the lumbar spine completed here at [facility] shows nearly complete loss of disc height at T12-L1 with notable Modic endplate changes and what I would call moderate-severe bilateral foraminal stenosis. There is also moderate-severe central canal stenosis at L3-4 with what appears to be a grade 1 spondylolithesis at this level. There is severe right-sided lateral recess stenosis at L4-5 and a left sided synovial cyst above the lamina near her facet joint. There is also degenerative disc disease seen at L5-S1. Impression: Pleasant 70-year-old female referred to our office for evaluation of left-sided low back pain/hip pain which has been ongoing since January of this year. Thankfully the patient reports this has gradually been improving with conservative treatments. In the absence of radicular pain and axial low back pain, I find it unlikely that the patients symptoms are stemming from her lumbar spine. This sounds more like a left hip or left SI joint related issue. SIJ dysfunction would fit the patients clinical picture well, given her history of natural child . I do not see any left sided nerve compression on MRI imaging that would explain the type of pain she is experiencing. I would like to refer the patient for evaluation by orthopedics to rule out hip pathology. If her symptoms do end up worsening in the future I encouraged her to reach out to our office. We may consider sending her for left sided SIJ injections, but would 1st thing to send her for a full course of physical therapy. Thank you for allowing us to care for your patient. The total time spent with this visit with this patient was 45 minutes reviewing history, physical exam, MRI imaging review, and implementation of treatment plan or further diagnostic testing King Woods MD,PhD [facility] Orders: Referrals Orthopedics Referral M25.552 - Pain in left hip Coding Level of Care Code New Pt Level 4 (75113) Diagnoses Left hip pain M25.552
--- OUTSIDE RECORDS SUMMARY | 2025-08-15 16:59 | XMS_ITS | Patient Health Record ---
Author Organization [facility] Address [address] [place] [phone] Care Team Providers Care Line Helper Name Role Phone Maciaxel Lee Primary Care [...] Problem Status W/U Status Risk Notes Problem [id number] Colon cancer screening (Z12.11) Active confirmed Problem 13305655 Encounter for other preprocedural examination (Z01.818) Active confirmed Problem 761524325 Encounter for long-term (current) use of NSAIDs (Z79.1) Active confirmed Problem 57741342 Gastric polyps (K31.7) Active confirmed Problem Gastroesophageal reflux disease (686937151) Esophageal reflux disease (K21.9) Active confirmed Problem 138825767 Gastroesophageal reflux disease, unspecified whether esophagitis present (K21.9) Active confirmed Problem 488188041 FH: colon polyps (Z83.719) Active confirmed Plan Of Treatment Future Test Test Name Order Date COLONOSCOPY 07/30/2018 UPPER GI ENDOSCOPY 03/16/2024 COLONOSCOPY 03/16/2024 Insurance Providers Payer Name Payer Address Payer Phone Subscriber Number Group Number Insured Name Patient Relationship to Insured Coverage Start Date Coverage End Date [employer] [place] [address] [address] [place] [address] [id number] GARRETT ZARCO Self - patient is the insured Medical (General) History Medical History History ICD Code Hypothyroidism Asthma Hypertension Rheumatoid arthritis Leukopenia Gastroesophageal reflux disease Colonoscopy 02/08, lymphoid p olyp, five-year followup for family history of colon polyps. Surgical History Surgery Date(Month/Year) carpal tunnel release-right FESS-sinus
--- OUTSIDE RECORDS SUMMARY | 2025-08-15 16:59 | XMS_ITS | Encounter Summary ---
Author Organization [facility] Address [address] [place] [address] Phone Care Team Providers Care Environmental Lead Name Role Phone Lee Odonnell MD Primary Care Provider + Reason for Visit * Reason Comments Medication Refill Encounter Details Date Type Department Care Team (Late st Contact Info) Description 08/11/2025 Refill [facility] Rheumatology [address] [place] [address] Stacey Heck MD, MPH [address] [facility], [address] [place] [address] [email or web address] Medication Refill Social History Tobacco Use Types Packs/Day Years [...] on file documented as of this encounter Progress Notes * Laurel Tariq MA - 08/11/2025 1:08 PM EDT Pt has appt 10/03/2025 will refill then documented in this encounter Plan of Treatment Upcoming Encounters Date Type Department Care Team (Late st Contact Info) Description 10/03/2025 2:10 PM EST Office Visit [facility] Rheumatology [address] [place] [address] Stacey Heck MD, MPH [address] [facility], [facility] [address] [place] [address] [email or web address] documented as of this encounter Visit Diagnoses Diagnosis Rheumatoid arthritis involving multiple sites with positive rheumatoid factor documented in this encounter Care Teams Environmental Lead Relationship Specialty Start Date End Date Lee Odonnell MD [address] [place] [phone] PCP - General Family Medicine 05/20/23 documented as of this encounter Additional Source Comments The information contained in this document represents components of the legal health record. It is not the complete legal health record.[facility]
--- OUTSIDE RECORDS SUMMARY | 2025-08-15 17:00 | XMS_ITS | Clinical Summary ---
Author Organization [facility] Address [address] [place] [phone] Phone Care Team Providers Care Pearl Peller Name Role Phone Lee Odonnell MD Primary [...] fractu re 05/09/2025 Overview (05/09/2025): Follows with [facility] councilman DEXA 12/2024 jorge T-score -2.9 left fem neck -2.4 left total hip -1.9 distal radius Zoledronic acid x1 c. 2021 -reports her councilman's recommendation was for only 1 dose alendronate [...] more aggressive management as she reports her councilman recommended. I personally would recommend an additional 2 doses of zoledronic acid to complete the typical 3 dose regimen, with follow-up DEXA in 3 to 5 years. She will revisit this with her established councilman. Long-term current use of tofacitinib 05/09/2025 Overview [...] she can have done at work at [employer] [facility] [place] Primary osteoarthritis involving multiple joints 06/05/2023 Assessment [...] will have her labs drawn at [facility]. Encounters Date Type Department Care Team Description 08/11/2025 Refill [facility] Rheumatology [address] [place], [place] [address] Stacey Heck MD, MPH Medication Refill 07/27/2025 Refill [facility] Rheumatology [address] [place] [address] Stacey Heck MD, MPH Medication Refill 07/06/2025 Orders Only [facility] Rheumatology [address] [place] [address] Yakelin Arce MA Long-term current use of tofacitinib; Seropositive rheumatoid arthritis 05/29/2025 Refill [facility] Rheumatology [address] [address] Carmela Flanagan MD Medication Refill 05/15/2025 Refill [facility] Rheumatology [address] [place] [address] Stacey Heck MD, MPH Medication Refill from Last 3 Months Family History Medical [...] Description 10/03/2025 2:10 PM EST Office Visit [facility] Rheumatology [address] [place] [address] Stacey Heck MD, MPH [address] [facility], [address] [place] [address] [email or web address] Health Maintenance Due Date Last Done Comments [...] ORDERABLES Fin al Result Performing Organization Address [facility] de Phone Number EXTERNAL NON-INTERFACED REF LAB * Quantiferon-TB Gold (07/03/2025 11:19 AM EDT) Blood Stacey Heck MD, MPH LAB BLOOD ORDERABLES Fin al Result Performing Organization Address [facility] Co de Phone Number EXTERNAL NON-INTERFACED REF LAB * CBC and differential (07/03/2025 11:18 AM EDT) Blood Stacey Heck MD, MPH LAB BLOOD ORDERABLES Fin al Result Performing Organization Address [facility] de Phone Number EXTERNAL NON-INTERFACED REF LAB from Last 3 Months Insurance [employer] [place] [id number] [employer] Care Teams Pearl Peller Relationship Specialty Start Date End Date Lee Odonnell MD [address] [place] [phone] PCP - General Family Medicine 05/20/23 Additional Source Comments The information contained in this document represents components of the legal health record. It is not the complete legal health record.[facility]
--- OUTSIDE RECORDS SUMMARY | 2025-08-15 17:00 | XMS_ITS | Clinical Summary ---
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 V24, [facility] V28) 06/13/2008 Carpal tunnel syndrome [...] [place] CARPAL TUNNEL RELEASE Right 09/08/12 PROCEDURE: TX NEUROPLASTY &/TRANSPOS MEDIAN NRV CARPAL TUNNE; COMMENT: open repair Dr Roxanne Daily NASAL SEPTUM SURGERY 05/06/16 [facility] PROCEDURE: TX SEPTOPLASTY/SUBMUCOUS RESECJ W/WO CARTILAGE GRF; COMMENT: and [...] Nida born [birth year] [address]ing de[address] of [facility] Daughter 2 Bri Alive Bri born [birth year] [facility] accounting Father (Age 55) Bladder CA [...] Cervical Cancer Screening: HPV (07/12/2019) Pathologist [facility] Cervical Cancer Screening: HPV NEGATIVE, ABSTRACTED [facility] Provider HEALTH MAINTENANCE Final Result * Colonoscopy (02/18/2019) Pathologist [facility] Colonoscopy NO INTERPRETATION , ABSTRACTED Anatomical Region Laterality Modality Other [facility] Provider HEALTH MAINTENANCE Final Result * Annual BMP Blood Test (04/28/2012) Annual BMP Blood Test ABSTRACTED [facility] Provider HEALTH MAINTENANCE Final Result * Hepatitis C Screening (08/26/2010) Pathologist [facility] Hepatitis C Screening ABSTRACTED [facility] Provider HEALTH MAINTENANCE Final Result from Last 3 Months or Most Recently Relevant to Health Maintenance Insurance [place] [employer] [facility] Care Teams Sifting Operator Relationship Specialty Start Date End Date Lee Odonnell MD [facility] [address] T[address] [place] [phone] PCP - General 08/22/24
== END 2025-08-15 14:51 | disposition home or self-care (01) ==
LOC: HO.HNS 13:47
PROVIDERS: PCP Family Medicine; Visit Provider Physician Assistant
DX: M25.552 Pain in left hip (principal)
CPT/HCPCS: 99204

== ENCOUNTER 2025-10-11 08:45 | Outpatient (REF) | payer OTHER, SELFPAY ==
--- OUTSIDE RECORDS SUMMARY | 2024-04-29 04:20 | XMS_ITS ---
Author Organization [facility] Address [address] [place] [id number] Care Team Providers Care Cork Painter And Grader Name Role Phone Macisarahimahad Lee Primary Care Provider Thom Aguirre Jr Unavailable [phone] REASON FOR VISIT gerd,screening Problems Problem Type SNOMED Code ICD Code Onset Dates Problem Status W/U Status Risk Notes Problem Gastroesophageal reflux disease (842846129) Esophageal reflux disease (K21.9) Active confirmed Encounters Encounter Location Date Provider Diagnosis [facility] [place] Outpatient [address] [place] [phone] 04/29/2024 Thom Chin Jr Encounter for screening colonoscopy Z12.11 ; Gastric polyps K31.7 and Esophageal reflux disease K21.9 Assessments Encounter Date Diagnosis (ICD Code) Assessment Notes Treatment Notes Treatment Clinical Notes Section Notes 04/29/2024 Encounter for screening colonoscopy (ICD-10 - Z12.11) 04/29/2024 Gastric polyps (ICD-10 - K31.7) 04/29/2024 Esophageal reflux disease (ICD-10 - K21.9) Plan Of Treatment No Information Progress Notes * GARRETT GARLANDDOB: [birth year] (70 yo F)Acc No.[id number]:04/29/2024 EGD and COL/MAC Patient: Celia GARRETT BERNARD Provider: Celia Chin MD :1955 A ge:69 Y S ex:Female Date:04/29/2024 Address: [facility] [id number] Pcp:Lee Odonnell Subjective: * Chief Complaints: * G erd,screening Assessment: * Assessment: 1. E ncounter for screening colonoscopy - Z12.11 (Primary) 2 . G astric polyps - K31.7 3 . E sophageal reflux disease - K21.9 Plan: * Procedure Codes: 4 5378 DIAGNOSTIC [id number] UPPER GI ENDOSCOPY, BIOPSY Billing Information: * Procedure Codes: 42774 DIAGNOSTIC COLONOSCOPY. 63426 UPPER GI ENDOSCOPY, BIOPSY. * The named appointment provid er may or may not be the originator of this progress note, and it is not deemed complete until electronically signed by the appointment provider. Sign off status: Pending * Provider: Celia Chin MD Date: 0 04/29/2024 Generated for Graciela garrett/Shady/Brittanieitting on: 1 12/12/2024 10:03 AM EST
--- NOTE | ~2025-10-11 | XR_ITS ---
EXAMINATION: XR HIP, LEFT CLINICAL INFORMATION: M25.552 - Pain in left hip COMPARISON: Radiographs on October 09, 2022 TECHNIQUE: Single view of the pelvis. Two views of the left hip. FINDINGS: Normal alignment. No displaced fracture. Bilateral hip joint spaces are symmetric. Left femoral head is well seated within respective acetabulum. Probable degenerative changes at the level of the greater trochanter of the left femur is unchanged from 2021. XR/XR hip LT min 2V IMPRESSION: No acute changes or significant degenerative changes of the left hip joint. Electronically signed by: Abdias Man MD 10/11/2025 11:33 AM DRISS
--- OUTSIDE RECORDS SUMMARY | 2025-10-12 10:03 | XMS_ITS | Patient Health Record ---
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 [employer] Problems Problem Type SNOMED Code ICD Code Onset Dates Problem Status W/U Status Risk Notes Problem Colon cancer screening (896115633) Colon cancer screening (Z12.11) Active confirmed Problem Pre-procedure evaluation check (262555836) Encounter for other preprocedural examination (Z01.818) Active confirmed Problem group home current use of non-steroidal anti-inflammatory drug (761408739277591) Encounter for long-term (current) use of NSAIDs (Z79.1) Active confirmed Problem Benign neoplasm of stomach (53577413) Gastric polyps (K31.7) Active confirmed Problem Gastroesophageal reflux disease (417204151) Esophageal reflux disease (K21.9) Active confirmed Problem Gastroesophageal reflux disease (894083132) Gastroesophageal reflux disease, unspecified whether esophagitis present [...] [employer] [place] [address] [address] [place] [address] [id number] 5 [place]TT [place] Self - patient is the insured Medical (General) History Medical History History ICD Code Hypothyroidism Asthma Hypertension Rheumatoid arthritis Leukopenia Gastroesophageal reflux disease Colonoscopy 02/08, lymphoid p olyp, five-year followup for family history of colon polyps. Surgical History Surgery Date(Month/Year) carpal tunnel release-right FESS-sinus
--- OUTSIDE RECORDS SUMMARY | 2025-10-12 10:04 | XMS_ITS | Clinical Summary ---
Author Organization [facility] Address [address] [place] [phone] Phone Care Team Providers Care Jewelry Drilling Machine Operator Name Role Phone Lee Odonnell [...] fractu re 05/09/2025 Overview (05/09/2025): Follows with [facility] nutrition aides teacher DEXA 12/2024 jorge T-score -2.9 left fem neck -2.4 left total hip -1.9 distal radius Zoledronic acid x1 c. 2021 -reports her nutrition aides teacher's recommendation was for only 1 dose alendronate [...] more aggressive management as she reports her nutrition aides teacher recommended. I personally would recommend an additional 2 doses of zoledronic acid to complete the typical 3 dose regimen, with follow-up DEXA in 3 to 5 years. She will revisit this with her established nutrition aides teacher. Long-term current use of tofacitinib 05/09/2025 Overview [...] she can have done at work [place] [employer] Primary osteoarthritis involving multiple joints 06/05/2023 Assessment [...] she will have her labs drawn at [facility]. Encounters Date Type Department Care Team Description 10/03/2025 2:10 PM EST Office Visit [facility] Rheumatology [address] [place] [address] [place] [address] Stacey Heck MD, MPH Seropositive rheumatoid arthritis (Primary Dx); Long-term use of Plaquenil; Long-term current use of tofacitinib 08/28/2025 Refill [facility]ology [address] [place] [address] [place] [id number] Stacey Heck MD, MPH Medication Refill 08/11/2025 Refill [facility] [address] [place] [address] [place] [address] Stacey Heck MD, MPH Medication Refill 07/27/2025 Refill [facility] [address] [place] [address] [place] [id number] Stacey Heck MD, MPH Medication Refill from [...] Description 02/01/2026 3:40 PM EDT Office Visit [facility] Rheumatology [address] [place] [address] [place] [address] Stacey Heck MD, MPH [address] [facility], [address] [place] [address] [email or web address] Health Maintenance Due Date Last Done Comments [...] topic Medical Devices Not on file Insurance [facility] [employer] [place] [employer] BENEFITS ADMINISTRAT[employer]ENEFITS ADMINISTRAT[employer] Care Teams Jewelry Drilling Machine Operator Relationship Specialty Start Date End Date Lee Odonnell MD [address] [place] [phone] PCP - General Family Medicine 05/20/23 Additional Source Comments The information contained in this document represents components of the legal health record. It is not the complete legal health record.[facility]
== END 2025-10-11 08:46 | disposition home or self-care (01) ==
LOC: HO.HOSX 08:45
PROVIDERS: Visit Provider Physician Assistant
DX: M70.62 Trochanteric bursitis, left hip (principal)
CPT/HCPCS: 73502

== ENCOUNTER 2025-10-11 10:36 | Outpatient (AMB) | payer OTHER, SELFPAY ==
--- OUTSIDE RECORDS SUMMARY | 2024-04-29 04:20 | XMS_ITS ---
Author Organization [facility] Address [address] [place] [phone] Care Team Providers Care Engineering Surveyor Name Role Phone Macisarahimahad Lee Primary Care Provider Thom Aguirre Jr Unavailable REASON FOR VISIT gerd,screening Problems Problem Type SNOMED Code ICD Code Onset Dates Problem Status W/U Status Risk Notes Problem Gastroesophageal reflux disease (227290249) Esophageal reflux disease (K21.9) Active confirmed Encounters Encounter Location Date Provider Diagnosis [facility] [place] [address] [place] [phone] 04/29/2024 Thom Chin Jr Encounter for screening [...] * GARRETT GARLANDDOB: [birth year] (70 yo F)Acc No.[id number]:04/29/2024 EGD and COL/MAC Patient: Celia GARRETT BERNARD Provider: Celia Chin MD :1955 A ge:69 Y S ex:Female Date:04/29/2024 Address: [facility] [id number] Pcp:Lee Odonnell Subjective: * Chief Complaints: * G erd,screening Assessment: * Assessment: 1. E ncounter for screening colonoscopy - Z12.11 (Primary) 2 . G astric polyps - K31.7 3 . E sophageal reflux disease - K21.9 Plan: * Procedure Codes: 4 5378 DIAGNOSTIC [id number] UPPER GI ENDOSCOPY, BIOPSY Billing Information: * Procedure Codes: 21243 DIAGNOSTIC COLONOSCOPY. 69784 UPPER GI ENDOSCOPY, BIOPSY. * The named appointment provid er may or may not be the originator of this progress note, and it is not deemed complete until electronically signed by the appointment provider. Sign off status: Pending * Provider: Celia Chin MD Date: 0 04/29/2024 Generated for Graciela garrett/Shady/Brittanieitting on: 12/11/2024 08:41 PM EST
--- NOTE | 2025-10-11 10:48 | MHC.OFFVIS ---
Vital Signs 10/11/25 10:55 Height 5 ft 5 in Weight 154 lb BMI 25.6 Intake Visit Reasons: New Patient - Left Hip Pain Intake Note: Leandra is a 70 year old female who presents today as a new patient for an evaluation of left hip pain. Patient was referred by [facility], at their visit she reported on 01/21/25 left hip pain presented after taking a ?miss-step off a curb. At today's visit patient complains of constant pain that is located at the anterior aspect of hip that travels towards the posterior aspect. Denies numbness or tingling. No previous treatment. She mentions having a lower back MRI. Allergies amoxicillin (AMOXICILLIN) Allergy (Unknown, Verified 10/11/25 10:50) RASH clarithromycin (From BIAXIN) Allergy (Unknown, Verified 10/11/25 10:50) HIVS,EXHAUSTION doxycycline (DOXYCYCLINE) Allergy (Unknown, Verified 10/11/25 10:50) HIVES salsalate (SALSALATE) Allergy (Unknown, Verified 10/11/25 10:50) HIVES sulfamethoxazole (From BACTRIM) Allergy (Unknown, Verified 10/11/25 10:50) RASH/HIVES trimethoprim (From BACTRIM) Allergy (Unknown, Verified 10/11/25 10:50) RASH/HIVES levofloxacin (From LEVAQUIN) Adverse Reaction (Unknown, Verified 10/11/25 10:50) SWELLING IN ARMS Medication List - Last Reconciled 10/11/25 by Nahid Miller PA-C albuterol sulfate 90 mcg/actuation 1 puff PO QID PRN clindamycin-benzoyl peroxide 1.2 %(1 % base) -5 % topical cyclobenzaprine 5 mg PO BEDTIME PRN diltiazem HCl CD 120 mg PO DAILY fluticasone furoate-vilanterol 100-25 mcg/dose (Breo Ellipta) 1 ea inhalation DAILY hydroxychloroquine 200 mg PO BID levothyroxine (Synthroid) 112 mcg PO DAILY naproxen 500 mg PO BID 30 days pantoprazole 40 mg PO DAILY tazarotene 0.1% (Tazorac) topical tofacitinib ER (Xeljanz XR) 11 mg PO DAILY HPI HPI New Patient - Left Hip Pain: Details: 70-year-old female presents to the office today for left hip pain. She has had the pain for approximately 8 months. She states the pain is in the groin region but it wraps around her side of the hip into the low back. She denies numbness or tingling. She does have discomfort on the lateral side of the hip with sleeping at night. She often has to use a heating pad. She occasionally uses naproxen. 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 No pain with ROM of the hip. Pain along the greater trochanter. Mild pain with hip flexion, no pain with abduction.There is no tenderness along the si joint, Negative SLR. NVI. Results Reviewed Results Reviewed: X-rays of the left hip obtained in the office today and reviewed by me show mild sclerosis of the acetabulum Assessment & Plan Assessment & Plan (1) Trochanteric bursitis, left hip: Code(s): M70.62 - Trochanteric bursitis, left hip Category: Medical Plan: We discussed options today which includes physical therapy and steroid injections. We will hold off on injections today. I did place an order for physical therapy and she will call to make an appointment. We also discussed the benefits of anti-inflammatories and short-term use for occasional flare-ups. I sent a prescription for naproxen 500 mg b.i.d. to the pharmacy. If symptoms persist or worsen over the next few weeks she will contact our office to discuss steroid injection otherwise follow up as prn. Orders: Orders PT Evaluation and Treatment Today M70.62 - Trochanteric bursitis, left hip XR hip LT min 2V Today M25.552 - Pain in left hip Medications: New naproxen 500 mg PO BID 60 tabs 3RF 30 days M70.62 - Trochanteric bursitis, left hip Patient Instructions: Prescribed NSAID for orthopedic pain related to left hip bursitis. Reviewed patient history including no GI ulcer/bleed, CKD, CHF, CAD, liver disease, bleeding disorders, or NSAID allergy. Current medications reviewed with no interactions or duplicate NSAID use. Discussed orthopedic considerations, including short-term use being appropriate for soft-tissue pain and potential effects on fracture healing if applicable. Reviewed risks: GI irritation/bleeding, renal impairment, cardiovascular risk, and avoiding multiple NSAIDs. Instructed patient to take with food, avoid alcohol, and monitor for red-flag symptoms (black stools, hematemesis, severe abdominal pain, decreased urination, chest pain, SOB, worsening pain). I explained to the patient if they require potential fpc use of NSAID therapy, routine labs would be required to monitor kidney function and a copy would be sent to their PCP in case there are abnormalities that require attention. Patient verbalized understanding. Coding Level of Care Code New Pt Level 3 (46023) Complex EM visit Add On G2211 Diagnoses Trochanteric bursitis, left hip M70.62
[2025-10-11 10:55] VITALS: BMI 25.6
--- OUTSIDE RECORDS SUMMARY | 2025-10-11 20:40 | XMS_ITS | Encounter Summary ---
Author Organization [facility] Address [address] [place] [address] Care Team Providers Care Corporate Traffic Manager Name Role Phone Olga Dawn MD Primary Care Provider Lee Zapata Primary Care Provider Martine ble Encounter Details Date Type Department Care Team Description 03/09/2017 [facility] Medical Records [address] [place] [address] Abstract, Provider Social History Tobacco Use Types Packs/Day Years Used Date Smoking Tobacco: Former Cigarettes 0.3 5 Smokeless Tobacco: Never Alcohol Use Standard Drinks/Week Comments Yes 0.8 (1 standard drink = 0.6 oz p ure alcohol) less than 1 drink per week Sex Assigned at Date Recorded Not on file documented as of this encounter Plan of Treatment Not on file documented as of this encounter Procedures Procedure Name Priority Date/Time Associated Diagnosis Comments OUTSIDE LAB Routine 12/17/2016 documented in this encounter Results * OUTSIDE LAB (12/17/2016) Provider Abstract LAB documented in this encounter Visit Diagnoses Not on filedocumented in this encounter Care Teams Corporate Traffic Manager Relationship Specialty Start Date End Date Olga Dawn MD PCP - General 05/23/1991 08/21/24 Lee Odonnell PCP - General Internal Medicine 08/22/24 documented as of this encounter
--- OUTSIDE RECORDS SUMMARY | 2025-10-11 20:40 | XMS_ITS | Encounter Summary ---
Author Organization [facility] Address [address] [place] [address] Care Team Providers Care Air Purifier Servicer Name Role Phone Olga Dawn MD Primary Care Provider Lee Zapata Primary Care Provider Martine gabriel Encounter Details Date Type Department Care Team Description 09/08/2017 [facility] Medical Records [address] [place] [address] Abstract, Provider Social History Tobacco Use Types [...] documented as of this encounter Visit Diagnoses Not on filedocumented in this encounter Care Teams Air Purifier Servicer Relationship Specialty Start Date End Date Olga Dawn MD PCP - General 05/23/1991 08/21/24 Lee Odonnell PCP - General Internal Medicine 08/22/24 documented as of this encounter
--- OUTSIDE RECORDS SUMMARY | 2025-10-11 20:40 | XMS_ITS | Encounter Summary ---
Author Organization [facility] Address [address] [place] [address] Care Team Providers Care Upholstery Covers Inspector Name Role Phone Olga Dawn MD Primary Care Provider Lee Zapata Primary Care Provider Martine gabriel Encounter Details Date Type Department Care Team Description 05/03/2012 Float Builder Report Medical Records [address] [place] [address] Roxanne Daily MD [address] [place] [phone] Social History Tobacco Use Types Packs/Day Years Used Date Smoking Tobacco: Former Smokeless Tobacco: Never Alcohol Use Standard Drinks/Week Comments Yes 0.8 (1 standard drink = 0.6 oz p ure alcohol) less than 1 drink per week Sex Assigned at Date Recorded Not on file documented as of this encounter Plan of Treatment Not on file documented as of this encounter Visit Diagnoses Not on filedocumented in this encounter Care Teams Upholstery Covers Inspector Relationship Specialty Start Date End Date Olga Dawn MD PCP - General 05/23/1991 08/21/24 Lee Odonnell PCP - General Internal Medicine 08/22/24 documented as of this encounter
--- OUTSIDE RECORDS SUMMARY | 2025-10-11 20:40 | XMS_ITS | Encounter Summary ---
Author Organization [facility] Address [address] [place] [address] Care Team Providers Care Systems Support Engineer Name Role Phone Olga Dawn MD Primary Care Provider Lee Zapata Primary Care Provider Martine gabriel Encounter Details Date Type Department Care Team Description 11/09/2017 Tire Servicer Report Medical Records [address] [place] [id number] Clarisse Delgado Social History Tobacco Use Types Packs/Day Years [...] on filedocumented in this encounter Care Teams Systems Support Engineer Relationship Specialty Start Date End Date Olga Dawn MD PCP - General 05/23/1991 08/21/24 Lee Odonnell PCP - General Internal Medicine 08/22/24 documented as of this encounter
--- OUTSIDE RECORDS SUMMARY | 2025-10-11 20:40 | XMS_ITS | Encounter Summary ---
Author Organization [facility] Address [address] [place] [address] Care Team Providers Care Floral Artist Name Role Phone Olga Dawn MD Primary Care Provider Lee Zapata Primary Care Provider Unavaila ble Reason for Visit * Reason Onset Date Comments medication problems 01/31/2017 Encounter Details Date Type Department Care Team Description 01/31/2017 Refill Adult Urgent Care - [address] [address] Ines Araujo MD medication problems Social History Tobacco Use Types Packs/Day Years Used Date Smoking Tobacco: Former Cigarettes 0.3 5 Smokeless Tobacco: Never Alcohol Use Standard Drinks/Week Comments Yes 0.8 (1 standard drink = 0.6 oz p ure alcohol) less than 1 drink per week Sex Assigned at Date Recorded Not on file documented as of this encounter Miscellaneous Notes * Telephone Encounter - Caitlin KwonP.N. - 01/31/2017 2:55 PM EST Spoke to pharmacist, Cristel and she has gone through each active and inactive ingredient and there is no sulfa. She is not sure what the by-product is. States it just comes up as a warning that pt's allergic to Sulfa may have a reaction to this. [facility] is closed on Saturdays so she cannot speak to anyone there. States for the past 6 days this warning has been coming up on pt's with sulfa allergies. In any case, they do not have any substitute for this. She will fill this for the patient and warn her to d/c it if she develops any type of reaction. * Telephone Encounter - Ines Araujo MD - 01/31/2017 2:44 PM EST Guaifenesin and codeine have no relation to sulfa, furthermore patient has taken this medicaiton before without problems, what is the byproduct? * Telephone Encounter - Caitlin Trejo L.P.N. - 01/31/2017 2:36 PM EST Spoke to the pharmacist. She tells me that Cheratussin AC has some kind of by- product of sulfa and the patient has a sulfa allergy. She is asking if we can prescribe something else? * Telephone Encounter - Debbie Francois M.A. - 01/31/2017 2:36 PM EST Spoke with pharmacy, states medication is warning of drug allergy to sulfa. Please advise. * Telephone Encounter - Shalonda Jones - 01/31/2017 2:22 PM EST What is the name of the medication patient is having a problem with?: CODEINE- GUAIFENESIN (CHERATUSSIN AC) 100-10 MG/5ML Solution What is the problem?: DRUG ALLERGIES TO MEDICATION. Is the patient calling about the problem? NO If the patient is not the caller who is? THE PHARMACY Is this a NEW medication?: YES How long has the patient been taking this medication? TODAY Who prescribed this medication for the patient? DR ARAUJO Who is patients PCP?: Olga Dawn Payor: [facility] SELF FUNDED / Plan: HMO $20 ELVIN 1500 / Product Type: HMO [id number] documented in this encounter Plan of Treatment Not on file documented as of this encounter Visit Diagnoses Not on filedocumented in this encounter Care Teams Floral Artist Relationship Specialty Start Date End Date Olga Dawn MD PCP - General 05/23/1991 08/21/24 Lee Odonnell PCP - General Internal Medicine 08/22/24 documented as of this encounter
--- OUTSIDE RECORDS SUMMARY | 2025-10-11 20:40 | XMS_ITS | Encounter Summary ---
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
--- OUTSIDE RECORDS SUMMARY | 2025-10-11 20:41 | XMS_ITS | Clinical Summary ---
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 Rheumatoid arthritis ([facility] V24, [facility] V28) 06/13/2008 Carpal tunnel syndrome 03/17/2008 HTN (hypertension) 07/22/2006 Hypothyroidism 07/22/2006 Immunizations Immunization Administration Dates Next Due Influenza trivalent, with [...] [place] CARPAL TUNNEL RELEASE Right 09/08/12 PROCEDURE: PA NEUROPLASTY &/TRANSPOS MEDIAN NRV CARPAL TUNNE; COMMENT: open repair Dr Roxanne Daily NASAL SEPTUM SURG[facility] PROCEDURE: PA SEPTOPLASTY/SUBMUCOUS RESECJ W/WO CARTILAGE GRF; COMMENT: and [...] Nida born [birth year] [address] [facility] Daughter 2 Bri Alive Bri born [birth year] [address] [facility] accounting Father (Age 55) Bladder CA [...] Last Done Comments Breast Cancer Screening 1955 Zoster Vaccines (1 of 2) 2004 Cholesterol Screening (Lipid Panel) 10/21/2022 Falls Risk Assessment 10/21/2022 Osteoporosis Screening (Bone Density Screening) 10/21/2022 Social Influencers of Health Screening 10/21/2022 Hypertension/CHF/CAD Annual BMP Blood Test 11/07/2022 04/28/2012 Cervical Cancer Screening: HPV 07/12/2024 07/12/2019 Depression Screening 11/23/2024 COVID-19 Vaccine ( season) 2025 Influenza Vaccine (#1) 2025 09/29/2016, 2014 DTaP,Tdap,and [...] Results * Cervical Cancer Screening: HPV (07/12/2019) Cervical Cancer Screening: HPV NEGATIVE, ABSTRACTED [facility] Provider MD HEALTH MAINTENANCE Final Result * Colonoscopy (02/18/2019) Pathologist [facility] Colonoscopy NO INTERPRETATION , ABSTRACTED Anatomical Region Laterality Modality Other [facility] Provider HEALTH MAINTENANCE Final Result * Annual BMP Blood Test (04/28/2012) Annual BMP Blood Test ABSTRACTED [facility] Provider HEALTH MAINTENANCE Final Result * Hepatitis C Screening (08/26/2010) Pathologist [facility] Hepatitis C Screening ABSTRACTED [facility] Provider HEALTH MAINTENANCE Final Result from Last 3 Months or Most Recently Relevant to Health Maintenance Insurance [employer] [facility] Care Teams Water Engineer Relationship Specialty Start Date End Date Lee Odonnell MD [facility] [address] [place] [phone] [facility] - General 08/22/24
--- OUTSIDE RECORDS SUMMARY | 2025-10-11 20:41 | XMS_ITS | Encounter Summary ---
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
--- OUTSIDE RECORDS SUMMARY | 2025-10-11 20:41 | XMS_ITS | Data Portability ---
Author Organization [place] [facility] Address [address] [address] Care Team Providers Care Data Analysis Assistant Name Role Phone WAYNE MADHAV Primary Care Provider [phone] Assessment Encounter Date Assessment Date Assessment LastModified [...] quanti tative , serum, immuno assay 2023 jistein [facility] (Centralized Electronic Ordering - All Locations), Patient Can Go To The Location Of Their Choice, [address] 11:01:45 unlist ed lab - pneumo coccal Ab (23 seroty pe) 2023 MAULIK [facility] (Centralized Electronic Ordering - All Locations), Patient Can Go To The Location Of Their Choice, [id number] 12:02:03 unlist ed lab - tetanu s toxoid Ag respon se* 2023 [facility] - [facility] Locations), Patient Can Go To The Location Of Their Choice, [id number] 4 11:01:45 CBC w/ auto diff 2023 [place] [facility] - All Locations), Patient Can Go To The Location Of Their Choice, [address] 4 11:33:30 ige, total, serum 2023 [place] [facility] - All Locations), Patient Can Go To The Location Of Their Choice, [address] 21:54:05 immuno globul ins iga+ig g+igm, quanti tative , serum 2023 [facility] - All Locations), Patient Can Go To The Location Of Their Choice, [address] 10:13:59 igg subcla sses + total, serum 2023 [place] [facility] ([facility] - [facility] Locations), Patient Can Go To The Location Of Their Choice, [address] 4 11:30:38 Referral None record ed. Procedures [...] Organization Details Recorded Time Deviated nasal septum 628299248 Completed 201506/24/2024 Deviated nasal septum; Note: Date Diagnose d: 6 3:40 PM (J34.2) Not Available [facility] 02:21:31 Hypertro phy of nasal turbinat es 75252824 Completed 201506/24/2024 Hypertro phy of nasal turbinat es; Note: Date Diagnose d: 6 8:55 AM (J34.3) Not Available [facility] 4 02:21:44 Chronic sinusiti s 27250592 Active 2015 Sinusiti s (chronic ) involvin g more than one sinus but not pansinus itis; Note: Date Diagnose d: 6 7:34 AM (J32.8) Other chronic sinusiti s; Note: Date Diagnose d: 6 3:56 PM (J32.8) ; Start Date : 04/09/20 16 Not Available [facility] 4 02:21:52 Follow-u p visit Active 2015 Encounte r for follow-u p examinat ion after complete d treatmen t for conditio ns other than malignan t neoplasm ; Note: Date Diagnose d: 6 11:52 AM (Z09) Not Available [facility] 4 02:21:27 Recurren t acute sinusiti s 494654968 Active 2015 Other acute recurren t sinusiti s; Note: Date Diagnose d: 6 3:30 PM (J01.81) Not Available [facility] 4 02:21:39 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 Other specifie d immunode ficienci es; Note: Date Diagnose d: 09/11/20 16 1:00 PM (D84.8) Not Available [facility] 4 02:22:09 Chronic rhinitis 37470194 Active 2023 ADRIÁN RUTHERFORD MD [address] [place] [address], [place], [address] , [place] [facility] 4 11:46:05 Rheumato id arthriti s 55338857 Active 2023 ADRIÁN RUTHERFORD MD [address] [place] [address], [place], [address] , [facility] - [facility] 4 11:52:50 Problem Notes None recorded. Procedures Surgical History Date Name Laterality Status Provider Name and Address Organization Details Recorded Time 4 JMSNasal/Sinus Endoscopy-PRIO R surgical cavities completed ADRIÁN PHAN MD [address] [place] [address], [place], [address], [facility] - [facility] 09/05/2024 11:50:13 Carpal tunnel surgery completed Neo Ivey [facility] 09/05/2024 11:27:05 endoscopy completed Neosheila Ivey [facility] 09/05/2024 11:27:30 Imaging Results None recorded. Procedure Notes None recorded. Medical Equipment None Reported. Allergies Allergen ID Allergen Name Allergen Category Reaction Reaction Severity Criticality Documentation Date Start Date Code Code System Note Provider Name and Address Organization Details Recorded Time 44013 doxycycli ne Not available nausea Not available Not available 04/05/2024 3640 RxNorm React ion: vomit ing;; Not Available [facility] 00:51:39 99452 Bactrim medicatio n other Not available Not available 04/05/2024 44634 9 RxNorm React ion: unkno wn, unspe cifie d;; Not Available [facility] 4 00:51:44 79159 amoxicill in medicatio n other Not available Not available 04/05/2024 723 RxNorm React ion: unkno wn, unspe cifie d;; Not Available [facility] 4 00:51:48 32206 levofloxa louis medicatio n other Not available Not available 04/05/2024 08142 RxNorm React ion: unkno wn, unspe cifie d;; Not Available [facility] 4 00:51:51 50334 Substance with sulfonami de structure and antibacte rial mechanism of action (substanc e) medicatio n other Not available Not available 04/05/2024 37303 8003 SNOMED React ion: unkno wn, unspe cifie d;; Not Available [facility] 4 00:51:55 Medications Name Sig Start Date Stop Date Status Note LastModified by Organization Details LastModified Time levothyro xine 137 mcg tablet 09/05 completed Medicati on ID: [id number] D uration Value: 90 Brand Name: levothyr oxine Se nd Method: E-Prescr ibed Sub s Allowed: subs OK Medic ationGen ericName : levothyr oxine Not Available Not Available Not Available clindamyc in HCl 300 mg capsule 1 capsule by mouth 09/05 completed Medicati on ID: [id number] D uration Value: 14 Prescri bed By [...] by mouth 05/02 completed Medicati on ID: [id number] D uration Value: 21 Brand Name: Biaxin [...] by mouth 09/05 completed Medicati on ID: [id number] D uration Value: 5 Prescri bed By Name: Adrián pacheco M.D. Bra nd Name: tramadol Send Method: E-Prescr ibed Sub s Allowed: subs OK Medic ationGen ericName : tramadol Not Available Not Available Not Available levothyro xine 100 mcg tablet active Not Available Not Available Not Available Vitamin C 1,000 mg tablet 2015 active Medicati on ID: [id number] B rand Name: Vitamin C Send Method: E-Prescr ibed Sub s Allowed: subs OK Medic ationGen ericName : Vitamin C Not Available Not Available Not Available benzonata te 100 mg capsule active Not Available Not Available Not Available doxycycli ne monohydra te 100 mg capsule 1 capsule by mouth 09/05 completed Medicati on ID: [id number] D uration Value: 21 Prescri bed By [...] by mouth 09/05 completed Medicati on ID: [id number] D uration Value: 10 Prescri bed By Name: PENG Ware nd Name: Cipro Se nd Method: E-Prescr ibed Sub s Allowed: subs OK Medic ationGen ericName : Cipro Not Available Not Available Not Available diltiazem CD 120 mg capsule,e xtended release 24 hr active Not Available Not Available Not Available Culturell e 10 billion cell capsule 2015 active Medicati on ID: [id number] D uration Value: 30 Prescri bed By [...] by mouth 09/05 completed Medicati on ID: [id number] D uration Value: 14 Prescri bed By [...] mg tablet 2015 active Medicati on ID: [id number] B rand Name: naproxen Send Method: E-Prescr ibed Sub s Allowed: subs OK Medic ationGen ericName : naproxen Not Available Not Available Not Available levothyro xine 112 mcg tablet 09/05 completed Not Available Not Available Not Available prednison e 09/05 completed Medicati on ID: [id number] D uration Value: 10 Prescri bed By [...] ous kit 2015 active Medicati on ID: [id number] D uration Value: 28 Brand Name: Humira [...] spray,jenelle pension 09/05 completed Medicati on ID: [id number] D uration Value: 30 Brand Name: Flonase [...] Updated DateTime 09/05/2024 165.1 cm 25.6 kg/m2 20511.22 g Neo Ivey [place] [facility] 09/05/2024 11:23:51 Social History None recorded. [...] Diagnosis SNOMED-CT Code Diagnosis ICD10 Code Diagnosis IMO Codes Diagnosis Note [id number] ADRIÁN RUTHERFORD MD [facility] [address] [address] 09/05/2024 10:39:38 09/05/2024 11:54:33 Recurrent acute sinusitis 937869856 J01.91 Could be related to immune modulator but I have suggested an immunology workup. Patient works at [employer] and she will have the laboratory studies performed there and make sure I get the results. There is no evidence of any polyps or obstructio n to the previous surgical sites. Chronic rhinitis 7198582 6 J31.0 For management of upper respirator [...] symptoms after 7-10 days. Rheumatoid arthritis [phone] 95674 M06.9 Health Concerns Section Related Observation LastModified by Organization Detai ls LastModified Time None Recorded Concern Status LastModified by Organization Details LastModified Time None Recorded Advance Directives Directive None Recorded Payers Insurance Date Sequence Insurance Name Policy Number Policy Silva Covered Member ID Silva Member ID Guarantor Name 02/10/2025 1 [employer] [id number] ([facility]) [id number] Leandra Escalera [id number] Leandra Escalera Notes Date Note Type [...] nasal and then irrigations. ADRIÁN PHAN MD [address] [place] [address], [phone], [place] - [facility] 09/05/2024 11:53:19 OBGyn Episode No OBEpisode recorded.
--- OUTSIDE RECORDS SUMMARY | 2025-10-11 20:41 | XMS_ITS | Encounter Summary ---
Author Organization [facility] Address [address] [place] [address] Care Team Providers Care Floor Grinder Name Role Phone Olga Dawn MD Primary Care Provider Lee Zapata Primary Care Provider Martine gabriel Encounter Details Date Type Department Care Team Description 01/07/2013 [facility] [address] [place] [address] Edgar Wallace MD Social History Tobacco Use Types Packs/Day [...] on filedocumented in this encounter Care Teams Floor Grinder Relationship Specialty Start Date End Date Olga Dawn MD PCP - General 05/23/1991 08/21/24 Lee Odonnell PCP - General Internal Medicine 08/22/24 documented as of this encounter
--- OUTSIDE RECORDS SUMMARY | 2025-10-11 20:41 | XMS_ITS | Encounter Summary ---
Author Organization [facility] Address [address] [place] [address] Care Team Providers Care Home Insurance Agent Name Role Phone Olga Dawn MD Primary Care Provider Lee Zapata Primary Care Provider Martine gabriel Encounter Details Date Type Department Care Team Description 07/09/2010 Snake Charmer Report Medical Records [address] [place] [address] Clarisse Delgado MD Social History Tobacco Use Types Packs/Day Years Used Date Smoking Tobacco: Former Alcohol Use Standard Drinks/Week Comments Yes 0.8 (1 standard drink = 0.6 oz p ure alcohol) less than 1 drink per week Sex Assigned at Date Recorded Not on file documented as of this encounter Plan of Treatment Not on file documented as of this encounter Visit Diagnoses Not on filedocumented in this encounter Care Teams Home Insurance Agent Relationship Specialty Start Date End Date Olga Dawn MD PCP - General 05/23/1991 08/21/24 Lee Odonnell PCP - General Internal Medicine 08/22/24 documented as of this encounter
--- OUTSIDE RECORDS SUMMARY | 2025-10-11 20:41 | XMS_ITS | Encounter Summary ---
Author Organization [facility] Address [address] [place] [address] Care Team Providers Care Hair Blender Name Role Phone Olga Dawn MD Primary Care Provider Lee Zapata Primary Care Provider Martine gabriel Encounter Details Date Type Department Care Team Description 04/09/2010 Motor Teacher Report Medical Records [address] [place] [id number] Clarisse Delgado MD Social History Tobacco Use [...] on filedocumented in this encounter Care Teams Hair Blender Relationship Specialty Start Date End Date Olga Dawn MD PCP - General 05/23/1991 08/21/24 Lee Odonnell PCP - General Internal Medicine 08/22/24 documented as of this encounter
--- OUTSIDE RECORDS SUMMARY | 2025-10-11 20:41 | XMS_ITS | Encounter Summary ---
Author Organization [facility] Address [address] [place] [address] Care Team Providers Care Warehouse Shipping Supervisor Name Role Phone Olga Dawn MD Primary Care Provider Lee Zapata Primary Care Provider Martine gabriel Encounter Details Date Type Department Care Team Description 08/12/2018 Pt. Non Urgent [facility] [address] [address] Francisco Ravi MD Social History Tobacco Use Types Packs/Day Years Used Date Smoking Tobacco: Former Cigarettes 0.3 5 Smokeless Tobacco: Never Alcohol Use Standard Drinks/Week Comments Yes 0.8 (1 standard drink = 0.6 oz p ure alcohol) less than 1 drink per week Sex Assigned at Date Recorded Not on file documented as of this encounter Progress Notes * Heather Cantu R.N. - 08/12/2018 4:29 PM EDTFrom: Leandra Otooleoit To: Francisco Ravi MD Sent: 08/12/2018 4:07 PM EDT Subject: Pessary Just wanted to let you know that the pessary (#4) that was placed on Thursday did not work out for meagain. Within 24 hours it had slipped out of position. I was so uncomfortable yesterday that I ended up removing it. I have a follow up appointment scheduled with you on August 19. Please let me know if you still want me to keep it and try something else again. I'll admit I'm discouraged at this point. Leandra documented in this encounter Plan of Treatment Not on file documented as of this encounter Visit Diagnoses Not on filedocumented in this encounter Care Teams Warehouse Shipping Supervisor Relationship Specialty Start Date End Date Olga Dawn MD PCP - General 05/23/1991 08/21/24 Lee Odonnell PCP - General Internal Medicine 08/22/24 documented as of this encounter
--- OUTSIDE RECORDS SUMMARY | 2025-10-11 20:41 | XMS_ITS | Encounter Summary ---
Author Organization [facility] Address [address] [place] [address] Care Team Providers Care Shook Machine Operator Name Role Phone Olga Dawn MD Primary Care Provider Lee Zapata Primary Care Provider Martine gabriel Encounter Details Date Type Department Care Team Description 01/03/2019 Orders Only Medical Records [address] [place] [id number] Abstract, Provider Social History Tobacco Use Types [...] Date/Time Associated Diagnosis Comments OUTSIDE LAB Routine 12/04/2018 documented in this encounter Results * OUTSIDE LAB (12/04/2018) Provider Abstract LAB documented in this encounter Visit Diagnoses Not on filedocumented in this encounter Care Teams Shook Machine Operator Relationship Specialty Start Date End Date Olga Dawn MD PCP - General 05/23/1991 08/21/24 Lee Odonnell PCP - General Internal Medicine 08/22/24 documented as of this encounter
--- OUTSIDE RECORDS SUMMARY | 2025-10-11 20:41 | XMS_ITS | Encounter Summary ---
Author Organization [facility] Address [address] [place] [address] Care Team Providers Care Sleeve Separator Name Role Phone Olga Dawn MD Primary Care Provider Lee Zapata Primary Care Provider Martine gabriel Encounter Details Date Type Department Care Team Description 02/05/2015 Community Coordinator Report Medical Records [address] [place] [address] Clarisse Delgado MD Social History Tobacco Use [...] on filedocumented in this encounter Care Teams Sleeve Separator Relationship Specialty Start Date End Date Olga Dawn MD PCP - General 05/23/1991 08/21/24 Lee Odonnell PCP - General Internal Medicine 08/22/24 documented as of this encounter
--- OUTSIDE RECORDS SUMMARY | 2025-10-11 20:41 | XMS_ITS | Encounter Summary ---
Author Organization [facility] Address [address] [place] [address] Care Team Providers Care Vertical Mill Operator Name Role Phone Olga Dawn MD Primary Care Provider Lee Zapata Primary Care Provider Unavaila ble Reason for Visit * Reason Comments E-prescribe Rx Request Encounter Details Date Type Department Care Team Description 05/13/2019 Refill Adult Urgent Care - [address] [address] Marielena Alcala PA-C [address] [place] [address] E-prescribe Rx Request Social History Tobacco Use Types Packs/Day Years Used Date Smoking Tobacco: Former Cigarettes 0.3 5 Smokeless Tobacco: Never Alcohol Use Standard Drinks/Week Comments Yes 0.8 (1 standard drink = 0.6 oz p ure alcohol) less than 1 drink per week Sex Assigned at Date Recorded Not on file documented as of this encounter Miscellaneous Notes * Telephone Encounter - Billie Davis - 05/13/2019 9:46 AM EDT Please forward to correct pool. * Telephone Encounter - Ching Krishna - 05/13/2019 9:08 AM EDT Patient would like script to be: E-PRESCRIBED/FAXED TO PHARMACY WHEN WAS THE PATIENT'S LAST APPOINTMENT IN ADULT MEDICINE? 08/16/18 WHEN WAS THE LAST TIME THE PATIENT SAW THEIR PCP? Same as above Does patient have an upcoming appointment? Yes 08/23/19 (THE MEDICATION REQUESTED IS ON THE MED LIST ABOVE) All of the medications requested were on the CURRENT MEDS list Did you check the Pharmacy information above?: YES Patient wants: 30 -day supply Is this a mail order prescription request ? NO If the refill is from a FAXED refill request what is the RX # listed on the fax? N/A Patients current insurance carrier is: Payor: [employer] / Plan: PPO $20 ATTICA [id number] /Product Type: PPO [id number] documented in this encounter Plan of Treatment Not on file documented as of this encounter Visit Diagnoses Not on filedocumented in this encounter Care Teams Vertical Mill Operator Relationship Specialty Start Date End Date Olga Dawn MD PCP - General 05/23/1991 08/21/24 Lee Odonnell PCP - General Internal Medicine 08/22/24 documented as of this encounter
--- OUTSIDE RECORDS SUMMARY | 2025-10-11 20:41 | XMS_ITS | Encounter Summary ---
Author Organization [facility] Address [address] [place] [address] Care Team Providers Care Rubber Compounder Mixer Name Role Phone Olga Dawn MD Primary Care Provider Lee Zapata Primary Care Provider Martine gabriel Encounter Details Date Type Department Care Team Description 01/20/2014 Ferryboat Pilot Report Medical Records [address] [place] [address] Clarisse Delgado MD Social History Tobacco Use [...] on filedocumented in this encounter Care Teams Rubber Compounder Mixer Relationship Specialty Start Date End Date Olga Dawn MD PCP - General 05/23/1991 08/21/24 Lee Odonnell PCP - General Internal Medicine 08/22/24 documented as of this encounter
--- OUTSIDE RECORDS SUMMARY | 2025-10-11 20:41 | XMS_ITS | Encounter Summary ---
Author Organization [facility] Address [address] [place] [address] Care Team Providers Care Emergency Room Technician Name Role Phone Olga Dawn MD Primary Care Provider Lee Zaptaa Primary Care Provider Martine gabriel Encounter Details Date Type Department Care Team Description 01/04/2018 Chart Calculator Report Medical Records [address] [place] [address] Mago Odell Social History Tobacco Use Types Packs/Day Years [...] on filedocumented in this encounter Care Teams Emergency Room Technician Relationship Specialty Start Date End Date Olga Dawn MD PCP - General 05/23/1991 08/21/24 Lee Odonnell PCP - General Internal Medicine 08/22/24 documented as of this encounter
--- OUTSIDE RECORDS SUMMARY | 2025-10-11 20:41 | XMS_ITS | Encounter Summary ---
Author Organization [facility] Address [address] [place] [address] Care Team Providers Care Grinder Set Up Operator Internal Name Role Phone Olga Dawn MD Primary Care Provider Lee Zapata Primary Care Provider Colemana harvey Encounter Details Date Type Department Care Team Description 09/30/2019 Hearse Driver Report Medical Records [address] [place] [address] Naren Gerber MD Social History Tobacco Use Types Packs/Day [...] on filedocumented in this encounter Care Teams Grinder Set Up Operator Internal Relationship Specialty Start Date End Date Olga Dawn MD PCP - General 05/23/1991 08/21/24 Lee Odonnell PCP - General Internal Medicine 08/22/24 documented as of this encounter
--- OUTSIDE RECORDS SUMMARY | 2025-10-11 20:41 | XMS_ITS | Encounter Summary ---
Author Organization [facility] Address [address] [place] [address] Care Team Providers Care Business Excellence Manager Name Role Phone Olga Dawn MD Primary Care Provider Lee Zapata Primary Care Provider Unavaila ble Encounter Details Date Type Department Care Team Description 08/08/2010 Eye Farm Reporter Report Medical Records [address] [place] [address] Subhash Atwood Social History Tobacco Use Types Packs/Day Years [...] on filedocumented in this encounter Care Teams Business Excellence Manager Relationship Specialty Start Date End Date Olga Dawn MD PCP - General 05/23/1991 08/21/24 Lee Odonnell PCP - General Internal Medicine 08/22/24 documented as of this encounter
--- OUTSIDE RECORDS SUMMARY | 2025-10-11 20:41 | XMS_ITS | Encounter Summary ---
Author Organization [facility] Address [address] [place] [address] Care Team Providers Care Natural Resources Faculty Member Name Role Phone Olga Dawn MD Primary Care Provider Lee Zapata Primary Care Provider Unavaila ble Reason for Visit * Reason Onset Date Comments Precipitate Washer Feedback 08/27/2018 [facility] ( pelvic floor rehab) Encounter Details Date Type Department Care Team Description 08/27/2018 Telephone OBGYN - [address] [address] Yamil Mendez MD Precipitate Washer Feedback ([facility] (pelvic floor rehab)) Social History Tobacco Use Types Packs/Day Years Used Date Smoking Tobacco: Former Cigarettes 0.3 5 Smokeless Tobacco: Never Alcohol Use Standard Drinks/Week Comments Yes 0.8 (1 standard drink = 0.6 oz p ure alcohol) less than 1 drink per week Sex Assigned at Date Recorded Not on file documented as of this encounter Miscellaneous Notes * Telephone Encounter - Jessi Hauser - 08/27/2018 1:48 PM EDT [phone]. Notes, Order and Labs * Telephone Encounter - Cyndie Jonellejeramy - 08/27/2018 9:25 AM EDT Pt states she saw dr mendez and she is being referred to [facility] for pelvic floor therapy - she is seeing jorgito basurto - sep 23 for @ [address] [place] - they need her notes faxed over please fax to [phone] documented in this encounter Plan of Treatment Not on file documented as of this encounter Visit Diagnoses Not on filedocumented in this encounter Care Teams Natural Resources Faculty Member Relationship Specialty Start Date End Date Olga Dawn MD PCP - General 05/23/1991 08/21/24 Lee Odonnell PCP - General Internal Medicine 08/22/24 documented as of this encounter
--- OUTSIDE RECORDS SUMMARY | 2025-10-11 20:41 | XMS_ITS | Encounter Summary ---
Author Organization [facility] Address [address] [place] [address] Care Team Providers Care Electrical Linesworker Name Role Phone Olga Dawn MD Primary Care Provider Lee Zapata Primary Care Provider Martine gabriel Encounter Details Date Type Department Care Team Description 02/03/2020 Gum Remover Report Medical Records [address] [place] [address] Naren Gerber MD Social History Tobacco Use [...] on filedocumented in this encounter Care Teams Electrical Linesworker Relationship Specialty Start Date End Date Olga Dawn MD PCP - General 05/23/1991 08/21/24 Lee Odonnell PCP - General Internal Medicine 08/22/24 documented as of this encounter
--- OUTSIDE RECORDS SUMMARY | 2025-10-11 20:41 | XMS_ITS | Clinical Summary ---
Author Organization [facility] Address [address] [place] [address] Phone Care Team Providers Care Web Marketing Strategist Name Role Phone Lee Odonnell MD Primary [...] topically 2 (two) times a day. Active fluticasone furoate-vilant Jose Rafael (BREO ELLIPTA) 100-25 mcg/dose inhaler Inhale 1 puff into the lungs daily. 4 Active levothyroxine (SYNTHROID, LEVOTHROID) 100 MCG tablet Take 100 mcg by mouth every morning. 4 Active fluticasone propionate (FLONASE) 50 mcg/actuation nasal spray 1 spray by Nasal route as needed for rhinitis. Active XELJANZ XR 11 mg Tb24 tablet extended releaseIndicat ions:Seroposit ana rheumatoid arthritis TAKE ONE (1) TABLET BY MOUTH EVERY DAY 90 tablet 5 Active hydroxychloroq uine (PLAQUENIL) 200 mg tabletIndicati ons:Seropositi ve rheumatoid arthritis Take 1 tab twice daily M-F and 1 tab once daily Sa/Sun 5 Active methylPREDNISo lone (MEDROL DOSEPACK) 4 mg tabletIndicati ons:Rheumatoid arthritis involving multiple sites with positive rheumatoid factor follow package directions 21 tablet 3 10/03/20 25 Discontinu ed(No longer taking) hydroxychloroq uine (PLAQUENIL) 200 mg tabletIndicati ons:Rheumatoid arthritis involving multiple sites with positive rheumatoid factor TAKE TWO (2) TABLETS (400MG) BY MOUTH EVERY DAY 180 tablet 1 5 10/03/20 25 Discontinu ed(Reorder ) Active Problems Problem Noted Date Diagnosed Date Osteoporosis without current pathological fractu re 05/09/2025 Overview (05/09/2025): Follows with [facility] director of community services DEXA 12/2024 jorge T-score -2.9 left fem neck -2.4 left total hip -1.9 distal radius Zoledronic acid x1 c. 2021 -reports her director of community services's recommendation was for only 1 dose alendronate [...] more aggressive management as she reports her director of community services recommended. I personally would recommend an additional 2 doses of zoledronic acid to complete the typical 3 dose regimen, with follow-up DEXA in 3 to 5 years. She will revisit this with her established director of community services. Long-term current use of tofacitinib 05/09/2025 Overview (10/03/2025): Labs 04/2024: T spot negative; HBV serologies consistent with vaccination; HCV nonreactive Labs 06/2025 QuantiFERON-TB negative (outside lab) Assessment & Plan (10/03/2025 2:59 PM EST): No contraindication to continue tofacitinib; routine medication monitoring labs are due prior to next refill. Assessment & Plan (05/09/2025 2:18 PM EDT): No known contraindications to continue tofacitinib; routine drug monitoring labs every 3 to 4 months. QuantiFERON-TB with next routine blood work. Her primary care physician monitors her lipids. Long-term use of Plaquenil 05/09/2025 Overview (05/09/2025): 2008 to current; every 6 month VFT normal per patient report Assessment & Plan (10/03/2025 3:00 PM EST): Decrease dose from 400 mg twice daily to 400 mg Thursday through Thursday and 200 mg daily Thursday and Thursday to achieve average daily dose 4.8 mg/kg for decreased maculopathy risk. Assessment & Plan (05/09/2025 2:20 PM EDT): [...] Hydroxychloroquine 2007 to current Assessment & Plan (10/03/2025 2:58 PM EST): Persistently low disease activity on tofacitinib plus hydroxychloroquine. No current evidence of extra-articular disease or indication to adjust to therapeutic regimen. Assessment & Plan (05/09/2025 2:13 PM EDT): [...] she can have done at work at [employer]. Primary osteoarthritis involving multiple joints 06/05/2023 Assessment [...] she will have her labs drawn at [facility]. Encounters Date Type Department Care Team Description 10/03/2025 2:10 PM EST Office Visit [facility] [address] [place] [address] [place] [address] Stacey Heck MD, MPH Seropositive rheumatoid arthritis (Primary Dx); Long-term use of Plaquenil; Long-term current use of tofacitinib 08/28/2025 Refill [facility] [address] [place] [address] [place] [address] Stacey Heck MD, MPH Medication Refill 08/11/2025 Refill [facility] [address] [place] [address] [place] [address] Stacey Heck MD, MPH Medication Refill 07/27/2025 Refill [facility] [address] [place] [address] [place] [address] Stacey Heck MD, MPH Medication Refill from [...] Sign Reading Time Taken Comments Blood Pressure 140/82 10/03/2025 2:09 PM EST Pulse 66 10/03/2025 2:09 PM EST Temperature - - Respiratory Rate 16 06/01/2023 3:41 PM EDT Oxygen Saturation 99% 10/03/2025 2:09 PM EST Inhaled Oxygen Concentration - - Weight 71.7 kg (158 lb) 10/03/2025 2:09 PM EST Height 165.1 cm (5' 5 ) 05/09/2025 12:57 PM EDT Body Mass Index 26.29 05/09/2025 12:57 PM EDT Plan of Treatment Upcoming Encounters Date Type Department Care Team (Late st Contact Info) Description 02/01/2026 3:40 PM EDT Office Visit [facility] Rhe[facility] [address] [place] [address] [place] [address] Stacey Heck MD, MPH [address] [facility], [address] [place] [address] [email or web address] Health Maintenance Due Date Last Done Comments LIPID PANEL 1954 TSH LEVEL 1954 DEPRESSION SCREENING 1966 SMOKING Hx and SMOKELESS TOBACCO SCREENING 1967 HEPATITIS C SCREENING 1972 ZOSTER VACCINES (1 of 2) 1973 MAMMOGRAM 1994 COLOGUARD 1999 COLONOSCOPY 1999 COLORECTAL CANCER SCREENING 1999 FIT TEST 1999 FOBT 1999 SIGMOIDOSCOPY 1999 VIRTUAL COLONOSCOPY 1999 RSV VACCINE (1 - Risk 50-74 years 1-dose series) 2004 OSTEOPOROSIS SCREENING INITIAL (ONE-TIME) 2019 COVID-19 VACCINE ( season) 2025 09/14/2024, 12/29/2022, 04/18/2022, Additional history exists Adult Td,Tdap Booster 02/02/2028 02/01/2018 , 01/05/2008, 06/06/1999 INFLUENZA VACCINE Completed 09/07/2025, , 09/03/2023, Additional history exists PNEUMOCOCCAL VACCINES (50+ years) Completed 09/07/2025, 08/23/2019, 03/09/2017, Additional history exists HEPATITIS A VACCINES Aged Out No long er eligible based on patient's age to complete this topic HIB VACCINES Aged Out No longer eligi ble based on patient's age to complete this topic IPV VACCINES Aged Out No longer eligi ble based on patient's age to complete this topic MENINGOCOCCAL VACCINES (ACWY) Aged Out No longer eligible based on patient's age to complete this topic MENINGOCOCCAL VACCINES (B) Aged Out N o longer eligible based on patient's age to complete this topic Medical Devices Not on file Insurance [facility] [employer] Stream[employer] BENEFITS ADMINISTRAT[employer] Stream[employer] BENEFITS ADMINISTRAT[employer] Stream5 BENEFITS ADMINISTRATORS SKIPWITH ATG Access ADMINISTRATORS SKIPWITH ATG Access ADMINISTRATORS Care Teams Web Marketing Strategist Relationship Specialty Start Date End Date Lee Odonnell MD [address] [place] [address] PCP - General Family Medicine 05/20/23 Additional Source Comments The information contained in this document represents components of the legal health record. It is not the complete legal health record.[facility]
--- OUTSIDE RECORDS SUMMARY | 2025-10-11 20:41 | XMS_ITS | Patient Health Record ---
Author Organization [facility] Address [address] [place] [id number] Care Team Providers Care Research Test Engine Evaluator Name Role Phone MaciAdarsh reynaald Primary Care Provider Thom Aguirre Jr Unavailable [phone] Allergies Allergen (clinical drug ingredient) Drug/Non Drug Allergy documented on EMR Reaction Allergy Type Onset Date Status amoxicillin Amoxicillin Unknown Drug Allergy Act ana sulfamethoxazole / trimethoprim Bactrim Unknown Drug Allergy Active Biaxin Unknown Drug Allergy Active salsalate Salsalate Unknown Drug Allergy Active doxycycline Doxycycline Unknown Drug Allergy Act ana Reason For Referral No Information Medications Medication SIG (Take, Route, Frequency, Duration) Notes Start Date End Date Status Breo Ellipta 100-25 MCG/INH Aerosol Powder Breath Activated 1 puff Inhalation Once a day Active Duac Active Pantoprazole Sodium 40 MG Tablet Delayed Release 1 tablet Orally Once a day; Duration: 30 day(s) Active Vitamin C 1000 MG Tablet Chewable 1 tablet Orally Once a day Active Flonase 50 MCG/DOSE Inhaler 1 spray in e ach nostril Nasally Once a day; Duration: 30 day(s) Active Tazorac Active Citracal + D 250-200 MG-UNIT Tablet 1 tablet Orally daily Acti ve Naproxen 500 MG Tablet 1 tablet Orally prn Active Vitamin D 1000 UNIT Capsule 1 capsule Or ally Once a day Active dilTIAZem HCl 120 MG Tablet 1 tablet bef ore meals Orally Once a day Active Plaquenil 200 MG Tablet 2 tablet with fo od or milk Orally Once a day Active Xeljanz XR 11 MG Tablet Extended Release 24 Hour 1 tablet Orally Once a day; Duration: 30 day(s) Active Clenpiq 10-3.5-12 MG-GM -GM/175ML Solution 175 ml the first dose the evening before and second dose the morning of colonoscopy Orally Once a day; Duration: 2 day(s) 03/16/2024 Active Levothyroxine Sodium 112 MCG Tablet 1 tablet on an empty stomach in the morning Orally Once a day Active Immunizations Vaccine Route Administration Date Status Comme nts Influenza Unknown 10/13/2023 Administered Social History Tobacco Use: Social History Observation Description Date Details (start date - stop date) Never Smoker NA - NA Social History Drugs/Alcohol: Social Info Question Answer Notes Alcohol Screen Did you have a drink containing alcohol in the past year? Yes How often did you have a drink containing alcohol in the past year? 2 to 4 times a month (2 points) How many drinks did you have on a typical day when you were drinking in the past year? 1 or 2 drinks (0 point) How often did you have 6 or more drinks on one occasion in the past year? 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 [employer] Problems Problem Type SNOMED Code ICD Code Onset Dates Problem Status W/U Status Risk Notes Problem Colon cancer screening (401420754) Colon cancer screening (Z12.11) Active confirmed Problem Pre-procedure evaluation check (093136259) Encounter for other preprocedural examination (Z01.818) Active confirmed Problem intermediate current use of non-steroidal anti-inflammatory drug (776603490648307) Encounter for long-term (current) use of NSAIDs (Z79.1) Active confirmed Problem Benign neoplasm of stomach (99415056) Gastric polyps (K31.7) Active confirmed Problem Gastroesophageal reflux disease (234655362) Esophageal reflux disease (K21.9) Active confirmed Problem Gastroesophageal reflux disease (862145266) Gastroesophageal reflux disease, unspecified whether esophagitis present (K21.9) Active confirmed Problem FH: colon polyps (Z83.719) Active confirmed Plan Of Treatment Future Test Test Name Order Date COLONOSCOPY 07/30/2018 UPPER GI ENDOSCOPY 03/16/2024 COLONOSCOPY 03/16/2024 Insurance Providers Payer Name Payer Address Payer Phone Subscriber Number Group Number Insured Name Patient Relationship to Insured Coverage Start Date Coverage End Date [employer] ADMIN[employer] OF [place] [address] [address] [place] [address] [id number] [place] Self - patient is the insured Medical (General) History Medical History History ICD Code Hypothyroidism Asthma Hypertension Rheumatoid arthritis Leukopenia Gastroesophageal reflux disease Colonoscopy 02/08, lymphoid p olyp, five-year followup for family history of colon polyps. Surgical History Surgery Date(Month/Year) carpal tunnel release-right FESS-sinus
--- OUTSIDE RECORDS SUMMARY | 2025-10-11 20:41 | XMS_ITS | Encounter Summary ---
Author Organization [facility] Address [address] [place] [address] Care Team Providers Care Scaler Name Role Phone Olga Dawn MD Primary Care Provider Lee Zapata Primary Care Provider Martine gabriel Encounter Details Date Type Department Care Team Description 12/09/2013 Machine Group Leader Report Medical Records [address] [place] [address] Mack Rouse Social History Tobacco Use Types Packs/Day Years [...] on filedocumented in this encounter Care Teams Scaler Relationship Specialty Start Date End Date Olga Dawn MD PCP - General 05/23/1991 08/21/24 Lee Odonnell PCP - General Internal Medicine 08/22/24 documented as of this encounter
--- OUTSIDE RECORDS SUMMARY | 2025-10-11 20:41 | XMS_ITS | Encounter Summary ---
Author Organization [facility] Address [address] [place] [address] Care Team Providers Care Plate Shop Helper Name Role Phone Olga Dawn MD Primary Care Provider Lee Zapata Primary Care Provider Martine gabriel Encounter Details Date Type Department Care Team Description 08/13/2017 Subacute Nurse Report Medical Records [address] [place] [id number] Abstract, Provider Social History Tobacco Use Types [...] on filedocumented in this encounter Care Teams Plate Shop Helper Relationship Specialty Start Date End Date Olga Dawn MD PCP - General 05/23/1991 08/21/24 Lee Odonnell PCP - General Internal Medicine 08/22/24 documented as of this encounter
--- OUTSIDE RECORDS SUMMARY | 2025-10-11 20:41 | XMS_ITS | Encounter Summary ---
Author Organization [facility] Address [address] [place] [address] Care Team Providers Care Day Porter Name Role Phone Olga Dawn MD Primary Care Provider Lee Zapata Primary Care Provider Colemana harvey Encounter Details Date Type Department Care Team Description 06/08/2018 Broadcast Maintenance Engineer Report Medical Records [address] [place] [address] Clarisse Delgado MD Social History Tobacco Use [...] on filedocumented in this encounter Care Teams Day Porter Relationship Specialty Start Date End Date Olga Dawn MD PCP - General 05/23/1991 08/21/24 Lee Odonnell PCP - General Internal Medicine 08/22/24 documented as of this encounter
--- OUTSIDE RECORDS SUMMARY | 2025-10-11 20:42 | XMS_ITS | Encounter Summary ---
Author Organization [facility] Address [address] [place] [address] Care Team Providers Care Cco & President Name Role Phone Olga Dawn MD Primary Care Provider Lee Zapata Primary Care Provider Martine gabriel Encounter Details Date Type Department Care Team Description 06/08/2020 Underground Mine Machinery Mechanic Report Medical Records [address] [place] [address] Naren Gerber MD Social History Tobacco Use [...] on filedocumented in this encounter Care Teams Cco & President Relationship Specialty Start Date End Date Olga Dawn MD PCP - General 05/23/1991 08/21/24 Lee Odonnell PCP - General Internal Medicine 08/22/24 documented as of this encounter
--- OUTSIDE RECORDS SUMMARY | 2025-10-11 20:42 | XMS_ITS | Encounter Summary ---
Author Organization [facility] Address [address] [place] [address] Care Team Providers Care Kaitara Taraka Name Role Phone Olag Dawn MD Primary Care Provider eLe Zapata Primary Care Provider Martine gabriel Encounter Details Date Type Department Care Team Description 11/26/2010 Wine Sales Representative Report Medical Records [address] [place] [phone] Clarisse Delgado Social History Tobacco Use Types [...] on filedocumented in this encounter Care Teams Kaitara Taraka Relationship Specialty Start Date End Date Olga Dawn MD PCP - General 05/23/1991 08/21/24 Lee Odonnell PCP - General Internal Medicine 08/22/24 documented as of this encounter
--- OUTSIDE RECORDS SUMMARY | 2025-10-11 20:42 | XMS_ITS | Encounter Summary ---
Author Organization [facility] Address [address] [place] [address] Care Team Providers Care Adhesive Primer Name Role Phone Olga Dawn MD Primary Care Provider Lee Zapata Primary Care Provider Martine gabriel Encounter Details Date Type Department Care Team Description 05/12/2011 Decision Analyst Report Medical Records [address] [place] [phone] Clarisse Delgado MD Social History Tobacco Use [...] on filedocumented in this encounter Care Teams Adhesive Primer Relationship Specialty Start Date End Date Olga Dawn MD PCP - General 05/23/1991 08/21/24 Lee Odonnell PCP - General Internal Medicine 08/22/24 documented as of this encounter
--- OUTSIDE RECORDS SUMMARY | 2025-10-11 20:42 | XMS_ITS | Clinical Summary ---
Author Organization [facility] Address [address] [place] [address] Care Team Providers Care Environmental Services Tech Name Role Phone Lee Odonnell Primary Care Provider Unavaila ble Allergies Active Allergy Reactions Severity Noted Date Comments Ampicillin 02/25/2006 Na Lgltfzzy-Mwqunjjrevogxdrz-Yz imethoprim 02/25/2006 Clarithromycin Rash/Dermatitis 10/06/2016 Tightening in arms Doxycycline + [id number] 02/25/2006 Salsalate Hives/Urticaria 06/27/2011 Medications Medication Sig Dispensed Refills Start Date End Date Status DUAC 1-5 % EX GEL None Entered 0 Activ e TAZORAC 0.1 % EX GEL None Entered 0 Ac tive naproxen (NAPROSYN) 500 MG tablet Take 1 Tab by mouth 2 times daily (with meals). 60 Tab 0 10/13/2011 Active Calcium Carbonate-Vitamin D (CALCIUM + D OR) Take by mouth daily. 0 Active Ascorbic Acid (VITAMIN C) 500 MG tablet Take 500 mg by mouth daily. 0 Active Tofacitinib Citrate 11 MG TABLET SR 24 HR Take 1 Tab by mouth daily. 0 Active ALBUTEROL SULFATE (VENTOLIN HFA) 108 (90 BASE) MCG/ACT Aero Soln Inhale 2 Puffs into the lungs every 4 hours as needed for Cough or Wheezing. 1 Inhaler 5 06/02/2019 Active hydroxychloroquine (PLAQUENIL) 200 MG tablet Take 2 Tabs by mouth daily. 60 Tab 0 08/23/2019 Active diltiazem (CARTIA XT) 120 MG 24 hr capsule Take 1 Cap by mouth daily. 90 Cap 0 09/14/2020 Active levothyroxine 100 MCG tablet 0 06/15/2024 Active pantoprazole (PROTONIX) 40 MG tablet 0 08/16/2024 Active Fluticasone Furoate-Vilanterol 100-25 MCG/ACT AEROSOL POWDER,BREATH ACTIVATED Inhale into the lungs. 0 Active triamcinolone acetonide (KENALOG-40) 40 MG/ML injectionIndications: Trigger thumb, left thumb 1 mL by Other route once for 1 dose. 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 Carpal Tunnel Syndrome, s/p right open r epair 09/08/[address] Daily 03/17/2008 Hypothyroidism 07/22/2006 HTN (hypertension) 07/22/2006 Immunizations Name Administration Dates Next Due Influenza (> 6 Months) 09/29/2016,08/24/2015 Pneumoccoccal(Adult) Polysaccharide PPSV23 08/23,09/29/2014,03/22/2009 Pneumococcal Conjugate PCV-13 03/09/2017 TD (STATE SUPPLIED FOR ADULTS AND CHILDREN) 01/21,06/06/1999 Tdap 01/05/2008 Family History Medical History Relation Name Comments Other Dermatoloical Disorders Daughter 1 Nida EDC 11/18/19 healthy as of 08/2019 Daughter 2 Bri Cancer of the Bladder Father Stroke Mother age 91, 10 yrs after stroke CA Breast Negative Hx CA Colon Negative Hx CA Ovarian Negative Hx Relation Name Status Comments Brother Alive asthma, obese, Etoh, 6.5 yrs elder Daughter 1 Nida Alive Nida born [birth year] [address] of [facility] Daughter 2 Bri Alive Bri born [birth year] [address] [employer] accounting Father (Age 55) Bladder CA Mother (Age 91) Diabetes, HTN, Stroke, 2010 Social History Tobacco Use Types Packs/Day Years Used Date Smoking Tobacco: Former Cigarettes 0.3 5 Smokeless Tobacco: Never Tobacco Cessation:Counseling Given: Not Answered Alcohol Use Standard Drinks/Week Comments Yes 0.8 (1 standard drink = 0.6 oz p ure alcohol) less than 1 drink per week Sex Assigned at Date Recorded Not on file Last Filed Vital Signs Vital Sign Reading Time Taken Comments Blood Pressure 144/68 10/02/2022 3:47 PM EST Pulse 87 10/02/2022 3:47 PM EST Temperature 36.8 C (98.2 F) 01/16/2020 10:14 AM EST Respiratory Rate 16 01/16/2020 10:14 AM EST Oxygen Saturation 99% 05/31/2019 1:51 PM EDT Inhaled Oxygen Concentration - - Weight 68.9 kg (152 lb) 08/22/2024 8:48 AM EDT Height 165.1 cm (5' 5 ) 08/22/2024 8:48 AM EDT Body Mass Index 25.29 08/22/2024 8:48 AM EDT Plan of Treatment Health Maintenance Due Date Last Done Comments Covid-19 Vaccine (#1) 1955 SHINGLES VACCINE (1 of 2) 2004 CHOLESTEROL SCREENING 04/28/2017 04/28/2012 (External Completion) MAMMOGRAM 06/06/2020 06/06/2019, 04/23 (External Completion), 05/04/2018, Additional history exists BONE DENSITY SCREENING 01/01/2021 9 (External Completion), 12/23/2016, 12/16/2012, Additional history exists BMI CHECK/ADVISE 11/23/2024 04/02/2021, 11/2018, 07/12/2019, Additional history exists INFLUENZA (#1) 2025 09/29/2016 (Exte rnal Completion), 09/29/2016, 08/24/2015 (External Completion), Additional history exists DTAP/TDAP/TD (3 - Td or Tdap) 02/02/2028 02/01/2018, 01/05/2008, 06/06/1999 COLON CANCER SCREENING 02/18/2029 9, 12/15/2007 (External Completion) HEPATITIS C SCREENING Addressed 08/26/2010 (External Completion) Overridden with the intention of not completing the topic PNEUMOCOCCAL VACCINE Completed 08/23/2019, 03/09/2017, 09/29/2014, Additional history exists Care Teams Environmental Services Tech Relationship Specialty Start Date End Date Lee Odonnell PCP - General Internal Medicine 08/22/24
--- OUTSIDE RECORDS SUMMARY | 2025-10-11 20:42 | XMS_ITS | Encounter Summary ---
Author Organization [facility] Address [address] [place] [address] Care Team Providers Care Manager Grant Name Role Phone Olga Dawn MD Primary Care Provider Lee Zapata Primary Care Provider Martine gabriel Encounter Details Date Type Department Care Team Description 02/04/2020 Take Off Man Report Medical Records [address] [place] [phone] Mago Odell Social History Tobacco Use Types [...] on filedocumented in this encounter Care Teams Manager Grant Relationship Specialty Start Date End Date Olga Dawn MD PCP - General 05/23/1991 08/21/24 Lee Odonnell PCP - General Internal Medicine 08/22/24 documented as of this encounter
--- OUTSIDE RECORDS SUMMARY | 2025-10-11 20:42 | XMS_ITS | Encounter Summary ---
Author Organization [facility] Address [address] [place] [address] Care Team Providers Care Fly Rail Operator Name Role Phone Olga Dawn MD Primary Care Provider Lee Zapata Primary Care Provider Colemana harvey Encounter Details Date Type Department Care Team Description 05/12/2016 Rangelands Conservation Laborer Report Medical Records [address] [place] [phone] Clarisse Delgado MD Social History Tobacco Use [...] on filedocumented in this encounter Care Teams Fly Rail Operator Relationship Specialty Start Date End Date Olga Dawn MD PCP - General 05/23/1991 08/21/24 Lee Odonnell PCP - General Internal Medicine 08/22/24 documented as of this encounter
--- OUTSIDE RECORDS SUMMARY | 2025-10-11 20:42 | XMS_ITS | Encounter Summary ---
Author Organization [facility] Address [address] [place] [address] Care Team Providers Care Vein Pumper Name Role Phone Olga Dawn MD Primary Care Provider Lee Zapata Primary Care Provider Martine gabriel Encounter Details Date Type Department Care Team Description 10/01/2019 Old Medical Records Medical Records [address] [place] [address] Abstract, Provider Social History Tobacco Use Types [...] on filedocumented in this encounter Care Teams Vein Pumper Relationship Specialty Start Date End Date Olga Dawn MD PCP - General 05/23/1991 08/21/24 Lee Odonnell PCP - General Internal Medicine 08/22/24 documented as of this encounter
--- OUTSIDE RECORDS SUMMARY | 2025-10-11 20:42 | XMS_ITS | Encounter Summary ---
Author Organization [facility] Address [address] [place] [address] Care Team Providers Care Aerodynamic Consultant Name Role Phone Olga Dawn MD Primary Care Provider Lee Zapata Primary Care Provider Colemana ble Encounter Details Date Type Department Care Team Description 09/11/2016 Sound Engineer Audio Control Report Medical Records [address] [place] [address] Adrián Mendieta MD Social History Tobacco Use Types Packs/Day [...] on filedocumented in this encounter Care Teams Aerodynamic Consultant Relationship Specialty Start Date End Date Olga Dawn MD PCP - General 05/23/1991 08/21/24 Lee Odonnell PCP - General Internal Medicine 08/22/24 documented as of this encounter
--- OUTSIDE RECORDS SUMMARY | 2025-10-11 20:42 | XMS_ITS | Encounter Summary ---
Author Organization [facility] Address [address] [place] [address] Care Team Providers Care Custodial Laborer Name Role Phone Olga Dawn MD Primary Care Provider Lee Zapata Primary Care Provider Martine gabriel Encounter Details Date Type Department Care Team Description 10/28/2011 Document Reviewer Report Medical Records [address] [place] [id number] Clarisse Delgado MD Social History Tobacco Use [...] on filedocumented in this encounter Care Teams Custodial Laborer Relationship Specialty Start Date End Date Olga Dawn MD PCP - General 05/23/1991 08/21/24 Lee Odonnell PCP - General Internal Medicine 08/22/24 documented as of this encounter
--- OUTSIDE RECORDS SUMMARY | 2025-10-11 20:42 | XMS_ITS | Encounter Summary ---
Author Organization [facility] Address [address] [place] [address] Care Team Providers Care Phosphatic Fertilizer Supervisor Name Role Phone Olga Dawn MD Primary Care Provider Lee Zapata Primary Care Provider Colemana harvey Encounter Details Date Type Department Care Team Description 10/28/2016 Brick Layer Report Medical Records [address] [place] [address] Clarisse Delgado MD Social History Tobacco Use [...] on filedocumented in this encounter Care Teams Phosphatic Fertilizer Supervisor Relationship Specialty Start Date End Date Olga Dawn MD PCP - General 05/23/1991 08/21/24 Lee Odonnell PCP - General Internal Medicine 08/22/24 documented as of this encounter
--- OUTSIDE RECORDS SUMMARY | 2025-10-11 20:42 | XMS_ITS | Encounter Summary ---
Author Organization [facility] Address [address] [place] [address] Care Team Providers Care Clinical Nutrition Manager Name Role Phone Olga Dawn MD Primary Care Provider Lee Zapata Primary Care Provider Martine gabriel Encounter Details Date Type Department Care Team Description 01/30/2020 Admiralty Lawyer Report Medical Records [address] [place] [address] Mago Odell Social History Tobacco Use Types [...] on filedocumented in this encounter Care Teams Clinical Nutrition Manager Relationship Specialty Start Date End Date Olga Dawn MD PCP - General 05/23/1991 08/21/24 Lee Odonnell PCP - General Internal Medicine 08/22/24 documented as of this encounter
== END 2025-10-11 11:12 | disposition home or self-care (01) ==
LOC: HO.HOS 10:37
PROVIDERS: PCP Family Medicine; Visit Provider Physician Assistant
DX: M70.62 Trochanteric bursitis, left hip (principal)
CPT/HCPCS: 99203

== ENCOUNTER → 2025-10-11 10:38 | Outpatient (BNV) | payer OTHER, SELFPAY | PROVIDERS: Visit Provider Radiology Body Imaging | DX: M25.552 Pain in left hip (principal) | CPT/HCPCS: 73502 ==